=== PATIENT | male | born 1975 | race Caucasian/White ===

== ENCOUNTER → 2023-09-24 | Outpatient (CLI) | payer OTHER, SELFPAY ==
--- NOTE | 2023-09-24 08:32 | RAD_ITS ---
STUDY: X-RAY CHEST REASON FOR EXAM: Male, 48 years old. malaise, high BP, hx chemotherapy TECHNIQUE: PA and lateral views of the chest. COMPARISON: None. FINDINGS: The lungs are clear and expanded. There is no demonstrated pleural abnormality. Normal size heart. Normal mediastinum and sheri. Normal visualized pulmonary arteries. Normal visualized aortic arch and descending thoracic aorta. Normal visualized thoracic spine. Normal visualized ribs, clavicles, and shoulders. There is no demonstrated abnormality of the visualized soft tissue structures of the upper abdomen. RAD/Chest PA and Lateral IMPRESSION: Normal x-ray examination of the chest. Electronically Signed: Nilton Maldonado MD at 21:06 EST ,
[2023-09-24 08:57] LABS: Absolute Lymphocyte Count 1.96 X10^3/uL (0.83-4.51); Absolute Neutrophil Count 3.9 X10^3/uL (2.0-7.7); Basophil# 0.03 X10^3/uL; Basophil% 0.5 % (0-1); Eosinophils% 1.5 % (0-5); Hematocrit 46.1 % (40-54); Hemoglobin 15.2 g/dL (13.0-16.5); Lymphocyte # 1.96 X10^3/ul (0.83-4.51); Lymphocyte % 30.3 % (19-41); Mean Corpuscular Hgb 28.3 pg (27.0-32.0); Mean Corpuscular Volume 85.8 fL (80-94); Monocyte% 7.7 % (0-10); NRBC Flagged by Analyzer 0 % (0-5); Neutrophil # 3.86 X10^3/uL (2.7-7.7); Neutrophil % 59.7 % (47-70); Platelet Count 268 K/mm3 (150-450); RBC Distribution Width CV 11.9 % (11.6-14.6); Red Blood Count 5.37 M/mm3 (4.6-6.2); White Blood Count 6.5 K/mm3 (4.4-11.0)
[2023-09-24 10:04] LABS: ALB/GLOB Ratio 1.1 RATIO (0.9-2.4); AST(SGOT) 18 U/L (15-37); Alanine Aminotransfer ALT/SGPT 30 U/L (16-61); Albumin, Serum 3.7 g/dL (3.2-5.0); Alkaline Phosphatase 75 U/L (45-117); Anion Gap 4 (5-15); BUN 26 mg/dL (7-18); CRP 4.73 mg/L (0.0-3.0); CRP, High Sensitivity Cardiac 4.44 mg/L; Calcium,Total 8.9 mg/dL (8.5-10.1); Chloride 107 mmol/L (98-107); Cholesterol 224 mg/dL (200); Creatinine, Serum 1.24 mg/dL (0.70-1.30); EST Glomerular Filtration Rate 66 mL/min (>60); Est Glom Filt Rate - Afr Amer 80 mL/min (>60); Globulin 3.4 g/dL (2.2-4.2); Glucose 100 mg/dL (74-106); High Density Lipoprotein 33 mg/dL; Magnesium 2.4 mg/dL (1.6-2.6); Potassium 4.1 mmol/L (3.5-5.1); Protein, Total 7.1 g/dL (6.4-8.2); Sodium Level 139 mmol/L (136-145); Thyroid Stim Hormone (TSH) 0.67 uIU/mL (0.358-3.74); Triglycerides 125 mg/dL; Very Low Density Lipoprotein 25 mg/dL (5-40)
[2023-09-24 10:05] LABS: Microalbumin,Random Urine 16.4 mg/L (NO RANGE EST.)
[2023-09-26 12:08] LABS: ANTINUCLEAR ANTIBODIES DIRECT Negative (Negative)
[2023-09-27 00:07] LABS: Lyme IgG P18 Ab Absent (.); Lyme IgG P23 Ab Absent (.); Lyme IgG P28 Ab Absent (.); Lyme IgG P30 Ab Absent (.); Lyme IgG P39 Ab Absent (.); Lyme IgG P41 Ab Absent (.); Lyme IgG P45 Ab Absent (.); Lyme IgG P58 Ab Absent (.); Lyme IgG P66 Ab Absent (.); Lyme IgG P93 Ab Absent (.); Lyme IgG WB Interpretation Negative (.); Lyme IgM P23 Ab Absent (.); Lyme IgM P39 Ab Absent (.); Lyme IgM P41 Ab Absent (.); Lyme IgM WB Interpretation Negative (.); PROEL- A/G Ratio 1.2 (0.7-1.7); PROEL- Albumin 3.6 g/dL (2.9-4.4); PROEL- Alpha-1 Globulin 0.2 g/dL (0.0-0.4); PROEL- Alpha-2 Globulin 0.7 g/dL (0.4-1.0); PROEL- Gamma Globulin 0.8 g/dL (0.4-1.8); PROEL- Globulin, Total 2.9 g/dL (2.2-3.9); PROEL- TOTAL PROTEIN 6.5 g/dL (6.0-8.5); PROEL-M-Spike Not Observed g/dL (Not Observed)
== END | disposition home or self-care (01) ==
PROVIDERS: PCP Family Medicine; Referring Provider Family Medicine; Visit Provider Family Medicine
DX: R00.2 Palpitations (principal); I10 Essential (primary) hypertension; Z85.72 Personal history of non-Hodgkin lymphomas; R53.81 Other malaise
CPT/HCPCS: 36415; 71046; 80053; 80061; 82043; 82570; 83735; 84165; 84443; 85025; 86038; 86140; 86141; 86617; 86665

== ENCOUNTER → 2023-10-26 | Outpatient (CLI) | payer OTHER, SELFPAY ==
--- NOTE | 2023-10-26 12:52 | ECHOD_ITS ---
Reason For Study: HISTORY OF CHEMOTHERAPY Procedure This was a 2D Doppler, Color Flow transthoracic echocardiogram. Myocardial strain analysis was performed in this exam to aid in the assessment of cardiac function. Exam performed in department. Left Ventricle Normal LV size. Left ventricular systolic function is normal. The estimated ejection fraction is 60 %. No regional wall motion abnormalities noted. Right Ventricle Normal RV size. Normal systolic function. Atria Normal left atrium. Normal right atrium. Mitral Valve Normal mitral valve. Tricuspid Valve Normal tricuspid valve. Mild tricuspid valve insufficiency. Aortic Valve Normal aortic valve. Pulmonic Valve Normal pulmonic valve. Great Vessels Normal aortic root. The pulmonary artery is normal size. Normal inferior vena cava. Pericardium/Pleural No pericardial effusion. MMode/2D Measurements & Calculations LVIDd: 4.2 cm IVSd: 1.1 cm LVOT diam: 2.2 cm LVIDs: 2.6 cm LVPWd: 1.1 cm LVOT area: 3.9 cm2 RVDd: 4.2 cm FS: 37.2 % Ao root diam: 4.0 cm LAV(MOD-bp): 51.6 ml LVAd ap4: 36.7 cm2 LAV(MOD-bp) Indexed: 22.6 ml/m2 LVLd ap4: 8.2 cm LAV(MOD-sp2): 62.9 ml EDV(MOD-sp4): 132.0 ml LAV(MOD-sp4): 43.3 ml EDV(sp4-el): 139.2 ml LVAs ap4: 20.3 cm2 LVLs ap4: 7.1 cm ESV(MOD-sp4): 50.0 ml ESV(sp4-el): 49.5 ml EF(MOD-sp4): 62.1 % EF(sp4-el): 64.4 % LVAd ap2: 37.8 cm2 SV(MOD-sp4): 82.0 ml SV(MOD-sp2): 79.6 ml LVLd ap2: 8.9 cm EDV(MOD-sp2): 131.9 ml EDV(sp2-el): 135.7 ml LVAs ap2: 21.2 cm2 LVLs ap2: 7.1 cm ESV(MOD-sp2): 52.3 ml ESV(sp2-el): 53.8 ml EF(MOD-sp2): 60.4 % SV(sp4-el): 89.7 ml LA dimension(2D): 4.2 cm LA A4 area: 16.4 cm2 RA A4 area: 17.2 cm2 TAPSE: 2.1 cm Time Measurements MV dec time: 0.15 sec Doppler Measurements & Calculations MV E max kevin: 72.3 cm/sec Lat Peak E' Kevin: 15.0 cm/sec Med Peak E' Kevin: 11.4 cm/sec MV A max kevin: 61.9 cm/sec E/E' lat: 4.8 E/E' med: 6.3 MV E/A: 1.2 Ao V2 max: 154.1 cm/sec LV V1 max: 121.9 cm/sec MV dec slope: 482.4 cm/sec2 Ao max P.5 mmHg LV V1 max P.9 mmHg Ao V2 mean: 101.6 cm/sec LV V1 mean P.6 mmHg Ao mean P.9 mmHg LV V1 mean: 90.9 cm/sec Ao V2 VTI: 32.2 cm LV V1 VTI: 25.9 cm AV (velocity ratio): 0.81 JUAN(I,D): 3.1 cm2 JUAN(V,D): 3.1 cm2 SV(LVOT): 100.9 ml PA V2 max: 103.0 cm/sec TR max kevin: 186.2 cm/sec PA max PG (full): 0.82 mmHg TR max P.9 mmHg ECHO/Echo Complete Interpretation Summary Normal LV size. Left ventricular systolic function is normal. The estimated ejection fraction is 60 %. The global longitudinal strain is normal. The global longitudinal strain = -17. 8 % (normal). Ordering Physician: Dean Peterson Referring Physician: Dean Peterson Performed By: Alba Bello RDCS
== END | disposition home or self-care (01) ==
LOC: CVS 12:52
PROVIDERS: PCP Family Medicine; Referring Provider Family Medicine; Visit Provider Family Medicine
DX: Z92.21 Personal history of antineoplastic chemotherapy (principal)
CPT/HCPCS: 93306

== ENCOUNTER 2024-08-15 07:30 | Outpatient (RCR) | payer OTHER, SELFPAY ==
--- NOTE | 2024-11-23 12:19 | HP.PT.NRP ---
Patient Information Patient Information: LORA BAILEY was seen in my office for initial evaluation on 07/20/24. The following Plan of Care was established for this patient: POC Established Initial Frequency: 2x /Week Initial Duration: 4 Weeks Anticipated Interventions Patient/Client Instruction: Educate patient on: Plan of Care Therapeutic Exercise to Include: Strength training, Body mechanics, Postural training, Dynamic Lumbar Stabilization and Scapular Strength/Stabilization For the Purpose of:: To decrease pain, To increase ROM, To improve muscle performance and motor function, To improve ability to perform ADL's and To improve ability of physical actions for home/community/work/leisure Last Seen Last Seen: This patient was last seen in our office . Pertinent comments regarding their Physical therapy will appear below: Pt has not returned through todays date for 30 days and is discontinued at this time. At this point I will be discontinuing this patient from physical therapy. I would be happy to see this patient again in the future if found appropriate by the physician. Thank you! Luis Enrique Clarke, PT, ATC Balance/Gait/Functional tests Balance/Special Test Scores Quick DASH Score: [phone]
== END 2024-08-15 19:00 | disposition home or self-care (01) ==
LOC: PT 07:30
PROVIDERS: PCP Family Medicine; Referring Provider Family Medicine; Visit Provider Family Medicine
DX: M25.511 Pain in right shoulder (principal); M25.512 Pain in left shoulder
CPT/HCPCS: 97110; 97161; 97530

== ENCOUNTER 2024-09-07 15:53 | Inpatient (IN) | payer OTHER, SELFPAY ==
[2024-09-07 15:55] VITALS: BP 149/112; PULSE 75; RESP 18; TEMP 35.9; O2SAT 99; BMI 32.8
--- NOTE | 2024-09-07 16:51 | CT_ITS ---
We are attempting to reach an attending provider to discuss findings. An addendum with communication details will be sent when the communication is complete. STUDY: CT ABDOMEN AND PELVIS WITH CONTRAST REASON FOR EXAM: Male, 49 years old. abd pain, hx of SBO RADIATION DOSAGE (If Supplied By Facility): CTDIvol = ( 16.08 ) mGy, DLP = ( 1324.85 ) mGycm TECHNIQUE: Transaxial images were obtained from the dome of the diaphragm to the symphysis pubis without oral contrast. IV 100mL Isovue-300 was administered. Sagittal and coronal images were reconstructed. Individualized dose optimization techniques were used for this CT. COMPARISON: September 03, 2013 FINDINGS: Mild bibasilar interstitial thickening. The visualized portions of the heart are within normal limits. No coronary artery calcification is observed Normal liver. Normal gallbladder and extrahepatic biliary system. Normal spleen. Normal pancreas. Normal bilateral adrenal glands. Normal right kidney. Small simple cyst in left kidney which will not require additional imaging Normal visualized stomach. There are postsurgical changes status post small bowel resection in left upper to mid abdomen. At the surgical site, there are mildly distended thick walled loops of bowel one of which appears to be adherent to the anterior abdominal wall with subtle stranding in the fat and decompressed loops distally suggesting partial small bowel obstruction likely due to adhesions.. Mild diverticular changes of the distal descending and sigmoid colon without evidence for acute diverticulitis. No evidence for acute appendicitis. Normal abdominal aorta. Normal inferior vena cava. Normal retroperitoneum. Normal urinary bladder. Trace of fluid in the pouch of Regis Small bilateral fat-containing inguinal hernias. Lumbar spine demonstrates mild spondylosis. CT/Abdomen/Pelvis W IV Cont ONLY IMPRESSION: Findings suspicious for small bowel obstruction at surgical site likely due to adhesions. Possibility of evolving changes of ischemic bowel not entirely excluded. Clinical correlation recommended Electronically Signed: Clyde Rowley MD at 17:52 EST ,
[2024-09-07 17:02] LABS: Absolute Lymphocyte Count 2.26 X10^3/uL (0.83-4.51); Absolute Neutrophil Count 6.5 X10^3/uL (2.0-7.7); Basophil# 0.04 X10^3/uL; Basophil% 0.4 % (0-1); Eosinophil# 0.09 X10^3/uL; Eosinophils% 0.9 % (0-5); Hematocrit 47.1 % (40-54); Hemoglobin 15.9 g/dL (13.0-16.5); Lymphocyte # 2.26 X10^3/ul (0.83-4.51); Lymphocyte % 22.9 % (19-41); Mean Corp Hgb Conc 33.8 g/dL (32-36); Mean Corpuscular Hgb 29.1 pg (27.0-32.0); Mean Corpuscular Volume 86.1 fL (80-94); Mean Platelet Vol. 10.7 fl (6.2-12.0); Monocyte# 0.97 X10^3/uL; Monocyte% 9.8 % (0-10); NRBC Flagged by Analyzer 0 % (0-5); Neutrophil % 65.8 % (47-70); Platelet Count 258 K/mm3 (150-450); RBC Distribution Width SD 37.8 fl (35.1-43.9); Red Blood Count 5.47 M/mm3 (4.6-6.2); White Blood Count 9.9 K/mm3 (4.4-11.0)
[2024-09-07 17:22] LABS: ALB/GLOB Ratio 1.3 RATIO (0.9-2.4); AST(SGOT) 14 U/L (15-37); Alanine Aminotransfer ALT/SGPT 29 U/L (16-61); Alkaline Phosphatase 70 U/L (45-117); Anion Gap 4 (5-15); BUN 27 mg/dL (7-18); BUN/Creat Ratio 21.6 RATIO (10-20); Calcium,Total 9.2 mg/dL (8.5-10.1); Chloride 108 mmol/L (98-107); Creatinine, Serum 1.25 mg/dL (0.70-1.30); EST Glomerular Filtration Rate 66 mL/min (>60); Est Glom Filt Rate - Afr Amer 79 mL/min (>60); Estimated Creatinine Clearance 95.22 ml/min; Globulin 3.1 g/dL (2.2-4.2); Glucose 103 mg/dL (74-106); Lipase 41 U/L (13-75); Protein, Total 7.1 g/dL (6.4-8.2); Sodium Level 139 mmol/L (136-145)
--- NOTE | 2024-09-07 17:28 | EDS_ITS ---
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 Patient states he started feeling uncomfortable yesterday. States it comes in waves. Is associate nausea. Pain seems to be centered in his left mid abdomen. Today the pain has been more intense and he states he is having higher peaks of the pain. He tried to eat lunch today of salad and rice and after that the pain became significantly worse. He notes that has been burping a lot does not been passing gas today. He did have a underwhelming bowel movement this morning that was much less than he normally would have. He states his initial bowel resection was in 1992. He did have an episode of a small bowel obstruction that was treated conservatively by Dr. English in 2012. He notes that has been urinating less but thinks he is dehydrated since he is not really been drinking or eating today. Denies any fever. No other complaints or concerns at this time [facility] Medical History Cancer of abdomen Bowel obstruction Home Medications ?Medication ?Instructions ?Recorded ?Last Taken ?Type esomeprazole magnesium 20 mg 20 mg PO DAILY GERD 09/07/24 Unknown History capsule,delayed release (Nexium) metoprolol succinate 25 mg 25 mg PO DAILY 09/07/24 Unknown History tablet,extended release 24 hr telmisartan 40 mg tablet 40 mg PO DAILY 09/07/24 Unknown History Allergy/AdvReac Type Severity Reaction Status Date / Time No Known Allergies Allergy Verified 09/07/24 15:55 Surgical History Hx of resection of small bowel Social History Smoking Status: Never smoker ROS ROS ED Constitutional Constitutional ED: Denies chills or fever(s) Gastrointestinal Gastrointestinal: Reports abdominal pain and nausea Musculoskeletal Musculoskeletal: Denies arthralgias or myalgias Integumentary Denies rash Neurologic Neurologic: Denies weakness Hematologic/Lymphatic Hematologic/Lymphatic: Denies easy bleeding or easy bruising EXAM Physical Exam Const Vital Signs: 09/07/24 15:55 09/07/24 17:54 09/07/24 19:00 Temperature 96.7 F L Temperature Source Temporal Pulse Rate 75 95 67 Respiratory Rate 18 16 15 Blood Pressure 149/112 H 132/75 H 157/94 H Blood Pressure Mean 124 94 115 Pulse Ox 99 96 95 Oxygen Delivery Method Room Air Room Air Room Air Positive well nourished and well developed General Appearance ED: well developed and NAD HEENT Reports moist mucous membranes normocephalic and atraumatic Neck supple Resp clear to auscultation bilaterally Cardio regular rate and regular rhythm GI non-distended Auscultation: hyperactive bowel sounds Palpation: soft, tender other (Left mid abdomen) and rebound tenderness present; Negative for guarding or rigid Back/Spine no CVA tenderness Extremity full ROM General Extremety ED: Negative for edema General Extremity: Negative for edema Neuro Sensorium / Orientation: alert, oriented to person, oriented to place and oriented to time Motor Exam: Negative for general weakness Psych mental status grossly normal and thought process normal Skin no wounds MDM MDM MDM Narrative Medical decision making narrative: Patient's evaluated for abdominal pain for 2 days associated nausea. Does have a history of small bowel obstruction that was treated nonoperatively and prior small bowel resection from Burkitt's lymphoma. Differential includes gastroenteritis, pancreatitis, small bowel obstruction, ileus and SHANNON Patient initially is given IV morphine, fluids and Zofran for symptoms in the emergency room. CBC, CMP, and lipase are all normal. CT of the abdomen and pelvis is suspicious for small bowel obstruction at surgical site likely due to adhesions and there is also possibility of evolving changes of ischemic bowel not entirely excluded. Lactate is added on because of this finding. Surgical consult obtained and I spoke with Dr. Arroyo. He evaluated the patient. NG tube will be placed. He admit the patient to his service. Given the lactate is normal as well as his white blood cell count and vital signs lower suspicion for acute ischemia at this time. Lab Data Attestation: I reviewed the patient's lab results. Labs: Laboratory Results - last 24 hr 09/07/24 09/07/24 16:37 18:02 WBC 9.9 RBC 5.47 Hgb 15.9 Hct 47.1 MCV 86.1 MCH 29.1 MCHC 33.8 RDW Std Deviation 37.8 RDW Coeff of [place]ana 12.0 Plt Count 258 MPV 10.7 Immature Gran % (Auto) 0.200 Neut % (Auto) 65.8 Lymph % (Auto) 22.9 [place] % (Auto) 9.8 Eos % (Auto) 0.9 Baso % (Auto) 0.4 Absolute Neuts (auto) 6.5 Absolute Lymphs (auto) 2.26 Nucleated RBC % 0 Sodium 139 Potassium 4.0 Chloride 108 H Carbon Dioxide 27.0 Anion Gap 4 L BUN 27 H Creatinine 1.25 Estim Creat Clear Calc 95.22 Est GFR (MDRD) Af Amer 79 Est GFR (MDRD) Non-Af 66 BUN/Creatinine Ratio 21.6 H Glucose 103 Lactic Acid 0.6 Calcium 9.2 Total Bilirubin 0.90 AST 14 L ALT 29 Alkaline Phosphatase 70 Total Protein 7.1 Albumin 4.0 Globulin 3.1 Albumin/Globulin Ratio 1.3 Lipase 41 Radiography Diagnostic Testing: Clinical Impression(s) from Imaging Studies Abdomen/Pelvis CT 09/07/24 16:51 IMPRESSION: Findings suspicious for small bowel obstruction at surgical site likely due to adhesions. Possibility of evolving changes of ischemic bowel not entirely excluded. Clinical correlation recommended Electronically Signed: Clyde Rowley MD at 17:52 EST , ADDENDUM: 09/07/24 1808 IMPRESSION: Findings suspicious for small bowel obstruction at surgical site likely due to adhesions. Possibility of evolving changes of ischemic bowel not entirely excluded. Clinical correlation recommended N.B. : The above Results were Read Back by Clyde Rowley MD to Joy Marie DO, and understanding confirmed on 09/07/2024 18:01:08 (ET). Electronically Signed: Clyde Rowley MD at 17:52 EST , Discharge Plan Dx/Rx/DC Orders Clinical Impression: Partial small bowel obstruction Disposition Disposition: Acute Care Hospital [facility] Discharge Date/Time: 09/07/24 20:24
[2024-09-07] MEDS: 0.9% Normal Saline (1000mL) 1,000 ML 1000 ML IV (17:34)
[2024-09-07] MEDS: Ondansetron 4 MG/2 ML Vial IV ×2 (17:35→19:54)
[2024-09-07] MEDS: morphine 8 MG/ML Syringe IV (17:36)
[2024-09-07 17:54] VITALS: BP 132/75; PULSE 95; RESP 16; O2SAT 96
[2024-09-07 18:47] LABS: Lactic Acid 0.6 mmol/L (0.4-1.9)
[2024-09-07 19:00] VITALS: BP 157/94; PULSE 67; RESP 15; O2SAT 95
--- NOTE | 2024-09-07 19:37 | RAD_ITS ---
STUDY: X-RAY - ABDOMEN/PELVIS REASON FOR EXAM: Male, 49 years old. NG Insertion TECHNIQUE: KUB COMPARISON: None. FINDINGS: Normal visualized lung bases. There is an unremarkable bowel gas pattern. There is no demonstrated free abdominal air. The visualized liver, spleen and kidneys are grossly normal in size and morphology. NG tube has been placed with tip in the mid to distal gastric fundus Normal soft tissue structures. Normal visualized osseous structures. RAD/Abdomen Single View (Portable) IMPRESSION: NG tube placement with tip in mid to distal gastric fundus. Electronically Signed: Clyde Rowley MD at 20:03 EST ,
--- NOTE | 2024-09-07 19:43 | PCM.HP.STD ---
[facility] - General General Date of Admission: 09/07/24 Chief Complaint: Acute onset abdominal pain associated with intractable nausea HPI Narrative LORA COSTA, is a 49 M who presents yesterday to [facility] with complaints of acute onset abdominal pain that began and has been progressive in its intensity he notes that the pain is focused over a small area in the left side of his abdomen and feels hot. He goes on to mention that he developed significant nausea and burping throughout today which is highly uncharacteristic for him. He does share that he had a bowel movement this morning but comments that this was not his regular and goes on to describe that it was both unformed and smaller volume than he normally experiences. Since that time he mentions that he has not had any passage of gas. Patient's ER workup is notable for normal laboratories, including a lactic acid, but CT imaging of the abdomen pelvis showed possible partial small bowel obstruction with other findings suggestive to radiology for possible ischemia and possible involvement by adhesions. Patient has a history of non-Hodgkin's B-cell lymphoma at the age of 17 which required first a surgical biopsy followed by exploratory laparotomy with small bowel resection in 1992. Patient states that his operation was undertaken at [facility]. He states that from -2012 he really had no significant GI difficulties but then in 2012 developed severe abdominal pain and presented to [facility] where he was managed with conservative bowel rest by Dr. English for a period of a few days. Now for the last 11 years Mr. Costa states he has been overall well but questions whether or not some recent travel may be part of the onset of his presentation today as his episode in 2012 was preceded by some recent travel to [place] at that time. He also notes that he recently completed a colonoscopy with Dr. Mcdowell of gastroenterology on 08/16/2024. His adds that he required a second bowel prep as Sutab's did not have their desired effect and he ultimately required magnesium citrate for the cleanout. He confirms that the findings of this endoscopy were entirely negative. [facility] Medical History Cancer of abdomen Bowel obstruction Home Medications ?Medication ?Instructions ?Recorded ?Last Taken ?Type metoprolol succinate 25 mg 25 mg PO DAILY 09/07/24 Unknown History tablet,extended release 24 hr telmisartan 40 mg tablet 40 mg PO DAILY 09/07/24 Unknown History Allergy/AdvReac Type Severity Reaction Status Date / Time No Known Allergies Allergy Verified 09/07/24 15:55 Surgical History Hx of resection of small bowel Social History Smoking Status: Never smoker Vital Signs Vital Signs Vital Signs: 09/07/24 15:55 09/07/24 17:54 09/07/24 19:00 Temperature 96.7 F L Temperature Source Temporal Pulse Rate 75 95 67 Respiratory Rate 18 16 15 Blood Pressure 149/112 H 132/75 H 157/94 H Blood Pressure Mean 124 94 115 Pulse Ox 99 96 95 Oxygen Delivery Method Room Air Room Air Room Air Weight Weight: 249 lb 3.2 oz Body Mass Index (BMI) 32.8 Physical Exam Const alert Constitutional Narrative: Mild distress from abdominal discomfort General Appearance: cooperative and well developed Resp normal respiratory effort GI GI Narrative: Evidence of prior exploratory laparotomy with well-healed incision. No evidence of herniation. Mildly distended, soft, focally tender to palpation in the left midabdomen and palpation of the right mid abdomen generates mild tenderness on the left. Results Lab / Micro Data 09/07/24 16:37 09/07/24 16:37 Labs: Laboratory Results - last 24 hr 09/07/24 16:37: WBC 9.9, RBC 5.47, Hgb 15.9, Hct 47.1, MCV 86.1, MCH 29.1, MCHC 33.8, RDW Std Deviation 37.8, RDW Coeff of Rossana 12.0, Plt Count 258, MPV 10.7, Immature Gran % (Auto) 0.200, Neut % (Auto) 65.8, Lymph % (Auto) 22.9, [place] % (Auto) 9.8, Eos % (Auto) 0.9, Baso % (Auto) 0.4, Absolute Neuts (auto) 6.5, Absolute Lymphs (auto) 2.26, Nucleated RBC % 0, Sodium 139, Potassium 4.0, Chloride 108 H, Carbon Dioxide 27.0, Anion Gap 4 L, BUN 27 H, Creatinine 1.25, Estim Creat Clear Calc 95.22, Est GFR (MDRD) Af Amer 79, Est GFR (MDRD) Non-Af 66, BUN/Creatinine Ratio 21.6 H, Glucose 103, Calcium 9.2, Total Bilirubin 0.90, AST 14 L, ALT 29, Alkaline Phosphatase 70, Total Protein 7.1, Albumin 4.0, Globulin 3.1, Albumin/Globulin Ratio 1.3, Lipase 41 09/07/24 18:02: Lactic Acid 0.6 Imaging Radiology Impression Abdomen/Pelvis CT 09/07/24 16:51 IMPRESSION: Findings suspicious for small bowel obstruction at surgical site likely due to adhesions. Possibility of evolving changes of ischemic bowel not entirely excluded. Clinical correlation recommended Electronically Signed: Clyde Rowley MD at 17:52 EST , ADDENDUM: 09/07/24 1808 IMPRESSION: Findings suspicious for small bowel obstruction at surgical site likely due to adhesions. Possibility of evolving changes of ischemic bowel not entirely excluded. Clinical correlation recommended N.B. : The above Results were Read Back by Clyde Rowley MD to Joy Marie DO, and understanding confirmed on 09/07/2024 18:01:08 (ET). Electronically Signed: Clyde Rowley MD at 17:52 EST , Assessment & Plan Assessment/Plan (1) Partial small bowel obstruction: PLAN: Patient is a 49-year-old male with history of small bowel resection for non-Hodgkin's B-cell lymphoma in 1992 as well as a history of 1 prior partial small bowel obstruction in 2013 who presents today with approximately 24-hour history of acute onset abdominal pain with progressive intensity and associated nausea/obstructive GI symptoms. Laboratories and vital signs are largely unremarkable but CT imaging does show evidence of segmental thickening and stranding/dilation of the jejunum apparently proximal to patient's prior enteroenterostomy in the left mid abdomen. Radiology impression is concerning for possible developing partial small bowel obstruction with involvement by adhesions and ischemia cannot be excluded. Additionally, I informed both emergency medicine and patient that this could represent segmental enteritis, but for its proximity to patient's anastomosis I do believe the radiology impression is more likely. I held a lengthy conversation with the patient and his spouse regarding conservative management of small bowel obstructions and included in this discussion and review of his imaging. Notably, patient's imaging from this presentation appears markedly better than his presentation in 2013 and so I am hopeful that he will respond similarly now 11 years later. For the initiation of conservative bowel rest I have asked for emergency department to place a nasogastric tube and confirm placement with a KUB. Thereafter patient is to be admitted to the [facility] floor with aspiration precautions and IV fluid resuscitation. Will plan to reevaluate in the a.m. but tentatively plan for Gastrografin small bowel follow-through. Patient and his had all their questions answered to their satisfaction and expressed appreciation for the time of discussion. Louie Arroyo MD General Surgery Endocrine Surgery Pager: [facility] [address] [place] [address], [facility], [address] [place] [address] Office: [phone] Charges/Coding Visit Charges Inpatient E&M: 42430 Init Hosp L2
[2024-09-07] MEDS: 0.9% Normal Saline (1000mL) 1,000 ML 999 ML IV (19:54)
[2024-09-07 20:02] VITALS: BP 114/79; PULSE 63; RESP 16; TEMP 36.9; O2SAT 96
[2024-09-07 20:22] LABS: Bedside Glucose 124 mg/dL (74-106)
[2024-09-07] MEDS: Lactated Ringers 1,000 ML 125 ML IV (20:59)
[2024-09-07 21:00] VITALS: O2SAT 90; BMI 34.0
[2024-09-07 21:09] VITALS: BP 136/92; PULSE 64; RESP 16; TEMP 36.6; O2SAT 98
[2024-09-07] MEDS: HYDROmorphone 0.5 MG/0.5 ML SYRINGE IV (21:28)
[2024-09-07] MEDS: Phenol/Sodium Phenolate 180ML 3 SPRAY MUCOUS MEM (21:28)
[2024-09-08] MEDS: Phenol/Sodium Phenolate 180ML 3 SPRAY MUCOUS MEM ×3 (02:52→21:10)
[2024-09-08] MEDS: Ondansetron 4 MG/2 ML Vial IV ×2 (03:02→10:20)
[2024-09-08 03:07] VITALS: BP 147/92; PULSE 69; RESP 16; TEMP 36.5; O2SAT 93
[2024-09-08] MEDS: Lactated Ringers 1,000 ML 125 ML IV ×2 (05:09→14:52)
[2024-09-08] MEDS: HYDROmorphone 0.5 MG/0.5 ML SYRINGE IV (05:18)
[2024-09-08 05:51] LABS: Absolute Lymphocyte Count 1.09 X10^3/uL (0.83-4.51); Absolute Neutrophil Count 6.4 X10^3/uL (2.0-7.7); Basophil# 0.02 X10^3/uL; Basophil% 0.2 % (0-1); Hematocrit 41.8 % (40-54); Lymphocyte # 1.09 X10^3/ul (0.83-4.51); Lymphocyte % 13.1 % (19-41); Mean Corp Hgb Conc 33.5 g/dL (32-36); Mean Corpuscular Hgb 29.3 pg (27.0-32.0); Mean Corpuscular Volume 87.4 fL (80-94); Mean Platelet Vol. 10.8 fl (6.2-12.0); Monocyte# 0.79 X10^3/uL; Monocyte% 9.5 % (0-10); NRBC Flagged by Analyzer 0 % (0-5); Neutrophil # 6.42 X10^3/uL (2.7-7.7); Neutrophil % 76.8 % (47-70); Platelet Count 217 K/mm3 (150-450); RBC Distribution Width SD 38.9 fl (35.1-43.9); Red Blood Count 4.78 M/mm3 (4.6-6.2); White Blood Count 8.4 K/mm3 (4.4-11.0)
[2024-09-08 06:13] LABS: Anion Gap 5 (5-15); BUN 26 mg/dL (7-18); BUN/Creat Ratio 22.6 RATIO (10-20); Calcium,Total 8.8 mg/dL (8.5-10.1); Chloride 109 mmol/L (98-107); Creatinine, Serum 1.15 mg/dL (0.70-1.30); EST Glomerular Filtration Rate 72 mL/min (>60); Est Glom Filt Rate - Afr Amer 87 mL/min (>60); Estimated Creatinine Clearance 102.33 ml/min; Glucose 138 mg/dL (74-106); Phosphorus 3.8 mg/dL (2.5-4.9); Potassium 4.3 mmol/L (3.5-5.1); Sodium Level 138 mmol/L (136-145)
--- NOTE | 2024-09-08 07:00 | RAD_ITS ---
STUDY: X-RAY - ABDOMEN/PELVIS REASON FOR EXAM: Male, 49 years old. f/u SBO TECHNIQUE: Two AP supine views of the abdomen and pelvis. COMPARISON: Abdominal x-ray dated September 07, 2022 FINDINGS: The feeding tube is stable in the proximal body of the stomach. Normal visualized lung bases. Mild gaseous distention is seen in the transverse colon and in jejunal bowel loops in the left upper quadrant. The pattern suggests enteritis or focal ileus. The visualized liver, spleen and kidneys are grossly normal in size and morphology. Normal soft tissue structures. Normal visualized osseous structures. RAD/Abdomen Single View (Portable) IMPRESSION: 1. Mild gaseous distention is seen in the transverse colon and in jejunal bowel loops in the left upper quadrant. The pattern suggests enteritis or focal ileus. Electronically Signed: Kt Parekh MD at 8:49 EST ,
[2024-09-08 08:08] VITALS: BP 146/95; PULSE 72; RESP 16; TEMP 36.6; O2SAT 94
--- NOTE | 2024-09-08 08:21 | PN.SURG_ITS ---
Subjective Subjective Patient seen and examined during AM rounds. He is found sitting upright in bed. He shares that he is feeling better today with less intense abdominal pain and that is also less diffuse. He denies any nausea. Unfortunately also denies any flatus or signs of bowel movements. Objective Data Objective Data Vital Signs: Vital Signs Temp Pulse Resp BP Pulse Ox O2 Del Method O2 Flow Rate 97.9 F 72 16 146/95 H 94 Room Air 2 09/08/24 08:08 09/08/24 08:08 09/08/24 08:08 09/08/24 08:08 09/08/24 08:08 09/08/24 08:09 09/07/24 21:09 Oxygen Flow Rate (L/min) 2 Oxygen Delivery Method Room Air Weight: 251 lb Body Mass Index (BMI) 34.0 Intake & Output: Intake and Output for Last 24 Hours 09/06/24 09/07/24 09/08/24 23:59 23:59 23:59 Intake Total 2019 1040 / 1040 Output Total 40 / 40 Balance 2019 1000 / 1000 Lab / Micro Data 09/08/24 05:26 09/08/24 05:26 Labs: Laboratory Results - last 24 hr 09/07/24 16:37: WBC 9.9, RBC 5.47, Hgb 15.9, Hct 47.1, MCV 86.1, MCH 29.1, MCHC 33.8, RDW Std Deviation 37.8, RDW Coeff of [place] 12.0, Plt Count 258, MPV 10.7, Immature Gran % (Auto) 0.200, Neut % (Auto) 65.8, Lymph % (Auto) 22.9, [place] % (Auto) 9.8, Eos % (Auto) 0.9, Baso % (Auto) 0.4, Absolute Neuts (auto) 6.5, Absolute Lymphs (auto) 2.26, Nucleated RBC % 0, Sodium 139, Potassium 4.0, C hloride 108 H, Carbon Dioxide 27.0, Anion Gap 4 L, BUN 27 H, Creatinine 1.25, Estim Creat Clear Calc 95.22, Est GFR (MDRD) Af Amer 79, Est GFR (MDRD) Non-Af 66, BUN/Creatinine Ratio 21.6 H, Glucose 103, Calcium 9.2, Total Bilirubin 0.90, AST 14 L, ALT 29, Alkaline Phosphatase 70, Total Protein 7.1, Albumin 4.0, Globulin 3.1, Albumin/Globulin Ratio 1.3, Lipase 41 09/07/24 18:02: Lactic Acid 0.6 09/07/24 19:52: POC Glucose 124 H 09/08/24 05:26: WBC 8.4, RBC 4.78, Hgb 14.0, Hct 41.8, MCV 87.4, MCH 29.3, MCHC 33.5, RDW Std Deviation 38.9, RDW Coeff of [place] 12.0, Plt Count 217, MPV 10.8, Immature Gran % (Auto) 0.400, Neut % (Auto) 76.8 H, Lymph % (Auto) 13.1 L, [place] % (Auto) 9.5, Eos % (Auto) 0.0, Baso % (Auto) 0.2, Absolute Neuts (auto) 6.4, Absolute Lymphs (auto) 1.09, Nucleated RBC % 0, Sodium 138, Potassium 4.3, C hloride 109 H, Carbon Dioxide 24.0, Anion Gap 5, BUN 26 H, Creatinine 1.15, Estim Creat Clear Calc 102.33, Est GFR (MDRD) Af Amer 87, Est GFR (MDRD) Non-Af 72, BUN/Creatinine Ratio 22.6 H, Glucose 138 H, Calcium 8.8, Phosphorus 3.8, Magnesium 2.0 Radiography Diagnostic Testing: Radiology Impression Abdomen/Pelvis CT 09/07/24 16:51 IMPRESSION: Findings suspicious for small bowel obstruction at surgical site likely due to adhesions. Possibility of evolving changes of ischemic bowel not entirely excluded. Clinical correlation recommended Electronically Signed: Clyde Rowley MD at 17:52 EST Reading Location ID and State: [address] [place] [address] Tel , Service support , ADDENDUM: 09/07/24 4832 IMPRESSION: Findings suspicious for small bowel obstruction at surgical site likely due to adhesions. Possibility of evolving changes of ischemic bowel not entirely excluded. Clinical correlation recommended N.B. : The above Results were Read Back by Clyde Rowley MD to Joy Marie DO, and understanding confirmed on 09/07/2024 18:01:08 (ET). Electronically Signed: Clyde Rowley MD at 17:52 EST , KUB X-Ray 09/07/24 19:37 IMPRESSION: NG tube placement with tip in mid to distal gastric fundus. Electronically Signed: Clyde Rowley MD at 20:03 EST , Physical Exam Const oriented x3 and no apparent distress Resp normal respiratory effort GI GI Narrative: Nasogastric tube in place with scant watery output. Abdomen is nondistended, soft, and mildly tender to palpation of the left mid abdomen. Assessment & Plan Assessment/Plan (1) Partial small bowel obstruction: PLAN: Patient is a 49-year-old male with history of small bowel resection for non-Hodgkin's B-cell lymphoma in 1992 as well as a history of 1 prior partial small bowel obstruction in 2012 who presents today with approximately 24-hour history of acute onset abdominal pain with progressive intensity and associated nausea/obstructive GI symptoms. Patient is hospital day 2 for admission for partial small bowel obstruction with evidence of possible associated bowel ischemia. Patient underwent placement of nasogastric tube yesterday but has had minimal output. This is not entirely surprising given that the contents of the stomach showing on CT imaging appeared to be more solid in consistency. Still, patient is reporting an improvement of his abdominal discomfort and his exam is also improved. KUB obtained this morning shows relatively nonobstructive bowel gas pattern and there is diffuse gas throughout the colon. I do, however, see mildly dilated loop of small bowel that appears to correlate with the loops seen on CT imaging yesterday. As stated though, patient is reporting less abdominal pain on exam. With this result I would like to press forward with our plans to complete a Gastrografin small bowel follow-through. Order has been placed instructions given to radiology. Patient is advised during this time to remain in an upright position to minimize his risk for aspiration. Will follow closely for results of this study. Continue n.p.o. Louie Arroyo MD General Surgery Endocrine Surgery Pager: [facility] [address] [place] [address], [address] [place] [address] Office: [phone] Charges/Coding Visit Charges Inpatient E&M: 88525 Subs Hosp L2
[2024-09-08] MEDS: Pantoprazole Sodium 40 MG in 0.9% Normal Saline (100mL MB+) 100 ML 330 MG IV (09:38)
[2024-09-08] MEDS: 0.9% Saline Lock 10 ML Syringe IV (10:20)
--- NOTE | 2024-09-08 12:50 | CASEMGMT ---
LUPIS CONCEPCION Assessment: Face to Face with pt for initial transition planning/care coordination assessment. LUPIS CONCEPCION introduced self and role at [facility], pt voices understanding and consents to assessment. Pt is A&O x4 and answers all questions appropriately at this time. Pt lying in bed with NG in in no distress. Care providers, pharmacy, and demographics verified/updated. Admitting Dx: partial small bowel obstruction PCP:Nicholas Specialists:ANABELA Mcdowell Pharmacy: [facility] Insurance: MMO Prescription Benefit: yes LNOK: Martha Costa, Living Arrangements: Pt lives with in a single story home with 2 steps to enter. Pt reports he is I in ADLs and denies concerns at home. Transportation: Pt drives self and denies concerns with transportation. DME:denies HHC/SNF: denies hx of Pt states no concerns with going home at time of dc. Pt states no further concerns/needs. CM to follow. Advised pt to ask CM if any further question/concerns/needs arise, voices understanding. Pt Goal: Home Plan: Home Altaf BAUGH CM
[2024-09-08 14:13] VITALS: BP 137/82; PULSE 85; RESP 18; TEMP 36.9; O2SAT 94
--- NOTE | 2024-09-08 15:50 | RAD_ITS ---
EXAM: FL SMALL BOWEL FOLLOW THROUGH CLINICAL INDICATION: f/u SBO -- Films: Immediately post GG, 3h, 6 h, 12 h, and 24h TECHNIQUE: Fluoroscopy of the small bowel including multiple serial delayed images following oral contrast administration. Fluoroscopic guidance was provided by a physician. COMPARISON: No relevant prior studies available. FINDINGS: SMALL BOWEL: Mild nonspecific small bowel distention. There is no small bowel obstruction. Small bowel transit time is within normal limits. The mucosal pattern is unremarkable. The terminal ileum is unremarkable. Appendix is visualized. RAD/Small Bowel Series Only IMPRESSION: No evidence of small bowel obstruction. Small bowel transit time is within normal limits. Electronically Signed: Josep Smith MD at 9:09 EST ,
[2024-09-08 21:26] VITALS: BP 141/93; PULSE 74; RESP 16; TEMP 37.3; O2SAT 98
[2024-09-08] MEDS: Ketorolac 30 MG/ML Syringe IV (22:49)
[2024-09-09 04:28] VITALS: BP 138/75; PULSE 72; RESP 16; TEMP 36.8; O2SAT 97
[2024-09-09 06:11] LABS: Absolute Lymphocyte Count 1.84 X10^3/uL (0.83-4.51); Absolute Neutrophil Count 4.8 X10^3/uL (2.0-7.7); Basophil# 0.02 X10^3/uL; Basophil% 0.3 % (0-1); Eosinophil# 0.09 X10^3/uL; Eosinophils% 1.2 % (0-5); Hematocrit 39.5 % (40-54); Hemoglobin 13.1 g/dL (13.0-16.5); Lymphocyte # 1.84 X10^3/ul (0.83-4.51); Lymphocyte % 24.2 % (19-41); Mean Corp Hgb Conc 33.2 g/dL (32-36); Mean Corpuscular Hgb 28.7 pg (27.0-32.0); Mean Corpuscular Volume 86.4 fL (80-94); Mean Platelet Vol. 10.7 fl (6.2-12.0); Monocyte# 0.86 X10^3/uL; Monocyte% 11.3 % (0-10); NRBC Flagged by Analyzer 0 % (0-5); Neutrophil # 4.77 X10^3/uL (2.7-7.7); Neutrophil % 62.6 % (47-70); Platelet Count 167 K/mm3 (150-450); RBC Distribution Width CV 11.7 % (11.6-14.6); Red Blood Count 4.57 M/mm3 (4.6-6.2); White Blood Count 7.6 K/mm3 (4.4-11.0)
--- NOTE | 2024-09-09 07:00 | RAD_ITS ---
EXAM: XR ABDOMEN, 1 VIEW CLINICAL INDICATION: f/u sbft TECHNIQUE: Frontal supine view of the abdomen/pelvis. COMPARISON: 09/08/2024 FINDINGS: GASTROINTESTINAL TRACT: Contrast is identified within the colon and in the rectum. Nonobstructive bowel gas pattern. Postoperative changes of the bowel within the left lower quadrant. ORGANS: Normal as visualized. No organomegaly. No abnormal calcifications. BONES/JOINTS: No acute pathology. SOFT TISSUES: No acute pathology. TUBES, LINES AND DEVICES: Enteric tube present with tip and side-port below the GE junction. RAD/Abdomen Single View (Portable) IMPRESSION: Contrast is identified within the colon and in the rectum. Nonobstructive bowel gas pattern. Postoperative changes of the bowel within the left lower quadrant. Electronically Signed: Ray Collier DO at 11:09 EST ,
[2024-09-09 07:06] LABS: Anion Gap 7 (5-15); BUN 19 mg/dL (7-18); Calcium,Total 8.5 mg/dL (8.5-10.1); Chloride 109 mmol/L (98-107); Creatinine, Serum 1.19 mg/dL (0.70-1.30); EST Glomerular Filtration Rate 69 mL/min (>60); Est Glom Filt Rate - Afr Amer 84 mL/min (>60); Estimated Creatinine Clearance 98.89 ml/min; Glucose 95 mg/dL (74-106); Phosphorus 2.3 mg/dL (2.5-4.9); Potassium 3.7 mmol/L (3.5-5.1); Sodium Level 139 mmol/L (136-145)
[2024-09-09 08:18] VITALS: BP 138/72; PULSE 76; RESP 16; TEMP 37; O2SAT 96
[2024-09-09] MEDS: Pantoprazole Sodium 40 MG in 0.9% Normal Saline (100mL MB+) 100 ML 330 MG IV (09:46)
[2024-09-09] MEDS: 0.9% Saline Lock 10 ML Syringe IV (09:47)
--- NOTE | 2024-09-09 10:23 | PN.SURG_ITS ---
Subjective Subjective Patient seen and examined during AM rounds. He is found resting in bed he reports that he had to loose bowel movements late last evening into this morning that were green in character. He confirms that he is feeling better today. He denies any abdominal pain at rest. He denies any nausea. He suggests a slight appetite but shares that the persistently indwelling nasogastric tube probably blunts some of his desire. Objective Data Objective Data Vital Signs: Vital Signs Temp Pulse Resp BP Pulse Ox O2 Del Method O2 Flow Rate 98.6 F 76 16 138/72 H 96 Room Air 2 09/09/24 08:18 09/09/24 08:18 09/09/24 08:18 09/09/24 08:18 09/09/24 08:18 09/09/24 08:22 09/07/24 21:09 Oxygen Flow Rate (L/min) 2 Oxygen Delivery Method Room Air Weight: 251 lb Body Mass Index (BMI) 34.0 Intake & Output: Intake and Output for Last 24 Hours 09/07/24 09/08/24 09/09/24 23:59 23:59 23:59 Intake Total 2019 3150.00 / 3150.00 Output Total 40 / 40 Balance 2019 3110.00 / 3110.00 Lab / Micro Data 09/09/24 05:39 09/09/24 05:39 Labs: Laboratory Results - last 24 hr 09/09/24 05:39: WBC 7.6, RBC 4.57 L, Hgb 13.1, Hct 39.5 L, MCV 86.4, MCH 28.7, MCHC 33.2, RDW Std Deviation 37.0, RDW Coeff of [place] 11.7, Plt Count 167, MPV 10.7, Immature Gran % (Auto) 0.400, Neut % (Auto) 62.6, Lymph % (Auto) 24.2, [place] % (Auto) 11.3 H, Eos % (Auto) 1.2, Baso % (Auto) 0.3, Absolute Neuts (auto) 4.8, Absolute Lymphs (auto) 1.84, Nucleated RBC % 0, Sodium 139, Potassium 3.7, Chloride 109 H, Carbon Dioxide 23.0, Anion Gap 7, BUN 19 H, Creatinine 1.19, Estim Creat Clear Calc 98.89, Est GFR (MDRD) Af Amer 84, Est GFR (MDRD) Non-Af 69, BUN/Creatinine Ratio 16.0, Glucose 95, Calcium 8.5, Phosphorus 2.3 L, Magnesium 2.0 Radiography Diagnostic Testing: Radiology Impression Small Bowel X-Ray 09/08/24 15:50 IMPRESSION: No evidence of small bowel obstruction. Small bowel transit time is within normal limits. Electronically Signed: Josep Smith MD at 9:09 EST , Physical Exam Const oriented x3 and no apparent distress Resp normal respiratory effort GI GI Narrative: Nondistended, soft, very slight tenderness to palpation of the left mid abdomen Assessment & Plan Assessment/Plan (1) Partial small bowel obstruction: PLAN: Patient is a 49-year-old male with history of small bowel resection for non-Hodgkin's B-cell lymphoma in 1992 as well as a history of 1 prior partial small bowel obstruction in 2012 who presents today with approximately 24-hour history of acute onset abdominal pain with progressive intensity and associated nausea/obstructive GI symptoms. Patient is hospital day 3 for admission for partial small bowel obstruction with evidence of possible associated bowel ischemia. Yesterday patient successfully completed a Gastrografin challenge with small bowel follow-through and there is no evidence of obstruction. This, in turn, resulted in return of bowel function. Patient reports that he is feeling better today. I do, however, see mildly dilated loop of small bowel that appears to correlate with the loops seen on CT imaging on his KUB today. He has some very mild persistent abdominal tenderness on exam. I shared with him that this may represent a chronic finding with his KUB and just some residual tenderness from his partial obstruction or there may be persistent underlying ischemia. With his clinical progress I advocate for advancing his diet and monitoring for tolerance. If the diet causes more discomfort then I would revert back to an n.p.o. status and advocate for diagnostic laparoscopy. I did share with . Mrs. Loaiza that in the event of surgery he would have to be consented for possible laparotomy and possible bowel resection. With this discussion they state that they are in agreement and we will plan to slowly advance diet. Nasogastric tube was discontinued at bedside. Additionally working towards some electrolyte replacement this morning. Patient is advised to continue frequent mobilization. Will follow for tolerance of diet. Louie Arroyo MD General Surgery Endocrine Surgery Pager: [facility] [address] [place] [address], [address] [place] [address] Office: [phone] Charges/Coding Visit Charges Inpatient E&M: 55535 Subs Hosp L2
[2024-09-09] MEDS: Potassium Phosphate 15 MM in 0.9% Normal Saline (250mL Bag) 250 ML 125 MM IV (10:41)
[2024-09-09 11:48] VITALS: PULSE 72
[2024-09-09] MEDS: Metoprolol(XL)Succ 25 MG Tablet PO (11:48)
[2024-09-09 14:39] VITALS: BP 144/91; PULSE 62; RESP 18; TEMP 37.2; O2SAT 96
[2024-09-09 20:49] VITALS: BP 136/94; PULSE 66; RESP 16; TEMP 36.9; O2SAT 95
[2024-09-10 06:09] VITALS: BP 140/92; PULSE 63; RESP 16; TEMP 36.8; O2SAT 98
[2024-09-10 07:12] LABS: Absolute Lymphocyte Count 1.63 X10^3/uL (0.83-4.51); Absolute Neutrophil Count 3.9 X10^3/uL (2.0-7.7); Basophil# 0.03 X10^3/uL; Basophil% 0.5 % (0-1); Eosinophil# 0.15 X10^3/uL; Eosinophils% 2.3 % (0-5); Hematocrit 40.6 % (40-54); Hemoglobin 13.4 g/dL (13.0-16.5); Lymphocyte # 1.63 X10^3/ul (0.83-4.51); Lymphocyte % 25.4 % (19-41); Mean Corpuscular Hgb 28.2 pg (27.0-32.0); Mean Corpuscular Volume 85.5 fL (80-94); Mean Platelet Vol. 10.5 fl (6.2-12.0); Monocyte# 0.73 X10^3/uL; Monocyte% 11.4 % (0-10); NRBC Flagged by Analyzer 0 % (0-5); Neutrophil # 3.86 X10^3/uL (2.7-7.7); Neutrophil % 60.2 % (47-70); Platelet Count 187 K/mm3 (150-450); RBC Distribution Width CV 11.6 % (11.6-14.6); Red Blood Count 4.75 M/mm3 (4.6-6.2); White Blood Count 6.4 K/mm3 (4.4-11.0)
[2024-09-10 07:46] LABS: Anion Gap 6 (5-15); BUN 15 mg/dL (7-18); BUN/Creat Ratio 13.2 RATIO (10-20); Calcium,Total 8.8 mg/dL (8.5-10.1); Chloride 110 mmol/L (98-107); Creatinine, Serum 1.14 mg/dL (0.70-1.30); EST Glomerular Filtration Rate 73 mL/min (>60); Est Glom Filt Rate - Afr Amer 88 mL/min (>60); Estimated Creatinine Clearance 103.23 ml/min; Glucose 96 mg/dL (74-106); Potassium 3.9 mmol/L (3.5-5.1); Sodium Level 140 mmol/L (136-145)
--- NOTE | 2024-09-10 09:04 | DCINST_ITS ---
Discharge Instructions Diet Discharge Diet: Soft diet (low fiber) DC O2, CPAP, BIPAP needs Additional Home O2 Discharge instructions: No Dressing / Incision Discharge Activity: May Drive and May Shower Dressing / Incision Call your doctor if you observe: Inability to have a bowel movement and Uncontrolled pain Follow Up Care Test Results: Test results from this visit will be discussed in further detail at your follow- up appointment, if applicable. Discharge Plan Admission Admit Date/Time: 09/07/24 19:17 Primary Reason for Your Visit: partial small bowel obstruction Attending Provider: Louie Arroyo Primary Care Provider: Dean Peterson Discharge Orders/Prescriptions Prescriptions: Continued telmisartan 40 mg tablet 40 mg PO DAILY metoprolol succinate 25 mg tablet extended release 24 hr 25 mg PO DAILY esomeprazole magnesium [Nexium] 20 mg capsule,delayed release(DR/EC) 20 mg PO DAILY Referrals / Follow Up: Dean Peterson MD [Primary Care Provider] - Disposition Disposition (needs filled in before D/C Order can be placed): Home, Self Care
--- NOTE | 2024-09-10 09:06 | PCM.DC.SUM ---
Providers Date of Admission: 09/07/24 Primary Care Physician: Dr. Dean Peterson MD Reason For Visit: PARTIAL SMALL BOWEL OBSTRUCTION Diagnosis Discharge Diagnosis (1) Partial small bowel obstruction: Status: Acute Code(s): K56.600 - Partial intestinal obstruction, unspecified as to cause Plan: Patient is a 49-year-old male with history of small bowel resection for non-Hodgkin's B-cell lymphoma in 1992 as well as a history of 1 prior partial small bowel obstruction in 2012 who presents today with approximately 24-hour history of acute onset abdominal pain with progressive intensity and associated nausea/obstructive GI symptoms. Patient is hospital day 3 for admission for partial small bowel obstruction with evidence of possible associated bowel ischemia. Yesterday patient successfully completed a Gastrografin challenge with small bowel follow-through and there is no evidence of obstruction. This, in turn, resulted in return of bowel function. Patient reports that he is feeling better today. I do, however, see mildly dilated loop of small bowel that appears to correlate with the loops seen on CT imaging on his KUB today. He has some very mild persistent abdominal tenderness on exam. I shared with him that this may represent a chronic finding with his KUB and just some residual tenderness from his partial obstruction or there may be persistent underlying ischemia. With his clinical progress I advocate for advancing his diet and monitoring for tolerance. If the diet causes more discomfort then I would revert back to an n.p.o. status and advocate for diagnostic laparoscopy. I did share with . Mrs. Loaiza that in the event of surgery he would have to be consented for possible laparotomy and possible bowel resection. With this discussion they state that they are in agreement and we will plan to slowly advance diet. Nasogastric tube was discontinued at bedside. Additionally working towards some electrolyte replacement this morning. Patient is advised to continue frequent mobilization. Will follow for tolerance of diet. Louie Arroyo MD General Surgery Endocrine Surgery Pager: [facility] [address] [place] [address], [facility], [address] [place] [id number] Office: [phone] Medications at Discharge Home Medications esomeprazole magnesium 20 mg capsule,delayed release (Nexium) 20 mg PO DAILY GERD 09/07/24 metoprolol succinate 25 mg tablet,extended release 24 hr 25 mg PO DAILY 09/07/24 telmisartan 40 mg tablet 40 mg PO DAILY 09/07/24 Hospital Course Operations None Procedures - (Small bowel follow-through) Summary of Care Provided Hospital Course: Patient is a 49-year-old male who was admitted on 09/07/2024 via the emergency department after presentation for acute onset and progressive abdominal pain associated with nausea and anorexia. Patient's presentation was most consistent for diagnosis of partial small bowel obstruction with possible associated ischemic small bowel (given findings of some thickening of the small bowel in an isolated fashion on CT imaging). Thus patient underwent placement of nasogastric tube in the emergency department and was admitted for conservative bowel management with intravenous fluid resuscitation. He had minimal output from his nasogastric tube and a small bowel follow-through with Gastrografin contrast was ordered the following day. Patient remained free of suction during this trial and describes some initial nausea but overall tolerated the exam and experienced transit of the contrast to the colon and the expected timeframe. His nasogastric tube was maintained throughout the day into the next morning until he was able to confirm that he had bowel movements morning of hospital day 3. At that point the tube was removed and he was initiated on a liquid diet. This diet was gradually advanced as Mr. Costa showed tolerance of each new level. He also, simultaneously, reported incremental improvements of his abdominal discomfort but remained mildly and focally tender to palpation of the left mid abdomen. I discussion was held on several occasions regarding possible diagnostic laparoscopy but I shared this could lead to unnecessary surgery as he may require repeat laparotomy with bowel resection in the event that the area could not be adequately laparoscopically evaluated. With this caution a joint decision was made to persist with conservative measures and after Mr. Costa proved tolerance we discussed discharge to home. This was ultimately granted hospital day 4 after Mr. Costa had tolerated a transitional diet and demonstrated normal laboratories. It was noted on his CBC that he had a mild elevation of his monocytes and the significance of this was frankly unknown. I suggested potential for outpatient recheck of this lab in Mr. Castellanos reached out to his PCP. I offered outpatient follow-up with me in the general surgery clinic but it was Mr. Wright's preference to reach out with a telephone call if he encountered any difficulty. He and his spouse expressed gratitude for the care received. Physical Exam Const alert, oriented x3 and no apparent distress Resp normal respiratory effort GI GI Narrative: Nondistended, soft, mildly tender (patient rates this at a 1-2 out of 10) with palpation on the left mid abdomen but otherwise completely benign Weight / BMI Weight Weight: 251 lb Body Mass Index (BMI) 34.0 ABG / Lab / Microbiology Data 09/10/24 06:46 09/10/24 06:46 Laboratory: Laboratory Results - last 24 hr 09/10/24 06:46: WBC 6.4, RBC 4.75, Hgb 13.4, Hct 40.6, MCV 85.5, MCH 28.2, MCHC 33.0, RDW Std Deviation 36.0, RDW Coeff of [place] 11.6, Plt Count 187, MPV 10.5, Immature Gran % (Auto) 0.200, Neut % (Auto) 60.2, Lymph % (Auto) 25.4, [place] % (Auto) 11.4 H, Eos % (Auto) 2.3, Baso % (Auto) 0.5, Absolute Neuts (auto) 3.9, Absolute Lymphs (auto) 1.63, Nucleated RBC % 0, Sodium 140, Potassium 3.9, Chloride 110 H, Carbon Dioxide 24.0, Anion Gap 6, BUN 15, Creatinine 1.14, Estim Creat Clear Calc 103.23, Est GFR (MDRD) Af Amer 88, Est GFR (MDRD) Non-Af 73, BUN/Creatinine Ratio 13.2, Glucose 96, Calcium 8.8 Radiography Diagnostic Testing: Radiology Impression Small Bowel X-Ray 09/08/24 15:50 IMPRESSION: No evidence of small bowel obstruction. Small bowel transit time is within normal limits. Electronically Signed: Josep Smith MD at 9:09 EST , KUB X-Ray 09/09/24 07:00 IMPRESSION: Contrast is identified within the colon and in the rectum. Nonobstructive bowel gas pattern. Postoperative changes of the bowel within the left lower quadrant. Electronically Signed: Ray Collier DO at 11:09 EST , D/C Instructions Discharge Diet: Soft diet (low fiber) Call your doctor if you observe: Inability to have a bowel movement and Uncontrolled pain DC O2, CPAP, BIPAP Needs Additional Home O2 Discharge instructions: No DC home with Oxygen: No Meaningful Use Info Meaningful Use Meaningful Use Diagnoses (Choose all that apply): None applicable Ischemic Stroke Statin Dosing Therapy Reference: STATIN DOSE THERAPY REFERENCE: * Patients > 75 years receive moderate or high dose statin therapy. * Patients 75 years or YOUNGER should receive HIGH intensity statin dose unless contraindicated. You will be required to document reason for non-treatment if statin daily dose does not meet guidelines. HIGH DOSE STATIN THERAPY DAILY Atorvastatin > than or = to 40 mg Rosuvastatin > than or = to 20 mg Amlodipine + Atorvastatin > than or = to 2.5/40 mg Ezetimibe + Simvastatin 10/80 mg Simvastatin 80mg Discharge Plan Admission Admit Date/Time: 09/07/24 19:17 Primary Reason for Your Visit: partial small bowel obstruction Attending Provider: Louie Arroyo Primary Care Provider: Dean Peterson Discharge Orders/Prescriptions Prescriptions: Continued telmisartan 40 mg tablet 40 mg PO DAILY metoprolol succinate 25 mg tablet extended release 24 hr 25 mg PO DAILY esomeprazole magnesium [Nexium] 20 mg capsule,delayed release(DR/EC) 20 mg PO DAILY Referrals / Follow Up: Dean Peterson MD [Primary Care Provider] - Disposition Disposition (needs filled in before D/C Order can be placed): Home, Self Care Charges/Coding Visit Charges Inpatient E&M: 52839 Disch Hosp
[2024-09-10 10:52] VITALS: BP 158/99; PULSE 69; RESP 16; TEMP 37; O2SAT 96
[2024-09-10 10:54] VITALS: BP 158/99; PULSE 69
[2024-09-10] MEDS: Metoprolol(XL)Succ 25 MG Tablet PO (10:54)
[2024-09-10] MEDS: Pantoprazole Sodium 20 MG Tablet PO (10:54)
[2024-09-10] MEDS: Losartan Potassium 50 MG Tablet PO (11:19)
[2024-09-10 13:08] VITALS: BP 142/99; PULSE 64; RESP 16; TEMP 36.8; O2SAT 98
== END 2024-09-10 13:16 | disposition home or self-care (01) | DRG 395 ==
LOC: ED 17:15 → MS3 19:54
PROVIDERS: Admitting Provider Surgery; Emergency Provider Emergency Medicine; PCP Family Medicine; Referring Provider Emergency Medicine; Visit Provider Surgery
DX: K55.019 Acute (reversible) ischemia of small intestine, extent unspecified (principal); Z85.72 Personal history of non-Hodgkin lymphomas
CPT/HCPCS: 36415; 74018; 74177; 74250; 80048; 80053; 82962; 83605; 83690; 83735; 84100; 85025; 99285; J7030; J7050; J7120; Q9967; A4216; J2405

== ENCOUNTER → 2024-09-14 | Outpatient (CLI) | payer OTHER, SELFPAY ==
[2024-09-14 10:16] LABS: Absolute Lymphocyte Count 1.76 X10^3/uL (0.83-4.51); Absolute Neutrophil Count 3.4 X10^3/uL (2.0-7.7); Basophil# 0.02 X10^3/uL; Basophil% 0.3 % (0-1); Eosinophil# 0.14 X10^3/uL; Eosinophils% 2.3 % (0-5); Hematocrit 44.1 % (40-54); Hemoglobin 14.8 g/dL (13.0-16.5); Lymphocyte # 1.76 X10^3/ul (0.83-4.51); Lymphocyte % 29.5 % (19-41); Mean Corp Hgb Conc 33.6 g/dL (32-36); Mean Corpuscular Volume 86.5 fL (80-94); Mean Platelet Vol. 10.8 fl (6.2-12.0); Monocyte# 0.61 X10^3/uL; Monocyte% 10.2 % (0-10); NRBC Flagged by Analyzer 0 % (0-5); Neutrophil # 3.42 X10^3/uL (2.7-7.7); Neutrophil % 57.5 % (47-70); Platelet Count 235 K/mm3 (150-450); RBC Distribution Width CV 11.9 % (11.6-14.6); RBC Distribution Width SD 37.6 fl (35.1-43.9)
[2024-09-14 10:44] LABS: ALB/GLOB Ratio 1.1 RATIO (0.9-2.4); AST(SGOT) 18 U/L (15-37); Alanine Aminotransfer ALT/SGPT 27 U/L (16-61); Albumin, Serum 3.6 g/dL (3.2-5.0); Alkaline Phosphatase 72 U/L (45-117); Anion Gap 4 (5-15); BUN 19 mg/dL (7-18); BUN/Creat Ratio 14.3 RATIO (10-20); CRP 9.53 mg/L (0.0-3.0); Chloride 110 mmol/L (98-107); Creatinine, Serum 1.33 mg/dL (0.70-1.30); EST Glomerular Filtration Rate 61 mL/min (>60); Est Glom Filt Rate - Afr Amer 74 mL/min (>60); Globulin 3.2 g/dL (2.2-4.2); Glucose 102 mg/dL (74-106); Potassium 4.1 mmol/L (3.5-5.1); Protein, Total 6.8 g/dL (6.4-8.2); Sodium Level 141 mmol/L (136-145)
== END | disposition home or self-care (01) ==
LOC: MTLAB 08:03
PROVIDERS: PCP Family Medicine; Referring Provider Family Medicine; Visit Provider Family Medicine
DX: I10 Essential (primary) hypertension (principal)
CPT/HCPCS: 36415; 80053; 85025; 86140

== ENCOUNTER → 2024-10-29 | Outpatient (CLI) | payer OTHER, SELFPAY ==
--- NOTE | 2024-10-29 08:53 | RAD_ITS ---
STUDY: X-RAY - RIGHT SHOULDER REASON FOR EXAM: Male, 49 years old. Pain. TECHNIQUE: 4 views of the right shoulder. COMPARISON: None. FINDINGS: Normal glenohumeral articulation. Normal acromioclavicular joint. Normal acromion. Normal humeral head and visualized proximal humerus. The soft tissue structures are unremarkable. There is no demonstrated fracture. Normal visualized pulmonary apex. RAD/Shoulder min 2 Views IMPRESSION: Normal x-ray examination of the right shoulder. Electronically Signed: Avelino Taylor MD at 11:45 EST ,
--- NOTE | 2024-10-29 09:00 | RAD_ITS ---
STUDY: X-RAY - LEFT SHOULDER REASON FOR EXAM: Male, 49 years old. Pain. TECHNIQUE: 4 views of the left shoulder. COMPARISON: None. FINDINGS: Normal glenohumeral articulation. Normal acromioclavicular joint. Normal acromion. Normal humeral head and visualized proximal humerus. The soft tissue structures are unremarkable. There is no demonstrated fracture. Normal visualized pulmonary apex. RAD/Shoulder min 2 Views IMPRESSION: Normal x-ray examination of the left shoulder. Electronically Signed: Avelino Taylor MD at 11:44 EST ,
== END | disposition home or self-care (01) ==
PROVIDERS: PCP Family Medicine; Referring Provider Family Medicine; Visit Provider Family Medicine
DX: M25.519 Pain in unspecified shoulder (principal)

== ENCOUNTER → 2025-01-31 | Outpatient (CLI) | payer OTHER, SELFPAY ==
--- NOTE | 2025-01-31 13:40 | RAD_ITS ---
PROCEDURE: CHEST PA AND LATERAL 01/31/2025 REASON FOR EXAM: CRP ELEVATED 2 day history of fever. TECHNIQUE: Frontal and lateral views of the chest. COMPARISON: None FINDINGS: Hardware: None Heart: The heart size is normal. Mediastinum: The mediastinal contour is unremarkable. Lungs: There are granulomatous calcifications. The lungs are otherwise clear. Bones: The bones are unremarkable. RAD/Chest PA and Lateral IMPRESSION: Calcified granulomas disease. No focal abnormality is seen. Reading Location: [place] [id number]
== END | disposition home or self-care (01) ==
LOC: RAD 13:38
PROVIDERS: PCP Family Medicine; Referring Provider Family Medicine; Visit Provider Family Medicine
DX: R79.82 Elevated C-reactive protein (CRP) (principal)
CPT/HCPCS: 71046

== ENCOUNTER → 2025-01-31 | Outpatient (CLI) | payer OTHER, SELFPAY ==
[2025-01-31 08:47] LABS: Bacteria 0 SEEN /hpf (None Seen)
[2025-01-31 10:26] LABS: Absolute Lymphocyte Count 0.68 X10^3/uL (0.83-4.51); Absolute Neutrophil Count 5.4 X10^3/uL (2.0-7.7); Basophil# 0.01 X10^3/uL; Basophil% 0.1 % (0-1); Eosinophil# 0.01 X10^3/uL; Eosinophils% 0.1 % (0-5); Hematocrit 44.6 % (40-54); Hemoglobin 15.1 g/dL (13.0-16.5); Lymphocyte # 0.68 X10^3/ul (0.83-4.51); Lymphocyte % 10.1 % (19-41); Mean Corp Hgb Conc 33.9 g/dL (32-36); Mean Corpuscular Hgb 29.5 pg (27.0-32.0); Mean Corpuscular Volume 87.3 fL (80-94); Mean Platelet Vol. 10.9 fl (6.2-12.0); Monocyte# 0.61 X10^3/uL; Monocyte% 9.1 % (0-10); NRBC Flagged by Analyzer 0 % (0-5); Neutrophil # 5.36 X10^3/uL (2.7-7.7); Neutrophil % 80.2 % (47-70); Platelet Count 196 K/mm3 (150-450); RBC Distribution Width CV 11.9 % (11.6-14.6); RBC Distribution Width SD 38.5 fl (35.1-43.9); Red Blood Count 5.11 M/mm3 (4.6-6.2); White Blood Count 6.7 K/mm3 (4.4-11.0)
[2025-01-31 10:32] LABS: Erythrocyte Sedimentation Rate 1 mm/hr (0-20)
[2025-01-31 10:33] LABS: ALB/GLOB Ratio 1.6 RATIO (0.9-2.4); AST(SGOT) 48 U/L (<=37); Alanine Aminotransfer ALT/SGPT 47 U/L (<=46); Alkaline Phosphatase 74 U/L (40-129); Anion Gap 9 (5-15); BUN 22 mg/dL (4-19); BUN/Creat Ratio 14.4 RATIO (10-20); Carbon Dioxide 25.5 mmol/L (21.0-32.0); Chloride 103 mmol/L (98-108); Creatinine, Serum 1.54 mg/dL (0.70-1.20); EST Glomerular Filtration Rate 55 (>60); Globulin 2.5 g/dL (2.2-4.2); Glucose 107 mg/dL (70-99); Lipase 29 U/L (13-75); Potassium 4.7 mmol/L (3.3-5.1); Protein, Total 6.6 g/dL (5.9-8.4); Sodium Level 137 mmol/L (133-145); Total Bilirubin 0.88 mg/dL (0.00-1.30)
[2025-01-31 11:59] LABS: Color, Urine Yellow (Yellow); Glucose, Dipstick Normal (Normal); Ketone-Dipstick Negative (Negative); Leukocyte Esterase-Dipstick 25 /ul (Negative); Nitrite-Dipstick Negative (Negative); Occult Blood-Urine Negative /ul (Negative); Urine Clarity Clear (Clear); Urine Urobilinogen 1 mg/dl (Normal)
[2025-01-31 12:06] LABS: Urine Bilirubin Dipstick 1 mg/dL (Negative)
[2025-01-31 12:09] LABS: Protein, Urine (Random) 47.6 mg/dL (0.0-12.0)
[2025-01-31 12:12] LABS: Red Blood Cells-Urine 0-5 SEEN /hpf (0-5); Squamous Epithelial Cells - UA 0-5 SEEN /hpf (0-5); White Blood Cells 0-5 SEEN /hpf (0-5)
[2025-01-31 12:13] LABS: Mucous, Urine 1+ /hpf (<or=2+)
== END | disposition home or self-care (01) ==
LOC: MFPLAB 08:45
PROVIDERS: PCP Family Medicine; Referring Provider Family Medicine; Visit Provider Family Medicine
DX: R50.9 Fever, unspecified (principal)
CPT/HCPCS: 36415; 80053; 81001; 83690; 84156; 85025; 85652; 86140; 87086

== ENCOUNTER → 2025-02-22 | Outpatient (CLI) | payer OTHER, SELFPAY ==
[2025-02-22 12:11] LABS: Absolute Lymphocyte Count 1.56 X10^3/uL (0.83-4.51); Absolute Neutrophil Count 3.5 X10^3/uL (2.0-7.7); Basophil# 0.02 X10^3/uL; Basophil% 0.4 % (0-1); Eosinophil# 0.03 X10^3/uL; Eosinophils% 0.5 % (0-5); Hematocrit 42.9 % (40-54); Hemoglobin 14.9 g/dL (13.0-16.5); Lymphocyte # 1.56 X10^3/ul (0.83-4.51); Lymphocyte % 27.9 % (19-41); Mean Corp Hgb Conc 34.7 g/dL (32-36); Mean Corpuscular Volume 86.5 fL (80-94); Mean Platelet Vol. 10.5 fl (6.2-12.0); Monocyte% 8.9 % (0-10); NRBC Flagged by Analyzer 0 % (0-5); Neutrophil # 3.48 X10^3/uL (2.7-7.7); Neutrophil % 62.1 % (47-70); Platelet Count 226 K/mm3 (150-450); RBC Distribution Width CV 11.8 % (11.6-14.6); RBC Distribution Width SD 37.2 fl (35.1-43.9); Red Blood Count 4.96 M/mm3 (4.6-6.2); White Blood Count 5.6 K/mm3 (4.4-11.0)
[2025-02-22 12:48] LABS: Lactic Acid < 1.0 mmol/L (0.0-2.0)
[2025-02-22 13:01] LABS: Cholesterol 230 mg/dL (<=200); High Density Lipoprotein 29 mg/dL; Low Density Lipoprotein Calc. 181 mg/dL; Triglycerides 99 mg/dL; Very Low Density Lipoprotein 20 mg/dL (5-40); cholesterol:hdl ratio screen 7.85
[2025-02-22 13:06] LABS: ALB/GLOB Ratio 1.7 RATIO (0.9-2.4); AST(SGOT) 37 U/L (<=37); Alanine Aminotransfer ALT/SGPT 31 U/L (<=46); Albumin, Serum 4.3 g/dL (3.5-5.0); Alkaline Phosphatase 74 U/L (40-129); Anion Gap 13 (5-15); BUN 18 mg/dL (4-19); BUN/Creat Ratio 12.7 RATIO (10-20); CRP < 3.00 mg/L (0.0-3.0); Calcium,Total 9.4 mg/dL (7.6-11.0); Chloride 104 mmol/L (98-108); Creatinine, Serum 1.38 mg/dL (0.70-1.20); EST Glomerular Filtration Rate 63 (>60); Globulin 2.5 g/dL (2.2-4.2); Glucose 86 mg/dL (70-99); Potassium 4.5 mmol/L (3.3-5.1); Protein, Total 6.8 g/dL (5.9-8.4); Sodium Level 138 mmol/L (133-145); Total Bilirubin 0.84 mg/dL (0.00-1.30)
== END | disposition home or self-care (01) ==
LOC: LAB 11:29
PROVIDERS: PCP Family Medicine; Referring Provider Family Medicine; Visit Provider Family Medicine
DX: K56.609 Unspecified intestinal obstruction, unspecified as to partial versus complete obstruction (principal); E78.00 Pure hypercholesterolemia, unspecified; Z85.72 Personal history of non-Hodgkin lymphomas
CPT/HCPCS: 36415; 80053; 80061; 83605; 85025; 86140

== ENCOUNTER → 2025-05-22 | Outpatient (CLI) | payer OTHER, SELFPAY ==
--- NOTE | 2025-05-22 14:39 | NEURO_ITS ---
NCS and/or EMG Patient Report Ordering Doctor: Vitaly Crockett DATE OF SERVICE: 05/22/25 Remigio presents for electrodiagnostic testing of the upper limbs. He reports numbness and tingling in both hands. Electrodiagnostic findings: Right median motor nerve demonstrates normal distal latency and amplitude with reduced conduction velocity. Left median motor response is within normal limits. Ulnar motor response is within normal limits bilaterally. Normal median and ulnar F?waves. Prolonged median sensory latency at the right wrist. Normal ulnar and radial sensory responses. Normal left median sensory latency at the wrist. Needle EMG testing was performed upper limbs. All muscles tested showed no evidence of denervation normal motor unit action potentials. Electrodiagnostic impression: This is an abnormal study. 1. Electrodiagnostic findings suggestive of right-sided median mononeuropathy. This consistent with a mild right carpal tunnel syndrome. There is no electrodiagnostic evidence for a left carpal tunnel syndrome. 2. No electrodiagnostic evidence is noted for cervical radiculopathy. Multi Select Codes Neurology Neurology Interp Codes: 40802-86 Musc test done w/n test comp (interp) (2) and 56341-72 [facility] cndj test 13/> studies (interp)
[2025-05-22 15:54] LABS: FOLATES,SERUM (FOLIC ACID) 8.30 ng/mL (4.60-34.80)
[2025-05-22 15:55] LABS: Anion Gap 11 (5-15); BUN 30 mg/dL (4-19); BUN/Creat Ratio 25.2 RATIO (10-20); Calcium,Total 9.7 mg/dL (7.6-11.0); Carbon Dioxide 25.9 mmol/L (21.0-32.0); Chloride 107 mmol/L (98-108); Glucose 100 mg/dL (70-99); Potassium 4.8 mmol/L (3.3-5.1); Vitamin B12 358 pg/mL (180-914)
--- OUTSIDE RECORDS SUMMARY | 2025-05-22 18:11 | XMS RPT_ITS | CCD ---
Author Organization [facility]ini[facility] Care Team Providers Care Baggage Agent Name Role Phone Crispin Parker Unavailable Unavailable Crispin Parker Unavailable Unavailable Denice Bauer Unavailable Unavailab le BORT, HEIDI L Unavailable Unavailable *SELF, REFERRED Unavailable Unavailable Lizette, Denice Serrano Unavailable Unavailab le ASH, EYAD Unavailable Unavailable DENICE BAUER Unavailable Unavailable Denice Bauer Primary Care Provider [phone] Denice Bauer MD Primary Care Provider Dr. Dean Peterson Primary Care Provider [phone] Dr. Fran Adhikari Attending Provider Lizette CURTIS, Denice Serrano Primary Care Provider Denice Bauer Primary Care Provider [phone] DENICE BAUER Primary Care Unavailab LESLY De Dios Referring Unavailable DENICE BAUER Primary Care Unavailab DENICE Aguila Primary Care UnavailDr. Dean Alvarez MD Primary Care Provider Dr. Dean Peterson MD Attending Provider [phone] Dr. Dean Peterson MD Referring Provider OLGA GARCIA Attending Cailinva DENICE Burnham Primary Care Unavailab OLGA Thrasher Attending Cailinva DENICE Burnham Primary Care UnavailDr. Dean Alvarez MD Primary Care Provider Dr. Dean Peterson MD Attending Provider Dr. Dean Peterson MD Referring Provider [phone] Peterson, Dean Primary Care Unavailable Peterson, Dean Referring Unavailable Peterson, Dean Attending Unavailable Peterson, Dean Primary Care Unavailable Peterson, Dean Referring Unavailable Peterson, Dean Attending Unavailable Peterson, Dean Primary Care Unavailable Peterson, Dean Attending Unavailable Peterson, Dean Referring Unavailable Peterson, Dean Primary Care Unavailable Peterson, Dean Referring Unavailable Peterson, Dean Attending Unavailable Louie Arroyo Admitting Unavailable Louie Arroyo Attending Unavailable Peterson, Dean Primary Care Unavailable Joy Marie Referring Unavailable Peterson, Dean Referring Unavailable Peterson, Dean Primary Care Unavailable Peterson, Dean Attending Unavailable Peterson, Dean Primary Care Unavailable Peterson, Dean Referring Unavailable Peterson, Dean Attending Unavailable Joy Marie Referring Unavailable Louie Arroyo Admitting Unavailable Louie Arroyo Attending Unavailable Louie Arroyo Consulting Unavailable Peterson, Dean Primary Care Unavailable Medications Current Medications Medication Drug Class(es) Dates Sig (Normalized) Sig (Original) [id number] 200 actuat albuterol 0.09 mg/actuat metered dose inhaler (4 sources) beta2-Adrenergic Agonist Start: 11-28-2024 take 2 puff(s) by inhalation every four hours as needed for wheezing albuterol HFA (PROVENTIL HFA, VENTOLIN HFA) 90 mcg/actuation inhaler Inhale 2 Puffs as instructed every 4 hours as needed for wheezing/shortnes s of breath. 6.7 g 11/28/2024 Active Start: 11-11-2019 End: 01-23-2021 take 2 puff(s) by inhalation every four hours as needed for wheezing albuterol HFA (PROAIR HFA) 90 mcg/actuation inhaler Indications: LRTI (lower respiratory tract infection) Inhale 2 Puffs as instructed every 4 hours as needed for Wheezing/Shortness of Breath. 1 Inhaler 11/11/2019 01/23/2021 Discontinued (Course of therapy completed) benzonatate 100 mg oral capsule (3 sources) Non-narcotic Antitussive Start: 11-28-2024 take 1 capsule by mouth every eight hours as needed benzonatate (TESSALON PERLE) 100 mg capsule Take 1 capsule by mouth three times a day as needed. 21 capsule 11/28/2024 Active cholecalciferol, vitamin D3, (VITAMIN D3 ORAL) (3 sources) cholecalciferol, vitamin D3, (VITAMIN D3 ORAL) Take by mouth. Active doxycycline hyclate 100 mg oral tablet (1 source) Tetracycline-class Drug Start: 12-02-2024 End: 12-09-2024 take 1 tablet by mouth twice daily doxycycline (VIBRA-TABS) 100 mg tablet Take 1 tablet by mouth two times a day for 7 days. 14 tablet 12/02/2024 12/09/2024 Active esomeprazole 20 mg delayed release oral capsule (3 sources) Proton Pump Inhibitor Start: 09-07-2024 take 1 capsule by mouth once daily Esomeprazole Magnesium (Nexium) 20 mg capsule,delayed release(DR/EC) Active 20 mg PO DAILY September 07, 2024 1:00am L-LYSINE ORAL (3 sources) L-LYSINE ORAL Ta ke by mouth. Active magnesium citrate (3 sources) MAGNESIUM CITRAT E ORAL Take by mouth. Active 24 hr metoprolol succinate 25 mg extended release oral tablet (10 sources) beta-Adrenergic Balaji Start: 09-07-2024 take 1 tablet by mouth once daily Metoprolol Succinate 25 mg tablet extended release 24 hr Active 25 mg PO DAILY September 07, 2024 1:00am Start: 01-16-2024 metoprolol suc cinate XL (Toprol-XL) 25 mg 24 hr tablet 01/16/2024 Active naproxen 500 mg oral tablet (5 sources) Nonsteroidal Anti-inflammatory Drug Start: 01-16-2021 take 1 tablet by mouth every twelve hours as needed naproxen (NAPROSYN) 500 mg tablet Take 1 tablet by mouth twice daily as needed (pain/inflammation, take with food.). 20 tablet 01/16/2021 Active Comment on above: Take 1 tablet by mouth twice daily as ne eded (pain/inflammation, take with food.). predniSONE 10 mg oral tablet (3 sources) Start: 12-02-2024 predniSONE (DELTASONE) 10 mg tablet Take 4 tabs daily for 3 days, then 2 tabs daily for 3 days, then 1 tab daily for 3 days with food. 21 tablet 12/02/2024 Active Start: 11-28-2024 End: 12-02-2024 take 1 tablet by mouth once daily at mealtime predniSONE (DELTASONE) 20 mg tablet Take 1 tablet by mouth once daily for 4 days. Take daily with food. 4 tablet 11/28/2024 12/02/2024 Active sour smith allergenic extract (3 sources) Non-Standardized Food Allergenic Extract, Non-Standardized Plant Allergenic Extract sour smith extract (TART SMITH EXTRACT ORAL) Take by mouth. Active telmisartan 40 mg oral tablet (10 sources) Angiotensin 2 Receptor Balaji Start: 09-07-20 take 1 tablet by mouth once daily Telmisartan 40 mg tablet Active 40 mg PO DAILY September 07, 2024 1:00am Start: 01-18-2024 take 1 tablet by marianela th once daily telmisartan (MIcarDIS) 20 mg tablet Take 1 tablet (20 mg) by mouth once daily. 01/18/2024 Active Completed/Discontinued Medications Medication Drug Class(es) Dates Sig (Normalized) Sig (Original) acetaminophen 300 mg / HYDROcodone bitartrate 5 mg oral tablet (5 sources) Opioid Agonist Start: 09-05-2013 End: 09-07-2024 Hydrocodone-Acetami nophen (Vicodin 5-300 Mg Tablet) 1 EACH tablet Discontinued 1 - 2 {tbl} PO EVERY 4 HOURS NEEDED as needed for Pain September 05, 2013 1:00am September 07, 2024 5:41pm codeine phosphate 2 mg/ml / guaiFENesin 20 mg/ml oral solution (1 source) Opioid Agonist Start: 07-12-2016 End: 01-23-2021 take 5-10 mL by mouth four times daily as needed for cough codeine-guaiFENesin (ROBITUSSIN AC) 10-100 mg/5 mL syrup Indications: Acute upper respiratory infection Take 5-10 mL by mouth four times daily as needed for Cough. May cause drowsiness. 120 mL 0 07/12/2016 01/23/2021 Discontinued (Course of therapy completed) fluticasone propionate 0.05 mg/actuat metered dose nasal spray (1 source) Corticosteroid Start: 07-12-2016 End: 01-23-2021 take 2 spray(s) by mouth once daily fluticasone (FLONASE) 50 mcg/actuation nasal spray Indications: Acute upper respiratory infection Use 2 Sprays in each nostril once daily. Rinse mouth after use. 1 Bottle 1 07/12/2016 01/23/2021 Discontinued (Course of therapy completed) Problems Active Problems Problem Classification Problem Date Documented Da te Episodic/Chronic Essential hypertension (1 source) Essential (primary) hypertension; Translations: [Essential (primary) hypertension] Onset: 10-15-2024 Chronic Fever of unknown origin (1 source) Fever, unspecified; Translations: [Fever, unspecified] Onset: 02-05-2025 Episodic Intestinal obstruction without hernia (6 sources) Partial obstruction of small bowel; Translations: [Partial intestinal obstruction, unspecified as to cause] Onset: 09-17-2024 09-18-2024 Episodic Neoplasms of unspecified nature or uncertain behavior (1 source) Neoplasm of uncertain behavior of skin; Translations: [Neoplasm of uncertain behavior of skin] 08-15-2023 Episodic Other and unspecified benign neoplasm (4 sources) Multiple benign melanocytic nevi ; Translations: [Melanocytic nevi, unspecified] 08-15-2023 Episodic Other and unspecified benign neoplasm (4 sources) Hemangioma of skin; Translations: [Hemangioma of skin and subcutaneous tissue] 08-15-2023 Episodic Other connective tissue disease (1 source) Pain in left foot; Translations: [Pain in left foot] 01-16-2021 Episodic Other lower respiratory disease (3 sources) Cough; Translations: [Acute cough] 11-28-2024 Episodic Other screening for suspected conditions (not mental disorders or infectious disease) (5 sources) Patient encounter status; Translations: [Encounter for screening for malignant neoplasm of skin] Onset: 08-14-2024 08-14-2024 Episodic Other skin disorders (4 sources) Lentiginosis; Translations: [Other melanin hyperpigmentation] 08-15-2023 Episodic Other skin disorders (8 sources) Seborrheic keratosis; Translations: [Other seborrheic keratosis] Onset: 03-15-2018 08-15-2023 Episodic Other skin disorders (1 source) Skin tag; Translations: [Other hypertrophic disorders of the skin] 08-14-2024 Episodic Other upper respiratory infections (5 sources) Sore throat symptom; Translations: [Acute pharyngitis, unspecified] Episodic Unclassified (1 source) Acute cough; Translations: [Acute cough] Onset: 11-28-2024 Past or Other Problems Problem Classification Problem Date Documented Da te Episodic/Chronic Other and unspecified benign neoplasm (5 sources) Hemangioma of skin and subcutaneous tissue; Translations: [Hemangioma of skin and subcutaneous tissue] Onset: 03-15-2018 08-11-2023 Episodic Other and unspecified benign neoplasm (4 sources) Benign neoplasm of skin; Translations: [Other benign neoplasm of skin, unspecified] Onset: 03-15-2018 08-11-2023 Episodic Other and unspecified benign neoplasm (4 sources) Melanocytic nevus of trunk; Translations: [Melanocytic nevi of trunk] Onset: 03-15-2018 08-11-2023 Episodic Other and unspecified benign neoplasm (1 source) Melanocytic nevus of face; Translations: [Melanocytic nevi of other parts of face] Onset: 03-15-2018 08-11-2023 Episodic Other and unspecified benign neoplasm (4 sources) Melanocytic nevus of right upper limb; Translations: [Melanocytic nevi of right upper limb, including shoulder] Onset: 03-15-2018 08-11-2023 Episodic Other and unspecified benign neoplasm (4 sources) Melanocytic nevus of left upper limb; Translations: [Melanocytic nevi of left upper limb, including shoulder] Onset: 03-15-2018 08-11-2023 Episodic Other and unspecified benign neoplasm (3 sources) Melanocytic nevi of other parts of face; Translations: [Benign neoplasm of skin of other and unspecified parts of face] Onset: 03-15-2018 08-11-2023 Episodic Other and unspecified benign neoplasm (2 sources) Melanocytic nevi, unspecified; Translations: [Melanocytic nevi, unspecified] Onset: 02-14-2024 Episodic Other and unspecified benign neoplasm (1 source) Hemangioma of skin and subcutaneous tissue; Translations: [Hemangioma of skin and subcutaneous tissue] Onset: 02-14-2024 Episodic Other non-epithelial cancer of skin (6 sources) History of malignant neoplasm of skin; Translations: [Personal history of other malignant neoplasm of skin] Onset: 02-14-2024 08-15-2023 Episodic Other non-traumatic joint disorders (1 source) Pain in unspecified shoulder; Translations: [Pain in unspecified shoulder] Onset: 11-21-2024 Episodic Other skin disorders (5 sources) Hypertrophic condition of skin; Translations: [Other hypertrophic disorders of the skin] Onset: 03-15-2018 08-11-2023 Episodic Other skin disorders (5 sources) Disorder of pigmentation; Translations: [Other melanin hyperpigmentation] Onset: 03-15-2018 08-11-2023 Episodic Other skin disorders (6 sources) Actinic keratosis; Translations: [Actinic keratosis] Onset: 03-15-2018 08-11-2023 Episodic Other skin disorders (1 source) Actinic keratosis; Translations: [Actinic keratosis] Onset: 08-11-2023 Episodic Other skin disorders (1 source) Other hypertrophic disorders of the skin; Translations: [Other hypertrophic disorders of the skin] Onset: 08-14-2024 Episodic Other skin disorders (1 source) Other melanin hyperpigmentation; Translations: [Other melanin hyperpigmentation] Onset: 02-14-2024 Episodic Other skin disorders (2 sources) Other seborrheic keratosis; Translations: [Other seborrheic keratosis] Onset: 02-14-2024 Episodic Unclassified (1 source) Patient encounter status 02-05-2025 Results Test Name Value Interpretation Reference Range Facility Absolute lymphocyte countOrd ered By: Dean Peterson on 02-22-2025 Lymphocytes Auto (Unsp spec) [#/Vol] 1.56 10*3/uL 0.83-4.51 [facility] Absolute neutrophil countOrd ered By: Dean Peterson on 02-22-2025 Neutrophils (Bld) [#/Vol] 3.5 10*3/uL 2.0-7.7 [facility] Anion gap in Serum or Plasma Ordered By: Dean Peterson on 02-22-2025 Anion gap [Moles/Vol] 13 mmol/L 5-15 [facility] Automated lymphocyte count a s percentage of total leukocytesOrdered By: Dean Peterson on 02-22-2025 Lymphocytes/100 WBC Auto (Unsp spec) 27.9 % 19-41 [facility] BUN/creatinine ratioOrdered By: Dean Peterson on 02-22-2025 Urea nitrogen/Creatinine [Mass ratio] 12.7 mg/mg 10-20 [facility] Basophil percentageOrdered B y: Dean Peterson on 02-22-2025 Basophils/100 WBC (Bld) 0.4 % 0-1 [facility] Bilirubin, totalOrdered By: Dean Peterson on 02-22-2025 Bilirubin [Mass/Vol] 0.84 mg/dL 0.00-1.30 [facility] CBC W/Diff, Automatedon Absolute Lymph 1.56 X10 3/uL Normal 0.83-4.51 [facility] Comment on above: Order Comment: Order Date: 09/14/24Order Info: 183- - CBCD Performed By: #### L 100.0100 #### [facility] [address] [place], [address] Absolute Neut 3.5 X10 3/uL Normal 2.0-7.7 [facility] Comment on above: Order Comment: Order Date: 09/14/24Order Info: 183- - CBCD Performed By: #### L 100.0100 #### [facility] [address] [place], [address] Basophils/100 WBC (Bld) 0.4 % Normal 0-1 [facility] Comment on above: Order Comment: Order Date: 09/14/24Order Info: 183- - CBCD Performed By: #### L 100.0100 #### [facility] [address] [place], [address] Eosinophils/100 WBC (Bld) 0.5 % Normal 0-5 [facility] Comment on above: Order Comment: Order Date: 09/14/24Order Info: 183- - CBCD Performed By: #### L 100.0100 #### [facility] [address] [place], [address] Erythrocyte distribution width (RBC) [Ratio] 11.8 % Normal 11.6-14.6 [facility] Comment on above: Order Comment: Order Date: 09/14/24Order Info: 183- - CBCD Performed By: #### L 100.0100 #### [facility] [address] [place], [address] Hematocrit (Bld) [Volume fraction] 42.9 % Normal 40-54 [facility] Comment on above: Order Comment: Order Date: 09/14/24Order Info: 183-10 - CBCD Performed By: #### L 100.0100 #### [facility] [address] [place], [address] Hemoglobin (Bld) [Mass/Vol] 14.9 g/dL Normal 13.0-16.5 [facility] Comment on above: Order Comment: Order Date: 09/14/24Order Info: 183-10 - CBCD Performed By: #### L 100.0100 #### [facility] [address] [place], [address] IG% 0.200 Normal 0.0-0.9 [facility] Comment on above: Order Comment: Order Date: 09/14/24Order Info: 183-10 - CBCD Result Comment: IG% - Immature Granulocytes (promyelocytes, myelocytes and metamyelocytes) > 1% indicates that a LEFT SHIFT is Present. Performed By: #### L 100.0100 #### [facility] [address] [place], [address] Lymphocytes/100 WBC (Bld) 27.9 % Normal 19-41 [facility] Comment on above: Order Comment: Order Date: 09/14/24Order Info: 183- - CBCD Performed By: #### L 100.0100 #### [facility] [address] [place], [address] MCH (RBC) [Entitic mass] 30.0 pg Normal 27.0-32.0 [facility] Comment on above: Order Comment: Order Date: 09/14/24Order Info: 183- - CBCD Performed By: #### L 100.0100 #### [facility] [address] [place], [address] MCHC (RBC) [Mass/Vol] 34.7 g/dL Normal 32-36 [facility] Comment on above: Order Comment: Order Date: 09/14/24Order Info: [id number] - CBCD Performed By: #### L 100.0100 #### [facility] [address] [place], [address] MCV (RBC) [Entitic vol] 86.5 fL Normal 80-94 [facility] Comment on above: Order Comment: Order Date: 09/14/24Order Info: [id number] - CBCD Performed By: #### L 100.0100 #### [facility] [address] [place], [address] Monocytes/100 WBC (Bld) 8.9 % Normal 0-10 [facility] Comment on above: Order Comment: Order Date: 09/14/24Order Info: [id number] - CBCD Performed By: #### L 100.0100 #### [facility] [address] [place], [address] Neutrophils/100 WBC (Bld) 62.1 % Normal 47-70 [facility] Comment on above: Order Comment: Order Date: 09/14/24Order Info: [id number] - CBCD Performed By: #### L 100.0100 #### [facility] [address] [place], [address] Nucleated RBC (Bld) [#/Vol] 0 10*3/uL Normal 0-5 [facility] Comment on above: Order Comment: Order Date: 09/14/24Order Info: [id number] - CBCD Performed By: #### L 100.0100 #### [facility] [address] [place], [address] Platelet mean volume (Bld) [Entitic vol] 10.5 fL Normal 6.2-12.0 [facility] Comment on above: Order Comment: Order Date: 09/14/24Order Info: [id number] - CBCD Performed By: #### L 100.0100 #### [facility] [address] [place], [address] Platelets (Bld) [#/Vol] 226 10*3/uL Normal 150-450 [facility] Comment on above: Order Comment: Order Date: 09/14/24Order Info: 183- - CBCD Performed By: #### L 100.0100 #### [facility] [address] [place], [address] RBC (Bld) [#/Vol] 4.96 10*6/uL Normal 4.6-6.2 [facility] Comment on above: Order Comment: Order Date: 09/14/24Order Info: 183- - CBCD Performed By: #### L 100.0100 #### [facility] [address] [place], [address] RDW SD 37.2 fl Normal 35.1-43.9 [facility] Comment on above: Order Comment: Order Date: 09/14/24Order Info: 183- - CBCD Performed By: #### L 100.0100 #### [facility] [address] [place], [address] WBC (Bld) [#/Vol] 5.6 10*3/uL Normal 4.4-11.0 [facility] Comment on above: Order Comment: Order Date: 09/14/24Order Info: 018- - CBCD Performed By: #### L 100.0100 #### [facility] [address] [place], [address] CRPon 02-22-2025 C-REACTIVE PROT < 3.00 Normal 0.0-3.0 [facility] Comment on above: Order Comment: Order Date: 09/14/24Order Info: [id number] - CMPOrder Date: 02/21/25Order Info: [id number] - LIPIDOrder Info: [id number] - CRP Performed By: #### L 500.2500, L100.0100 #### [facility] [address] [place], [place], [address] Calculated very low density lipoprotein (VLDL) cholesterol measurementOrdered By: Dean Peterson on 02-22-2025 Calculated very low density lipoprotein (VLDL) cholesterol measurement 20 mg/dL 5-40 [facility] Carbon dioxide, total [Moles /volume] in Central venous bloodOrdered By: Dean Peterson on 02-22-2025 CO2 [Moles/Vol] 21.0 mmol/L 21.0-32.0 [facility] Chloride assayOrdered By: Kameron Peterson on 02-22-2025 Chloride [Moles/Vol] 104 mmol/L 98-108 [facility] Comprehensive Metabolic Prof ilon 02-22-2025 Albumin [Mass/Vol] 4.3 g/dL Normal 3.5-5.0 [facility] Comment on above: Order Comment: Order Date: 09/14/24 Order Info: [id number] - CMP Order Date: 02/21/25 Order Info: [id number] - LIPID Order Info: [id number] - CRP Performed By: #### L 500.4100, L500.4050 #### [facility] [address] [place], [place], [address] Albumin/Globulin [Mass ratio] 1.7 {ratio} Normal 0.9-2.4 [facility] Comment on above: Order Comment: Order Date: 09/14/24 Order Info: [id number] - CMP Order Date: 02/21/25 Order Info: [id number] - LIPID Order Info: [id number] - CRP Performed By: #### L 500.4100, L500.4050 #### [facility] [address] [place], [place], [address] ALK PHOS 74 U/L Normal 40-129 [facility] Comment on above: Order Comment: Order Date: 09/14/24 Order Info: [id number] - CMP Order Date: 02/21/25 Order Info: [id number] - LIPID Order Info: [id number] - CRP Performed By: #### L 500.4100, L500.4050 #### [facility] [address] [place], [address] ALT [Catalytic activity/Vol] 31 U/L Normal <=46 [facility] Comment on above: Order Comment: Order Date: 09/14/24 Order Info: [id number] - CMP Order Date: 02/21/25 Order Info: [id number] - LIPID Order Info: [id number] - CRP Performed By: #### L 500.4100, L500.4050 #### [facility] [address] [place], [address] AST [Catalytic activity/Vol] 37 U/L Normal <=37 [facility] Comment on above: Order Comment: Order Date: 09/14/24 Order Info: [id number]- - CMP Order Date: 02/21/25 Order Info: [id number] - LIPID Order Info: [id number] - CRP Performed By: #### L 500.4100, L500.4050 #### [facility] [address] [place], [address] Bilirubin [Mass/Vol] 0.84 mg/dL Normal 0.00-1.30 [facility] Comment on above: Order Comment: Order Date: 09/14/24 Order Info: [id number] - CMP Order Date: 02/21/25 Order Info: [id number] - LIPID Order Info: [id number] - CRP Performed By: #### L 500.4100, L500.4050 #### [facility] [address] [place], [address] BUN/CRE 12.7 RATIO Normal 10-20 [facility] Comment on above: Order Comment: Order Date: 09/14/24 Order Info: 07-1 - CMP Order Date: 02/21/25 Order Info: [id number] - LIPID Order Info: [id number] - CRP Performed By: #### L 500.4100, L500.4050 #### [facility] [address] [place], [address] Calcium [Mass/Vol] 9.4 mg/dL Normal 7.6-11.0 [facility] Comment on above: Order Comment: Order Date: 09/14/24 Order Info: [id number] - CMP Order Date: 02/21/25 Order Info: [id number] - LIPID Order Info: [id number] - CRP Performed By: #### L 500.4100, L500.4050 #### [facility] [address] [place], [address] Chloride [Moles/Vol] 104 mmol/L Normal 98-108 [facility] Comment on above: Order Comment: Order Date: 09/14/24 Order Info: [id number] - CMP Order Date: 02/21/25 Order Info: [id number] - LIPID Order Info: [id number] - CRP Performed By: #### L 500.4100, L500.4050 #### [facility] [address] [place], [address] CO2 [Moles/Vol] 21.0 mmol/L Normal 21.0-32.0 [facility] Comment on above: Order Comment: Order Date: 09/14/24 Order Info: [id number]- - CMP Order Date: 02/21/25 Order Info: [id number] - LIPID Order Info: [id number] - CRP Performed By: #### L 500.4100, L500.4050 #### [facility] [address] [place], [address] Creatinine [Mass/Vol] 1.38 mg/dL High 0.70-1.20 [facility] Comment on above: Order Comment: Order Date: 09/14/24 Order Info: [id number] - CMP Order Date: 02/21/25 Order Info: [id number] - LIPID Order Info: [id number] - CRP Performed By: #### L 500.4100, L500.4050 #### [facility] [address] [place], [address] GAP 13 Normal 5-15 [facility] Comment on above: Order Comment: Order Date: 09/14/24 Order Info: [id number] - CMP Order Date: 02/21/25 Order Info: [id number] - LIPID Order Info: [id number] - CRP Performed By: #### L 500.4100, L500.4050 #### [facility] [address] [place], [address] GFR/1.73 sq M.predicted among non-blacks MDRD (S/P/Bld) [Vol rate/Area] 63 mL/min/{1.73_m2} Normal >60 [facility] Comment on above: Order Comment: Order Date: 09/14/24 Order Info: [id number]- - CMP Order Date: 02/21/25 Order Info: [id number] - LIPID Order Info: [id number] - CRP Result Comment: mL/m in/1.73m2 CKD-EPI Creatinine Equation (2020) Performed By: #### L 500.4100, L500.4050 #### [facility] [address] [place], [place], [address] Globulin (S) [Mass/Vol] 2.5 g/dL Normal 2.2-4.2 [facility] Comment on above: Order Comment: Order Date: 09/14/24 Order Info: [id number]- - CMP Order Date: 02/21/25 Order Info: [id number] - LIPID Order Info: [id number] - CRP Performed By: #### L 500.4100, L500.4050 #### [facility] [address] [place], [address] Glucose [Mass/Vol] 86 mg/dL Normal 70-99 [facility] Comment on above: Order Comment: Order Date: 09/14/24 Order Info: [id number] - CMP Order Date: 02/21/25 Order Info: [id number] - LIPID Order Info: [id number] - CRP Performed By: #### L 500.4100, L500.4050 #### [facility] [address] [place], [place], [address] Potassium [Moles/Vol] 4.5 mmol/L Normal 3.3-5.1 [facility] Comment on above: Order Comment: Order Date: 09/14/24 Order Info: 86-1 - CMP Order Date: 02/21/25 Order Info: [id number] - LIPID Order Info: [id number] - CRP Result Comment: Hemo lysis present, Results??could be affected. ?? Performed By: #### L 500.4100, L500.4050 #### [facility] [address] [place], [place], [address] Sodium [Moles/Vol] 138 mmol/L Normal 133-145 [facility] Comment on above: Order Comment: Order Date: 09/14/24 Order Info: 785- - CMP Order Date: 02/21/25 Order Info: [id number] - LIPID Order Info: [id number] - CRP Performed By: #### L 500.4100, L500.4050 #### [facility] [address] [place], [place], [address] T PROT 6.8 g/dL Normal 5.9-8.4 [facility] Comment on above: Order Comment: Order Date: 09/14/24 Order Info: [id number]- - CMP Order Date: 02/21/25 Order Info: [id number] - LIPID Order Info: [id number] - CRP Performed By: #### L 500.4100, L500.4050 #### [facility] [address] [place], [address] Urea nitrogen [Mass/Vol] 18 mg/dL Normal 4-19 [facility] Comment on above: Order Comment: Order Date: 09/14/24 Order Info: [id number] - CMP Order Date: 02/21/25 Order Info: [id number] - LIPID Order Info: [id number] - CRP Performed By: #### L 500.4100, L500.4050 #### [facility] [address] [place], [address] Eosinophil percentageOrdered By: Dean Peterson on 02-22-2025 Eosinophils/100 WBC (Bld) 0.5 % 0-5 [facility] Erythrocyte distribution wid th ratioOrdered By: Dean Peterson on 02-22-2025 Erythrocyte distribution width (RBC) [Ratio] 11.8 % 11.6-14.6 [facility] Erythrocyte distribution wid th standard deviationOrdered By: Dean Peterson on 02-22-2025 Erythrocyte distribution width (RBC) [Ratio] 37.2 fl 35.1-43.9 [facility] Glomerular filtration rate ( GFR) estimation/1.73 sq m using serum, plasma, or whole bOrdered By: Dean Peterson on 02-22-2025 GFR/1.73 sq M.predicted among non-blacks MDRD (S/P/Bld) [Vol rate/Area] 63 mL/min/{1.73_m2} >60 [facility] Comment on above: mL/min/1.73m2 CKD-EP I Creatinine Equation (2020) Hematocrit Auto (Bld) [Volum e fraction]Ordered By: Dean Peterson on 02-22-2025 Hematocrit (Bld) [Volume fraction] 42.9 % 40-54 [facility] Hemoglobin measurementOrdere d By: Dean Peterson on 02-22-2025 Hemoglobin (Bld) [Mass/Vol] 14.9 g/dL 13.0-16.5 [facility] Immature granulocytes/100 WB C Auto (Bld)Ordered By: Dean Peterson on 02-22-2025 Immature granulocytes/100 WBC (Bld) 0.200 % 0.0-0.9 [facility] Comment on above: IG% - Immature Granu locytes (promyelocytes, myelocytes and metamyelocytes) > 1% indicates that a LEFT SHIFT is Present. LDL calc ser/plasOrdered By: Dean Peterson on 02-22-2025 Cholesterol in LDL [Mass/Vol] 181 mg/dL [facility] Comment on above: Dtkzfneptu=410-866 m g/dL & Higher Luyo=200 mg/dL or greater Laboratory - Chemistry and C hemistry - challengeOrdered By: Dean Peterson on 02-22-2025 AST [Catalytic activity/Vol] 37 U/L <38 [facility] Lactic Acidon 02-22-2025 Lactate [Moles/Vol] mmol/L Normal 0.0-2.0 [facility] Comment on above: Order Comment: Order Date: 09/14/24Order Info: [id number] - LAY Performed By: #### L 100.0100 #### [facility] [address] [place], [address] Lactic acid measurementOrder ed By: Dean Peterson on 02-22-2025 Lactate [Moles/Vol] mmol/L 0.0-2.0 [facility] Lipid Profileon 02-22-2025 CHOL:HDL 7.85 Normal [facility] Comment on above: Order Comment: Order Date: 09/14/24 Order Info: [id number] - CMP Order Date: 02/21/25 Order Info: [id number] - LIPID Order Info: [id number] - CRP Performed By: #### L 500.4100, L500.4050 #### [facility] [address] [place], [address] Cholesterol [Mass/Vol] 230 mg/dL High <=200 [facility] Comment on above: Order Comment: Order Date: 09/14/24 Order Info: [id number] - CMP Order Date: 02/21/25 Order Info: [id number] - LIPID Order Info: [id number] - CRP Result Comment: Chol esterol level, Desirable <200 mg/dL Borderline high cholesterol 200-239 mg/dL High cholesterol >=240 mg/dL Recommendations of the NCEP Adult Treatment Panel for the following risk-cutoff thresholds for the [place] population. Performed By: #### L 500.4100, L500.4050 #### [facility] [address] [place], [address] Cholesterol in HDL [Mass/Vol] 29 mg/dL Low [facility] Comment on above: Order Comment: Order Date: 09/14/24 Order Info: [id number] - CMP Order Date: 02/21/25 Order Info: [id number] - LIPID Order Info: [id number] - CRP Result Comment: Kellen onal Cholesterol Education Program (NCEP) guidelines: <40 mg/dL: Low HDL-cholesterol (major risk factor for CHD) >= 60 mg/dL: High HDL-cholesterol (negative risk factor for CHD) HDL-cholesterol is affected by a number of factors, e.g. smoking, exercise, hormones, sex and age. Performed By: #### L 500.4100, L500.4050 #### [facility] [address] [place], [address] Cholesterol in LDL [Mass/Vol] 181 mg/dL Normal [facility] Comment on above: Order Comment: Order Date: 09/14/24 Order Info: [id number] - CMP Order Date: 02/21/25 Order Info: [id number] - LIPID Order Info: [id number] - CRP Result Comment: Bord vsjkww=166-793 mg/dL Higher Ozio=586 mg/dL or greater Performed By: #### L 500.4100, L500.4050 #### [facility] [address] [place], [address] Cholesterol in VLDL [Mass/Vol] 20 mg/dL Normal 5-40 [facility] Comment on above: Order Comment: Order Date: 09/14/24 Order Info: [id number] - CMP Order Date: 02/21/25 Order Info: [id number] - LIPID Order Info: [id number] - CRP Performed By: #### L 500.4100, L500.4050 #### [facility] [address] [place], [address] Triglyceride [Mass/Vol] 99 mg/dL Normal [facility] Comment on above: Order Comment: Order Date: 09/14/24 Order Info: [id number] - CMP Order Date: 02/21/25 Order Info: [id number] - LIPID Order Info: [id number] - CRP Result Comment: The drugs N-Acetylcysteine and Metamizole may falsely depress this assay. Normal range: <150 mg/dL Borderline High: 150-199 mg/dL High: 200-499 mg/dL Very High: >500 mg/dL Performed By: #### L 500.4100, L500.4050 #### [facility] [address] [place], [address] MCV (mean corpuscular volume ) determinationOrdered By: Dean Peterson on 02-22-2025 MCV (RBC) [Entitic vol] 86.5 fL 80-94 [facility] Mean corpuscular hemoglobin (MCH) determinationOrdered By: Dean Peterson on 02-22-2025 MCH (RBC) [Entitic mass] 30.0 pg 27.0-32.0 [facility] Mean corpuscular hemoglobin concentration (MCHC) determinationOrdered By: Dean Peterson on 02-22-2025 MCHC (RBC) [Mass/Vol] 34.7 g/dL 32-36 [facility] Mean platelet volume determi nationOrdered By: Dean Peterson on 02-22-2025 Platelet mean volume (Bld) [Entitic vol] 10.5 fL 6.2-12.0 [facility] Monocyte percentageOrdered B y: Dean Peterson on 02-22-2025 Monocytes/100 WBC (Bld) 8.9 % 0-10 [facility] Neutrophil percentageOrdered By: Dean Peterson on 02-22-2025 Neutrophils/100 WBC (Bld) 62.1 % 47-70 [facility] Nucleated red blood cell per centageOrdered By: Dean Peterson on 02-22-2025 Nucleated RBC/100 WBC (Bld) [Ratio] 0 % 0-5 [facility] Platelet countOrdered By: Kameron Peterson on 02-22-2025 Platelets (Bld) [#/Vol] 226 10*3/uL 150-450 [facility] Potassium measurement (mass/ volume)Ordered By: Dean Peterson on 02-22-2025 Potassium (Unsp spec) [Mass/Vol] 4.5 mmol/L 3.3-5.1 [facility] Comment on above: Hemolysis present, R esults could be affected. RBC Auto (Bld) [#/Vol]Ordere d By: Dean Peterson on 02-22-2025 RBC (Bld) [#/Vol] 4.96 10*6/uL 4.6-6.2 [facility] Screening total cholesterol/ high density lipoprotein (HDL) cholesterol ratioOrdered By: Dean Peterson on 02-22-2025 Cholesterol.total/Cholest debra in HDL [Mass ratio] 7.85 {ratio} [facility] Serum creatinine measurement (mass/volume)Ordered By: Dean Peterson on 02-22-2025 Creatinine [Mass/Vol] 1.38 mg/dL High 0.70-1.20 [facility] Serum globulin measurementOr dered By: Dean Peterson on 02-22-2025 Globulin (S) [Mass/Vol] 2.5 g/dL 2.2-4.2 [facility] Serum glucose measurement (m ass/volume)Ordered By: Dean Peterson on 02-22-2025 Glucose [Mass/Vol] 86 mg/dL 70-99 [facility] Serum or plasma C reactive p rotein measurement (mass/volume)Ordered By: Dean Peterson on 02-22-2025 CRP [Mass/Vol] mg/L 0.0-3.0 [facility] Serum or plasma alanine graves otransferase (ALT) measurementOrdered By: Dean Peterson on 02-22-2025 ALT [Catalytic activity/Vol] 31 U/L <47 [facility] Serum or plasma albumin charan urement (mass/volume)Ordered By: Dean Peterson on 02-22-2025 Albumin [Mass/Vol] 4.3 g/dL 3.5-5.0 [facility] Serum or plasma albumin/glob ulin mass ratioOrdered By: Dean Peterson on 02-22-2025 Albumin/Globulin [Mass ratio] 1.7 {ratio} 0.9-2.4 [facility] Serum or plasma alkaline lauren sphatase measurementOrdered By: Dean Peterson on 02-22-2025 ALP [Catalytic activity/Vol] 74 U/L 40-129 [facility] Serum or plasma calcium charan urement (mass/volume)Ordered By: Dean Peterson on 02-22-2025 Calcium [Mass/Vol] 9.4 mg/dL 7.6-11.0 [facility] Serum or plasma cholesterol in HDL measurement (mass/volume)Ordered By: Dean Peterson on 02-22-2025 Cholesterol in HDL [Mass/Vol] 29 mg/dL Low >40 [facility] Comment on above: National Cholesterol Education Program (NCEP) guidelines:<40 mg/dL: Low HDL-cholesterol (major risk factor for CHD)>= 60 mg/dL: High HDL-cholesterol (negative risk factor for CHD)HDL-cholesterol is affected by a number of factors, e.g. smoking, exercise, hormones, sex and age. Serum or plasma cholesterol measurement (mass/volume)Ordered By: Dean Peterson on 02-22-2025 Cholesterol [Mass/Vol] 230 mg/dL High <201 [facility] Comment on above: Cholesterol level, D esirable <200 mg/dLBorderline high cholesterol 200-239 mg/dLHigh cholesterol >=240 mg/dLRecommendations of the NCEP Adult Treatment Panel for the following risk-cutoff thresholds for the [place] population. Serum or plasma urea nitroge n measurement (mass/volume)Ordered By: Dean Peterson on 02-22-2025 Urea nitrogen [Mass/Vol] 18 mg/dL 4-19 [facility] Sodium levelOrdered By: Dean Peterson on 02-22-2025 Sodium [Moles/Vol] 138 mmol/L 133-145 [facility] Total proteinOrdered By: Keena Peterson on 02-22-2025 Protein [Mass/Vol] 6.8 g/dL 5.9-8.4 [facility] Triglycerides measurementOrd ered By: Dean Peterson on 02-22-2025 Triglyceride [Mass/Vol] 99 mg/dL <199 [facility] Comment on above: The drugs N-Acetylcy steine and Metamizole may falsely depress this assay. Normal range: <150 mg/dLBorderline High: 150-199 mg/dLHigh: 200-499 mg/dLVery High: >500 mg/dL White blood cell (WBC) count Ordered By: Dean Peterson on 02-22-2025 WBC (Bld) [#/Vol] 5.6 10*3/uL 4.4-11.0 [facility] Urine Cultureon 02-01-2025 [facility] Order Date: 01/31/25 Order Info: 630-4 - CUUR Culture exhibits no growth. Normal [facility] Comment on above: Performed By: #### L 500.2500, L100.0100 #### [facility] [address] [place], [address] Absolute lymphocyte countOrd ered By: Dean Peterson on 01-31-2025 Lymphocytes Auto (Unsp spec) [#/Vol] 0.68 10*3/uL Low 0.83-4.51 [facility] Absolute neutrophil countOrd ered By: Dean Peterson on 01-31-2025 Neutrophils (Bld) [#/Vol] 5.4 10*3/uL 2.0-7.7 [facility] Anion gap in Serum or Plasma Ordered By: Dean Peterson on 01-31-2025 Anion gap [Moles/Vol] 9 mmol/L 5-15 [facility] Automated lymphocyte count a s percentage of total leukocytesOrdered By: Dean Peterson on 01-31-2025 Lymphocytes/100 WBC Auto (Unsp spec) 10.1 % Low 19-41 [facility] BUN/creatinine ratioOrdered By: Dean Peterson on 01-31-2025 Urea nitrogen/Creatinine [Mass ratio] 14.4 mg/mg 10-20 [facility] Basophil percentageOrdered B y: Dean Peterson on 01-31-2025 Basophils/100 WBC (Bld) 0.1 % 0-1 [facility] Bilirubin Test strip Ql (U)O rdered By: Dean Peterson on 01-31-2025 Bilirubin Ql (U) 1 mg/dL High Negative [facility] Comment on above: COLOR OF URINE MAY A FFECT DIPSTICK RESULTS. Bilirubin, totalOrdered By: Dean Peterson on 01-31-2025 Bilirubin [Mass/Vol] 0.88 mg/dL 0.00-1.30 [facility] CBC W/Diff, Automatedon 01-15 Absolute Lymph 0.68 X10 3/uL Low 0.83-4.51 [facility] Comment on above: Order Comment: Order Date: 01/31/25Order Info: [id number] - CBCDOrder Info: [id number] - SED Performed By: #### L 500.2500, L100.0100 #### [facility] [address] [place], [address] Absolute Neut 5.4 X10 3/uL Normal 2.0-7.7 [facility] Comment on above: Order Comment: Order Date: 01/31/25Order Info: 018-1 - CBCDOrder Info: [id number] - SED Performed By: #### L 500.2500, L100.0100 #### [facility] [address] [place], [address] Basophils/100 WBC (Bld) 0.1 % Normal 0-1 [facility] Comment on above: Order Comment: Order Date: 01/31/25Order Info: 183- - CBCDOrder Info: [id number] - SED Performed By: #### L 500.2500, L100.0100 #### [facility] [address] [place], [address] Eosinophils/100 WBC (Bld) 0.1 % Normal 0-5 [facility] Comment on above: Order Comment: Order Date: 01/31/25Order Info: 183- - CBCDOrder Info: [id number] - SED Performed By: #### L 500.2500, L100.0100 #### [facility] [address] [place], [address] Erythrocyte distribution width (RBC) [Ratio] 11.9 % Normal 11.6-14.6 [facility] Comment on above: Order Comment: Order Date: 01/31/25Order Info: 018- - CBCDOrder Info: [id number] - SED Performed By: #### L 500.2500, L100.0100 #### [facility] [address] [place], [address] Hematocrit (Bld) [Volume fraction] 44.6 % Normal 40-54 [facility] Comment on above: Order Comment: Order Date: 01/31/25Order Info: 4-1 - CBCDOrder Info: [id number] - SED Performed By: #### L 500.2500, L100.0100 #### [facility] [address] [place], [address] Hemoglobin (Bld) [Mass/Vol] 15.1 g/dL Normal 13.0-16.5 [facility] Comment on above: Order Comment: Order Date: 01/31/25Order Info: 183- - CBCDOrder Info: [id number] - SED Performed By: #### L 500.2500, L100.0100 #### [facility] [address] [place], [address] IG% 0.400 Normal 0.0-0.9 [facility] Comment on above: Order Comment: Order Date: 01/31/25Order Info: 183- - CBCDOrder Info: [id number] - SED Result Comment: IG% - Immature Granulocytes (promyelocytes, myelocytes and metamyelocytes) > 1% indicates that a LEFT SHIFT is Present. Performed By: #### L 500.2500, L100.0100 #### [facility] [address] [place], [address] Lymphocytes/100 WBC (Bld) 10.1 % Low 19-41 [facility] Comment on above: Order Comment: Order Date: 01/31/25Order Info: 183-10 - CBCDOrder Info: [id number] - SED Performed By: #### L 500.2500, L100.0100 #### [facility] [address] [place], [address] MCH (RBC) [Entitic mass] 29.5 pg Normal 27.0-32.0 [facility] Comment on above: Order Comment: Order Date: 01/31/25Order Info: 183- - CBCDOrder Info: [id number] - SED Performed By: #### L 500.2500, L100.0100 #### [facility] [address] [place], [address] MCHC (RBC) [Mass/Vol] 33.9 g/dL Normal 32-36 [facility] Comment on above: Order Comment: Order Date: 01/31/25Order Info: 183-1 - CBCDOrder Info: [id number] - SED Performed By: #### L 500.2500, L100.0100 #### [facility] [address] [place], [address] MCV (RBC) [Entitic vol] 87.3 fL Normal 80-94 [facility] Comment on above: Order Comment: Order Date: 01/31/25Order Info: 183- - CBCDOrder Info: [id number] - SED Performed By: #### L 500.2500, L100.0100 #### [facility] [address] [place], [address] Monocytes/100 WBC (Bld) 9.1 % Normal 0-10 [facility] Comment on above: Order Comment: Order Date: 01/31/25Order Info: 183- - CBCDOrder Info: [id number] - SED Performed By: #### L 500.2500, L100.0100 #### [facility] [address] [place], [address] Neutrophils/100 WBC (Bld) 80.2 % High 47-70 [facility] Comment on above: Order Comment: Order Date: 01/31/25Order Info: 183- - CBCDOrder Info: [id number] - SED Performed By: #### L 500.2500, L100.0100 #### [facility] [address] [place], [address] Nucleated RBC (Bld) [#/Vol] 0 10*3/uL Normal 0-5 [facility] Comment on above: Order Comment: Order Date: 01/31/25Order Info: 4-1 - CBCDOrder Info: [id number] - SED Performed By: #### L 500.2500, L100.0100 #### [facility] [address] [place], [address] Platelet mean volume (Bld) [Entitic vol] 10.9 fL Normal 6.2-12.0 [facility] Comment on above: Order Comment: Order Date: 01/31/25Order Info: 0184- - CBCDOrder Info: [id number] - SED Performed By: #### L 500.2500, L100.0100 #### [facility] [address] [place], [address] Platelets (Bld) [#/Vol] 196 10*3/uL Normal 150-450 [facility] Comment on above: Order Comment: Order Date: 01/31/25Order Info: 183- - CBCDOrder Info: [id number] - SED Performed By: #### L 500.2500, L100.0100 #### [facility] [address] [place], [address] RBC (Bld) [#/Vol] 5.11 10*6/uL Normal 4.6-6.2 [facility] Comment on above: Order Comment: Order Date: 01/31/25Order Info: 018- - CBCDOrder Info: [id number] - SED Performed By: #### L 500.2500, L100.0100 #### [facility] [address] [place], [address] RDW SD 38.5 fl Normal 35.1-43.9 [facility] Comment on above: Order Comment: Order Date: 01/31/25Order Info: 018- - CBCDOrder Info: [id number] - SED Performed By: #### L 500.2500, L100.0100 #### [facility] [address] [place], [address] WBC (Bld) [#/Vol] 6.7 10*3/uL Normal 4.4-11.0 [facility] Comment on above: Order Comment: Order Date: 01/31/25Order Info: 0184-1 - CBCDOrder Info: [id number] - SED Performed By: #### L 500.2500, L100.0100 #### [facility] [address] [place], [address] CRPon 01-31-2025 C-REACTIVE PROT 60.90 mg/L High 0.0-3.0 [facility] Comment on above: Order Comment: Order Date: 01/31/25Order Info: 0786-1 - CMPOrder Info: 3040-3 - LIPASEOrder Info: [id number] - CRP Performed By: #### L 500.2500, L100.0100 #### [facility] [address] [place], [address] CRP [Mass/Vol]Ordered By: Kameron Peterson on 01-31-2025 C-Reactive Protein Extended Range 60.90 mg/L High 0.0-3.0 [facility] Carbon dioxide, total [Moles /volume] in Central venous bloodOrdered By: Dean Peterson on 01-31-2025 CO2 [Moles/Vol] 25.5 mmol/L 21.0-32.0 [facility] Chest PA and Lateralon 01-31 Chest PA and Lateral [facility] [address] [place], [place] [address] Chest PA and Lateral MR#: [id number] Acct: [id number] Name: LORA BAILEY Rep #: [id number] : 1975 M 49 From: Leonel styles MD PCP: Dr. Dean Peterson MD Status: REG CLI Study: Chest PA and Lateral Date of Exam: 01/31/25 Exam# [id number] Ordering Dr: Dean Peterson MD PROCEDURE: CHEST PA AND LATERAL 01/31/2025 REASON FOR EXAM: CRP ELEVATED 2 day history of fever. TECHNIQUE: Frontal and lateral views of the chest. COMPARISON: None FINDINGS: Hardware: None Heart: The heart size is normal. Mediastinum: The mediastinal contour is unremarkable. Lungs: There are granulomatous calcifications. The lungs are otherwise clear. Bones: The bones are unremarkable. RAD/Chest PA and Lateral IMPRESSION: Calcified granulomas disease. No focal abnormality is seen. Reading Location: [place] [address] CC: Dr. eDan Peterson MD Patient Ombudsperson: Signed Normal [facility] Chloride assayOrdered By: Kameron Peterson on 01-31-2025 Chloride [Moles/Vol] 103 mmol/L 98-108 [facility] Comprehensive Metabolic Prof ilon 01-31-2025 Albumin [Mass/Vol] 4.0 g/dL Normal 3.5-5.0 [facility] Comment on above: Order Comment: Order Date: 01/31/25Order Info: 0786-1 - CMPOrder Info: 3040-3 - LIPASEOrder Info: [id number] - CRP Performed By: #### L 500.2500, L100.0100 #### [facility] [address] [place], [address] Albumin/Globulin [Mass ratio] 1.6 {ratio} Normal 0.9-2.4 [facility] Comment on above: Order Comment: Order Date: 01/31/25Order Info: 0786-1 - CMPOrder Info: 3040-3 - LIPASEOrder Info: [id number] - CRP Performed By: #### L 500.2500, L100.0100 #### [facility] [address] [place], [address] ALK PHOS 74 U/L Normal 40-129 [facility] Comment on above: Order Comment: Order Date: 01/31/25Order Info: 0786-1 - CMPOrder Info: 3040-3 - LIPASEOrder Info: [id number] - CRP Performed By: #### L 500.2500, L100.0100 #### [facility] [address] [place], [address] ALT [Catalytic activity/Vol] 47 U/L Normal <=46 [facility] Comment on above: Order Comment: Order Date: 01/31/25Order Info: 0786-1 - CMPOrder Info: 3040-3 - LIPASEOrder Info: [id number] - CRP Performed By: #### L 500.2500, L100.0100 #### [facility] [address] [place], [address] AST [Catalytic activity/Vol] 48 U/L High <=37 [facility] Comment on above: Order Comment: Order Date: 01/31/25Order Info: 0786-1 - CMPOrder Info: 3040-3 - LIPASEOrder Info: [id number] - CRP Performed By: #### L 500.2500, L100.0100 #### [facility] [address] [place], [address] Bilirubin [Mass/Vol] 0.88 mg/dL Normal 0.00-1.30 [facility] Comment on above: Order Comment: Order Date: 01/31/25Order Info: 0786-1 - CMPOrder Info: 3040-3 - LIPASEOrder Info: [id number] - CRP Performed By: #### L 500.2500, L100.0100 #### [facility] [address] [place], [address] BUN/CRE 14.4 RATIO Normal 10-20 [facility] Comment on above: Order Comment: Order Date: 01/31/25Order Info: 0786-1 - CMPOrder Info: 3040-3 - LIPASEOrder Info: [id number] - CRP Performed By: #### L 500.2500, L100.0100 #### [facility] [address] [place], [address] Calcium [Mass/Vol] 9.0 mg/dL Normal 7.6-11.0 [facility] Comment on above: Order Comment: Order Date: 01/31/25Order Info: 0786-1 - CMPOrder Info: 3040-3 - LIPASEOrder Info: [id number] - CRP Performed By: #### L 500.2500, L100.0100 #### [facility] [address] [place], [address] Chloride [Moles/Vol] 103 mmol/L Normal 98-108 [facility] Comment on above: Order Comment: Order Date: 01/31/25Order Info: 0786-1 - CMPOrder Info: 3040-3 - LIPASEOrder Info: [id number] - CRP Performed By: #### L 500.2500, L100.0100 #### [facility] [address] [place], [address] CO2 [Moles/Vol] 25.5 mmol/L Normal 21.0-32.0 [facility] Comment on above: Order Comment: Order Date: 01/31/25Order Info: 0786-1 - CMPOrder Info: 3040-3 - LIPASEOrder Info: [id number] - CRP Performed By: #### L 500.2500, L100.0100 #### [facility] [address] [place], [address] Creatinine [Mass/Vol] 1.54 mg/dL High 0.70-1.20 [facility] Comment on above: Order Comment: Order Date: 01/31/25Order Info: 0786-1 - CMPOrder Info: 3040-3 - LIPASEOrder Info: [id number] - CRP Performed By: #### L 500.2500, L100.0100 #### [facility] [address] [place], [address] GAP 9 Normal 5-15 [facility] Comment on above: Order Comment: Order Date: 01/31/25Order Info: 0786-1 - CMPOrder Info: 3040-3 - LIPASEOrder Info: [id number] - CRP Performed By: #### L 500.2500, L100.0100 #### [facility] [address] [place], [address] GFR/1.73 sq M.predicted among non-blacks MDRD (S/P/Bld) [Vol rate/Area] 55 mL/min/{1.73_m2} Low >60 [facility] Comment on above: Order Comment: Order Date: 01/31/25Order Info: 0786-1 - CMPOrder Info: 3040-3 - LIPASEOrder Info: [id number] - CRP Result Comment: mL/m in/1.73m2 CKD-EPI Creatinine Equation (2020) Performed By: #### L 500.2500, L100.0100 #### [facility] [address] [place], [address] Globulin (S) [Mass/Vol] 2.5 g/dL Normal 2.2-4.2 [facility] Comment on above: Order Comment: Order Date: 01/31/25Order Info: 0786-1 - CMPOrder Info: 3040-3 - LIPASEOrder Info: [id number] - CRP Performed By: #### L 500.2500, L100.0100 #### [facility] [address] [place], [address] Glucose [Mass/Vol] 107 mg/dL High 70-99 [facility] Comment on above: Order Comment: Order Date: 01/31/25Order Info: 0786-1 - CMPOrder Info: 3040-3 - LIPASEOrder Info: [id number] - CRP Performed By: #### L 500.2500, L100.0100 #### [facility] [address] [place], [address] Potassium [Moles/Vol] 4.7 mmol/L Normal 3.3-5.1 [facility] Comment on above: Order Comment: Order Date: 01/31/25Order Info: [id number] - CMPOrder Info: [id number] - LIPASEOrder Info: [id number] - CRP Performed By: #### L 500.2500, L100.0100 #### [facility] [address] [place], [address] Sodium [Moles/Vol] 137 mmol/L Normal 133-145 [facility] Comment on above: Order Comment: Order Date: 01/31/25Order Info: [id number] - CMPOrder Info: [id number] - LIPASEOrder Info: [id number] - CRP Performed By: #### L 500.2500, L100.0100 #### [facility] [address] [place], [address] T PROT 6.6 g/dL Normal 5.9-8.4 [facility] Comment on above: Order Comment: Order Date: 01/31/25Order Info: [id number] - CMPOrder Info: [id number] - LIPASEOrder Info: [id number] - CRP Performed By: #### L 500.2500, L100.0100 #### [facility] [address] [place], [address] Urea nitrogen [Mass/Vol] 22 mg/dL High 4-19 [facility] Comment on above: Order Comment: Order Date: 01/31/25Order Info: [id number] - CMPOrder Info: [id number] - LIPASEOrder Info: [id number] - CRP Performed By: #### L 500.2500, L100.0100 #### [facility] [address] [place], [address] Eosinophil percentageOrdered By: Dean Peterson on 01-31-2025 Eosinophils/100 WBC (Bld) 0.1 % 0-5 [facility] Epithelial cells.squamous LM Ql (Urine sed)Ordered By: Dean Peterson on 01-31-2025 Epithelial cells.squamous LM.HPF (Urine sed) [#/Area] 0 /[HPF] 0-5 [facility] Erythrocyte Sed Rateon 01-31 SED RATE 1 mm/hr Normal 0-20 [facility] Comment on above: Order Comment: Order Date: 01/31/25Order Info: [id number] - CBCDOrder Info: [id number] - SED Performed By: #### L 500.2500, L100.0100 #### [facility] [address] [place], [address] Erythrocyte distribution wid th (RBC) [Ratio]Ordered By: Dean Peterson on 01-31-2025 Erythrocyte distribution width (RBC) [Entitic vol] 38.5 fL 35.1-43.9 [facility] Erythrocyte distribution wid th ratioOrdered By: Dean Peterson on 01-31-2025 Erythrocyte distribution width (RBC) [Ratio] 11.9 % 11.6-14.6 [facility] Erythrocyte distribution wid th standard deviationOrdered By: Dean Peterson on 01-31-2025 Erythrocyte distribution width (RBC) [Ratio] 38.5 fl 35.1-43.9 [facility] Erythrocyte sedimentation ra teOrdered By: Dean Peterson on 01-31-2025 ESR (Bld) [Velocity] 1 mm/h 0-20 [facility] GFR/1.73 sq M.predicted aurelia g non-blacks MDRD (S/P/Bld) [Vol rate/Area]Ordered By: Dean Peterson on 01-31-2025 Estimated GFR (MDRD) Non-Af Amer 55 Low >60 [facility] Comment on above: mL/min/1.73m2 CKD-EP I Creatinine Equation (2020) Glomerular filtration rate ( GFR) estimation/1.73 sq m using serum, plasma, or whole bOrdered By: Dean Peterson on 01-31-2025 GFR/1.73 sq M.predicted among non-blacks MDRD (S/P/Bld) [Vol rate/Area] 55 mL/min/{1.73_m2} Low >60 [facility] Comment on above: mL/min/1.73m2 CKD-EP I Creatinine Equation (2020) Glucose Ql (U)Ordered By: Kameron Peterson on 01-31-2025 Urine Glucose (UA) Normal mg/dl Normal [facility] Hematocrit Auto (Bld) [Volum e fraction]Ordered By: Dean Peterson on 01-31-2025 Hematocrit (Bld) [Volume fraction] 44.6 % 40-54 [facility] Hemoglobin measurementOrdere d By: Dean Peterson on 01-31-2025 Hemoglobin (Bld) [Mass/Vol] 15.1 g/dL 13.0-16.5 [facility] Immature granulocytes/100 WB C Auto (Bld)Ordered By: Dean Peterson on 01-31-2025 Immature granulocytes/100 WBC (Bld) 0.400 % 0.0-0.9 [facility] Comment on above: IG% - Immature Granu locytes (promyelocytes, myelocytes and metamyelocytes) > 1% indicates that a LEFT SHIFT is Present. Ketones Test strip Ql (U)Ord ered By: Dean Peterson on 01-31-2025 Ketones Ql (U) Negative Negative [facility] - Chemistry and C hemistry - challengeOrdered By: Dean Peterson on 01-31-2025 AST [Catalytic activity/Vol] 48 U/L High <38 [facility] Lipaseon 01-31-2025 Lipase [Catalytic activity/Vol] 29 U/L Normal 13-75 [facility] Comment on above: Order Comment: Order Date: 01/31/25Order Info: [id number] - CMPOrder Info: [id number] - LIPASEOrder Info: [id number] - CRP Result Comment: Plea se note: LIPASE revised reference range effective 23. New Lipase methodology. Expected to produce lower values than the previous assay method. NEW Reference Range: 13 - 75 U/L Performed By: #### L 500.2500, L100.0100 #### [facility] [address] [place] [address], [id number] Lipase measurementOrdered By : Dean Peterson on 01-31-2025 Lipase [Catalytic activity/Vol] 29 U/L 13-75 [facility] Comment on above: Please note:LIPASE r evised reference range effective 23. New Lipase methodology. Expected to produce lower values than the previous assay method. NEW Reference Range: 13 - 75 U/L Lymphocytes Auto (Unsp spec) [#/Vol]Ordered By: Dean Peterson on 01-31-2025 Lymphocytes (Bld) [#/Vol] 0.68 10*3/uL Low 0.83-4.5 1 [facility] Lymphocytes/100 WBC Auto (Un sp spec)Ordered By: Dean Peterson on 01-31-2025 Lymphocytes/100 WBC (Bld) 10.1 % Low 19-41 [facility] MCV (mean corpuscular volume ) determinationOrdered By: Dean Peterson on 01-31-2025 MCV (RBC) [Entitic vol] 87.3 fL 80-94 [facility] Mean corpuscular hemoglobin (MCH) determinationOrdered By: Dean Peterson on 01-31-2025 MCH (RBC) [Entitic mass] 29.5 pg 27.0-32.0 [facility] Mean corpuscular hemoglobin concentration (MCHC) determinationOrdered By: Dean Peterson on 01-31-2025 MCHC (RBC) [Mass/Vol] 33.9 g/dL 32-36 [facility] Mean platelet volume determi nationOrdered By: Dean Peterson on 01-31-2025 Platelet mean volume (Bld) [Entitic vol] 10.9 fL 6.2-12.0 [facility] Microscopic analysis of urin e for red blood cells (RBC)Ordered By: Dean Peterson on 01-31-2025 Microscopic analysis of urine for red blood cells (RBC) 0-5 SEEN /hpf 0-5 [facility] Urine RBC 0-5 SEEN /hpf 0-5 [facility] Monocyte percentageOrdered B y: Dean Peterson on 01-31-2025 Monocytes/100 WBC (Bld) 9.1 % 0-10 [facility] Mucus LM Ql (Urine sed)Order ed By: Dean Peterson on 01-31-2025 Mucus Ql (Urine sed) 1+ /hpf [facility] Neutrophil percentageOrdered By: Dean Peterson on 01-31-2025 Neutrophils/100 WBC (Bld) 80.2 % High 47-70 [facility] Nitrite Test strip Ql (U)Ord ered By: Dean Peterson on 01-31-2025 Nitrite Ql (U) Negative Negative [facility] Nucleated red blood cell per centageOrdered By: Dean Petesron on 01-31-2025 Nucleated RBC/100 WBC (Bld) [Ratio] 0 % 0-5 [facility] Platelet countOrdered By: Kameron Peterson on 01-31-2025 Platelets (Bld) [#/Vol] 196 10*3/uL 150-450 [facility] Potassium (Unsp spec) [Mass/ Vol]Ordered By: Dean Peterson on 01-31-2025 Potassium [Moles/Vol] 4.7 mmol/L 3.3-5.1 [facility] Potassium measurement (mass/ volume)Ordered By: Dean Peterson on 01-31-2025 Potassium (Unsp spec) [Mass/Vol] 4.7 mmol/L 3.3-5.1 [facility] Protein Test strip Ql (U)Ord ered By: Dean Peterson on 01-31-2025 Protein Ql (U) TNP [facility] Comment on above: Test not performedSE E URINE CHEMISTRY PROTIEN ORDER FOR THIS RESULT. Protein, Urine (Random)on Protein (U) [Mass/Vol] 47.6 mg/dL High 0.0-12.0 [facility] Comment on above: Performed By: #### L 501.1930 #### [facility] [address] [place], [address] RBC Auto (Bld) [#/Vol]Ordere d By: Dean Peterson on 01-31-2025 RBC (Bld) [#/Vol] 5.11 10*6/uL 4.6-6.2 [facility] Serum creatinine measurement (mass/volume)Ordered By: Dean Peterson on 01-31-2025 Creatinine [Mass/Vol] 1.54 mg/dL High 0.70-1.20 [facility] Serum globulin measurementOr dered By: Dean Peterson on 01-31-2025 Globulin (S) [Mass/Vol] 2.5 g/dL 2.2-4.2 [facility] Serum glucose measurement (m ass/volume)Ordered By: Dean Peterson on 01-31-2025 Glucose [Mass/Vol] 107 mg/dL High 70-99 [facility] Serum or plasma C reactive p rotein measurement (mass/volume)Ordered By: Dean Peterson on 01-31-2025 CRP [Mass/Vol] 60.90 mg/L High 0.0-3.0 [facility] Serum or plasma alanine graves otransferase (ALT) measurementOrdered By: Dean Peterson on 01-31-2025 ALT [Catalytic activity/Vol] 47 U/L <47 [facility] Serum or plasma albumin charan urement (mass/volume)Ordered By: Dean Peterson on 01-31-2025 Albumin [Mass/Vol] 4.0 g/dL 3.5-5.0 [facility] Serum or plasma albumin/glob ulin mass ratioOrdered By: Dean Peterson on 01-31-2025 Albumin/Globulin [Mass ratio] 1.6 {ratio} 0.9-2.4 [facility] Serum or plasma alkaline lauren sphatase measurementOrdered By: Dean Peterson on 01-31-2025 ALP [Catalytic activity/Vol] 74 U/L 40-129 [facility] Serum or plasma calcium charan urement (mass/volume)Ordered By: Dean Peterson on 01-31-2025 Calcium [Mass/Vol] 9.0 mg/dL 7.6-11.0 [facility] Serum or plasma urea nitroge n measurement (mass/volume)Ordered By: Dean Peterson on 01-31-2025 Urea nitrogen [Mass/Vol] 22 mg/dL High 4-19 [facility] Sodium levelOrdered By: Dean Peterson on 01-31-2025 Sodium [Moles/Vol] 137 mmol/L 133-145 [facility] Squamous epithelial cells de tection in urine sediment by light microscopyOrdered By: Dean Peterson on 01-31-2025 Epithelial cells.squamous LM Ql (Urine sed) 0-5 SEEN /hpf 0-5 [facility] Total proteinOrdered By: Keena Peterson on 01-31-2025 Protein [Mass/Vol] 6.6 g/dL 5.9-8.4 [facility] Urinalysis, Completeon 01-31 Mucus Ql (Urine sed) 1+ /hpf Normal [facility] Comment on above: Order Comment: Order Date: 01/31/25Order Info: [id number] - UACCOLLECTOR TO SPECIFY Performed By: #### L 500.2500, L100.0100 #### [facility] [address] [place], [address] EPI,SQUAMOUS 0-5 SEEN Normal 0-5 [facility] Comment on above: Order Comment: Order Date: 01/31/25Order Info: [id number] - UACCOLLECTOR TO SPECIFY Performed By: #### L 500.2500, L100.0100 #### [facility] [address] [place], [address] RBC 0-5 SEEN Normal 0-5 [facility] Comment on above: Order Comment: Order Date: 01/31/25Order Info: [id number] - UACCOLLECTOR TO SPECIFY Performed By: #### L 500.2500, L100.0100 #### [facility] [address] [place], [address] WBC 0-5 SEEN Normal 0-5 [facility] Comment on above: Order Comment: Order Date: 01/31/25Order Info: [id number] - UACCOLLECTOR TO SPECIFY Performed By: #### L 500.2500, L100.0100 #### [facility] [address] [place], [address] BACTERIA 0 SEEN Normal None Seen [facility] Comment on above: Order Comment: Order Date: 01/31/25Order Info: [id number] - UACCOLLECTOR TO SPECIFY Performed By: #### L 500.2500, L100.0100 #### [facility] [address] [place], [address] Urine blood detectionOrdered By: Dean Peterson on 01-31-2025 Urine Occult Blood Negative Negative [facility] Urine clarityOrdered By: Keena Peterson on 01-31-2025 Clarity (U) Clear Clear [facility] Urine color determinationOrd ered By: Dean Peterson on 01-31-2025 Color (U) Yellow Yellow [facility] Urine cultureOrdered By: Keena Peterosn on 01-31-2025 Bacteria identified Cx Nom (U) Culture exhibits no growth. [facility] Urine glucose detectionOrder ed By: Dean Peterson on 01-31-2025 Glucose Ql (U) Normal mg/dl Normal [facility] Urine leukocyte esterase det ection by dipstickOrdered By: Dean Peterson on 01-31-2025 Leukocyte esterase Test strip Ql (U) 25 /ul High Negative [facility] Urine pHOrdered By: Dean bhagat on 01-31-2025 pH (U) 6.0 [pH] 5.0 - 8.0 [facility] Urine protein measurement (m ass/volume)Ordered By: Dean Peterson on 01-31-2025 Protein (U) [Mass/Vol] 47.6 mg/dL High 0.0-12.0 [facility] Urine sediment bacteria coun t by microscopy (number/high power field)Ordered By: Dean Peterson on 01-31-2025 Bacteria LM.HPF (Urine sed) [#/Area] 0 /[HPF] None Seen [facility] Urine specific gravity measu rementOrdered By: Dean Peterson on 01-31-2025 Specific gravity (U) [Rel density] 1.020 1.002-1.030 [facility] Urine urobilinogen measureme ntOrdered By: Dean Peterson on 01-31-2025 Urobilinogen Ql (U) 1 mg/dl High Normal [facility] Urobilinogen Ql (U)Ordered B y: Dean Peterson on 01-31-2025 Urobilinogen (U) [Mass/Vol] 1 mg/dL High Normal [facility] White blood cell (WBC) count Ordered By: Dean Peterson on 01-31-2025 WBC (Bld) [#/Vol] 6.7 10*3/uL 4.4-11.0 [facility] White blood cell countOrdere d By: Dean Peterson on 01-31-2025 Urine WBC 0-5 SEEN /hpf 0-5 [facility] White blood cell count 0-5 SEEN /hpf 0-5 [facility] CNOVon 12-02-2024 CNOV Office Visit ([facility]) LORA BAILEY ([id number]) 1975 M Date Time Provider Department 12/02/24 10:45 AM [facility] During your visit today, we recorded the following information about you: Temperature Pulse Respiration Blood pressure 98.3 degrees 71/minute 16/minute 128/82 Weight 115 kg Liza Estrada, [employer].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 Subjective Lora Bailey is a 49 year old male. 49 year old male with no PMH presents for illness Acute onset 11/25/24 + cough +chest congestion +sinus pressure +nasal congestion +sore throat Denies CP Denies SOB Denies fever or chills He was seen here on 11/28/24 At that time negative, CXR, negative strep, negative flu Provided albuterol and Tessalon and Prednisone I am getting worse it seems The history is provided by the patient. No race steward was used. Cough This is a new problem. The current episode started more than 1 week ago. The problem occurs constantly. The problem has been gradually worsening. The cough is Non-productive. There has been no fever. Associated symptoms include ear congestion, headaches, rhinorrhea and sore throat. Pertinent negatives include no chest pain, no chills, no sweats, no weight loss, no ear pain, no myalgias, no shortness of breath, no wheezing and no eye redness. Treatments tried: see HPI. The treatment provided no relief. He is not a smoker. His past medical history does not include bronchitis, pneumonia, bronchiectasis, COPD, emphysema or asthma. History reviewed. No pertinent past medical history. No past surgical history on file. ALLERGIES Patient has no known allergies. MEDICATIONS Telmisartan 20 mg tablet Take 20 mg by mouth. metoprolol succinate ER (TOPROL XL) 25 mg 24 hr tablet TAKE 1 TABLET NIGHTLY albuterol HFA (PROVENTIL HFA, VENTOLIN HFA) 90 mcg/actuation inhaler Inhale 2 Puffs as instructed every 4 hours as needed for wheezing/shortness of breath. benzonatate (TESSALON PERLE) 100 mg capsule Take 1 capsule by mouth three times a day as needed. predniSONE (DELTASONE) 20 mg tablet Take 1 tablet by mouth once daily for 4 days. Take daily with food. doxycycline (VIBRA-TABS) 100 mg tablet Take 1 tablet by mouth two times a day for 7 days. predniSONE (DELTASONE) 10 mg tablet Take 4 tabs daily for 3 days, then 2 tabs daily for 3 days, then 1 tab daily for 3 days with food. naproxen (NAPROSYN) 500 mg tablet Take 1 tablet by mouth twice daily as needed (pain/inflammation, take with food.). (Patient not taking: Reported on 11/18/2022) No family history on file. Social History Tobacco Use Smoking status: Never Smokeless tobacco: Never Vaping Use Vaping status: Never Used Substance Use Topics Alcohol use: Never Drug use: Never Review of Systems Constitutional: Positive for fatigue and fever. Negative for chills and weight loss. HENT: Positive for congestion, rhinorrhea and sore throat. Negative for ear pain. Eyes: Negative for pain, discharge, redness and itching. Respiratory: Positive for cough. Negative for apnea, choking, chest tightness, shortness of breath and wheezing. Cardiovascular: Negative for chest pain. Gastrointestinal: Negative for abdominal pain, diarrhea, nausea and vomiting. Musculoskeletal: Negative for myalgias. Skin: Negative for color change, pallor, rash and wound. Allergic/Immunologic : Negative for environmental allergies, food allergies and immunocompromised state. Neurological: Positive for headaches. Negative for dizziness and facial asymmetry. Hematological: Positive for adenopathy. Psychiatric/Behavior al: Negative for agitation and behavioral problems. Objective BP 128/82 Pulse 71 Temp 36.8 ?C (98.3 ?F) (Tympanic) Resp 16 Wt 115 kg (253 lb 8.5 oz) SpO2 99% Physical Exam Vitals and nursing note reviewed. Constitutional: General: He is not in acute distress. Appearance: Normal appearance. He is not ill-appearing, toxic-appearing or diaphoretic. HENT: Head: Normocephalic and atraumatic. Right Ear: External ear normal. Left Ear: External ear normal. Nose: Congestion present. No rhinorrhea. Mouth/Throat: Mouth: Mucous membranes are moist. Pharynx: Oropharynx is clear. Posterior oropharyngeal erythema present. No oropharyngeal exudate. Eyes: General: Right eye: No discharge. Left eye: No discharge. Extraocular Movements: Extraocular movements intact. Conjunctiva/sclera: Conjunctivae normal. Pupils: Pupils are equal, round, and reactive to light. Cardiovascular: Rate and Rhythm: Normal rate and regular rhythm. Pulses: Normal pulses. Heart sounds: Normal heart sounds. No murmur heard. No friction rub. No gallop. Pulmonary: Effort: Pulmonary effort is normal. No respiratory distress. Breath sounds: Normal breath sounds. No stridor. (more content not included)... Normal [facility] CNOVon 11-28-2024 CN[facility] LORA BAILEY ([id number]) 1975 M Date Time Provider Department 11/28/24 9:45 AM LESLY SPARROW [facility] During your visit today, we recorded the following information about you: Temperature Pulse Respiration Blood pressure 97.9 degrees 75/minute 20/minute 110/90 Weight 114.9 kg Lesly Sparrow PA 11/28/2024 10:01 AM Signed This note was created using Jugo. Subjective Lora Bailey is a 49 year old male. HPI 49-year-old male presents for cough, chest congestion, sinus pressure, nasal congestion, sore throat x 3 days. Patient states he started getting sinus pressure about 3 days ago. He states over the past 2 days, he feels like it is going into his chest. He has chest congestion, but only has a dry cough. Feels like he is wheezing at times. He denies any chest pain or shortness of breath. No history of COPD or asthma. Not on any inhalers. He has had pneumonia in the past. Patient has not had any fevers, but has had some chills at night. He reports sore throat. No sick contacts he is aware of. Has been taking DayQuil and Mucinex. No other complaint. No past medical history on file. No past surgical history on file. ALLERGIES Patient has no known allergies. MEDICATIONS Telmisartan 20 mg tablet Take 20 mg by mouth. metoprolol succinate ER (TOPROL XL) 25 mg 24 hr tablet TAKE 1 TABLET NIGHTLY naproxen (NAPROSYN) 500 mg tablet Take 1 tablet by mouth twice daily as needed (pain/inflammation, take with food.). (Patient not taking: Reported on 11/18/2022) No family history on file. Social History Tobacco Use Smoking status: Never Smokeless tobacco: Never Vaping Use Vaping status: Never Used Substance Use Topics Alcohol use: Never Drug use: Never Review of Systems Constitutional: Negative for chills and fever. HENT: Positive for congestion and sore throat. Respiratory: Positive for cough and wheezing. Negative for shortness of breath. Gastrointestinal: Negative for diarrhea and vomiting. Objective BP 110/90 Pulse 75 Temp 36.6 ?C (97.9 ?F) Resp 20 Wt 114.9 kg (253 lb 4.9 oz) SpO2 98% Physical Exam Vitals and nursing note reviewed. Constitutional: General: He is not in acute distress. Appearance: Normal appearance. He is not toxic-appearing. HENT: Right Ear: Tympanic membrane and ear canal normal. Left Ear: Tympanic membrane and ear canal normal. Nose: Nose normal. Mouth/Throat: Mouth: Mucous membranes are moist. Pharynx: Uvula midline. Posterior oropharyngeal erythema present. Tonsils: Tonsillar exudate present. 2+ on the right. 2+ on the left. Eyes: Conjunctiva/sclera: Conjunctivae normal. Cardiovascular: Rate and Rhythm: Normal rate and regular rhythm. Pulmonary: Effort: Pulmonary effort is normal. Breath sounds: Wheezing and rhonchi present. No rales. Skin: General: Skin is warm and dry. Neurological: Mental Status: He is alert. Assessment and Plan ASSESSMENT/PLAN: 1. URI, acute - ICD9: 465.9, ICD10: J06.9 (primary diagnosis) - Discussed viral etiology and rationale for treatment. - Symptomatic treatment with prn analgesia - Supportive care with fluids and rest - COVID AND INFLUENZA A/B AND RSV PCR, ROUTINE -out of window for Tamiflu 2. Acute cough - ICD9: 786.2, ICD10: R05.1 - XR CHEST 2V FRONTAL/LAT no acute radiographic abnormality -Rx prednisone, Rx Tessalon Perles, Rx albuterol inhaler to help with wheezing. Suspect bronchitis. - COVID AND INFLUENZA A/B AND RSV PCR, ROUTINE 3. Sore throat - ICD9: 462, ICD10: J02.9 - suspect viral - Group A strep molecular testing negative - Discussed supportive care treatment with fluids, rest and analgesia. - The patient may also use warm salt water gargles, throat lozenges and/or OTC throat spray as needed. - STREP A MOLECULAR (POC) - COVID AND INFLUENZA A/B AND RSV PCR, ROUTINE Diagnosis and treatment plan were discussed and questions were answered to the patient's satisfaction. Pt acknowledged understanding of concepts and follow up plan. Specific signs and symptoms that would indicate the need for higher level of care were discussed in detail warranting prompt ER evaluation. TRI Tao Krislyn P, PA 11/28/2024 9:57 AM Signed Use inhaler as needed for wheezing, shortness of breath or coughing fits. 2 puffs every 4 hours as needed. Tessalon Perles 3 times daily as needed for cough. Take prednisone 2 tabs once daily x 4 days as prescribed. This will help with cough. Your COVID/flu/RSV swab is pending. We will contact you with the results of this tomorrow. Allergies As of Date: 11/28/2024 (No Known Allergies) Date Reviewed: 11/28/2024 Reviewed by: Aylin Brewer MA - Fully Assessed Reason for Visit: Cough [28] Cmt: Chest congestion, wheezing sore throat x 3 days Primary Visit Diagnosis:URI, acute [J06 (more content not included)... Normal [facility] STREP A MOLECULAR (POC)on Procedural Control Valid [facility] Strep A (POCT) Negative Negative [facility] XR CHEST 2V FRONTAL/LATon XR CHEST 2V FRONTAL/LAT * * *Final Repor t* * * DATE OF EXAM: Nov 28 2024 9:51AM WOX 5291 - XR CHEST 2V FRONTAL/LAT / PROCEDURE REASON: Acute cough * * * * Physician Interpretation * * * * EXAMINATION: CHEST RADIOGRAPH (2 VIEW FRONTAL and LATERAL) PATIENT/TECHNOLOGIST PROVIDED HISTORY: cough, congestion and wheeze for 3 days CLINICAL HISTORY: 49 years old Male with Acute cough MQ: [id number] EXAM DATE/TIME: 11/28/2024 9:51 AM COMPARISON: Chest radiograph(s) dated 11/11/2019 RESULT: Lines, tubes, and devices: None. Lungs and pleura: No consolidation. No pleural effusion. No pneumothorax. Cardiomediastinal silhouette: Normal cardiomediastinal silhouette. Bones and soft tissues: Unremarkable. IMPRESSION: No acute radiographic abnormality. Patient Ombudsperson: JULIANNA Transcribe Date/Time: Nov 28 2024 9:52A Dictated by : CYNDEE VIDES DO This examination was interpreted and the report reviewed and electronically signed by: CYNDEE VIDES DO on Nov 28 2024 9:53AM EST [id number] CN Normal [facility] XR Chest PA and Lateralon Radiology Study observation (narrative) [facility] IMPRESSION: No acute radiographic abnormality. Patient Ombudsperson: JULIANNA Transcribe Date/Time: Nov 28 2024 9:52A Dictated by : CYNDEE VIDES DO This examination was interpreted and the report reviewed and electronically signed by: CYNDEE VIDES DO on Nov 28 2024 9:53AM EST DIVISION OF RADIOLOGY * * *Final Report* * * DATE OF EXAM: Nov 28 2024 9:51AM WOX 5291 - XR CHEST 2V FRONTAL/LAT / PROCEDURE REASON: Acute cough * * * * Physician Interpretation * * * * EXAMINATION: CHEST RADIOGRAPH (2 VIEW FRONTAL & LATERAL) PATIENT/TECHNOLOGIST PROVIDED HISTORY: cough, congestion and wheeze for 3 days CLINICAL HISTORY: 49 years old Male with Acute cough MQ: XC2_6 EXAM DATE/TIME: 11/28/2024 9:51 AM COMPARISON: Chest radiograph(s) dated 11/11/2019 RESULT: Lines, tubes, and devices: None. Lungs and pleura: No consolidation. No pleural effusion. No pneumothorax. Cardiomediastinal silhouette: Normal cardiomediastinal silhouette. Bones and soft tissues: Unremarkable. DIVISION OF RADIOLOGY Provider, [facility] [place] - 11/28/2024 * * *Final Report* * * DATE OF EXAM: Nov 28 2024 9:51AM WOX 5291 - XR CHEST 2V FRONTAL/LAT / PROCEDURE REASON: Acute cough * * * * Physician Interpretation * * * * EXAMINATION: CHEST RADIOGRAPH (2 VIEW FRONTAL & LATERAL) PATIENT/TECHNOLOGIST PROVIDED HISTORY: cough, congestion and wheeze for 3 days CLINICAL HISTORY: 49 years old Male with Acute cough MQ: [id number] EXAM DATE/TIME: 11/28/2024 9:51 AM COMPARISON: Chest radiograph(s) dated 11/11/2019 RESULT: Lines, tubes, and devices: None. Lungs and pleura: No consolidation. No pleural effusion. No pneumothorax. Cardiomediastinal silhouette: Normal cardiomediastinal silhouette. Bones and soft tissues: Unremarkable. IMPRESSION IMPRESSION: No acute radiographic abnormality. Patient Ombudsperson: PSCB Transcribe Date/Time: Nov 28 2024 9:52A Dictated by : CYNDEE VIDES DO This examination was interpreted and the report reviewed and electronically signed by: CYNDEE VIDES DO on Nov 28 2024 9:53AM EST [facility] XR Chest PA and LateralOrder ed By: [facility] Provider on 11-28-2024 [facility] Shoulder min 2 Viewson 10-29 Shoulder min 2 Views [facility] Imaging Services [address] [place] [id number] Shoulder min 2 Views MR#: [id number] Acct: [id number] Name: LORA BAILEY Rep #: [id number] : 1975 M 49 From: Avelino Taylor MD PCP: Dr. Dean Peterson MD Status: REG CL Study: Shoulder min 2 Views Date of Exam: 10/29/24 Exam# [id number] Ordering Dr: Dean Peterson MD [id number] STUDY: X-RAY - LEFT SHOULDER REASON FOR EXAM: Male, 49 years old. Pain. TECHNIQUE: 4 views of the left shoulder. COMPARISON: None. FINDINGS: Normal glenohumeral articulation. Normal acromioclavicular joint. Normal acromion. Normal humeral head and visualized proximal humerus. The soft tissue structures are unremarkable. There is no demonstrated fracture. Normal visualized pulmonary apex. RAD/Shoulder min 2 Views IMPRESSION: Normal x-ray examination of the left shoulder. Electronically Signed: Avelino Taylor MD at 11:44 EST , CC: Dr. Dean Peterson MD Patient Ombudsperson: Signed Normal [facility] Shoulder min 2 Views [facility] Imaging Services [address] [place], [place] [address] Shoulder min 2 Views MR#: [id number] Acct: [id number] Name: LORA BAILEY Rep #: [id number] : 1975 M 49 From: Avelino Taylor MD PCP: Dr. Dean Peterson MD Status: [facility] CL Study: Shoulder min 2 Views Date of Exam: 10/29/24 Exam# [id number] Ordering Dr: Dean Peterson MD [id number] STUDY: X-RAY - RIGHT SHOULDER REASON FOR EXAM: Male, 49 years old. Pain. TECHNIQUE: 4 views of the right shoulder. COMPARISON: None. FINDINGS: Normal glenohumeral articulation. Normal acromioclavicular joint. Normal acromion. Normal humeral head and visualized proximal humerus. The soft tissue structures are unremarkable. There is no demonstrated fracture. Normal visualized pulmonary apex. RAD/Shoulder min 2 Views IMPRESSION: Normal x-ray examination of the right shoulder. Electronically Signed: Avelino Taylor MD at 11:45 EST , CC: Dr. Dean Peterson MD Patient Ombudsperson: Signed Normal [facility] CBC W/Diff, Automatedon 11-2 Absolute Lymph 1.76 X10 3/uL Normal 0.83-4.51 [facility] Comment on above: Performed By: #### L 500.2500, L100.0100 #### [facility] [address] [place], [address] Absolute Neut 3.4 X10 3/uL Normal 2.0-7.7 [facility] Comment on above: Performed By: #### L 500.2500, L100.0100 #### [facility] [address] [place], [address] Basophils/100 WBC (Bld) 0.3 % Normal 0-1 [facility] Comment on above: Performed By: #### L 500.2500, L100.0100 #### [facility] [address] [place], [address] Eosinophils/100 WBC (Bld) 2.3 % Normal 0-5 [facility] Comment on above: Performed By: #### L 500.2500, L100.0100 #### [facility] [address] [place], [address] Erythrocyte distribution width (RBC) [Ratio] 11.9 % Normal 11.6-14.6 [facility] Comment on above: Performed By: #### L 500.2500, L100.0100 #### [facility] [address] [place], [address] Hematocrit (Bld) [Volume fraction] 44.1 % Normal 40-54 [facility] Comment on above: Performed By: #### L 500.2500, L100.0100 #### [facility] [address] [place], [address] Hemoglobin (Bld) [Mass/Vol] 14.8 g/dL Normal 13.0-16.5 [facility] Comment on above: Performed By: #### L 500.2500, L100.0100 #### [facility] [address], [address] IG% 0.200 Normal 0.0-0.9 [facility] Comment on above: Result Comment: IG% - Immature Granulocytes (promyelocytes, myelocytes and metamyelocytes) > 1% indicates that a LEFT SHIFT is Present. Performed By: #### L 500.2500, L100.0100 #### [facility] [address] [place], [address] Lymphocytes/100 WBC (Bld) 29.5 % Normal 19-41 [facility] Comment on above: Performed By: #### L 500.2500, L100.0100 #### [facility] [address] [place], [address] MCH (RBC) [Entitic mass] 29.0 pg Normal 27.0-32.0 [facility] Comment on above: Performed By: #### L 500.2500, L100.0100 #### [facility] [address], [address] MCHC (RBC) [Mass/Vol] 33.6 g/dL Normal 32-36 [facility] Comment on above: Performed By: #### L 500.2500, L100.0100 #### [facility] [address] [place], [address] MCV (RBC) [Entitic vol] 86.5 fL Normal 80-94 [facility] Comment on above: Performed By: #### L 500.2500, L100.0100 #### [facility] [address] [place], [address] Monocytes/100 WBC (Bld) 10.2 % High 0-10 [facility] Comment on above: Performed By: #### L 500.2500, L100.0100 #### [facility] [address] [place], [address] Neutrophils/100 WBC (Bld) 57.5 % Normal 47-70 [facility] Comment on above: Performed By: #### L 500.2500, L100.0100 #### [facility] [address] [place], [address] Nucleated RBC (Bld) [#/Vol] 0 10*3/uL Normal 0-5 [facility] Comment on above: Performed By: #### L 500.2500, L100.0100 #### [facility] [address] [place], [address] Platelet mean volume (Bld) [Entitic vol] 10.8 fL Normal 6.2-12.0 [facility] Comment on above: Performed By: #### L 500.2500, L100.0100 #### [facility] [address] [place], [address] Platelets (Bld) [#/Vol] 235 10*3/uL Normal 150-450 [facility] Comment on above: Performed By: #### L 500.2500, L100.0100 #### [facility] [address] [place], [address] RBC (Bld) [#/Vol] 5.10 10*6/uL Normal 4.6-6.2 [facility] Comment on above: Performed By: #### L 500.2500, L100.0100 #### [facility] [address] [place], [address] RDW SD 37.6 fl Normal 35.1-43.9 [facility] Comment on above: Performed By: #### L 500.2500, L100.0100 #### [facility] [address] [place], [address] WBC (Bld) [#/Vol] 6.0 10*3/uL Normal 4.4-11.0 [facility] Comment on above: Performed By: #### L 500.2500, L100.0100 #### [facility] [address] [place], [address] CRPon 09-14-2024 C-REACTIVE PROT 9.53 mg/L High 0.0-3.0 [facility] Comment on above: Result Comment: C-Re active Protein (CRP) provides useful information for the diagnosis, therapy and monitoring of inflammatory processes and associated diseases. For the evaluation of Relative Risk for Cardiovascular Disease, a High Sensitivity CRP (HSCRP) should be ordered. Performed By: #### L 500.2500, L100.0100 #### [facility] [address] [place], [address] Comprehensive Metabolic Prof ilon 09-14-2024 Albumin [Mass/Vol] 3.6 g/dL Normal 3.2-5.0 [facility] Comment on above: Performed By: #### L 500.2500, L100.0100 #### [facility] [address] [place], [address] Albumin/Globulin [Mass ratio] 1.1 {ratio} Normal 0.9-2.4 [facility] Comment on above: Performed By: #### L 500.2500, L100.0100 #### [facility] [address] [place], [address] ALK P 72 U/L Normal 45-117 [facility] Comment on above: Performed By: #### L 500.2500, L100.0100 #### [facility] [address] [place], [address] ALT [Catalytic activity/Vol] 27 U/L Normal 16-61 [facility] Comment on above: Performed By: #### L 500.2500, L100.0100 #### [facility] [address] [place], [address] AST [Catalytic activity/Vol] 18 U/L Normal 15-37 [facility] Comment on above: Performed By: #### L 500.2500, L100.0100 #### [facility] [address] [place], [address] Bilirubin [Mass/Vol] 0.50 mg/dL Normal 0.20-1.00 [facility] Comment on above: Result Comment: For patients on eltrombopag therapy, use of Dimension [place] TBIL is not recommended. Performed By: #### L 500.2500, L100.0100 #### [facility] [address] [place], [address] BUN/CRE 14.3 RATIO Normal 10-20 [facility] Comment on above: Performed By: #### L 500.2500, L100.0100 #### [facility] [address] [place], [address] CA,Total 9.0 mg/dL Normal 8.5-10.1 [facility] Comment on above: Performed By: #### L 500.2500, L100.0100 #### [facility] [address] [place], [address] Chloride [Moles/Vol] 110 mmol/L High 98-107 [facility] Comment on above: Performed By: #### L 500.2500, L100.0100 #### [facility] [address] [place], [address] CO2 [Moles/Vol] 27.0 mmol/L Normal 21.0-32.0 [facility] Comment on above: Performed By: #### L 500.2500, L100.0100 #### [facility] [address] [place], [address] Creatinine [Mass/Vol] 1.33 mg/dL High 0.70-1.30 [facility] Comment on above: Result Comment: The validity of the calculated GFR GFRAA in patients over 70 years has not been determined. Clinical correlation is essential. Performed By: #### L 500.2500, L100.0100 #### [facility] [address] [place], [address] EST GFR - AA 74 mL/min Normal >60 [facility] Comment on above: Result Comment: Afri can [place] GFR Calc Performed By: #### L 500.2500, L100.0100 #### [facility] [address] [place], [address] GAP 4 Low 5-15 [facility] Comment on above: Performed By: #### L 500.2500, L100.0100 #### [facility] [address] [place], [address] GFR/1.73 sq M.predicted among non-blacks MDRD (S/P/Bld) [Vol rate/Area] 61 mL/min/{1.73_m2} Normal >60 [facility] Comment on above: Result Comment: Non- GFR Calc Performed By: #### L 500.2500, L100.0100 #### [facility] [address] [place], [address] Globulin (S) [Mass/Vol] 3.2 g/dL Normal 2.2-4.2 [facility] Comment on above: Performed By: #### L 500.2500, L100.0100 #### [facility] [address] [place], [address] Glucose [Mass/Vol] 102 mg/dL Normal 74-106 [facility] Comment on above: Result Comment: Fast ing Glucose result from 100 to 125 mg/dL suggests IMPAIRED HOMEOSTASIS per A.D.A. criteria. Performed By: #### L 500.2500, L100.0100 #### [facility] [address] [place], [address] Potassium [Moles/Vol] 4.1 mmol/L Normal 3.5-5.1 [facility] Comment on above: Performed By: #### L 500.2500, L100.0100 #### [facility] [address] [place], [address] Sodium [Moles/Vol] 141 mmol/L Normal 136-145 [facility] Comment on above: Performed By: #### L 500.2500, L100.0100 #### [facility] [address] [place], [address] T PROT 6.8 g/dL Normal 6.4-8.2 [facility] Comment on above: Performed By: #### L 500.2500, L100.0100 #### [facility] [address] [place], [address] Urea nitrogen [Mass/Vol] 19 mg/dL High 7-18 [facility] Comment on above: Performed By: #### L 500.2500, L100.0100 #### [facility] [address] [place], [address] Basic Metabolic Profile (BMP )on 09-10-2024 BUN/CRE 13.2 RATIO Normal 10-20 [facility] Comment on above: Performed By: #### L 500.2500, L100.0100 #### [facility] [address] [place], [address] CA,Total 8.8 mg/dL Normal 8.5-10.1 [facility] Comment on above: Performed By: #### L 500.2500, L100.0100 #### [facility] [address] [place], [address] Chloride [Moles/Vol] 110 mmol/L High 98-107 [facility] Comment on above: Performed By: #### L 500.2500, L100.0100 #### [facility] [address] [place], [address] CO2 [Moles/Vol] 24.0 mmol/L Normal 21.0-32.0 [facility] Comment on above: Performed By: #### L 500.2500, L100.0100 #### [facility] [address] [place], [address] Creatinine [Mass/Vol] 1.14 mg/dL Normal 0.70-1.30 [facility] Comment on above: Result Comment: The validity of the calculated GFR GFRAA in patients over 70 years has not been determined. Clinical correlation is essential. Performed By: #### L 500.2500, L100.0100 #### [facility] [address] [place], [address] ECRCL 103.23 ml/min Normal [facility] Comment on above: Performed By: #### L 500.2500, L100.0100 #### [facility] [address] [place], [address] EST GFR - AA 88 mL/min Normal >60 [facility] Comment on above: Result Comment: Afri can [place] GFR Calc Performed By: #### L 500.2500, L100.0100 #### [facility] [address] [place], [address] GAP 6 Normal 5-15 [facility] Comment on above: Performed By: #### L 500.2500, L100.0100 #### [facility] [address] [place], [address] GFR/1.73 sq M.predicted among non-blacks MDRD (S/P/Bld) [Vol rate/Area] 73 mL/min/{1.73_m2} Normal >60 [facility] Comment on above: Result Comment: Non- GFR Calc Performed By: #### L 500.2500, L100.0100 #### [facility] [address] [place], [address] Glucose [Mass/Vol] 96 mg/dL Normal 74-106 [facility] Comment on above: Performed By: #### L 500.2500, L100.0100 #### [facility] [address] [place], [address] Potassium [Moles/Vol] 3.9 mmol/L Normal 3.5-5.1 [facility] Comment on above: Performed By: #### L 500.2500, L100.0100 #### [facility] [address] [place], [address] Sodium [Moles/Vol] 140 mmol/L Normal 136-145 [facility] Comment on above: Performed By: #### L 500.2500, L100.0100 #### [facility] [address] [place], [address] Urea nitrogen [Mass/Vol] 15 mg/dL Normal 7-18 [facility] Comment on above: Performed By: #### L 500.2500, L100.0100 #### [facility] [address] [place], [address] CBC W/Diff, Automatedon 11-2 -2023 Absolute Lymph 1.63 X10 3/uL Normal 0.83-4.51 [facility] Comment on above: Performed By: #### L 500.2500, L100.0100 #### [facility] [address] [place], [address] Absolute Neut 3.9 X10 3/uL Normal 2.0-7.7 [facility] Comment on above: Performed By: #### L 500.2500, L100.0100 #### [facility] [address] [place], [address] Basophils/100 WBC (Bld) 0.5 % Normal 0-1 [facility] Comment on above: Performed By: #### L 500.2500, L100.0100 #### [facility] [address] [place], [address] Eosinophils/100 WBC (Bld) 2.3 % Normal 0-5 [facility] Comment on above: Performed By: #### L 500.2500, L100.0100 #### [facility] [address] [place], [address] Erythrocyte distribution width (RBC) [Ratio] 11.6 % Normal 11.6-14.6 [facility] Comment on above: Performed By: #### L 500.2500, L100.0100 #### [facility] [address] [place], [address] Hematocrit (Bld) [Volume fraction] 40.6 % Normal 40-54 [facility] Comment on above: Performed By: #### L 500.2500, L100.0100 #### [facility] [address] [place], [address] Hemoglobin (Bld) [Mass/Vol] 13.4 g/dL Normal 13.0-16.5 [facility] Comment on above: Performed By: #### L 500.2500, L100.0100 #### [facility] [address] [place], [address] IG% 0.200 Normal 0.0-0.9 [facility] Comment on above: Result Comment: IG% - Immature Granulocytes (promyelocytes, myelocytes and metamyelocytes) > 1% indicates that a LEFT SHIFT is Present. Performed By: #### L 500.2500, L100.0100 #### [facility] [address] [place], [address] Lymphocytes/100 WBC (Bld) 25.4 % Normal 19-41 [facility] Comment on above: Performed By: #### L 500.2500, L100.0100 #### [facility] [address], [address] MCH (RBC) [Entitic mass] 28.2 pg Normal 27.0-32.0 [facility] Comment on above: Performed By: #### L 500.2500, L100.0100 #### [facility] [address] [place], [address] MCHC (RBC) [Mass/Vol] 33.0 g/dL Normal 32-36 [facility] Comment on above: Performed By: #### L 500.2500, L100.0100 #### [facility] [address] [place], [address] MCV (RBC) [Entitic vol] 85.5 fL Normal 80-94 [facility] Comment on above: Performed By: #### L 500.2500, L100.0100 #### [facility] [address] [place], [address] Monocytes/100 WBC (Bld) 11.4 % High 0-10 [facility] Comment on above: Performed By: #### L 500.2500, L100.0100 #### [facility] [address] [place], [address] Neutrophils/100 WBC (Bld) 60.2 % Normal 47-70 [facility] Comment on above: Performed By: #### L 500.2500, L100.0100 #### [facility] [address] [place], [address] Nucleated RBC (Bld) [#/Vol] 0 10*3/uL Normal 0-5 [facility] Comment on above: Performed By: #### L 500.2500, L100.0100 #### [facility] [address] [place], [address] Platelet mean volume (Bld) [Entitic vol] 10.5 fL Normal 6.2-12.0 [facility] Comment on above: Performed By: #### L 500.2500, L100.0100 #### [facility] [address] [place], [address] Platelets (Bld) [#/Vol] 187 10*3/uL Normal 150-450 [facility] Comment on above: Performed By: #### L 500.2500, L100.0100 #### [facility] [address] [place], [address] RBC (Bld) [#/Vol] 4.75 10*6/uL Normal 4.6-6.2 [facility] Comment on above: Performed By: #### L 500.2500, L100.0100 #### [facility] [address] [place], [address] RDW SD 36.0 fl Normal 35.1-43.9 [facility] Comment on above: Performed By: #### L 500.2500, L100.0100 #### [facility] [address] [place], [address] WBC (Bld) [#/Vol] 6.4 10*3/uL Normal 4.4-11.0 [facility] Comment on above: Performed By: #### L 500.2500, L100.0100 #### [facility] [address] [place], [address] Discharge Instructionon - Discharge Instruction [facility] Medical Records Department [address] [place] [address] Instructions for Home/Discharge Instructions 09/10/24 0904 MR#: [id number] Acct: [id number] Name: LORA BAILEY Rep #: [id number] : 1975 49 From: Louie Arroyo MD PCP: Dr. Dean Peterson MD Status:ADM IN Discharge Instructions Diet Discharge Diet: Soft diet (low fiber) DC O2, CPAP, BIPAP needs Additional Home O2 Discharge instructions: No Dressing / Incision Discharge Activity: May Drive and May Shower Dressing / Incision Call your doctor if you observe: Inability to have a bowel movement and Uncontrolled pain Follow Up Care Test Results: Test results from this visit will be discussed in further detail at your follow-up appointment, if applicable. Discharge Plan Admission Admit Date/Time: 09/07/24 19:17 Primary Reason for Your Visit: partial small bowel obstruction Attending Provider: Louie Arroyo Primary Care Provider: Dean Peterson Discharge Orders/Prescriptions Prescriptions: Continued telmisartan 40 mg tablet 40 mg PO DAILY metoprolol succinate 25 mg tablet extended release 24 hr 25 mg PO DAILY esomeprazole magnesium [Nexium] 20 mg capsule,delayed release(DR/EC) 20 mg PO DAILY Referrals / Follow Up: Dean Peterson MD [Primary Care Provider] - Disposition Disposition (needs filled in before D/C Order can be placed): Home, Self Care 09/10/24 1233 Louie Arroyo MD CC: Dr. Dean Peterson MD Signed Normal [facility] Abdomen Single View (Portabl e)on 09-09-2024 Abdomen Single View (Portable) [facility] Imaging Services [address] [place] [address] Abdomen Single View (Portable) MR#: [id number] Acct: [id number] Name: LORA BAILEY Rep #: [id number] : 1975 49 From: Ray betts DO PCP: Dr. Dean Peterson MD Status: ADM IN Study: Abdomen Single View (Portable) Date of Exam: 11/09/23 Exam# [id number] Ordering Dr: Louie Arroyo MD [id number] EXAM: XR ABDOMEN, 1 VIEW CLINICAL INDICATION: f/u sbft TECHNIQUE: Frontal supine view of the abdomen/pelvis. COMPARISON: 09/08/2024 FINDINGS: GASTROINTESTINAL TRACT: Contrast is identified within the colon and in the rectum. Nonobstructive bowel gas pattern. Postoperative changes of the bowel within the left lower quadrant. ORGANS: Normal as visualized. No organomegaly. No abnormal calcifications. BONES/JOINTS: No acute pathology. SOFT TISSUES: No acute pathology. TUBES, LINES AND DEVICES: Enteric tube present with tip and side-port below the GE junction. RAD/Abdomen Single View (Portable) IMPRESSION: Contrast is identified within the colon and in the rectum. Nonobstructive bowel gas pattern. Postoperative changes of the bowel within the left lower quadrant. Electronically Signed: Ray Collier, at 11:09 EST , CC: Dr. Dean Peterson MD; Dr. Louie Arroyo MD Patient Ombudsperson: Signed Normal [facility] Basic Metabolic Profile (BMP )on 09-09-2024 BUN/CRE 16.0 RATIO Normal - [facility] Comment on above: Performed By: #### L 500.2500, L100.0100, L501.5200, L501.2300 #### [facility] [address] [place], [address] CA,Total 8.5 mg/dL Normal 8.5-10.1 [facility] Comment on above: Performed By: #### L 500.2500, L100.0100, L501.5200, L501.2300 #### [facility] [address] [place], [address] Chloride [Moles/Vol] 109 mmol/L High 98-107 [facility] Comment on above: Performed By: #### L 500.2500, L100.0100, L501.5200, L501.2300 #### [facility] [address] [place], [address] CO2 [Moles/Vol] 23.0 mmol/L Normal 21.0-32.0 [facility] Comment on above: Performed By: #### L 500.2500, L100.0100, L501.5200, L501.2300 #### [facility] [address] [place], [address] Creatinine [Mass/Vol] 1.19 mg/dL Normal 0.70-1.30 [facility] Comment on above: Result Comment: The validity of the calculated GFR GFRAA in patients over 70 years has not been determined. Clinical correlation is essential. Performed By: #### L 500.2500, L100.0100, L501.5200, L501.2300 #### [facility] [address] [place], [address] ECRCL 98.89 ml/min Normal [facility] Comment on above: Performed By: #### L 500.2500, L100.0100, L501.5200, L501.2300 #### [facility] [address] [place], [address] EST GFR - AA 84 mL/min Normal >60 [facility] Comment on above: Result Comment: Afri can [place] GFR Calc Performed By: #### L 500.2500, L100.0100, L501.5200, L501.2300 #### [facility] [address] [place], [address] GAP 7 Normal 5-15 [facility] Comment on above: Performed By: #### L 500.2500, L100.0100, L501.5200, L501.2300 #### [facility] [address] [place], [address] GFR/1.73 sq M.predicted among non-blacks MDRD (S/P/Bld) [Vol rate/Area] 69 mL/min/{1.73_m2} Normal >60 [facility] Comment on above: Result Comment: Non- GFR Calc Performed By: #### L 500.2500, L100.0100, L501.5200, L501.2300 #### [facility] [address] [place], [address] Glucose [Mass/Vol] 95 mg/dL Normal 74-106 [facility] Comment on above: Performed By: #### L 500.2500, L100.0100, L501.5200, L501.2300 #### [facility] [address] [place], [address] Potassium [Moles/Vol] 3.7 mmol/L Normal 3.5-5.1 [facility] Comment on above: Performed By: #### L 500.2500, L100.0100, L501.5200, L501.2300 #### [facility] [address] [place], [address] Sodium [Moles/Vol] 139 mmol/L Normal 136-145 [facility] Comment on above: Performed By: #### L 500.2500, L100.0100, L501.5200, L501.2300 #### [facility] [address] [place], [address] Urea nitrogen [Mass/Vol] 19 mg/dL High 7-18 [facility] Comment on above: Performed By: #### L 500.2500, L100.0100, L501.5200, L501.2300 #### [facility] [address] [place], [address] CBC W/Diff, Automatedon 11-2 Absolute Lymph 1.84 X10 3/uL Normal 0.83-4.51 [facility] Comment on above: Performed By: #### L 500.2500, L100.0100, L501.5200, L501.2300 #### [facility] [address] [place], [address] Absolute Neut 4.8 X10 3/uL Normal 2.0-7.7 [facility] Comment on above: Performed By: #### L 500.2500, L100.0100, L501.5200, L501.2300 #### [facility] [address] [place], [address] Basophils/100 WBC (Bld) 0.3 % Normal 0-1 [facility] Comment on above: Performed By: #### L 500.2500, L100.0100, L501.5200, L501.2300 #### [facility] [address] [place], [address] Eosinophils/100 WBC (Bld) 1.2 % Normal 0-5 [facility] Comment on above: Performed By: #### L 500.2500, L100.0100, L501.5200, L501.2300 #### [facility] [address] [place], [address] Erythrocyte distribution width (RBC) [Ratio] 11.7 % Normal 11.6-14.6 [facility] Comment on above: Performed By: #### L 500.2500, L100.0100, L501.5200, L501.2300 #### [facility] [address] [place], [address] Hematocrit (Bld) [Volume fraction] 39.5 % Low 40-54 [facility] Comment on above: Performed By: #### L 500.2500, L100.0100, L501.5200, L501.2300 #### [facility] [address] [place], [address] Hemoglobin (Bld) [Mass/Vol] 13.1 g/dL Normal 13.0-16.5 [facility] Comment on above: Performed By: #### L 500.2500, L100.0100, L501.5200, L501.2300 #### [facility] [address] [place], [address] IG% 0.400 Normal 0.0-0.9 [facility] Comment on above: Result Comment: IG% - Immature Granulocytes (promyelocytes, myelocytes and metamyelocytes) > 1% indicates that a LEFT SHIFT is Present. Performed By: #### L 500.2500, L100.0100, L501.5200, L501.2300 #### [facility] [address] [place], [address] Lymphocytes/100 WBC (Bld) 24.2 % Normal 19-41 [facility] Comment on above: Performed By: #### L 500.2500, L100.0100, L501.5200, L501.2300 #### [facility] [address] [place], [address] MCH (RBC) [Entitic mass] 28.7 pg Normal 27.0-32.0 [facility] Comment on above: Performed By: #### L 500.2500, L100.0100, L501.5200, L501.2300 #### [facility] [address] [place], [address] MCHC (RBC) [Mass/Vol] 33.2 g/dL Normal 32-36 [facility] Comment on above: Performed By: #### L 500.2500, L100.0100, L501.5200, L501.2300 #### [facility] [address] [place], [address] MCV (RBC) [Entitic vol] 86.4 fL Normal 80-94 [facility] Comment on above: Performed By: #### L 500.2500, L100.0100, L501.5200, L501.2300 #### [facility] [address] [place], [address] Monocytes/100 WBC (Bld) 11.3 % High 0-10 [facility] Comment on above: Performed By: #### L 500.2500, L100.0100, L501.5200, L501.2300 #### [facility] [address] [place], [address] Neutrophils/100 WBC (Bld) 62.6 % Normal 47-70 [facility] Comment on above: Performed By: #### L 500.2500, L100.0100, L501.5200, L501.2300 #### [facility] [address] [place], [address] Nucleated RBC (Bld) [#/Vol] 0 10*3/uL Normal 0-5 [facility] Comment on above: Performed By: #### L 500.2500, L100.0100, L501.5200, L501.2300 #### [facility] [address] [place], [address] Platelet mean volume (Bld) [Entitic vol] 10.7 fL Normal 6.2-12.0 [facility] Comment on above: Performed By: #### L 500.2500, L100.0100, L501.5200, L501.2300 #### [facility] [address] [place], [address] Platelets (Bld) [#/Vol] 167 10*3/uL Normal 150-450 [facility] Comment on above: Performed By: #### L 500.2500, L100.0100, L501.5200, L501.2300 #### [facility] [address] [place], [address] RBC (Bld) [#/Vol] 4.57 10*6/uL Low 4.6-6.2 [facility] Comment on above: Performed By: #### L 500.2500, L100.0100, L501.5200, L501.2300 #### [facility] [address] [place], [address] RDW SD 37.0 fl Normal 35.1-43.9 [facility] Comment on above: Performed By: #### L 500.2500, L100.0100, L501.5200, L501.2300 #### [facility] [address] [place], [address] WBC (Bld) [#/Vol] 7.6 10*3/uL Normal 4.4-11.0 [facility] Comment on above: Performed By: #### L 500.2500, L100.0100, L501.5200, L501.2300 #### [facility] [address] [place], [address] Magnesiumon 09-09-2024 Magnesium [Mass/Vol] 2.0 mg/dL Normal 1.6-2.6 [facility] Comment on above: Performed By: #### L 100.0100 #### [facility] [address] [place], [address] Phosphoruson 09-09-2024 Phosphate [Mass/Vol] 2.3 mg/dL Low 2.5-4.9 [facility] Comment on above: Performed By: #### L 500.2500, L100.0100, L501.5200, L501.2300 #### [facility] [address] [place], [address] Abdomen Single View (Portabl e)on 09-08-2024 Abdomen Single View (Portable) [facility] [address] [place] [address] Abdomen Single View (Portable) MR#: [id number] Acct: [id number] Name: LORA BAILEY Rep #: [id number] : 1975 M 49 From: Kt sands MD PCP: Dr. Dean Peterson MD Status: ADM IN Study: Abdomen Single View (Portable) Date of Exam: 11/08/23 Exam# [id number] Ordering Dr: Louie Arroyo MD [id number] STUDY: X-RAY - ABDOMEN/PELVIS REASON FOR EXAM: Male, 49 years old. f/u SBO TECHNIQUE: Two AP supine views of the abdomen and pelvis. COMPARISON: Abdominal x-ray dated September 07, 2022 FINDINGS: The feeding tube is stable in the proximal body of the stomach. Normal visualized lung bases. Mild gaseous distention is seen in the transverse colon and in jejunal bowel loops in the left upper quadrant. The pattern suggests enteritis or focal ileus. The visualized liver, spleen and kidneys are grossly normal in size and morphology. Normal soft tissue structures. Normal visualized osseous structures. RAD/Abdomen Single View (Portable) IMPRESSION: 1. Mild gaseous distention is seen in the transverse colon and in jejunal bowel loops in the left upper quadrant. The pattern suggests enteritis or focal ileus. Electronically Signed: Kt Parekh MD at 8:49 EST Reading Location ID and State: [facility] / [place] , Service support , CC: Dr. Dean Peterson MD; Dr. Louie Arroyo MD Patient Ombudsperson: Signed Normal [facility] Basic Metabolic Profile (BMP )on 09-08-2024 BUN/CRE 22.6 RATIO High 10-20 [facility] Comment on above: Performed By: #### L 100.0100 #### [facility] [address] [place], [address] CA,Total 8.8 mg/dL Normal 8.5-10.1 [facility] Comment on above: Performed By: #### L 100.0100 #### [facility] [address] [place], [address] Chloride [Moles/Vol] 109 mmol/L High 98-107 [facility] Comment on above: Performed By: #### L 100.0100 #### [facility] [address] [place], [address] CO2 [Moles/Vol] 24.0 mmol/L Normal 21.0-32.0 [facility] Comment on above: Performed By: #### L 100.0100 #### [facility] [address] [place], [address] Creatinine [Mass/Vol] 1.15 mg/dL Normal 0.70-1.30 [facility] Comment on above: Result Comment: The validity of the calculated GFR GFRAA in patients over 70 years has not been determined. Clinical correlation is essential. Performed By: #### L 100.0100 #### [facility] [address] [place], [address] ECRCL 102.33 ml/min Normal [facility] Comment on above: Performed By: #### L 100.0100 #### [facility] [address] [place], [address] EST GFR - AA 87 mL/min Normal >60 [facility] Comment on above: Result Comment: Afri can [place] GFR Calc Performed By: #### L 100.0100 #### [facility] [address] [place], [address] GAP 5 Normal 5-15 [facility] Comment on above: Performed By: #### L 100.0100 #### [facility] [address] [place], [address] GFR/1.73 sq M.predicted among non-blacks MDRD (S/P/Bld) [Vol rate/Area] 72 mL/min/{1.73_m2} Normal >60 [facility] Comment on above: Result Comment: Non- GFR Calc Performed By: #### L 100.0100 #### [facility] [address] [place], [address] Glucose [Mass/Vol] 138 mg/dL High 74-106 [facility] Comment on above: Result Comment: Fast ing Glucose result greater than or equal to 126 mg/dL suggests DIABETES MELLITUS per A.D.A. criteria. Performed By: #### L 100.0100 #### [facility] [address] [place], [address] Potassium [Moles/Vol] 4.3 mmol/L Normal 3.5-5.1 [facility] Comment on above: Performed By: #### L 100.0100 #### [facility] [address] [place], [address] Sodium [Moles/Vol] 138 mmol/L Normal 136-145 [facility] Comment on above: Performed By: #### L 100.0100 #### [facility] [address] [place], [address] Urea nitrogen [Mass/Vol] 26 mg/dL High 7-18 [facility] Comment on above: Performed By: #### L 100.0100 #### [facility] [address] [place], [address] CBC W/Diff, Automatedon 11-2 3-2023 Absolute Lymph 1.09 X10 3/uL Normal 0.83-4.51 [facility] Comment on above: Performed By: #### L 100.0100 #### [facility] [address] [place], [address] Absolute Neut 6.4 X10 3/uL Normal 2.0-7.7 [facility] Comment on above: Performed By: #### L 100.0100 #### [facility] [address] [place], [address] Basophils/100 WBC (Bld) 0.2 % Normal 0-1 [facility] Comment on above: Performed By: #### L 100.0100 #### [facility] [address] [place], [address] Eosinophils/100 WBC (Bld) 0.0 % Normal 0-5 [facility] Comment on above: Performed By: #### L 100.0100 #### [facility] [address] [place], [address] Erythrocyte distribution width (RBC) [Ratio] 12.0 % Normal 11.6-14.6 [facility] Comment on above: Performed By: #### L 100.0100 #### [facility] [address] [place], [address] Hematocrit (Bld) [Volume fraction] 41.8 % Normal 40-54 [facility] Comment on above: Performed By: #### L 100.0100 #### [facility] [address] [place], [address] Hemoglobin (Bld) [Mass/Vol] 14.0 g/dL Normal 13.0-16.5 [facility] Comment on above: Performed By: #### L 100.0100 #### [facility] [address] [place], [address] IG% 0.400 Normal 0.0-0.9 [facility] Comment on above: Result Comment: IG% - Immature Granulocytes (promyelocytes, myelocytes and metamyelocytes) > 1% indicates that a LEFT SHIFT is Present. Performed By: #### L 100.0100 #### [facility] [address] [place], [address] Lymphocytes/100 WBC (Bld) 13.1 % Low 19-41 [facility] Comment on above: Performed By: #### L 100.0100 #### [facility] [address] [place], [address] MCH (RBC) [Entitic mass] 29.3 pg Normal 27.0-32.0 [facility] Comment on above: Performed By: #### L 100.0100 #### [facility] [address] [place], [address] MCHC (RBC) [Mass/Vol] 33.5 g/dL Normal 32-36 [facility] Comment on above: Performed By: #### L 100.0100 #### [facility] [address] [place], [address] MCV (RBC) [Entitic vol] 87.4 fL Normal 80-94 [facility] Comment on above: Performed By: #### L 100.0100 #### [facility] [address] [place], [address] Monocytes/100 WBC (Bld) 9.5 % Normal 0-10 [facility] Comment on above: Performed By: #### L 100.0100 #### [facility] [address] [place], [address] Neutrophils/100 WBC (Bld) 76.8 % High 47-70 [facility] Comment on above: Performed By: #### L 100.0100 #### [facility] [address] [place], [address] Nucleated RBC (Bld) [#/Vol] 0 10*3/uL Normal 0-5 [facility] Comment on above: Performed By: #### L 100.0100 #### [facility] [address] [place], [address] Platelet mean volume (Bld) [Entitic vol] 10.8 fL Normal 6.2-12.0 [facility] Comment on above: Performed By: #### L 100.0100 #### [facility] [address] [place], [address] Platelets (Bld) [#/Vol] 217 10*3/uL Normal 150-450 [facility] Comment on above: Performed By: #### L 100.0100 #### [facility] [address] [place], [address] RBC (Bld) [#/Vol] 4.78 10*6/uL Normal 4.6-6.2 [facility] Comment on above: Performed By: #### L 100.0100 #### [facility] [address] [place], [address] RDW SD 38.9 fl Normal 35.1-43.9 [facility] Comment on above: Performed By: #### L 100.0100 #### [facility] [address] [place], [address] WBC (Bld) [#/Vol] 8.4 10*3/uL Normal 4.4-11.0 [facility] Comment on above: Performed By: #### L 100.0100 #### [facility] [address] [place], [address] Magnesiumon 09-08-2024 Magnesium [Mass/Vol] 2.0 mg/dL Normal 1.6-2.6 [facility] Comment on above: Performed By: #### L 100.0100 #### [facility] [address] [place], [address] Phosphoruson 09-08-2024 Phosphate [Mass/Vol] 3.8 mg/dL Normal 2.5-4.9 [facility] Comment on above: Performed By: #### L 100.0100 #### [facility] [address] [place], [address] Small Bowel Series Onlyon Small Bowel Series Only [facility] [address] [place] [address] Small Bowel Series Only MR#: [id number] Acct: [id number] Name: LORA BAILEY Rep #: [id number] : 1975 M 49 From: Josep Smith MD PCP: Dr. Dean Peterson MD Status: ADM IN Study: Small Bowel Series Only Date of Exam: 09/08/24 Exam# [id number] Ordering Dr: Louie Arroyo MD [id number] EXAM: FL SMALL BOWEL FOLLOW THROUGH CLINICAL INDICATION: f/u SBO -- Films: Immediately post GG, 3h, 6 h, 12 h, and 24h TECHNIQUE: Fluoroscopy of the small bowel including multiple serial delayed images following oral contrast administration. Fluoroscopic guidance was provided by a physician. COMPARISON: No relevant prior studies available. FINDINGS: SMALL BOWEL: Mild nonspecific small bowel distention. There is no small bowel obstruction. Small bowel transit time is within normal limits. The mucosal pattern is unremarkable. The terminal ileum is unremarkable. Appendix is visualized. RAD/Small Bowel Series Only IMPRESSION: No evidence of small bowel obstruction. Small bowel transit time is within normal limits. Electronically Signed: Josep Smith MD at 9:09 EST Reading Location ID and State: [address] [place] [address] Tel , Service support , CC: Dr. Dean Peterson MD; Dr. Louie Arroyo MD Patient Ombudsperson: Signed Normal [facility] Abdomen Single View (Portabl e)on 09-07-2024 Abdomen Single View (Portable) [facility] Services [address] [place] [address] [id number] Abdomen Single View (Portable) MR#: [id number] Acct: [id number] Name: LORA BAILEY Rep #: [id number] : 1975 49 From: Clyde Rowley MD PCP: Dr. Dean Peterson MD Status: ADM IN Study: Abdomen Single View (Portable) Date of Exam: 11/07/23 Exam# [id number] Ordering Dr: Joy Marie DO [id number] STUDY: X-RAY - ABDOMEN/PELVIS REASON FOR EXAM: Male, 49 years old. NG Insertion TECHNIQUE: KUB COMPARISON: None. FINDINGS: Normal visualized lung bases. There is an unremarkable bowel gas pattern. There is no demonstrated free abdominal air. The visualized liver, spleen and kidneys are grossly normal in size and morphology. NG tube has been placed with tip in the mid to distal gastric fundus Normal soft tissue structures. Normal visualized osseous structures. RAD/Abdomen Single View (Portable) IMPRESSION: NG tube placement with tip in mid to distal gastric fundus. Electronically Signed: Clyde Rowley MD at 20:03 EST , CC: Dr. Joy Marie DO; Dr. Dean Peterson MD Patient Ombudsperson: Signed Normal [facility] Abdomen/Pelvis W IV Cont ONL Yon 09-07-2024 Abdomen/Pelvis W IV Cont ONLY [facility] Services [address] [place], [place] [id number] Abdomen/Pelvis W IV Cont ONLY MR#: [id number] Acct: [id number] Name: LORA BAILEY Rep #: [id number] : 1975 M 49 From: Clyde Rowley MD PCP: Dr. Dean Peterson MD Status: [facility] ER Study: Abdomen/Pelvis W IV Cont ONLY Date of Exam: Exam# [id number] Ordering Dr: Joy Marie DO ADDENDUM by Dr. Clyde Rowley MD on 09/07/24 at 1751 [id number] STUDY: CT ABDOMEN AND PELVIS WITH CONTRAST REASON FOR EXAM: Male, 49 years old. abd pain, hx of SBO RADIATION DOSAGE (If Supplied By Facility): CTDIvol = ( 16.08 ) mGy, DLP = ( 1324.85 ) mGycm TECHNIQUE: Transaxial images were obtained from the dome of the diaphragm to the symphysis pubis without oral contrast. IV 100mL Isovue-300 was administered. Sagittal and coronal images were reconstructed. Individualized dose optimization techniques were used for this CT. COMPARISON: September 03, 2013 FINDINGS: Mild bibasilar interstitial thickening. The visualized portions of the heart are within normal limits. No coronary artery calcification is observed Normal liver. Normal gallbladder and extrahepatic biliary system. Normal spleen. Normal pancreas. Normal bilateral adrenal glands. Normal right kidney. Small simple cyst in left kidney which will not require additional imaging Normal visualized stomach. There are postsurgical changes status post small bowel resection in left upper to mid abdomen. At the surgical site, there are mildly distended thick walled loops of bowel one of which appears to be adherent to the anterior abdominal wall with subtle stranding in the fat and decompressed loops distally suggesting partial small bowel obstruction likely due to adhesions.. Mild diverticular changes of the distal descending and sigmoid colon without evidence for acute diverticulitis. No evidence for acute appendicitis. Normal abdominal aorta. Normal inferior vena cava. Normal retroperitoneum. Normal urinary bladder. Trace of fluid in the pouch of Regis Small bilateral fat-containing inguinal hernias. Lumbar spine demonstrates mild spondylosis. 09/07/24 1752 Date cc: Dr. Joy Marie DO; Dr. Dean Peterson MD * Signed ADDENDUM by Dr. Clyde Rowley MD on 09/07/[address]/Abdomen/Pelvis W IV Cont ONLY IMPRESSION: Findings suspicious for small bowel obstruction at surgical site likely due to adhesions. Possibility of evolving changes of ischemic bowel not entirely excluded. Clinical correlation recommended N.B. : The above Results were Read Back by Clyde Rowley MD to Joy Marie DO, and understanding confirmed on 09/07/2024 18:01:08 (ET). Electronically Signed: Clyde Rowley MD at 17:52 EST Reading Location ID and State: [facility] / [place] Tel , Service support , 09/07/241807 Date cc: Dr. Joy Marie DO; Dr. Dean Peterson MD * Signed We are attempting to reach an attending provider to discuss findings. An addendum with communication details will be sent when the communication is complete. [id number] STUDY: CT ABDOMEN AND PELVIS WITH CONTRAST REASON FOR EXAM: Male, 49 years old. abd pain, hx of SBO RADIATION DOSAGE (If Supplied By Facility): CTDIvol = ( 16.08 ) mGy, DLP = ( 1324.85 ) mGycm TECHNIQUE: Transaxial images were obtained from the dome of the diaphragm to the symphysis pubis without oral contrast. IV 100mL Isovue-300 was administered. Sagittal and coronal images were reconstructed. Individualized dose optimization techniques were used for this CT. COMPARISON: September 03, 2013 FINDINGS: Mild bibasilar interstitial thickening. The visualized portions of the heart are within normal limits. No coronary artery calcification is observed Normal liver. Normal gallbladder and extrahepatic biliary system. Normal spleen. Normal pancreas. Normal bilateral adrenal glands. Normal right kidney. Small simple cyst in left kidney which will not require additional imaging Normal visualized stomach. There are postsurgical changes status post small bowel resection in left upper to mid abdomen. At the surgical site, there are mildly distended thick walled loops of bowel one of which appears to be adherent to the anterior abdominal wall with subtle stranding in the fat and decompressed loops distally suggesting partial small bowel obstruction likely due to adhesions.. Mild diverticular changes of the distal descending and sigmoid colon without evidence for acute diverticulitis. No evidence for acute appendicitis. Normal a (more content not included)... Normal [facility] Bedside Glucoseon 09-07-2024 FINGERSTICK GLU 124 mg/dL High 74-106 [facility] Comment on above: Result Comment: LITO JAMES OF PATIENT CARE PER NURSING PROTOCOL Performed By: #### L 501.080 #### [facility] [address] [place], [address] CBC W/Diff, Automatedon 11-2 -2023 Absolute Lymph 2.26 X10 3/uL Normal 0.83-4.51 [facility] Comment on above: Performed By: #### L 100.0100 #### [facility] [address] [place], [address] Absolute Neut 6.5 X10 3/uL Normal 2.0-7.7 [facility] Comment on above: Performed By: #### L 100.0100 #### [facility] [address] [place], [address] Basophils/100 WBC (Bld) 0.4 % Normal 0-1 [facility] Comment on above: Performed By: #### L 100.0100 #### [facility] [address] [place], [address] Eosinophils/100 WBC (Bld) 0.9 % Normal 0-5 [facility] Comment on above: Performed By: #### L 100.0100 #### [facility] [address] [place], [address] Erythrocyte distribution width (RBC) [Ratio] 12.0 % Normal 11.6-14.6 [facility] Comment on above: Performed By: #### L 100.0100 #### [facility] [address] [place], [address] Hematocrit (Bld) [Volume fraction] 47.1 % Normal 40-54 [facility] Comment on above: Performed By: #### L 100.0100 #### [facility] [address] [place], [address] Hemoglobin (Bld) [Mass/Vol] 15.9 g/dL Normal 13.0-16.5 [facility] Comment on above: Performed By: #### L 100.0100 #### [facility] [address] [place], [address] IG% 0.200 Normal 0.0-0.9 [facility] Comment on above: Result Comment: IG% - Immature Granulocytes (promyelocytes, myelocytes and metamyelocytes) > 1% indicates that a LEFT SHIFT is Present. Performed By: #### L 100.0100 #### [facility] [address] [place], [address] Lymphocytes/100 WBC (Bld) 22.9 % Normal 19-41 [facility] Comment on above: Performed By: #### L 100.0100 #### [facility] [address] [place], [address] MCH (RBC) [Entitic mass] 29.1 pg Normal 27.0-32.0 [facility] Comment on above: Performed By: #### L 100.0100 #### [facility] [address] [place], [address] MCHC (RBC) [Mass/Vol] 33.8 g/dL Normal 32-36 [facility] Comment on above: Performed By: #### L 100.0100 #### [facility] [address] [place], [address] MCV (RBC) [Entitic vol] 86.1 fL Normal 80-94 [facility] Comment on above: Performed By: #### L 100.0100 #### [facility] [address] [place], [address] Monocytes/100 WBC (Bld) 9.8 % Normal 0-10 [facility] Comment on above: Performed By: #### L 100.0100 #### [facility] [address] [place], [address] Neutrophils/100 WBC (Bld) 65.8 % Normal 47-70 [facility] Comment on above: Performed By: #### L 100.0100 #### [facility] [address] [place], [address] Nucleated RBC (Bld) [#/Vol] 0 10*3/uL Normal 0-5 [facility] Comment on above: Performed By: #### L 100.0100 #### [facility] [address] [place], [address] Platelet mean volume (Bld) [Entitic vol] 10.7 fL Normal 6.2-12.0 [facility] Comment on above: Performed By: #### L 100.0100 #### [facility] [address] [place], [address] Platelets (Bld) [#/Vol] 258 10*3/uL Normal 150-450 [facility] Comment on above: Performed By: #### L 100.0100 #### [facility] [address] [place], [address] RBC (Bld) [#/Vol] 5.47 10*6/uL Normal 4.6-6.2 [facility] Comment on above: Performed By: #### L 100.0100 #### [facility] [address] [place], [address] RDW SD 37.8 fl Normal 35.1-43.9 [facility] Comment on above: Performed By: #### L 100.0100 #### [facility] [address] [place], [address] WBC (Bld) [#/Vol] 9.9 10*3/uL Normal 4.4-11.0 [facility] Comment on above: Performed By: #### L 100.0100 #### [facility] [address] [place], [address] Comprehensive Metabolic Prof ilon 09-07-2024 Albumin [Mass/Vol] 4.0 g/dL Normal 3.2-5.0 [facility] Comment on above: Performed By: #### L 100.0100 #### [facility] [address] [place], [address] Albumin/Globulin [Mass ratio] 1.3 {ratio} Normal 0.9-2.4 [facility] Comment on above: Performed By: #### L 100.0100 #### [facility] [address] [place], [address] ALK P 70 U/L Normal 45-117 [facility] Comment on above: Performed By: #### L 100.0100 #### [facility] [address] [place], [address] ALT [Catalytic activity/Vol] 29 U/L Normal 16-61 [facility] Comment on above: Performed By: #### L 100.0100 #### [facility] [address] [place], [address] AST [Catalytic activity/Vol] 14 U/L Low 15-37 [facility] Comment on above: Performed By: #### L 100.0100 #### [facility] [address] [place], [address] Bilirubin [Mass/Vol] 0.90 mg/dL Normal 0.20-1.00 [facility] Comment on above: Result Comment: For patients on eltrombopag therapy, use of Dimension [place] TBIL is not recommended. Performed By: #### L 100.0100 #### [facility] [address] [place], [address] BUN/CRE 21.6 RATIO High 10-20 [facility] Comment on above: Performed By: #### L 100.0100 #### [facility] [address] [place], [address] CA,Total 9.2 mg/dL Normal 8.5-10.1 [facility] Comment on above: Performed By: #### L 100.0100 #### [facility] [address] [place], [address] Chloride [Moles/Vol] 108 mmol/L High 98-107 [facility] Comment on above: Performed By: #### L 100.0100 #### [facility] [address] [place], [address] CO2 [Moles/Vol] 27.0 mmol/L Normal 21.0-32.0 [facility] Comment on above: Performed By: #### L 100.0100 #### [facility] [address] [place], [address] Creatinine [Mass/Vol] 1.25 mg/dL Normal 0.70-1.30 [facility] Comment on above: Result Comment: The validity of the calculated GFR GFRAA in patients over 70 years has not been determined. Clinical correlation is essential. Performed By: #### L 100.0100 #### [facility] [address] [place], [address] ECRCL 95.22 ml/min Normal [facility] Comment on above: Performed By: #### L 100.0100 #### [facility] [address] [place], [address] EST GFR - AA 79 mL/min Normal >60 [facility] Comment on above: Result Comment: Afri can [place] GFR Calc Performed By: #### L 100.0100 #### [facility] [address] [place], [address] GAP 4 Low 5-15 [facility] Comment on above: Performed By: #### L 100.0100 #### [facility] [address] [place], [address] GFR/1.73 sq M.predicted among non-blacks MDRD (S/P/Bld) [Vol rate/Area] 66 mL/min/{1.73_m2} Normal >60 [facility] Comment on above: Result Comment: Non- GFR Calc Performed By: #### L 100.0100 #### [facility] [address] [place], [address] Globulin (S) [Mass/Vol] 3.1 g/dL Normal 2.2-4.2 [facility] Comment on above: Performed By: #### L 100.0100 #### [facility] [address] [place], [address] Glucose [Mass/Vol] 103 mg/dL Normal 74-106 [facility] Comment on above: Result Comment: Fast ing Glucose result from 100 to 125 mg/dL suggests IMPAIRED HOMEOSTASIS per A.D.A. criteria. Performed By: #### L 100.0100 #### [facility] [address] [place], [address] Potassium [Moles/Vol] 4.0 mmol/L Normal 3.5-5.1 [facility] Comment on above: Performed By: #### L 100.0100 #### [facility] [address] [place], [address] Sodium [Moles/Vol] 139 mmol/L Normal 136-145 [facility] Comment on above: Performed By: #### L 100.0100 #### [facility] [address] [place], [address] T PROT 7.1 g/dL Normal 6.4-8.2 [facility] Comment on above: Performed By: #### L 100.0100 #### [facility] [address] [place], [address] Urea nitrogen [Mass/Vol] 27 mg/dL High 7-18 [facility] Comment on above: Performed By: #### L 100.0100 #### [facility] [address] [place], [address] Emergency Department Summary on 09-07-2024 Emergency Department Summary [facility] Medical Records Department [address] [place] [address] Emergency Department Summary 09/07/24 MR#: [id number] Acct: [id number] Name: LORA BAILEY Rep #: [id number] : 1975 49 From: Joy Marie DO PCP: Dr. 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 Patient states he started feeling uncomfortable yesterday. States it comes in waves. Is associate nausea. Pain seems to be centered in his left mid abdomen. Today the pain has been more intense and he states he is having higher peaks of the pain. He tried to eat lunch today of salad and rice and after that the pain became significantly worse. He notes that has been burping a lot does not been passing gas today. He did have a underwhelming bowel movement this morning that was much less than he normally would have. He states his initial bowel resection was in 1992. He did have an episode of a small bowel obstruction that was treated conservatively by Dr. English in 2012. He notes that has been urinating less but thinks he is dehydrated since he is not really been drinking or eating today. Denies any fever. No other complaints or concerns at this time [facility] Medical History Cancer of abdomen Bowel obstruction Home Medications ???Medication ???Instructions ???Recorded ???Last Taken ???Type esomeprazole magnesium 20 mg 20 mg PO DAILY GERD 09/07/24 Unknown History capsule,delayed release (Nexium) metoprolol succinate 25 mg 25 mg PO DAILY 09/07/24 Unknown History tablet,extended release 24 hr telmisartan 40 mg tablet 40 mg PO DAILY 09/07/24 Unknown History Allergy/AdvReac Type Severity Reaction Status Date / Time No Known Allergies Allergy Verified 09/07/24 15:55 Surgical History Hx of resection of small bowel Social History Smoking Status: Never smoker ROS ROS ED Constitutional Constitutional ED: Denies chills or fever(s) Gastrointestinal Gastrointestinal: Reports abdominal pain and nausea Musculoskeletal Musculoskeletal: Denies arthralgias or myalgias Integumentary Denies rash Neurologic Neurologic: Denies weakness Hematologic/Lymphati c Hematologic/Lymphati c: Denies easy bleeding or easy bruising EXAM Physical Exam Const Vital Signs: 09/07/24 15:55 09/07/24 17:54 09/07/24 19:00 Temperature 96.7 F L Temperature Source Temporal Pulse Rate 75 95 67 Respiratory Rate 18 16 15 Blood Pressure 149/112 H 132/75 H 157/94 H Blood Pressure Mean 124 94 115 Pulse Ox 99 96 95 Oxygen Delivery Method Room Air Room Air Room Air Positive well nourished and well developed General Appearance ED: well developed and NAD HEENT Reports moist mucous membranes normocephalic and atraumatic Neck supple Resp clear to auscultation bilaterally Cardio regular rate and regular rhythm GI non-distended Auscultation: hyperactive bowel sounds Palpation: soft, tender other (Left mid abdomen) and rebound tenderness present; Negative for guarding or rigid Back/Spine no CVA tenderness Extremity full ROM General Extremety ED: Negative for edema General Extremity: Negative for edema Neuro Sensorium / Orientation: alert, oriented to person, oriented to place and oriented to time Motor Exam: Negative for general weakness Psych mental status grossly normal and thought process normal Skin no wounds MDM MDM MDM Narrative Medical decision making narrative: Patient's evaluated for abdominal pain for 2 days associated nausea. Does have a history of small bowel obstruction that was treated nonoperatively and prior small bowel resection from Burkitt's lymphoma. Differential includes gastroenteritis, pancreatitis, small bowel obstruction, ileus and SHANNON Patient initially is given IV morphine, fluids and Zofran for symptoms in the emergency room. CBC, CMP, and lipase are all normal. CT of the abdomen and pelvis is suspicious for small bowel obstruction at surgical site likely due to adhesions and there is also possibility of evolving changes of ischemic bowel not entirely excluded. Lactate is added on because of this finding. Surgical consult obtained and I spoke with Dr. Arroyo. He evaluated the patient. NG tube will be placed. He admit the patient to his service. Given the lactate is normal as well as his white blood cell count and vital signs lower suspicion for acute ischemia at t (more content not included)... Normal [facility] Lactic Acidon 09-07-2024 Lactate [Moles/Vol] 0.6 mmol/L Normal 0.4-1.9 [facility] Comment on above: Order Comment: Y Performed By: #### L 100.0100 #### [facility] [address] [place], [place], [address] Lipaseon 09-07-2024 Lipase [Catalytic activity/Vol] 41 U/L Normal 13-75 [facility] Comment on above: Result Comment: Say rose note: LIPASE revised reference range effective 23. New Lipase methodology. Expected to produce lower values than the previous assay method. NEW Reference Range: 13 - 75 U/L Performed By: #### L 100.0100 #### [facility] [address] [place], [address] Destr of lesionon 08-14-2024 Complexity: simple Destruction method: cryotherapy Informed consent: discussed and consent obtained Lesion destroyed using liquid nitrogen: Yes Outcome: patient tolerated procedure well with no complications Post-procedure details: wound care instructions given [facility] Work Phone: [facility] Work Phone: Absolute lymphocyte countOrd ered By: Deanharis Peterson on 09-24-2023 Lymphocytes Auto (Unsp spec) [#/Vol] 1.96 10*3/uL 0.83-4.51 [facility] Basophil percentageOrdered B y: Dean Peterson on 09-24-2023 Basophils/100 WBC (Bld) 0.5 % 0-1 [facility] Bilirubin [Mass/Vol] 0.70 mg/dL 0.20-1.00 [facility] Comment on above: For patients on eltr ombopag therapy, use of Dimension [place] TBIL is not recommended. Chloride [Moles/Vol] 107 mmol/L 98-107 [facility] Cholesterol [Mass/Vol] 224 mg/dL <200 [facility] Comment on above: <200 mg/dL Desirable 200-240 mg/dL Borderline >240 mg/dL High Risk Eosinophils/100 WBC (Bld) 1.5 % 0-5 [facility] Glucose [Mass/Vol] 100 mg/dL 74-106 [facility] Comment on above: Fasting Glucose resu lt from 100 to 125 mg/dL suggests IMPAIRED HOMEOSTASIS per A.D.A. criteria. Neutrophils (Bld) [#/Vol] 3.9 10*3/uL 2.0-7.7 [facility] Neutrophils/100 WBC (Bld) 59.7 % 47-70 [facility] Potassium [Moles/Vol] 4.1 mmol/L 3.5-5.1 [facility] Protein [Mass/Vol] 7.1 g/dL 6.4-8.2 [facility] Sodium [Moles/Vol] 139 mmol/L 136-145 [facility] Triglyceride [Mass/Vol] 125 mg/dL <199 [facility] Comment on above: The drugs N-Acetylcy steine and Metamizole may falsely depress this assay.Serum Triglycerides Reference Interval Normal <150 mg/dL Borderline high 150 - 199 mg/dL High 200 - 499 mg/dL Very High > or = 500 mg/dL WBC (Bld) [#/Vol] 6.5 10*3/uL 4.4-11.0 [facility] Blood erythrocytes count (nu mber/volume)Ordered By: Dean Peterson on 09-24-2023 RBC (Bld) [#/Vol] 5.37 10*6/uL 4.6-6.2 [facility] Blood hemoglobin measurement (mass/volume)Ordered By: Dean Peterson on 09-24-2023 Hemoglobin (Bld) [Mass/Vol] 15.2 g/dL 13.0-16.5 [facility] Blood lymphocytes/100 leukoc ytesOrdered By: Dean Peterson on 09-24-2023 Lymphocytes/100 WBC (Bld) 30.3 % 19-41 [facility] Blood monocytes/100 leukocyt esOrdered By: Dean Peterson on 09-24-2023 Monocytes/100 WBC (Bld) 7.7 % 0-10 [facility] Blood platelet mean volumeOr dered By: Dean Peterson on 09-24-2023 Platelet mean volume (Bld) [Entitic vol] 10.0 fL 6.2-12.0 [facility] Cerebrospinal fluid Borrelia burgdorferi 18kd IgG antibody detection by immunoblotOrdered By: Dean Peterson on 09-24-2023 B. burgdorferi 18kD IgG IB Ql (CSF) Absent . [facility] Cerebrospinal fluid Borrelia burgdorferi 23kD IgG antibody detection by immunoblotOrdered By: Dean Peterson on 09-24-2023 B. burgdorferi 23kD IgG IB Ql (CSF) Absent . [facility] Cerebrospinal fluid Borrelia burgdorferi 23kD IgM antibody detection by immunoblotOrdered By: Dean Peterson on 09-24-2023 B. burgdorferi 23kD IgM IB Ql (CSF) Absent . [facility] Cerebrospinal fluid Borrelia burgdorferi 28kD IgG antibody detection by immunoblotOrdered By: Dean Peterson on 09-24-2023 B. burgdorferi 28kD IgG IB Ql (CSF) Absent . [facility] Cerebrospinal fluid Borrelia burgdorferi 39kD IgG antibody detection by immunoblotOrdered By: Dean Peterson on 09-24-2023 B. burgdorferi 39kD IgG IB Ql (CSF) Absent . [facility] Cerebrospinal fluid Borrelia burgdorferi 39kD IgM antibody detection by immunoblotOrdered By: Dean Peterson on 09-24-2023 B. burgdorferi 39kD IgM IB Ql (CSF) Absent . [facility] Cerebrospinal fluid Borrelia burgdorferi 41kD IgM antibody detection by immunoblotOrdered By: Dean Peterson on 09-24-2023 B. burgdorferi 41kD IgM IB Ql (CSF) Absent . [facility] Determination of erythrocyte mean corpuscular volume (MCV)Ordered By: Dean Peterson on 09-24-2023 MCV (RBC) [Entitic vol] 85.8 fL 80-94 [facility] Hematocrit Auto (Bld) [Volum e fraction]Ordered By: Dean Peterson on 09-24-2023 Hematocrit (Bld) [Volume fraction] 46.1 % 40-54 [facility] - Chemistry and C hemistry - challengeOrdered By: Dean Peterson on 09-24-2023 Albumin [Mass/Vol] 3.6 g/dL 2.9-4.4 [facility] ALP [Catalytic activity/Vol] 75 U/L 45-117 [facility] ALT [Catalytic activity/Vol] 30 U/L 16-61 [facility] CO2 [Moles/Vol] 28.0 mmol/L 21.0-32.0 [facility] Globulin (S) [Mass/Vol] 3.4 g/dL 2.2-4.2 [facility] Magnesium [Mass/Vol] 2.4 mg/dL 1.6-2.6 [facility] Urea nitrogen/Creatinine [Mass ratio] 21.0 mg/mg 10-20 [facility] - Hematology and Cell countsOrdered By: Dean Peterson on 09-24-2023 Erythrocyte distribution width (RBC) [Entitic vol] 37.0 fL 35.1-43.9 [facility] Erythrocyte distribution width (RBC) [Ratio] 11.9 % 11.6-14.6 [facility] Immature granulocytes/100 WBC (Bld) 0.300 % 0.0-0.9 [facility] Comment on above: IG% - Immature Granu locytes (promyelocytes, myelocytes and metamyelocytes) > 1% indicates that a LEFT SHIFT is Present. MCH (RBC) [Entitic mass] 28.3 pg 27.0-32.0 [facility] Nucleated RBC/100 WBC (Bld) [Ratio] 0 % 0-5 [facility] MCHC Auto (RBC) [Mass/Vol]Or dered By: Dean Peterson on 09-24-2023 MCHC (RBC) [Mass/Vol] 33.0 g/dL 32-36 [facility] No Panel InformationOrdered By: Dean Peterson on 09-24-2023 Addendum Document Comment . [facility] Comment on above: The SPE pattern appe ars unremarkable. Evidence ofmonoclonal protein is not apparent. Ubqrn-9-Cffggoyjc 0.2 g/dL 0.0-0.4 [facility] Ofmnt-7-Alfoxqyyp 0.7 g/dL 0.4-1.0 [facility] Anti-Nuclear Antibody Screen Negative Negative [facility] Comment on above: Performed at: [address] [id number] Director: Ethan Hannon PhD, Phone: [phone] C-Reactive Protein High Sensitivity 4.44 mg/L <3.00 [facility] Comment on above: Low Relative Risk of CVD <1.0 mg/L Average Relative Risk of CVD 1.0 - 3.0 mg/L High Relative Risk of CVD >3.0 mg/L Estimated GFR (MDRD) Amer 80 mL/min >60 [facility] Comment on above: GFR Calc Estimated GFR (MDRD) Non-Af Amer 66 mL/min >60 [facility] Comment on above: Non- GFR Calc Gamma Globulins 0.8 g/dL 0.4-1.8 [facility] Lyme Disease IgG Ab 30 kDa Band Absent . [facility] Lyme Disease IgG Ab 93 kDa Band Absent . [facility] Lyme Disease IgG West Blot Interp Negative . [facility] Comment on above: Positive: 5 of the f ollowing Borrelia-specific bands: 18,23,28,30,39,41,45,58, 66, and 93. Negative: No bands or banding patterns which do not meet positive criteria. Lyme Disease IgM Ab (Western Blot) Negative . [facility] Comment on above: Note: An equivocal o r positive EIA result followed by anegative Line Blot result is considered NEGATIVE. Anequivocal or positive EIA result followed by a positiveLine Blot is considered POSITIVE by the CDC.Positive: 2 of the following bands: 23,39 or 41Negative: No bands or banding patterns which do not meetpositive criteria.Criteria for positivity are those recommended byCDC/ASTPHLD. p23=Osp C, b89=zqbjyrxdbRdkg:Sera from individuals with the following may cross reactin the Lyme Line Blot assays: other spirochetal diseases(periodontal disease, leptospirosis, relapsing fever, yaws,and pinta); connective autoimmune (Rheumatoid Arthritis andSystemic Lupus Erythematosus and also individuals withAntinuclear Antibody); other infections (Lam MountainSpotted Fever; Yudith-Pérez Virus, and Cytomegalovirus).Please Note: Lyme immunoblot alone is not recommended forthe diagnosis of Lyme disease. Current guidelines recommendthe use of a two-tiered approach to Lyme serology testingto improve the sensitivity and specificity of testing.[facility] offers test code 199107 Lyme Disease Serology withReflex to aid in the diagnosis of Lyme Disease. Miscellaneous Test See comment [facility] Comment on above: TEST RESULTS LIMITSE BV Ab VCA, IgGEBV Ab VCA, IgG >600.0 High U/mL 0.0-17.9 Negative <18.0 Equivocal 18.0 - 21.9 Positive >21.9EBV Ab VCA, IgMEBV Ab VCA, IgM <36.0 U/mL 0.0-35.9 Negative <36.0 Equivocal 36.0 - 43.9 Positive >43.9 TESTING PERFORMED AT [facility]. ORIGINAL REPORT ON FILE IN LAB CONTAINS ADDITIONAL TEST SITE INFORMATION. Thyroid Stimulating Hormone (TSH) 0.67 uIU/mL 0.358-3.74 [facility] Urine Microalbumin/Creatinine Ratio 6.0 mg/g CRE <30 [facility] Platelets bldOrdered By: Keena Peterson on 09-24-2023 Platelets (Bld) [#/Vol] 268 10*3/uL 150-450 [facility] Protein Fractions Elph [Inte rp]Ordered By: Dean Peterson on 09-24-2023 Protein Fractions [Interp] Comment . [facility] Comment on above: Protein electrophore sis scan will follow via computer,mail, or bead flipper delivery. Serum Borrelia burgdorferi 4 1kD IgG antibody detection by immunoblotOrdered By: Dean Peterson on 09-24-2023 B. burgdorferi 41kD IgG IB Ql (S) Absent . [facility] Serum Borrelia burgdorferi 6 6kD IgG antibody detection by immunoblotOrdered By: Dean Peterson on 09-24-2023 B. burgdorferi 66kD IgG IB Ql (S) Absent . [facility] Serum albumin to globulin ra perla by protein electrophoresisOrdered By: Dean Peterson on 09-24-2023 Albumin/Globulin Elph [Mass ratio] 1.2 0.7-1.7 [facility] Serum globulin measurement ( mass/volume)Ordered By: Dean Peterson on 09-24-2023 Globulin (S) [Mass/Vol] 2.9 g/dL 2.2-3.9 [facility] Serum or plasma C reactive p rotein measurement (mass/volume)Ordered By: Dean Peterson on 09-24-2023 CRP [Mass/Vol] 4.73 mg/L 0.0-3.0 [facility] Comment on above: C-Reactive Protein ( CRP) provides useful information for thediagnosis, therapy and monitoring of inflammatory processesand associated diseases. For the evaluation of Relative Riskfor Cardiovascular Disease, a High Sensitivity CRP (HSCRP)should be ordered. Serum or plasma albumin charan urement (mass/volume)Ordered By: Dean Peterson on 09-24-2023 Albumin [Mass/Vol] 3.7 g/dL 3.2-5.0 [facility] Serum or plasma albumin/glob ulin mass ratioOrdered By: Dean Peterson on 09-24-2023 Albumin/Globulin [Mass ratio] 1.1 {ratio} 0.9-2.4 [facility] Serum or plasma beta globuli n measurement by electrophoresis (mass/volume)Ordered By: Dean Peterson 09-24-2023 Beta globulin Elph [Mass/Vol] 1.0 g/dL 0.7-1.3 [facility] Serum or plasma calcium charan urement (mass/volume)Ordered By: Dean Peterson on 09-24-2023 Calcium [Mass/Vol] 8.9 mg/dL 8.5-10.1 [facility] Serum or plasma cholesterol in HDL measurement (mass/volume)Ordered By: Dean Peterson on 09-24-2023 Cholesterol in HDL [Mass/Vol] 33 mg/dL >40 [facility] Comment on above: The drugs N-Acetylcy steine and Metamizole may falsely depress this assay. Reference Range HDL <40 mg/dL Low HDL Cholesterol HDL >or= 60 mg/dL High HDL Cholesterol Serum or plasma cholesterol in VLDL measurement (mass/volume)Ordered By: Dean Peterson on 09-24-2023 Cholesterol in VLDL [Mass/Vol] 25 mg/dL 5-40 [facility] Serum or plasma creatinine m easurement (mass/volume)Ordered By: Dean Peterson on 09-24-2023 Creatinine [Mass/Vol] 1.24 mg/dL 0.70-1.30 [facility] Comment on above: The validity of the calculated GFR & GFRAA in patients over 70 years has not been determined. Clinical correlation is essential. Serum or plasma low density lipoprotein (LDL) cholesterol measurement (mass/volume)Ordered By: Dean Peterson on 09-24-2023 Cholesterol in LDL [Mass/Vol] 166 mg/dL 0-130 [facility] Serum or plasma protein mono clonal measurement by electrophoresis (mass/volume)Ordered By: Dean Peterson on 09-24-2023 Protein.monoclonal Elph [Mass/Vol] Not Observed g/dL Not Observed [facility] Serum or plasma urea nitroge n measurement (mass/volume)Ordered By: Dean Peterson on 09-24-2023 Urea nitrogen [Mass/Vol] 26 mg/dL 7-18 [facility] Synovial fluid Borrelia ursula dorferi 45kD IgG antibody detection by immunoblotOrdered By: Dean Peterson on 09-24-2023 B. burgdorferi 45kD IgG IB Ql (Syn fld) Absent . [facility] Synovial fluid Borrelia ursula dorferi 58kD IgG antibody detection by immunoblotOrdered By: Dean Peetrson on 09-24-2023 B. burgdorferi 58kD IgG IB Ql (Syn fld) Absent . [facility] Thin prep Papanicolaou smear with manual screeningOrdered By: Dean Peterson on 09-24-2023 Thin prep Papanicolaou smear with manual screening 18 U/L 15-37 [facility] Thin prep Papanicolaou smear with manual screening 4 5-15 [facility] Thin prep Papanicolaou smear with manual screening 16.4 mg/L NO RANGE EST. [facility] Total protein bloodOrdered B y: Dean Peterson on 09-24-2023 Protein [Mass/Vol] 6.5 g/dL 6.0-8.5 [facility] Urine creatinine measurement (mass/volume)Ordered By: Dean Peterson on 09-24-2023 Creatinine (U) [Mass/Vol] 275.00 mg/dL NO RANGE EST. [facility] Shave removalon 08-15-2023 Lesion diameter (cm): 0.7 Informed consent: discussed and consent obtained Timeout: patient name, date of , surgical site, and procedure verified Procedure prep: Patient was prepped and draped Anesthesia: the lesion was anesthetized in a standard fashion Anesthetic: 1% lidocaine w/ epinephrine 1-100,000 local infiltration Instrument used: DermaBlade Hemostasis achieved with: aluminum chloride Outcome: patient tolerated procedure well Post-procedure details: sterile dressing applied and wound care instructions given Dressing type: bandage and petrolatum [facility] Work Phone: [facility] Work Phone: STREP A MOLECULAR (POC)on Procedural Control Valid [facility] Strep A (POCT) Negative Negative [facility] XR Foot - left AP and Latera l and obliqueon 01-16-2021 IMPRESSION: Erosions involving the medial first metatarsal head likely related to gout. Patient Ombudsperson: JULIANNA Transcribe Date/Time: Jan 16 2021 4:06P Dictated by : ANDRY MENDEZ MD This examination was interpreted and the report reviewed and electronically signed by: ANDRY MENDEZ MD on Jan 16 2021 4:07PM [facility] * * *Final Report* * * DATE OF EXAM: Jan 16 2021 3:56PM WOX [id number] - XR FOOT 3V AP/LAT/OBL LT / PROCEDURE REASON: Foot pain, left * * * * Physician Interpretation * * * * Left foot radiographs HISTORY: 45 years old Clinical information: Foot pain, left Dorsal left midfoot pain x 1 month after running TECHNIQUE: Images: XR FOOT 3V AP/LAT/OBL LT Comparison: None. RESULT: Findings: Erosions involving the medial first metatarsal head. No fracture or dislocation. Enthesophyte at the Achilles insertion site on the calcaneus. No soft tissue abnormality identified. DIVISION OF RADIOLOGY Provider, [facility] [place] - 01/16/2021 * * *Final Report* * * DATE OF EXAM: Jan 16 2021 3:56PM WOX [id number] - XR FOOT 3V AP/LAT/OBL LT / PROCEDURE REASON: Foot pain, left * * * * Physician Interpretation * * * * Left foot radiographs HISTORY: 45 years old Clinical information: Foot pain, left Dorsal left midfoot pain x 1 month after running TECHNIQUE: Images: XR FOOT 3V AP/LAT/OBL LT Comparison: None. RESULT: Findings: Erosions involving the medial first metatarsal head. No fracture or dislocation. Enthesophyte at the Achilles insertion site on the calcaneus. No soft tissue abnormality identified. IMPRESSION IMPRESSION: Erosions involving the medial first metatarsal head likely related to gout. Patient Ombudsperson: PSCB Transcribe Date/Time: Jan 16 2021 4:06P Dictated by : ANDRY MENDEZ MD This examination was interpreted and the report reviewed and electronically signed by: ANDRY MENDEZ MD on Jan 16 2021 4:07PM EST [facility] Radiology Study observation (narrative) [facility] XR Foot - left AP and Latera l and obliqueOrdered By: [facility] Provider on 01-16-2021 [facility] XR CHEST 2 VIEWSon 8 XR CHEST 2 VIEWS ORIGINALXR CHEST 2 VIEWS CLINICAL STATEMENT: COUGH COMPARISON: None FINDINGS: The cardiomediastinal contours are normal. There is no consolidation, vascular congestion, pleural effusion, or pneumothorax. No displaced fractures are identified. IMPRESSION: No acute radiographic findings. Interpreted By: Genesis Vazquezreliminary Report By: Genesis Vazquez MDElectronically Signed By: Genesis Vazquez MD Dictated Date: 11/28/2017 4:17:55 PM Prelim Date: 11/28/2017 4:17:55 PM Sign Date: 11/28/2017 4:18:09 PM Normal [facility] ([place]) Vital Signs Date Time Vital Sign Value Performing Clinician Daroni marcial 12-02-2024 10:38-0500 Body temperature 98.29 [degF] Liza Estrada APRN.SPEECH AND HEARING DIRECTOR Work Phone: [facility] 12-02-2024 10:38-0500 Body weight 115 kg Liza Estrada APRN.CNP Work Phone: [facility] 12-02-2024 10:38-0500 Diastolic blood pressure 82 mm[Hg] Liza Estrada APRN.CNP Work Phone: [facility] 12-02-2024 10:38-0500 Heart rate 71 /min Liza Estrada BOAT HAND.SPEECH AND HEARING DIRECTOR Work Phone: [facility] 12-02-2024 10:38-0500 Respiratory rate 16 /min Liza Estrada BOAT HAND.SPEECH AND HEARING DIRECTOR Work Phone: [facility] 12-02-2024 10:38-0500 SaO2% (BldA) [Mass fraction] 99 % Liza Estrada BOAT HAND.SPEECH AND HEARING DIRECTOR Work Phone: [facility] 12-02-2024 10:38-0500 Systolic blood pressure 128 mm[Hg] Liza Estrada BOAT HAND.SPEECH AND HEARING DIRECTOR Work Phone: [facility] 11-28-2024 09:34-0500 Body temperature 97.9 [degF] Krislyn Aberegg PA Work Phone: [facility] 11-28-2024 09:34-0500 Body weight 114.9 kg Krislyn Aberegg PA Work Phone: [facility] 11-28-2024 09:34-0500 Diastolic blood pressure 90 mm[Hg] Krislyn Aberegg PA Work Phone: [facility] 11-28-2024 09:34-0500 Heart rate 75 /min Krislyn Aberegg PA Work Phone: [facility] 11-28-2024 09:34-0500 Respiratory rate 20 /min Krislyn Aberegg PA Work Phone: [facility] 11-28-2024 09:34-0500 SaO2% (BldA) [Mass fraction] 98 % Krislyn Aberegg PA Work Phone: [facility] 11-28-2024 09:34-0500 Systolic blood pressure 110 mm[Hg] Krislyn Aberegg PA Work Phone: [facility] 11-18-2022 10:47-0500 Body temperature 97.5 [degF] Eliud Varela BOAT HAND.SPEECH AND HEARING DIRECTOR Work Phone: [facility] 11-18-2022 10:47-0500 Body weight 115.94 kg Eliud Varela BOAT HAND.SPEECH AND HEARING DIRECTOR Work Phone: [facility] 11-18-2022 10:47-0500 Diastolic blood pressure 102 mm[Hg] Eliud Varela BOAT HAND.SPEECH AND HEARING DIRECTOR Work Phone: [facility] 11-18-2022 10:47-0500 Heart rate 80 /min Eliud Varela BOAT HAND.SPEECH AND HEARING DIRECTOR Work Phone: [facility] 11-18-2022 10:47-0500 Respiratory rate 21 /min Eliud Varela BOAT HAND.SPEECH AND HEARING DIRECTOR Work Phone: [facility] 11-18-2022 10:47-0500 SaO2% (BldA) [Mass fraction] 98 % Eliud Varela BOAT HAND.SPEECH AND HEARING DIRECTOR Work Phone: [facility] 11-18-2022 10:47-0500 Systolic blood pressure 140 mm[Hg] Eliud Varela BOAT HAND.SPEECH AND HEARING DIRECTOR Work Phone: [facility] Encounters Encounter Date Encounter Type Care Provider Facility Start: 02-22-2025 End: 02-22-[address] Dean Peterson MD Work Phone: [facility] Work Phone: Start: 02-22-2025 End: 02-22-[address] Dean Peterson MD -Laboratory Work Phone: Start: 02-22-2025 End: 02-22-2025 ambulatory Dean Peterson Facility:[facility] Start: 02-05-2025 End: 02-05-2025 Office outpatient visit 15 minutes Olga Santiago MD Work Phone: [facility] Comment on above: Multiple benign nevi (Primary Dx); Lentigo; Seborrheic keratosis; Hemangioma of skin; Personal history of skin cancer; Screening exam for skin cancer Start: 01-31-2025 End: 01-31-[address] Dean Peterson MD Work Phone: [facility] Work Phone: Start: 01-31-2025 End: 01-31-[address] Dean Peterson MD -Radiology, [facility] Work Phone: Start: 01-31-2025 End: 01-31-[address] Dean Peterson MD Work Phone: [facility] Work Phone: Start: 01-31-2025 End: 01-31-[address] [facility] Start: 01-31-2025 End: 01-31-2025 ambulatory Dean Peterson Facility:[facility] Start: 12-02-2024 End: 12-02-2024 ambulatory DENICE RUIZTRAV Facility:[facility] Start: 12-02-2024 End: 12-02-2024 Patient encounter procedure Liza Estrada APRN.SPEECH AND HEARING DIRECTOR Work Phone: [facility] Comment on above: URI, acute (Primary Dx); Acute cough Start: 11-29-2024 End: 01-29-2025 Follow-up encounter Clyde Wray APRN.SPEECH AND HEARING DIRECTOR Work Phone: [facility] Start: 11-28-2024 End: 11-28-2024 Subsequent hospital visit by physician [facility] Work Phone: Radiology Comment on above: Acute cough [R05.1] Start: 11-28-2024 End: 11-28-2024 ambulatory DENICE BAUER Facility:[facility] Start: 11-28-2024 End: 11-28-2024 Patient encounter procedure Lesly BARTLETT Work Phone: [facility] Comment on above: URI, acute (Primary Dx); Acute cough; Sore throat Start: 10-29-2024 End: 10-29-[address] Dean Peterson MD -Radiology, [place] Work Phone: Start: 10-29-2024 End: 10-29-2024 ambulatory Dean Peterson Facility:[facility] Start: 09-14-2024 End: 09-14-2024 ambulatory Dean Peterson Facility:[facility] Start: 09-07-2024 ambulatory Joy Marie Facility: [facility] Start: 09-07-2024 End: 09-10-2024 Evaluation and management of inpatient Louie Arroyo Facility:[facility] Start: 08-15-2024 End: 08-15-2024 ambulatory Dean Peterson Facility:[facility] Start: 08-14-2024 End: 08-14-2024 Office outpatient visit 15 minutes Olga Santiago MD Work Phone: [facility] Comment on above: Actinic keratosis (P rimary Dx); Seborrheic keratosis; Inflamed skin tag; Multiple benign nevi; Lentigo; Hemangioma of skin; Personal history of skin cancer; Screening exam for skin cancer Start: 08-14-2024 End: 08-14-2024 ambulatory OLGA Farhat [facility] Ambulatory Start: 02-14-2024 End: 02-14-2024 Office outpatient visit 15 minutes Olga Santiago MD Work Phone: [facility] Comment on above: Multiple benign nevi (Primary Dx); Lentigo; Seborrheic keratosis; Hemangioma of skin; Personal history of skin cancer Start: 02-14-2024 End: 02-14-2024 ambulatory [facility] Ambulatory Start: 10-26-2023 Non-patient / Non-visit Dr. Dean Peterson Work Phone: [facility] Start: 10-26-2023 End: 10-26-[address] Dean Peterson Work Phone: [facility] Work Phone: Start: 10-26-2023 End: 10-26-[address] Dean Petersno Work Phone: [facility] Work Phone: Start: 09-24-2023 End: 09-24-2023 ambulatory [facility] Work Phone: Start: 09-24-2023 End: 09-24-2023 Patient encounter procedure [facility]-Laboratory Work Phone: Start: 08-15-2023 End: 08-15-2023 Office outpatient new 30 minutes Olga Santiago MD Work Phone: [facility] Comment on above: Neoplasm of uncertai n behavior of skin (Primary Dx); Multiple benign nevi; Lentigo; Seborrheic keratosis; Hemangioma of skin; Personal history of skin cancer Start: 11-18-2022 End: 11-18-2022 Patient encounter procedure Eliud Varela SPEECH AND HEARING DIRECTOR Work Phone: [facility] Comment on above: URI, acute (Primary Dx); Sore throat Start: 01-16-2021 End: 01-16-2021 Subsequent hospital visit by physician Xr [facility] Work Phone: Radiology Comment on above: Foot pain, left [M79 .672] Start: 03-15-2018 Ambulatory HEIDI LEYT Facility: [id number] Start: 11-28-2017 End: 11-29-2017 Ambulatory EYAD ASH Facility:[facility] Start: 08-03-2017 Ambulatory Crispin Parker [facility] [id number] Procedures Date Procedure Procedure Detail Performing Clinician Start: 01-31-[address] Dean Peterson MD Work Phone: Start: 01-31-2025 X-ray of chest, PA a nd lateral views Dr. Dean Peterson MD Work Phone: Start: 01-31-2025 Urnls dip stick/tabl et reagent auto microscopy Dr. Dean Peterson MD Work Phone: Start: 11-28-2024 STREP A MOLECULAR (POC) Lesly BARTLETT Work Phone: Start: 11-28-2024 Radiologic exam ches t 2 views Lesly BARTLETT Work Phone: Start: 10-29-2024 End: 10-29-2024 Plain X-ray of shoulder Dr. Dean Paulino Work Phone: Start: 08-14-2024 DESTRUCTION OF LESION E kandace Santiago MD Work Phone: Start: 09-24-2023 Plain chest X-ray Start: 08-15-2023 EPIDERMAL / DERMAL SHAVING Olga Santiago MD Work Phone: Start: 11-18-2022 STREP A MOLECULAR (POC) Nga Davis PA-C Work Phone: Start: 01-16-2021 Radex foot complete minimum 3 views Dean Henrymiguel BOAT HAND.SPEECH AND HEARING DIRECTOR Work Phone: Plan of Treatment Date Care Activity Detail Author Start: 07-19-2034 DTaP/Tdap/Td Vaccine s (3 - Td or Tdap) DTaP/Tdap/Td Vaccines (3 - Td or Tdap) [facility] Start: 07-19-2034 Urine microalbumin profile DTaP,Tdap,Td Vaccine (3 - Td or Tdap) [facility] Start: 08-07-2025 Examination of skin Derm Melan felicia Skin Check [facility] Start: 08-06-2025 End: 08-06-2025 Patient encounter procedure 08/06/2025 8:30 AM EDT Office Visit [address] [phone] Olga Garcia MD [address] [place] [id number] [facility] Start: 02-12-2025 Examination of skin Derm Melan felicia Skin Check [facility] Start: 08-17-2024 COVID-19 Vaccine (3 - Mixed Product risk series) COVID-19 Vaccine (3 - Mixed Product risk series) [facility] Start: 08-14-2024 End: 08-14-2024 Patient encounter procedure 08/14/2024 10:30 AM EDT Office Visit [address] [phone] Olga Garcia MD [address] [address] [facility] Start: 06-17-2024 Covid-19 Vaccine ( season) Covid-19 Vaccine () [facility] Start: 06-17-2024 Influenza vaccination [facility] Start: 02-14-2024 End: 02-14-2024 Patient encounter procedure 02/14/2024 2:15 PM EDT Office Visit [address] [phone] Olga Garcia MD [address] [address] [facility] Start: 06-17-2023 COVID-19 Vaccine () COVID-19 Vaccine () [facility] Start: 06-17-2023 Influenza vaccination Influenza Vacc ine (#1) [facility] Start: 10-17-2022 DEPRESSION ASSESSMENT DEPRESSION ASS ESSMENT [facility] Start: 09-16-2022 COVID-19 Vaccine (4 - Pfizer risk series) COVID-19 Vaccine (4 - Pfizer risk series) [facility] Start: 2021 COLOGUARD (FIT-DNA) COLOGUARD (FIT-D NA) [facility] Start: 2021 Colonoscopy COLONOSCOPY [facility] Start: 2021 COLORECTAL CANCER SCREENING COLORECTAL CANCER SCREENING [facility] Start: [address] COLONOGRAPHY [facility] Start: 2021 DIABETES SCREEN DIABETES SCREEN [facility] Start: 2021 Diabetes Screening Diabetes Screenin g [facility] Start: 2021 FECAL OCCULT BLOOD FECAL OCCULT BLOO D [facility] Start: 2021 Screening for malign ant neoplasm of colon [facility] Start: 2021 SIGMOIDOSCOPY SIG[address]IDOSCOPY Koffi paulino [facility] Start: 02-05-2019 DTaP/Tdap/Td Vaccine s (2 - Td or Tdap) DTaP/Tdap/Td Vaccines (2 - Td or Tdap) [facility] Start: 02-05-2019 Urine microalbumin profile DTaP,Tdap,Td Vaccine (2 - Td or Tdap) [facility] Start: 2011 Lipid panel Lipid Screening [facility] Start: 2011 LIPID SCREEN LIPID SCREEN [facility] Start: 1995 Hepatitis B Vaccine (1 of 3 - 19+ 3-dose series) Hepatitis B Vaccine (1 of 3 - 19+ 3-dose series) [facility] Start: 1995 Hepatitis B Vaccines (1 of 3 - 19+ 3-dose series) Hepatitis B Vaccines (1 of 3 - 19+ 3-dose series) [facility] Start: 1995 Pneumococcal Vaccine : Pediatrics and At-Risk Adult Patients (1 of 2 - PCV) Pneumococcal Vaccine: Pediatrics and At-Risk Adult Patients (1 of 2 - PCV) [facility] Start: 1995 Urine microalbumin profile DTAP,TDAP,TD (1 - Tdap) [facility] Start: 1995 Zoster Vaccines (1 of 2) Zoste r Vaccines (1 of 2) [facility] Start: 1994 Anxiety Screening Anxiety Screening [facility] Start: 1994 Depression Screening Depression Scre [facility] Start: 1994 HEPATITIS C SCREENING HEPATITIS C [facility] Start: 1994 Hepatitis C screening Hepatitis C [facility] Start: 1994 HIV SCREENING HIV SCREENING [facility] Start: 1994 HIV screening HIV Screening [facility] Start: 1982 Pneumococcal Vaccine : Pediatrics (0 to 5 Years) and At-Risk Patients (6 to 64 Years) (1 - PCV) Pneumococcal Vaccine: Pediatrics (0 to 5 Years) and At-Risk Patients (6 to 64 Years) (1 - PCV) [facility] Start: 1982 Pneumococcal Vaccine : Pediatrics (0 to 5 Years) and At-Risk Patients (6 to 64 Years) (1 of 2 - PCV) Pneumococcal Vaccine: Pediatrics (0 to 5 Years) and At-Risk Patients (6 to 64 Years) (1 of 2 - PCV) [facility] Start: 1977 MMR Vaccines (1 of 1 - Standard series) MMR Vaccines (1 of 1 - Standard series) [facility] Start: 1976 Examination of skin Derm Melan felicia Skin Check [facility] Start: 1976 HEPATITIS B (1 of 3 - 3-dose series) HEPATITIS B (1 of 3 - 3-dose series) [facility] Start: 1976 Hepatitis B Vaccines (1 of 3 - 3-dose series) Hepatitis B Vaccines (1 of 3 - 3-dose series) [facility] Start: 1976 HIV screening HIV Screening [facility] Start: 1976 Lipid panel Lipid Panel [facility] Start: 1976 Screening for malign ant neoplasm of colon [facility] Start: 1976 Yearly Adult Physical Yearly Adult P hysical [facility] COVID & INFLUENZA A/ B & RSV PCR, ROUTINE COVID & INFLUENZA A/B & RSV PCR, ROUTINE Microbiology Routine URI, acute Acute cough Sore throat Ordered: 11/28/2024 [facility] Work Phone: Comment on above: Ordered: 11/28/2024 Dermatopathology- [place] [facility] Service Area Work Phone: Comment on above: Release Upon Orderin g for 1 Occurrences starting 08/15/2023 Influenza virus A an d B RNA and SARS-CoV-2 (COVID-19) N gene panel - Respiratory specimen by KIM with probe detection COVID WITH FLUA+B, ROUTINE Microbiology Routine URI, acute Ordered: 11/18/2022 [facility] Work Phone: Comment on above: Ordered: 11/18/2022 Immunizations Immunization Date Immunization Notes Care Provider Fa cili 07-20-2024 Covid (Spikevax) Dr. Dean palmer MD Work Phone: [facility] 07-19-2024 influenza, seasonal, injectable, preservative free Dr. Dean Peterson MD Work Phone: [facility] 07-19-2024 tetanus toxoid, redu cat diphtheria toxoid, and acellular pertussis vaccine, adsorbed Dr. Dean Peterson MD Work Phone: [facility] 07-22-2022 influenza, injectabl e, quadrivalent, preservative free Olga Santiago MD Work Phone: [facility] Work Phone: 07-22-2022 Pfizer COVID-19 vacc ine, bivalent, age 12 years and older (30 mcg/0.3 mL) Olga Santiago MD Work Phone: [facility] Work Phone: 07-22-2022 influenza virus vacc ine, unspecified formulation Olga Santiago MD Work Phone: [facility] Work Phone: 08-12-2021 Covid (Pfizer) Dr. Dean levy MD Work Phone: [facility] 08-12-2021 influenza, injectabl e, quadrivalent, preservative free Olga Santiago MD Work Phone: [facility] Work Phone: 01-16-2021 COVID-19 original vaccine, age 12+ yr, monovalent (PFIZER-BIONTECH - PURPLE TOP) Eliud Varela APRN.SPEECH AND HEARING DIRECTOR Work Phone: [facility] Work Phone: 12-18-2020 COVID-19 original vaccine, age 12+ yr, monovalent (PFIZER-BIONTECH - PURPLE TOP) Eliud Varela APRN.SPEECH AND HEARING DIRECTOR Work Phone: [facility] Work Phone: 07-31-2018 influenza, injectabl e, quadrivalent, preservative free Olga Santiago MD Work Phone: [facility] Work Phone: 11-09-2017 hepatitis A vaccine, adult dosage Olga Santiago MD Work Phone: [facility] Work Phone: 11-09-2017 typhoid capsular polysaccharide vaccine Olga Santiago MD Work Phone: [facility] Work Phone: 11-09-2017 yellow fever vaccine Allen Santiago MD Work Phone: [facility] Work Phone: 02-05-2009 hepatitis A vaccine, pediatric/adolescent dosage, 2 dose schedule Olga Santiago MD Work Phone: [facility] Work Phone: 02-05-2009 tetanus toxoid, redu cat diphtheria toxoid, and acellular pertussis vaccine, adsorbed Olga Santiago MD Work Phone: [facility] Work Phone: Payers Date Payer Category Payer Self-pay 2021 Managed Care (Private) [id number] 2019 Private Health Insurance MMO SU[employer] PPO [id number] 2019 Unknown [id number] 2017 Unknown [id number] 1976 Unknown [id number] 1976 Unknown [id number] Unknown MED [facility] [id number] Unknown [id number] 462 Unknown [id number] 462 Unknown [id number] 462 Unknown [id number] 462 Unknown [id number] 462 Unknown [id number] 462 Unknown [id number] 462 Unknown [id number] 462 Unknown [id number] 462 Unknown [id number] 462 Unknown [id number] 462 Social History Date Type Detail Facility Start: 11-18-2022 End: 09-07-2024 Tobacco smoking status NHIS Never smoked tobacco [facility] Start: 11-11-2019 End: 11-18-2022 Tobacco use and exposure Smokeless tobacco non-user [facility] Start: 11-18-2022 End: 12-02-2024 Alcohol intake Lifetime non-drinker (finding) [facility] Start: 01-23-2021 History SDOH Alcohol Frequency 1 [facility] Start: 1975 Sex Assigned At Male [facility] Start: 09-04-2013 End: 08-11-2023 Tobacco smoking status NHIS Tobacco smoking consumption unknown [facility] Work Phone: Start: 1975 Sex Assigned At Not on file [facility] Work Phone: Start: 09-24-2020 End: 01-16-2021 Gender identity Not on file [facility] Work Phone: Start: 12-17-2020 End: 08-14-2024 Exposure to SARS-CoV-2 (event) Not sure [facility] Start: 01-16-2021 Alcoholic beverage intake Not Asked [facility] Start: 09-24-2020 End: 01-16-2021 History of Social function [facility] National Score (1-10 0), lower number is lower risk Not on file [facility] Start: 01-21-2021 Gender identity Identifies as male gender (finding) [facility] Start: 01-21-2021 Sexual orientation Heterosexual (finding) [facility] Start: 02-05-2025 End: 02-05-2025 Sex Male (finding) [facility] Functional Status Date Assessment Result Facility 08-12-2014 Are you deaf, or do you have serious difficulty hearing No 08/12/2014 8:57 AM Rebecca Friend RN No [facility] 08-12-2014 Are you blind, or do you have serious difficulty seeing, even when wearing glasses No 08/12/2014 8:57 AM Rebecca Friend RN No [facility] 08-12-2014 Do you have serious difficulty walking or climbing stairs No 08/12/2014 8:57 AM Rebecca Friend RN No [facility] 08-12-2014 Do you have difficul ty dressing or bathing No 08/12/2014 8:57 AM Rebecca Friend RN No [facility] 08-12-2014 Because of a physica l, mental, or emotional condition, do you have difficulty doing errands alone such as visiting a physician's office or shopping No 08/12/2014 8:57 AM Rebecca Friend, LUPIS No [facility] Mental Status Date Assessment Result Facility 08-12-2014 Because of a physica l, mental, or emotional condition, do you have serious difficulty concentrating, remembering, or making decisions No 08/12/2014 8:57 AM Rebecca Friend, LUPIS No [facility] Clinical Notes 01-16-2021 to 02-05-2025 Olga Santiago MD - 02/05/2025 8:30 AM Liza Gottlieb APRN.SPEECH AND HEARING DIRECTOR - 12/02/2024 10:43 AM Linus Suazo RT(R) - 11/28/2024 10:00 AM ESTPatient Instructions Note Date & Type Note Facility 02-05-2025 History of Present illness Narrative Subjective Lora Bailey is a 49 y.o. male who presents for the following: Skin Check (Personal history of NMSC- BCC forehead 2010. Patient history of actinic keratosis. History of chemotherapy as a teenager. 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 ). Review of Systems: No other skin or systemic complaints other than what is documented elsewhere in the note. The following portions of the chart were reviewed this encounter and updated as appropriate: Allergies Meds Problems Med Hx Surg Hx Fam Hx Skin Cancer History Biopsy Log Book No skin cancers from Specimen Tracking. Additional History BCC Forehead 2010 Objective Well appearing patient in no apparent distress; mood and affect are within normal limits. A full examination was performed including scalp, face, neck, chest, abdomen, back, bilateral upper extremities, bilateral lower extremities. Patient declines exam underneath the underwear; patient declines exam of the lower abdomen/mons pubis, buttocks, groin, genitalia, perineal and perianal skin and these areas were not examined. All findings within normal limits unless otherwise noted below. Assessment/Plan Skin Exam 1. MULTIPLE BENIGN NEVI Generalized Brown and sanchez macules and papules with reassuring findings on dermoscopy -These lesions have benign, reassuring patterns on dermoscopy -Recommend continued self observation, and to contact the office if any changes in nevi are noticed 2. LENTIGO Generalized Sanchez macules -Benign appearing on exam -Reassurance, recommend observation 3. SEBORRHEIC KERATOSIS Generalized Stuck on, waxy macule(s)/papule(s)/plaque(s) with comedo-like openings and milia like cysts -Discussed the nature of the diagnosis -Reassurance, recommend continued observation 4. HEMANGIOMA OF SKIN Generalized Smith red papules -Discussed the nature of the diagnosis -Reassurance, recommend continued observation 5. PERSONAL HISTORY OF SKIN CANCER Generalized Personal History of Non-Melanoma Skin Cancer, BCC Forehead 2010 -Well healed scar(s) with no evidence of recurrence -Discussed the need for annual or semi-annual skin examinations and to return sooner if any new or changing lesions are noticed. Patient verbalizes understanding 6. SCREENING EXAM FOR SKIN CANCER Generalized Related Procedures Follow Up In Dermatology - Established Patient Discussed/information given on safe sun practices and use of sunscreen, sun protective clothing or sun avoidance. Recommend to use over the counter medication of sunscreen with a SPF 30 or higher on a daily basis prior to sun exposure to reduce the risk of skin cancer. Follow up in 6 months for FSE Discussed if there are any changes or development of concerning symptoms (lesion/skin condition is changing, bleeding, enlarging, or worsening) the patient is to contact my office. The patient verbalizes understanding. Olga Santiago MD 02/05/2025 documented in this encounter [facility] Work Phone: 01-31-2025 Radiology Diagnostic study note [facility] Imaging Services [address] [place], [place] [address] Chest PA and Lateral MR#: [id number] Acct: [id number] Name: LORA BAILEY Rep #: [id number] : 1975 M 49 From: Messi Steinberg MD PCP: Dr. Dean Peterson MD Status: REG CLI Study:Chest PA and Lateral Date of Exam: 01/31/25 Exam# [id number] Ordering Dr: Kameron Peterson MD PROCEDURE: CHEST PA AND LATERAL 01/31/2025 REASON FOR EXAM: CRP ELEVATED 2 day history of fever. TECHNIQUE: Frontal and lateral views of the chest. COMPARISON: None FINDINGS: Hardware: None Heart: The heart size is normal. Mediastinum: The mediastinal contour is unremarkable. Lungs: There are granulomatous calcifications. The lungs are otherwise clear. Bones: The bones are unremarkable. RAD/Chest PA and Lateral IMPRESSION: Calcified granulomas disease. No focal abnormality is seen. Reading Location: [place] [address] CC: Dr. Dean Peterson MD ~ Patient Ombudsperson: Signed [facility] 12-02-2024 Note HNO ID: [id number] Author: LIZA ESTRADA APRN.SPEECH AND HEARING DIRECTOR Service: ? Author Type: Nurse Practitioner Type: Progress Notes Filed: 12/02/2024 12:31 Note Text: This note was created using Rocket Raiseriter. Subjective Lora Bailey is a 49 year old male. 49 year old male with no PMH presents for illness Acute onset 11/25/24 + cough +chest congestion +sinus pressure +nasal congestion +sore throat Denies CP Denies SOB Denies fever or chills He was seen here on 11/28/24 At that time negative, CXR, negative strep, negative flu Provided albuterol and Tessalon and Prednisone I am getting worse it seems The history is provided by the patient. No race steward was used. Cough This is a new problem. The current episode started more than 1 week ago. The problem occurs constantly. The problem has been gradually worsening. The cough is Non-productive. There has been no fever. Associated symptoms include ear congestion, headaches, rhinorrhea and sore throat. Pertinent negatives include no chest pain, no chills, no sweats, no weight loss, no ear pain, no myalgias, no shortness of breath, no wheezing and no eye redness. Treatments tried: see HPI. The treatment provided no relief. He is not a smoker. His past medical history does not include bronchitis, pneumonia, bronchiectasis, COPD, emphysema or asthma. History reviewed. No pertinent past medical history. No past surgical history on file. ALLERGIES Patient has no known allergies. MEDICATIONS Telmisartan 20 mg tablet Take 20 mg by mouth. metoprolol succinate ER (TOPROL XL) 25 mg 24 hr tablet TAKE 1 TABLET NIGHTLY albuterol HFA (PROVENTIL HFA, VENTOLIN HFA) 90 mcg/actuation inhaler Inhale 2 Puffs as instructed every 4 hours as needed for wheezing/shortness of breath. benzonatate (TESSALON PERLE) 100 mg capsule Take 1 capsule by mouth three times a day as needed. predniSONE (DELTASONE) 20 mg tablet Take 1 tablet by mouth once daily for 4 days. Take daily with food. doxycycline (VIBRA-TABS) 100 mg tablet Take 1 tablet by mouth two times a day for 7 days. predniSONE (DELTASONE) 10 mg tablet Take 4 tabs daily for 3 days, then 2 tabs daily for 3 days, then 1 tab daily for 3 days with food. naproxen (NAPROSYN) 500 mg tablet Take 1 tablet by mouth twice daily as needed (pain/inflammation, take with food.). (Patient not taking: Reported on 11/18/2022) No family history on file. Social History Tobacco Use Smoking status: Never Smokeless tobacco: Never Vaping Use Vaping status: Never Used Substance Use Topics Alcohol use: Never Drug use: Never Review of Systems Constitutional: Positive for fatigue and fever. Negative for chills and weight loss. HENT: Positive for congestion, rhinorrhea and sore throat. Negative for ear pain. Eyes: Negative for pain, discharge, redness and itching. Respiratory: Positive for cough. Negative for apnea, choking, chest tightness, shortness of breath and wheezing. Cardiovascular: Negative for chest pain. Gastrointestinal: Negative for abdominal pain, diarrhea, nausea and vomiting. Musculoskeletal: Negative for myalgias. Skin: Negative for color change, pallor, rash and wound. Allergic/Immunologic: Negative for environmental allergies, food allergies and immunocompromised state. Neurological: Positive for headaches. Negative for dizziness and facial asymmetry. Hematological: Positive for adenopathy. Psychiatric/Behavioral: Negative for agitation and behavioral problems. Objective BP 128/82 Pulse 71 Temp 36.8 ?C (98.3 ?F) (Tympanic) Resp 16 Wt 115 kg (253 lb 8.5 oz) SpO2 99% Physical Exam Vitals and nursing note reviewed. Constitutional: General: He is not in acute distress. Appearance: Normal appearance. He is not ill-appearing, toxic-appearing or diaphoretic. HENT: Head: Normocephalic and atraumatic. Right Ear: External ear normal. Left Ear: External ear normal. Nose: Congestion present. No rhinorrhea. Mouth/Throat: Mouth: Mucous membranes are moist. Pharynx: Oropharynx is clear. Posterior oropharyngeal erythema present. No oropharyngeal exudate. Eyes: General: Right eye: No discharge. Left eye: No discharge. Extraocular Movements: Extraocular movements intact. Conjunctiva/sclera: Conjunctivae normal. Pupils: Pupils are equal, round, and reactive to light. Cardiovascular: Rate and Rhythm: Normal rate and regular rhythm. Pulses: Normal pulses. Heart sounds: Normal heart sounds. No murmur heard. No friction rub. No gallop. Pulmonary: Effort: Pulmonary effort is normal. No respiratory distress. Breath sounds: Normal breath sounds. No stridor. No wheezing, rhonchi or rales. Comments: Harsh cough Chest: Chest wall: No tenderness. Abdominal: General: Abdomen is flat. There is no distension. Palpations: Abdomen is soft. There is no mass. Tenderness: There is no abdominal tenderness. There is no guarding or rebound. (more content not included)... [facility] 12-02-2024 History of Present illness Narrative This note was created using TearScienceter. Subjective Lora Bailey is a 49 year old male. 49 year old male with no PMH presents for illness Acute onset 11/25/24 + cough +chest congestion +sinus pressure +nasal congestion +sore throat Denies CP Denies SOB Denies fever or chills He was seen here on 11/28/24 At that time negative, CXR, negative strep, negative flu Provided albuterol and Tessalon and Prednisone I am getting worse it seems The history is provided by the patient. No race steward was used. Cough This is a new problem. The current episode started more than 1 week ago. The problem occurs constantly. The problem has been gradually worsening. The cough is Non-productive. There has been no fever. Associated symptoms include ear congestion, headaches, rhinorrhea and sore throat. Pertinent negatives include no chest pain, no chills, no sweats, no weight loss, no ear pain, no myalgias, no shortness of breath, no wheezing and no eye redness. Treatments tried: see HPI. The treatment provided no relief. He is not a smoker. His past medical history does not include bronchitis, pneumonia, bronchiectasis, COPD, emphysema or asthma. History reviewed. No pertinent past medical history. No past surgical history on file. ALLERGIES Patient has no known allergies. MEDICATIONS Telmisartan 20 mg tablet Take 20 mg by mouth. metoprolol succinate ER (TOPROL XL) 25 mg 24 hr tablet TAKE 1 TABLET NIGHTLY albuterol HFA (PROVENTIL HFA, VENTOLIN HFA) 90 mcg/actuation inhaler Inhale 2 Puffs as instructed every 4 hours as needed for wheezing/shortness of breath. benzonatate (TESSALON PERLE) 100 mg capsule Take 1 capsule by mouth three times a day as needed. predniSONE (DELTASONE) 20 mg tablet Take 1 tablet by mouth once daily for 4 days. Take daily with food. doxycycline (VIBRA-TABS) 100 mg tablet Take 1 tablet by mouth two times a day for 7 days. predniSONE (DELTASONE) 10 mg tablet Take 4 tabs daily for 3 days, then 2 tabs daily for 3 days, then 1 tab daily for 3 days with food. naproxen (NAPROSYN) 500 mg tablet Take 1 tablet by mouth twice daily as needed (pain/inflammation, take with food.). (Patient not taking: Reported on 11/18/2022) No family history on file. Social History Tobacco Use Smoking status: Never Smokeless tobacco: Never Vaping Use Vaping status: Never Used Substance Use Topics Alcohol use: Never Drug use: Never Review of Systems Constitutional: Positive for fatigue and fever. Negative for chills and weight loss. HENT: Positive for congestion, rhinorrhea and sore throat. Negative for ear pain. Eyes: Negative for pain, discharge, redness and itching. Respiratory: Positive for cough. Negative for apnea, choking, chest tightness, shortness of breath and wheezing. Cardiovascular: Negative for chest pain. Gastrointestinal: Negative for abdominal pain, diarrhea, nausea and vomiting. Musculoskeletal: Negative for myalgias. Skin: Negative for color change, pallor, rash and wound. Allergic/Immunologic: Negative for environmental allergies, food allergies and immunocompromised state. Neurological: Positive for headaches. Negative for dizziness and facial asymmetry. Hematological: Positive for adenopathy. Psychiatric/Behavioral: Negative for agitation and behavioral problems. Objective BP 128/82 Pulse 71 Temp 36.8 C (98.3 F) (Tympanic) Resp 16 Wt 115 kg (253 lb 8.5 oz) SpO2 99% Physical Exam Vitals and nursing note reviewed. Constitutional: General: He is not in acute distress. Appearance: Normal appearance. He is not ill-appearing, toxic-appearing or diaphoretic. HENT: Head: Normocephalic and atraumatic. Right Ear: External ear normal. Left Ear: External ear normal. Nose: Congestion present. No rhinorrhea. Mouth/Throat: Mouth: Mucous membranes are moist. Pharynx: Oropharynx is clear. Posterior oropharyngeal erythema present. No oropharyngeal exudate. Eyes: General: Right eye: No discharge. Left eye: No discharge. Extraocular Movements: Extraocular movements intact. Conjunctiva/sclera: Conjunctivae normal. Pupils: Pupils are equal, round, and reactive to light. Cardiovascular: Rate and Rhythm: Normal rate and regular rhythm. Pulses: Normal pulses. Heart sounds: Normal heart sounds. No murmur heard. No friction rub. No gallop. Pulmonary: Effort: Pulmonary effort is normal. No respiratory distress. Breath sounds: Normal breath sounds. No stridor. No wheezing, rhonchi or rales. Comments: Harsh cough Chest: Chest wall: No tenderness. Abdominal: General: Abdomen is flat. There is no distension. Palpations: Abdomen is soft. There is no mass. Tenderness: There is no abdominal tenderness. There is no guarding or rebound. Hernia: No hernia is present. Musculoskeletal: General: No swelling, tenderness, deformity or signs of injury. Normal range of motion. Cervical back: Normal range of motion and neck supple. No rigidity or tenderness. Right lower leg: No edema. Left lower leg: No edema. Lymphadenopathy: Cervical: Cervical adenopathy present. Skin: General: Skin is warm and dry. Capillary Refill: Capillary refill takes less than 2 seconds. Coloration: Skin is not jaundiced or pale. Findings: No bruising, lesion or rash. Neurological: General: No focal deficit present. Mental Status: He is alert and oriented to person, place, and time. Cranial Nerves: No cranial nerve deficit. Sensory: No sensory deficit. Motor: No weakness. Coordination: Coordination normal. Gait: Gait normal. Deep Tendon Reflexes: Reflexes normal. Psychiatric: Mood and Affect: Mood normal. Behavior: Behavior normal. Thought Content: Thought content normal. Assessment and Plan ASSESSMENT/PLAN: 1. URI, acute - ICD9: 465.9, ICD10: J06.9 (primary diagnosis) - Symptomatic treatment with prn analgesia - Supportive care with fluids and rest - The patient may also use OTC cough and cold meds as needed, warm salt water gargles, throat lozenges and/or OTC throat spray as needed, and nasal saline gtts and suction prn. - Follow up in 3-5 days if symptoms persist or sooner if worsening of symptoms 2. Acute cough - ICD9: 786.2, ICD10: R05.1 He was seen here on 11/28/24 At that time negative, CXR, negative strep, negative flu Provided albuterol and Tessalon and Prednisone I am getting worse it seems RX Doxy RX Prednisone taper F/U with PCP for continued sx Liza Estrada APRN.SPEECH AND HEARING DIRECTOR documented in this encounter [facility] 11-28-2024 Note SARS-COV-2 (AGENT OF COVID-19) RNA: Not detected INFLUENZA A RNA: Not detected INFLUENZA B RNA: Not detected RESPIRATORY SYNCYTIAL VIRUS (RSV) RNA: Not detected [facility] Comment on above: Performed By: #### 9 [id number] #### [facility] CLIA [id number] [address] [place] [address] [place] 11-28-2024 History of Present illness Narrative Radiology Service Progress Note PATIENT NAME: Lora Bailey DATE OF SERVICE: November 28, 2024 TIME: 9:47 AM PATIENT IDENTITY VERIFICATION COMPLETED USING TWO (2) IDENTIFIERS: Name and Date of confirmed by patient verbally. FALL SCREENING: Has the patient had 2 falls in the last year or 1 fall with injury or currently using an Ambulatory Assistive Device (Walker, Cane, Wheelchair, Crutches, etc.)? No PATIENT GENDER DATA: Assigned male at PATIENT RELEVANT IMPLANT DATA REVIEWED: Not Applicable PATIENT PRESENTS WITH AN IMPLANTABLE OR ATTACHED PRODUCE SERVICE TEAM MEMBER: No RADIOLOGY DEPARTMENT: General X-ray: Exam(s) Completed: Chest X-Ray PERIPHERAL IV DATA: Not applicable SIGNED BY: RT Viki(Donna) November 28, 2024 9:47 AM documented in this encounter [facility] 11-28-2024 Note HNO ID: [id number] Author: LINUS CONTRERAS RT(R) Service: Radiology Author Type: Technologist Type: Progress Notes Filed: 11/28/2024 09:51 Note Text: Radiology Service Progress Note PATIENT NAME: Lora Bailey DATE OF SERVICE: November 28, 2024 TIME: 9:47 AM PATIENT IDENTITY VERIFICATION COMPLETED USING TWO (2) IDENTIFIERS: Name and Date of confirmed by patient verbally. FALL SCREENING: Has the patient had 2 falls in the last year or 1 fall with injury or currently using an Ambulatory Assistive Device (Walker, Cane, Wheelchair, Crutches, etc.)? No PATIENT GENDER DATA: Assigned male at PATIENT RELEVANT IMPLANT DATA REVIEWED: Not Applicable PATIENT PRESENTS WITH AN IMPLANTABLE OR ATTACHED PRODUCE SERVICE TEAM MEMBER: No RADIOLOGY DEPARTMENT: General X-ray: Exam(s) Completed: Chest X-Ray PERIPHERAL IV DATA: Not applicable SIGNED BY: RT Viki(Donna) November 28, 2024 9:47 AM [facility] 11-28-2024 Instructions Lesly Sparrow PA - 11/28/2024 9:57 AM EST Use inhaler as needed for wheezing, shortness of breath or coughing fits. 2 puffs every 4 hours as needed. Tessalon Perles 3 times daily as needed for cough. Take prednisone 2 tabs once daily x 4 days as prescribed. This will help with cough. Your COVID/flu/RSV swab is pending. We will contact you with the results of this tomorrow. documented in this encounter [facility] 11-28-2024 Note HNO ID: [id number] Author: LESLY SPARROW PA Service: ? Author Type: Physician Yoghurt Maker Type: Progress Notes Filed: 11/28/2024 10:01 Note Text: This note was created using Rocket Raiseriter. Subjective Lora Bailey is a 49 year old male. HPI 49-year-old male presents for cough, chest congestion, sinus pressure, nasal congestion, sore throat x 3 days. Patient states he started getting sinus pressure about 3 days ago. He states over the past 2 days, he feels like it is going into his chest. He has chest congestion, but only has a dry cough. Feels like he is wheezing at times. He denies any chest pain or shortness of breath. No history of COPD or asthma. Not on any inhalers. He has had pneumonia in the past. Patient has not had any fevers, but has had some chills at night. He reports sore throat. No sick contacts he is aware of. Has been taking DayQuil and Mucinex. No other complaint. No past medical history on file. No past surgical history on file. ALLERGIES Patient has no known allergies. MEDICATIONS Telmisartan 20 mg tablet Take 20 mg by mouth. metoprolol succinate ER (TOPROL XL) 25 mg 24 hr tablet TAKE 1 TABLET NIGHTLY naproxen (NAPROSYN) 500 mg tablet Take 1 tablet by mouth twice daily as needed (pain/inflammation, take with food.). (Patient not taking: Reported on 11/18/2022) No family history on file. Social History Tobacco Use Smoking status: Never Smokeless tobacco: Never Vaping Use Vaping status: Never Used Substance Use Topics Alcohol use: Never Drug use: Never Review of Systems Constitutional: Negative for chills and fever. HENT: Positive for congestion and sore throat. Respiratory: Positive for cough and wheezing. Negative for shortness of breath. Gastrointestinal: Negative for diarrhea and vomiting. Objective BP 110/90 Pulse 75 Temp 36.6 ?C (97.9 ?F) Resp 20 Wt 114.9 kg (253 lb 4.9 oz) SpO2 98% Physical Exam Vitals and nursing note reviewed. Constitutional: General: He is not in acute distress. Appearance: Normal appearance. He is not toxic-appearing. HENT: Right Ear: Tympanic membrane and ear canal normal. Left Ear: Tympanic membrane and ear canal normal. Nose: Nose normal. Mouth/Throat: Mouth: Mucous membranes are moist. Pharynx: Uvula midline. Posterior oropharyngeal erythema present. Tonsils: Tonsillar exudate present. 2+ on the right. 2+ on the left. Eyes: Conjunctiva/sclera: Conjunctivae normal. Cardiovascular: Rate and Rhythm: Normal rate and regular rhythm. Pulmonary: Effort: Pulmonary effort is normal. Breath sounds: Wheezing and rhonchi present. No rales. Skin: General: Skin is warm and dry. Neurological: Mental Status: He is alert. Assessment and Plan ASSESSMENT/PLAN: 1. URI, acute - ICD9: 465.9, ICD10: J06.9 (primary diagnosis) - Discussed viral etiology and rationale for treatment. - Symptomatic treatment with prn analgesia - Supportive care with fluids and rest - COVID AND INFLUENZA A/B AND RSV PCR, ROUTINE -out of window for Tamiflu 2. Acute cough - ICD9: 786.2, ICD10: R05.1 - XR CHEST 2V FRONTAL/LAT no acute radiographic abnormality -Rx prednisone, Rx Tessalon Perles, Rx albuterol inhaler to help with wheezing. Suspect bronchitis. - COVID AND INFLUENZA A/B AND RSV PCR, ROUTINE 3. Sore throat - ICD9: 462, ICD10: J02.9 - suspect viral - Group A strep molecular testing negative - Discussed supportive care treatment with fluids, rest and analgesia. - The patient may also use warm salt water gargles, throat lozenges and/or OTC throat spray as needed. - STREP A MOLECULAR (POC) - COVID AND INFLUENZA A/B AND RSV PCR, ROUTINE Diagnosis and treatment plan were discussed and questions were answered to the patient's satisfaction. Pt acknowledged understanding of concepts and follow up plan. Specific signs and symptoms that would indicate the need for higher level of care were discussed in detail warranting prompt ER evaluation. TRI Tao [facility] 11-28-2024 History of Present illness Narrative This note was created using NoteWriter. Subjective Lora Bailey is a 49 year old male. HPI 49-year-old male presents for cough, chest congestion, sinus pressure, nasal congestion, sore throat x 3 days. Patient states he started getting sinus pressure about 3 days ago. He states over the past 2 days, he feels like it is going into his chest. He has chest congestion, but only has a dry cough. Feels like he is wheezing at times. He denies any chest pain or shortness of breath. No history of COPD or asthma. Not on any inhalers. He has had pneumonia in the past. Patient has not had any fevers, but has had some chills at night. He reports sore throat. No sick contacts he is aware of. Has been taking DayQuil and Mucinex. No other complaint. No past medical history on file. No past surgical history on file. ALLERGIES Patient has no known allergies. MEDICATIONS Telmisartan 20 mg tablet Take 20 mg by mouth. metoprolol succinate ER (TOPROL XL) 25 mg 24 hr tablet TAKE 1 TABLET NIGHTLY naproxen (NAPROSYN) 500 mg tablet Take 1 tablet by mouth twice daily as needed (pain/inflammation, take with food.). (Patient not taking: Reported on 11/18/2022) No family history on file. Social History Tobacco Use Smoking status: Never Smokeless tobacco: Never Vaping Use Vaping status: Never Used Substance Use Topics Alcohol use: Never Drug use: Never Review of Systems Constitutional: Negative for chills and fever. HENT: Positive for congestion and sore throat. Respiratory: Positive for cough and wheezing. Negative for shortness of breath. Gastrointestinal: Negative for diarrhea and vomiting. Objective BP 110/90 Pulse 75 Temp 36.6 C (97.9 F) Resp 20 Wt 114.9 kg (253 lb 4.9 oz) SpO2 98% Physical Exam Vitals and nursing note reviewed. Constitutional: General: He is not in acute distress. Appearance: Normal appearance. He is not toxic-appearing. HENT: Right Ear: Tympanic membrane and ear canal normal. Left Ear: Tympanic membrane and ear canal normal. Nose: Nose normal. Mouth/Throat: Mouth: Mucous membranes are moist. Pharynx: Uvula midline. Posterior oropharyngeal erythema present. Tonsils: Tonsillar exudate present. 2+ on the right. 2+ on the left. Eyes: Conjunctiva/sclera: Conjunctivae normal. Cardiovascular: Rate and Rhythm: Normal rate and regular rhythm. Pulmonary: Effort: Pulmonary effort is normal. Breath sounds: Wheezing and rhonchi present. No rales. Skin: General: Skin is warm and dry. Neurological: Mental Status: He is alert. Assessment and Plan ASSESSMENT/PLAN: 1. URI, acute - ICD9: 465.9, ICD10: J06.9 (primary diagnosis) - Discussed viral etiology and rationale for treatment. - Symptomatic treatment with prn analgesia - Supportive care with fluids and rest - COVID & INFLUENZA A/B & RSV PCR, ROUTINE -out of window for Tamiflu 2. Acute cough - ICD9: 786.2, ICD10: R05.1 - XR CHEST 2V FRONTAL/LAT no acute radiographic abnormality -Rx prednisone, Rx Tessalon Perles, Rx albuterol inhaler to help with wheezing. Suspect bronchitis. - COVID & INFLUENZA A/B & RSV PCR, ROUTINE 3. Sore throat - ICD9: 462, ICD10: J02.9 - suspect viral - Group A strep molecular testing negative - Discussed supportive care treatment with fluids, rest and analgesia. - The patient may also use warm salt water gargles, throat lozenges and/or OTC throat spray as needed. - STREP A MOLECULAR (POC) - COVID & INFLUENZA A/B & RSV PCR, ROUTINE Diagnosis and treatment plan were discussed and questions were answered to the patient's satisfaction. Pt acknowledged understanding of concepts and follow up plan. Specific signs and symptoms that would indicate the need for higher level of care were discussed in detail warranting prompt ER evaluation. TRI Tao documented in this encounter [facility] 09-10-2024 Note [facility] Medical Records Department [address] [place] [address] Discharge Summary 09/10/24 09 MR#: [id number] Acct: [id number] Name: LORA BAILEY Rep #: [id number] : 1975 49 From: Louie Arroyo MD PCP: Dr. Dean Peterson MD Status:DIS IN [place] [facility] [place] [id number] Providers Date of Admission: 09/07/24 Primary Care Physician: Dr. Dean Peterson MD Reason For Visit: PARTIAL SMALL BOWEL OBSTRUCTION Diagnosis Discharge Diagnosis (1) Partial small bowel obstruction: Status: Acute Code(s): K56.600 - Partial intestinal obstruction, unspecified as to cause Plan: Patient is a 49-year-old male with history of small bowel resection for non-Hodgkin's B-cell lymphoma in 1992 as well as a history of 1 prior partial small bowel obstruction in 2012 who presents today with approximately 24-hour history of acute onset abdominal pain with progressive intensity and associated nausea/obstructive GI symptoms. Patient is hospital day 3 for admission for partial small bowel obstruction with evidence of possible associated bowel ischemia. Yesterday patient successfully completed a Gastrografin challenge with small bowel follow-through and there is no evidence of obstruction. This, in turn, resulted in return of bowel function. Patient reports that he is feeling better today. I do, however, see mildly dilated loop of small bowel that appears to correlate with the loops seen on CT imaging on his KUB today. He has some very mild persistent abdominal tenderness on exam. I shared with him that this may represent a chronic finding with his KUB and just some residual tenderness from his partial obstruction or there may be persistent underlying ischemia. With his clinical progress I advocate for advancing his diet and monitoring for tolerance. If the diet causes more discomfort then I would revert back to an n.p.o. status and advocate for diagnostic laparoscopy. I did share with Mr. Mrs. Loaiza that in the event of surgery he would have to be consented for possible laparotomy and possible bowel resection. With this discussion they state that they are in agreement and we will plan to slowly advance diet. Nasogastric tube was discontinued at bedside. Additionally working towards some electrolyte replacement this morning. Patient is advised to continue frequent mobilization. Will follow for tolerance of diet. Louie Arroyo MD General Surgery Endocrine Surgery Pager: [facility] [address] [place] [address], [address] [place] [address] Office: [phone] Medications at Discharge Home Medications esomeprazole magnesium 20 mg capsule,delayed release (Nexium) 20 mg PO DAILY GERD 09/07/24 metoprolol succinate 25 mg tablet,extended release 24 hr 25 mg PO DAILY 09/07/24 telmisartan 40 mg tablet 40 mg PO DAILY 09/07/24 Hospital Course Operations None Procedures - (Small bowel follow-through) Summary of Care Provided Hospital Course: Patient is a 49-year-old male who was admitted on 09/07/2024 via the emergency department after presentation for acute onset and progressive abdominal pain associated with nausea and anorexia. Patient's presentation was most consistent for diagnosis of partial small bowel obstruction with possible associated ischemic small bowel (given findings of some thickening of the small bowel in an isolated fashion on CT imaging). Thus patient underwent placement of nasogastric tube in the emergency department and was admitted for conservative bowel management with intravenous fluid resuscitation. He had minimal output from his nasogastric tube and a small bowel follow-through with Gastrografin contrast was ordered the following day. Patient remained free of suction during this trial and describes some initial nausea but overall tolerated the exam and experienced transit of the contrast to the colon and the expected timeframe. His nasogastric tube was maintained throughout the day into the next morning until he was able to confirm that he had bowel movements morning of hospital day 3. At that point the tube was removed and he was initiated on a liquid diet. This diet was gradually advanced as Mr. Bailey showed tolerance of each new level. He also, simultaneously, reported incremental improvements of his abdominal discomfort but remained mildly and focally tender to palpation of the left mid abdomen. I discussion was held on several occasions regarding possible diagnostic laparoscopy but I shared this could lead to unnecessary surgery as he may require repeat laparotomy with bowel resection in the event that the area could not be adequately laparoscopically evaluated. With this caution a joint decision was made to persist with conservative measures and after Mr. Bailey proved tolerance we discussed discharge to home. This was ultimately (more content not included)... [facility] 09-07-2024 Note [facility] Medical Records Department [address] [place] [address] History Physical Exam 09/07/241942 MR#: [id number] Acct: [id number] Name: LORA BAILEY Rep #: [id number] : 1975 49 From: Louie Arroyo MD PCP: Dr. Dean Peterson MD Status:ADM IN [place] [facility] [id number] HPI - General General Date of Admission: 09/07/24 Chief Complaint: Acute onset abdominal pain associated with intractable nausea HPI Narrative LORA BAILEY, is a 49 M who presents yesterday to [facility] with complaints of acute onset abdominal pain that began and has been progressive in its intensity he notes that the pain is focused over a small area in the left side of his abdomen and feels hot. He goes on to mention that he developed significant nausea and burping throughout today which is highly uncharacteristic for him. He does share that he had a bowel movement this morning but comments that this was not his regular and goes on to describe that it was both unformed and smaller volume than he normally experiences. Since that time he mentions that he has not had any passage of gas. Patient's ER workup is notable for normal laboratories, including a lactic acid, but CT imaging of the abdomen pelvis showed possible partial small bowel obstruction with other findings suggestive to radiology for possible ischemia and possible involvement by adhesions. Patient has a history of non-Hodgkin's B-cell lymphoma at the age of 17 which required first a surgical biopsy followed by exploratory laparotomy with small bowel resection in 1992. Patient states that his operation was undertaken at [facility]. He states that from - 2012 he really had no significant GI difficulties but then in 2012 developed severe abdominal pain and presented to [facility] where he was managed with conservative bowel rest by Dr. English for a period of a few days. Now for the last 11 years Mr. Bailey states he has been overall well but questions whether or not some recent travel may be part of the onset of his presentation today as his episode in 2012 was preceded by some recent travel to [place] at that time. He also notes that he recently completed a colonoscopy with Dr. Mcdowell of gastroenterology on 08/16/2024. His adds that he required a second bowel prep as Sutab's did not have their desired effect and he ultimately required magnesium citrate for the cleanout. He confirms that the findings of this endoscopy were entirely negative. [facility] Medical History Cancer of abdomen Bowel obstruction Home Medications ???Medication ???Instructions ???Recorded ???Last Taken ???Type metoprolol succinate 25 mg 25 mg PO DAILY 09/07/24 Unknown History tablet,extended release 24 hr telmisartan 40 mg tablet 40 mg PO DAILY 09/07/24 Unknown History Allergy/AdvReac Type Severity Reaction Status Date / Time No Known Allergies Allergy Verified 09/07/24 15:55 Surgical History Hx of resection of small bowel Social History Smoking Status: Never smoker Vital Signs Vital Signs Vital Signs: 09/07/24 15:55 09/07/24 17:54 09/07/24 19:00 Temperature 96.7 F L Temperature Source Temporal Pulse Rate 75 95 67 Respiratory Rate 18 16 15 Blood Pressure 149/112 H 132/75 H 157/94 H Blood Pressure Mean 124 94 115 Pulse Ox 99 96 95 Oxygen Delivery Method Room Air Room Air Room Air Weight Weight: 249 lb 3.2 oz Body Mass Index (BMI) 32.8 Physical Exam Const alert Constitutional Narrative: Mild distress from abdominal discomfort General Appearance: cooperative and well developed Resp normal respiratory effort GI GI Narrative: Evidence of prior exploratory laparotomy with well-healed incision. No evidence of herniation. Mildly distended, soft, focally tender to palpation in the left midabdomen and palpation of the right mid abdomen generates mild tenderness on the left. Results Lab / Micro Data 09/07/24 16:37 09/07/24 16:37 Labs: Laboratory Results - last 24 hr 09/07/24 16:37: WBC 9.9, RBC 5.47, Hgb 15.9, Hct 47.1, MCV 86.1, MCH 29.1, MCHC 33.8, RDW Std Deviation 37.8, RDW Coeff of [place] 12.0, Plt Count 258, MPV 10.7, Immature Gran % (Auto) 0.200, Neut % (Auto) 65.8, Lymph % (Auto) 22.9, [place] % (Auto) 9.8, Eos % (Auto) 0.9, Baso % (Auto) 0.4, Absolute Neuts (auto) 6.5, Absolute Lymphs (auto) 2.26, Nucleated RBC % 0, Sodium 139, Potassium 4.0, C hloride 108 H, Carbon Dioxide 27.0, Anion Gap 4 L, BUN 27 H, Creatinine 1.25, Estim Creat Clear Calc 95.22, Est GFR (MDRD) Af Amer 79, Est GFR (MDRD) Non-Af 66, BUN/Creatinine Ratio 21.6 H, Glucose 103, Calc (more content not included)... [facility] 08-14-2024 History of Present illness Narrative Subjective Lora Bailey is a 49 y.o. male who presents for the following: Skin Check (Pt presents to office for full skin exam. Last full skin exam 01/2024. Pt has history of basal cell carcinoma in 2010. Pt has scattered lesions of concern at this time./). Review of Systems: No other skin or systemic complaints other than what is documented elsewhere in the note. The following portions of the chart were reviewed this encounter and updated as appropriate: Allergies Meds Problems Med Hx Surg Hx Fam Hx Objective Well appearing patient in no apparent distress; mood and affect are within normal limits. A full examination was performed including scalp, face, neck, chest, abdomen, back, bilateral upper extremities, bilateral lower extremities. Patient declines exam underneath the underwear; patient declines exam of the lower abdomen/mons pubis, buttocks, groin, genitalia, perineal and perianal skin and these areas were not examined. All findings within normal limits unless otherwise noted below. Assessment/Plan 1. Actinic keratosis Mid Tip of Nose Erythematous scaly macule(s) -Discussed nature of diagnosis and treatment options. -Patient wishes to proceed with Cryotherapy today -Possible side effects of liquid nitrogen treatment reviewed including formation of blisters, crusting, tenderness, scar, and discoloration which may be permanent. -Patient advised to return the office for re-evaluation if the treated lesion(s) do not resolve within 4-6 weeks. Patient verbalizes understanding. Destr of lesion - Mid Tip of Nose Complexity: simple Destruction method: cryotherapy Informed consent: discussed and consent obtained Lesion destroyed using liquid nitrogen: Yes Outcome: patient tolerated procedure well with no complications Post-procedure details: wound care instructions given 2. Seborrheic keratosis (2) Generalized, Mid Root of Nose Stuck on, waxy macule(s)/papule(s)/plaque(s) with comedo-like openings and milia like cysts (lesion of patient's concern) -Discussed the nature of the diagnosis -Reassurance, recommend continued observation 3. Inflamed skin tag Left Medial Thigh Erythematous, inflamed pedunculated papule(s) with clinically evident irritation/inflammation After clinical evaluation including history and examination today, a decision was made to perform a procedure for removal of inflamed skin tag(s). Procedure Note: Skin Tag Removal, CPT 70888 Anesthesia: The site was then anesthetized with 1% Lidocaine with epinephrine 1:100,000. Lesions prepped with alcohol Biopsy: not indicated Cosmetic: no, lesions are clinically irritated/inflamed on physical examination today Time Out Procedural Pause Correct Patient: Yes Correct Procedure: Yes Correct Site: Yes Available Equipment: Yes I authorize that the above is correct. Initials- EAGS Lesion(s) removed using forceps and an iris scissor. Aluminum chloride was applied to stop minimal bleeding. Vaseline was applied to any open wounds. A total of 1 lesion(s) were removed on the following body locations: L thigh Staff Communication: Dermatology Local Anesthesia: 1 % Lidocaine / Epinephrine - Amount: 0.5cc L thigh - Left Medial Thigh 4. Multiple benign nevi Brown and sanchez macules and papules with reassuring findings on dermoscopy -These lesions have benign, reassuring patterns on dermoscopy -Recommend continued self observation, and to contact the office if any changes in nevi are noticed 5. Lentigo Sanchez macules -Benign appearing on exam -Reassurance, recommend observation 6. Hemangioma of skin Smith red papules -Discussed the nature of the diagnosis -Reassurance, recommend continued observation 7. Personal history of skin cancer Personal History of Non-Melanoma Skin Cancer, BCC Forehead 2010 -Well healed scar(s) with no evidence of recurrence -Discussed the need for annual or semi-annual skin examinations and to return sooner if any new or changing lesions are noticed. Patient verbalizes understanding 8. Screening exam for skin cancer Discussed/information given on safe sun practices and use of sunscreen, sun protective clothing or sun avoidance. Recommend to use over the counter medication of sunscreen with a SPF 30 or higher on a daily basis prior to sun exposure to reduce the risk of skin cancer. Follow up in 6 months for FSE (patient requests more frequent exams) Discussed if there are any changes or development of concerning symptoms (lesion/skin condition is changing, bleeding, enlarging, or worsening) the patient is to contact my office. The patient verbalizes understanding. Olga Santiago MD 08/14/2024 documented in this encounter [facility] Work Phone: 02-14-2024 History of Present illness Narrative Subjective Lora Bailey is a 48 y.o. male who presents for the following: Skin Check (Personal history of basal cell carcinoma. Store Assistant offered and declined. ). Review of Systems: No other skin or systemic complaints other than what is documented elsewhere in the note. The following portions of the chart were reviewed this encounter and updated as appropriate: Allergies Meds Problems Med Hx Surg Hx Fam Hx Skin Cancer History BCC Specialty Problems Dermatology Problems Actinic keratosis Hemangioma of skin and subcutaneous tissue Melanocytic nevi of left upper limb, including shoulder Melanocytic nevi of other parts of face Melanocytic nevi of right upper limb, including shoulder Melanocytic nevi of trunk Other benign neoplasm of skin, unspecified Other hypertrophic disorders of the skin Other melanin hyperpigmentation Other seborrheic keratosis Objective Well appearing patient in no apparent distress; mood and affect are within normal limits. A full examination was performed including scalp, face, neck, chest, abdomen, back, bilateral upper extremities, bilateral lower extremities. Patient declines exam of the lower abdomen/mons pubis, groin, genitalia, perineal and perianal skin and these areas were not examined. All findings within normal limits unless otherwise noted below. Assessment/Plan 1. Multiple benign nevi Brown and sanchez macules and papules with reassuring findings on dermoscopy -These lesions have benign, reassuring patterns on dermoscopy -Recommend continued self observation, and to contact the office if any changes in nevi are noticed 2. Lentigo Sanchez macules -Benign appearing on exam -Reassurance, recommend observation 3. Seborrheic keratosis Stuck on, waxy macule(s)/papule(s)/plaque(s) with comedo-like openings and milia like cysts -Discussed the nature of the diagnosis -Reassurance, recommend continued observation 4. Hemangioma of skin Smith red papules -Discussed the nature of the diagnosis -Reassurance, recommend continued observation 5. Personal history of skin cancer Personal History of Non-Melanoma Skin Cancer, BCC Forehead 2010 -Well healed scar(s) with no evidence of recurrence -Discussed the need for annual or semi-annual skin examinations and to return sooner if any new or changing lesions are noticed. Patient verbalizes understanding Discussed/information given on safe sun practices and use of sunscreen, sun protective clothing or sun avoidance. Recommend to use over the counter medication of sunscreen with a SPF 30 or higher on a daily basis prior to sun exposure to reduce the risk of skin cancer. Follow up in 6 months for FSE (patient's preference for q 6 months exam) Discussed if there are any changes or development of concerning symptoms (lesion/skin condition is changing, bleeding, enlarging, or worsening) the patient is to contact my office. The patient verbalizes understanding. Olga Santiago MD 02/14/2024 documented in this encounter [facility] Work Phone: 08-15-2023 History of Present illness Narrative Images from the original note were not included. Subjective Lora Bailey is a 48 y.o. male who presents for the following: Skin Check (Store Assistant offered and declined. Personal history of basal cell carcinoma. Pt reports family history non melanoma skin cancer. ). Review of Systems: No other skin or systemic complaints other than what is documented elsewhere in the note. The following portions of the chart were reviewed this encounter and updated as appropriate: Allergies Meds Problems Med Hx Surg Hx Fam Hx Skin Cancer History BCC Forehead 2011 Specialty Problems Dermatology Problems Actinic keratosis Hemangioma of skin and subcutaneous tissue Melanocytic nevi of left upper limb, including shoulder Melanocytic nevi of other parts of face Melanocytic nevi of right upper limb, including shoulder Melanocytic nevi of trunk Other benign neoplasm of skin, unspecified Other hypertrophic disorders of the skin Other melanin hyperpigmentation Other seborrheic keratosis Objective Well appearing patient in no apparent distress; mood and affect are within normal limits. A full examination was performed including scalp, face, neck, chest, abdomen, back, bilateral upper extremities, bilateral lower extremities. Patient declines exam underneath the underwear; patient declines exam of the lower abdomen/mons pubis, buttocks, groin, genitalia, perineal and perianal skin and these areas were not examined. All findings within normal limits unless otherwise noted below. Assessment/Plan 1. Neoplasm of uncertain behavior of skin Right Breast 7mm irritated pedunculated papule Shave removal Lesion diameter (cm): 0.7 Informed consent: discussed and consent obtained Timeout: patient name, date of , surgical site, and procedure verified Procedure prep: Patient was prepped and draped Anesthesia: the lesion was anesthetized in a standard fashion Anesthetic: 1% lidocaine w/ epinephrine 1-100,000 local infiltration Instrument used: DermaBlade Hemostasis achieved with: aluminum chloride Outcome: patient tolerated procedure well Post-procedure details: sterile dressing applied and wound care instructions given Dressing type: bandage and petrolatum Staff Communication: Dermatology Local Anesthesia: Site Location: R breast 1 % Lidocaine / Epinephrine - Amount: 0.5cc Specimen 1 - Dermatopathology- DERM LAB Differential Diagnosis: r/o PG v irritated angioma Check Margins Yes/No?: Comments: Dermpath Lab: Routine Histopathology (formalin-fixed tissue) 2. Multiple benign nevi Brown and sanchez macules and papules with reassuring findings on dermoscopy -These lesions have benign, reassuring patterns on dermoscopy -Recommend continued self observation, and to contact the office if any changes in nevi are noticed 3. Lentigo Sanchez macules -Benign appearing on exam -Reassurance, recommend observation 4. Seborrheic keratosis Stuck on, waxy macule(s)/papule(s)/plaque(s) with comedo-like openings and milia like cysts -Discussed the nature of the diagnosis -Reassurance, recommend continued observation 5. Hemangioma of skin Smith red papules -Discussed the nature of the diagnosis -Reassurance, recommend continued observation 6. Personal history of skin cancer Personal History of Non-Melanoma Skin Cancer, BCC Forehead 2010 -Well healed scar(s) with no evidence of recurrence -Discussed the need for annual or semi-annual skin examinations and to return sooner if any new or changing lesions are noticed. Patient verbalizes understanding Related Procedures Follow Up In Dermatology - Established Patient Discussed/information given on safe sun practices and use of sunscreen, sun protective clothing or sun avoidance. Recommend to use over the counter medication of sunscreen with a SPF 30 or higher on a daily basis prior to sun exposure to reduce the risk of skin cancer. Follow up in 1 year Discussed if there are any changes or development of concerning symptoms (lesion/skin condition is changing, bleeding, enlarging, or worsening) the patient is to contact my office. The patient verbalizes understanding. Olga Santiago MD 08/15/2023 documented in this encounter [facility] Work Phone: 11-18-2022 History of Present illness Narrative Subjective HPI HPI Lora Bailey is a 47 year old male who presents today for CC of st, congestion, h/a, sinus. This started 1 day ago. Has tried otc medication for relief. Symptoms are worsened by nothing. Risk factors sick exposures at home and school. .Patient presents with: Sore Throat: Congestion, SANCHEZ, sinus x 1 day No past medical history on file. No past surgical history on file. ALLERGIES Patient has no known allergies. MEDICATIONS naproxen (NAPROSYN) 500 mg tablet Take 1 tablet by mouth twice daily as needed (pain/inflammation, take with food.). (Patient not taking: Reported on 11/18/2022) No family history on file. Social History Tobacco Use Smoking status: Never Smokeless tobacco: Never Vaping Use Vaping Use: Never used Substance Use Topics Alcohol use: Never Drug use: Never Review of Systems Constitutional: Negative for fever. HENT: Positive for congestion and sore throat. Negative for ear pain and nosebleeds. Respiratory: Positive for cough. Negative for shortness of breath and wheezing. Cardiovascular: Negative for chest pain. Musculoskeletal: Negative for neck pain. Objective Blood pressure 140/102, pulse 80, temperature 36.4 C (97.5 F), resp. rate 21, weight 115.9 kg (255 lb 9.6 oz), SpO2 98 %. Physical Exam Constitutional: General: He is not in acute distress. Appearance: He is not toxic-appearing or diaphoretic. HENT: Head: Normocephalic and atraumatic. Mouth/Throat: Lips: [place]. Mouth: Mucous membranes are moist. Pharynx: Uvula midline. Posterior oropharyngeal erythema present. No pharyngeal swelling, oropharyngeal exudate or uvula swelling. Cardiovascular: Rate and Rhythm: Normal rate and regular rhythm. Heart sounds: Normal heart sounds, S1 normal and S2 normal. Pulmonary: Effort: Pulmonary effort is normal. Breath sounds: Normal breath sounds. Lymphadenopathy: Cervical: No cervical adenopathy. Right cervical: No superficial cervical adenopathy. Left cervical: No superficial cervical adenopathy. Neurological: Mental Status: He is alert and oriented to person, place, and time. Gait: Gait is intact. ASSESSMENT/PLAN: 1. URI, acute - ICD9: 465.9, ICD10: J06.9 (primary diagnosis) - Discussed viral etiology and rationale for treatment. - Symptomatic treatment with prn analgesia - Supportive care with fluids and rest - Follow up in 3-5 days if symptoms persist or sooner if worsening of symptoms - COVID WITH FLUA+B, ROUTINE 2. Sore throat - ICD9: 462, ICD10: J02.9 Negative/as above. - STREP A MOLECULAR (POC) Eliud Varela APRN.CARLO documented in this encounter [facility] 01-16-2021 History of Present illness Narrative Radiology Service Progress Note PATIENT NAME: Lora Bailey DATE OF SERVICE: January 16, 2021 TIME: 3:45 PM PATIENT IDENTITY VERIFICATION COMPLETED USING TWO (2) IDENTIFIERS: Name and Date of confirmed by patient verbally. FALL SCREENING: Has the patient had 2 falls in the last year or 1 fall with injury or currently using an Ambulatory Assistive Device (Walker, Cane, Wheelchair, Crutches, etc.)? No PATIENT GENDER DATA: Male PATIENT RELEVANT IMPLANT DATA REVIEWED: Yes RADIOLOGY DEPARTMENT: General X-ray: Exam(s) Completed: Lower Extremity X-Ray(s): Foot, Left and Wt. Bearing: PERIPHERAL IV DATA: Not applicable SIGNED BY: RT Bryson January 16, 2021 3:45 PM documented in this encounter [facility] Evaluation note Diagnosis URI, acute- Primary Acute upper respiratory infections of unspecified site Sore throat Acute pharyngitis [facility] Neoplasm of uncertain behavior of skin- Primary Multiple benign nevi Lentigo Other dyschromia Seborrheic keratosis Hemangioma of skin Hemangioma of skin and subcutaneous tissue Personal history of skin cancer Personal history of other malignant neoplasm of skin documented in this encounter [facility] [facility] Work Phone: Evaluation noteNo assessment information available [facility] Work Phone: Evaluation note* Diagnosis Multiple benign nevi- Primary Lentigo Other dyschromia Seborrheic keratosis Hemangioma of skin Hemangioma of skin and subcutaneous tissue Personal history of skin cancer Personal history of other malignant neoplasm of skin documented in this encounter [facility] Work Phone: Evaluation note* Diagnosis Foot pain, left Pain in [facility] Actinic keratosis- Primary Seborrheic keratosis Inflamed skin tag Multiple benign nevi Lentigo Other dyschromia Hemangioma of skin Hemangioma of skin and subcutaneous tissue Personal history of skin cancer Personal history of other malignant neoplasm of skin Screening exam for skin cancer Screening for malignant neoplasm of the skin documented in this encounter [facility] Work Phone: Evaluation note* Diagnosis URI, acute- Primary Acute upper respiratory infections of unspecified site Acute cough Sore throat Acute pharyngitis Acute [facility] Diagnosis URI, acute- Primary Acute upper respiratory infections of unspecified site Acute cough [facility] Diagnosis Multiple benign nevi- Primary Lentigo Other dyschromia Seborrheic keratosis Hemangioma of skin Hemangioma of skin and subcutaneous tissue Personal history of skin cancer Personal history of other malignant neoplasm of skin Screening exam for skin cancer Screening for malignant neoplasm of the skin documented in this encounter [facility] Work Phone: Reason for referral (narrative)* Consultation (Routine) - Authorized Specialty Diagnoses / Procedures Referred By Ankit garcia Referred To Contact Dermatology Diagnoses Personal history of skin cancer Procedures Follow Up In Dermatology - Established Patient Olga Garcia MD [address] [address] Referral ID Status Reason Start Date Expiration Date V isits Requested Visits Authorized [id number] Authorized 08/15/2023 08/14/2024 1 1 [facility] Work Phone: Reason for referral (narrative)No [facility] for [facility]: Summary Purpose Family History No Family History Records FoundNo Family History Records FoundNo Family History Records FoundNo Family History Records FoundNo Family History Records Found Advance Directives No Advanced Directives Records Found Advance Directive Response Recorded Date/ Time Advance Directives No August 12:44am Living Will No September 04 013 12:44am Power of Hand Edger No September 04, 2013 12:44am Advance Directive Response Recorded Date/ Time Advance Directives No August 1:44am Chief Complaint and Reason for Visit Chief Complaint Personal history of antineoplastic chemotherapy Chief Complaint Admit Date pain- BILATERAL SHOULDER PAIN October 292024 8:52am CRP ELEVATED January 31, 2025 1:3 7pm Chief Complaint Admit Date CRP ELEVATED January 31, 2025 1:3 7pm INT LAB ORDERS February 22, 2025 11:29a m Additional Source Comments (unrecognized sect ion and content) No Status Records FoundNo Status Records FoundNo Status Records FoundNo Status Records FoundNo Status Records Found INFORMATION SOURCE (unrecogn ized section and content) DATE CREATED AUTHOR 04/05/2018 [facility] DATE CREATED AUTHOR AUTHOR'S ORGANIZ ATION 04/10/2018 [facility] ([place]) DATE CREATED AUTHOR AUTHOR'S ORGANIZ ATION 12/03/2024 [facility] DATE CREATED AUTHOR AUTHOR'S ORGANIZ ATION 02/07/2025 [facility] DATE CREATED AUTHOR AUTHOR'S ORGANIZ ATION 03/01/2025 [facility] Source Comments (unrecognize d section and content) In the event this informatio n is protected by the Federal Confidentiality of Alcohol and Drug Abuse Patient Records regulations: The Federal rules restrict any use of the information to criminally investigate or prosecute any alcohol or drug abuse patient.[facility] the event this information is protected by the Federal Confidentiality of Alcohol and Drug Abuse Patient Records regulations: The Federal rules restrict any use of the information to criminally investigate or prosecute any alcohol or drug abuse patient.[facility] the event this information is protected by the Federal Confidentiality of Alcohol and Drug Abuse Patient Records regulations: The Federal rules restrict any use of the information to criminally investigate or prosecute any alcohol or drug abuse patient.[facility] the event this information is protected by the Federal Confidentiality of Alcohol and Drug Abuse Patient Records regulations: The Federal rules restrict any use of the information to criminally investigate or prosecute any alcohol or drug abuse patient.[facility] the event this information is protected by the Federal Confidentiality of Alcohol and Drug Abuse Patient Records regulations: The Federal rules restrict any use of the information to criminally investigate or prosecute any alcohol or drug abuse patient.[facility] the event this information is protected by the Federal Confidentiality of Alcohol and Drug Abuse Patient Records regulations: The Federal rules restrict any use of the information to criminally investigate or prosecute any alcohol or drug abuse patient.[facility] Reason for Visit (unrecogniz ed section and content) Reason Comments Sore Throat Congestion, SANCHEZ, sinu s x 1 day Reason Comments Skin Check Store Assistant offered an d declined. Personal history of basal cell carcinoma. Pt reports family history non melanoma skin cancer. Reason Comments Skin Check Personal history of basal cell carcinoma. Store Assistant offered and declined. Reason Comments Skin Check Pt presents to offic e for full skin exam. Last full skin exam 01/2024. Pt has history of basal cell carcinoma in 2010. Pt has scattered lesions of concern at this time. Reason Comments Cough Chest congestion, wh eezing sore throat x 3 days Reason Comments Cough Cough, sinus and henrique st congestion x 1 week Reason Comments Skin Check Personal history of NMSC- BCC forehead 2010. Patient history of actinic keratosis. History of chemotherapy as a teenager. 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 Care Teams (unrecognized sec tion and content) Baggage Agent Relationship Specialty Start Date End Date Denice Bauer [address] [place] [id number] PCP - General 01/13/04 Baggage Agent Relationship Specialty Start Date End Date Denice Bauer MD [address] [place] [address] PCP - General 03/29/11 Team Status: Active Member Role Status Dates Dr. Denice Bauer MD Family Provider Active Dr. Dean Peterson MD Primary Care Provider Active Team Status: Inactive Member Role Status Dates Dr. Dean Peterson MD Primary Care Provide r, Attending Provider, Referring Provider Active Team Status: Active Member Role Status Dates Dr. Dean Peterson MD Primary Care Provider Active Dr. Fran Adhikari MD Attending Provider Active Baggage Agent Relationship Specialty Start Date End Date Denice Bauer MD [address] [place] [address] PCP - General Family Medicine 02/14/24 Baggage Agent Relationship Specialty Start Date End Date Denice Bauer [address] [place] [address] PCP - General 01/13/04 Baggage Agent Relationship Specialty Start Date End Date Denice Bauer MD [address] [place] [address] PCP - General Family Medicine 02/14/24 Baggage Agent Relationship Specialty Start Date End Date Denice Bauer [address] [place] [address] PCP - General 01/13/04 Baggage Agent Relationship Specialty Start Date End Date Denice Bauer [address] [place] [address] PCP - General 01/13/04 Baggage Agent Relationship Specialty Start Date End Date Denice Bauer [address] [place] [address] PCP - General 01/13/04 Baggage Agent Relationship Specialty Start Date End Date Denice Bauer Zach [address] [place] [id number] PCP - General 01/13/04 Baggage Agent Relationship Specialty Start Date End Date Denice Bauer MD [address] [place] [id number] PCP - General Family Medicine 02/14/24 Team Status: Active Member Role Status Dates Dr. Dean Peterson MD Primary Care Provider Active Team Status: Inactive Member Role Status Dates Dr. eDan Peterson MD Primary Care Provider Active Start: October 29, 2024 End: October 29, 2024 Dr. Dean Peterson MD Attending Provider Active St art: October 29, 2024 End: October 29, 2024 Dr. Dean Peterson MD Referring Provider Active St art: October 29, 2024 End: October 29, 2024 Team Status: Inactive Member Role Status Dates Dr. Dean Peterson MD Primary Care Provider Active Start: January 31, 2025 End: January 31, 2025 Dr. Dean Peterson MD Attending Provider Active St art: January 31, 2025 End: January 31, 2025 Dr. Dean Peterson MD Referring Provider Active St art: January 31, 2025 End: January 31, 2025 Team Status: Active Member Role Status Dates Dr. Dean Peterson MD Primary Care Provider Active Start: January 31, 2025 Dr. Dean Peterson MD Attending Provider Active St art: January 31, 2025 Dr. Dean Peterson MD Referring Provider Active St art: January 31, 2025 Team Status: Inactive Member Role Status Dates Dr. Dean Peterson MD Primary Care Provider Active Start: February 22, 2025 End: February 22, 2025 Dr. Dean Peterson MD Attending Provider Active St art: February 22, 2025 End: February 22, 2025 Dr. Dean Peterson MD Referring Provider Active St art: February 22, 2025 End: February 22, 2025 Goals (unrecognized section and content) Goals may be documented in a n alternate sectionGoals may be documented in an alternate sectionGoals may be documented in an alternate sectionGoals may be documented in an alternate sectionGoals may be documented in an alternate section FOR RECORDS PERTAINING TO PATIENTS WHO ARE OR HAVE BEEN ENROLLED IN A CHEMICAL DEPENDENCY/SUBSTANCEABUSE PROGRAM, SOME INFORMATION MAY BE OMITTED. This clinical summary was aggregated from multiple sources. Caution should be exercised in using it in the provision of clinical care. This summary normalizes information from multiple sources, and as a consequence, information in this document may materially change the coding, format and clinical context of patient data. In addition, data may be omitted in some cases. CLINICAL DECISIONS SHOULD BE BASED ON THE PRIMARY CLINICAL RECORDS. [facility] [email or web address] [facility]. provides no warranty or guarantee of the accuracy or completeness of information in this document.
== END | disposition home or self-care (01) ==
LOC: PSN 13:27
PROVIDERS: Ophthalmology; PCP Family Medicine; Referring Provider Student in an Organized Health Care Education/Training Program; Visit Provider Student in an Organized Health Care Education/Training Program
DX: R20.2 Paresthesia of skin (principal); H53.2 Diplopia
CPT/HCPCS: 36415; 80048; 82607; 82746; 84238; 84443; 95886; 95913

== ENCOUNTER → 2025-09-24 | Outpatient (CLI) | payer OTHER, SELFPAY ==
--- OUTSIDE RECORDS SUMMARY | 2025-09-24 06:51 | XMS RPT_ITS | CCD ---
Author Organization [facility] Care Team Providers Care Cooker Syrup Name Role Phone Crispin Parker Unavailable Unavailable Crispin Parker Unavailable Unavailable Denice Valdovinos Unavailable Unavailab HEIDI Urbina Unavailable Unavailable *SELF, REFERRED Unavailable Unavailable Denice Valdovinos Unavailable Unavailab EYAD Mcrae Unavailable Unavailable ARUNA, DENICE Iniguez Unavailable Unavailable Denice Valdovinos Primary Care Provider [phone] Denice Valdovinos MD Primary Care Provider Dr. Jaydon Peterson Primary Care Provider ZeynepDr. Peters Attending Provider Aruna CURTIS, Denice Serrano Primary Care Provider Denice Valdovinos Primary Care Provider [phone] Dr. Jaydon Peterson MD Primary Care Provider Dr. Jaydon Peterson MD Attending Provider [phone] Dr. Jaydon Peterson MD Referring Provider OLGA LEÓN Attending Unava ilDENICE Villalta Primary Care Yukoab OLGA Thrasher Attending Unava ilable DENICE VALDOVINOS Primary Care Unavailab Dr. Jaydon Barboza MD Primary Care Provider Dr. Jaydon Peterson MD Attending Provider Dr. Jaydon Peterson MD Referring Provider Dr. Jaydon Peterson MD Other Provider Dr. Vitaly Crockett DO Attending Provider Dr. Vitaly Crockett DO Referring Provider Fanta CURTIS, Dr. Maier Other Provider [phone] Keira RODNEY, Dr. Haider Other Provider [phone] Aletha CURTIS, Dr. Ho Attending Provider Jaydon Peterson Attending Unavailable Peterson, Jaydon Primary Care Unavailable Peterson, Jaydon Referring Unavailable GodJoy zhao Referring Unavailable Louie Arroyo Admitting Unavailable Borjeovanny, Louie Attending Unavailable Peterson, Jaydon Primary Care Unavailable Peterson, Jaydon Primary Care Unavailable Peterson, Jaydon Attending Unavailable Peterson, Jaydon Referring Unavailable Peterson, Jaydon Referring Unavailable Peterson, Jaydon Primary Care Unavailable Peterson, Jaydon Attending Unavailable Peterson, Jaydon Referring Unavailable Peterson, Jaydon Primary Care Unavailable Nicholas, Jaydon Attending Unavailable Vitaly Crockett Referring Unavailable Vic Pompa Attending Unavailable Peterson, Jaydon Consulting Unavailable Peterson, Jaydon Primary Care Unavailable Darrion Jewell Consulting Unavailable Spittle, Vitaly Consulting Unavailable Godpavel, Joy Referring Unavailable Bortz, Louie Admitting Unavailable Bortz, Louie Attending Unavailable Peterson, Jaydon Primary Care Unavailable Bortz, Louie Consulting Unavailable Peterson, Jaydon Referring Unavailable Peterson, Jaydon Primary Care Unavailable Peterson, Jaydon Attending Unavailable Peterson, Jaydon Referring Unavailable Peterson, Jaydon Primary Care Unavailable Peterson, Jaydon Attending Unavailable Spittle, Vitaly Referring Unavailable Spittle, Vitaly Attending Unavailable Peterson, Jaydon Consulting Unavailable Peterson, Jaydon Primary Care Unavailable Darrion Jewell Consulting Unavailable CECY YATES Attending Unavailable PETERSON, JAYDON A Primary Care Unavailable DENICE VALDOVINOS Primary Care Unavailab LESLY De Dios Referring Unavailable DENICE VALDOVINOS Primary Care Unavailab fei NADENICE TO Primary Care Unavailab le Medications Current Medications Medication Drug Class(es) Dates Sig (Normalized) Sig (Original) [id number] 200 actuat albuterol 0.09 mg/actuat metered dose [...] esomeprazole 20 mg delayed release oral capsule (4 sources) Proton Pump Inhibitor Start: 09-07-2024 take 1 capsule by mouth once daily Esomeprazole Magnesium (Nexium) 20 mg capsule,delayed release(DR/EC) Active 20 mg PO DAILY September 07, 2024 1:00am GERD L-LYSINE ORAL (3 sources) L-LYSINE ORAL Ta ke by mouth. Active magnesium citrate (3 sources) MAGNESIUM CITRAT E ORAL Take by mouth. Active 24 hr metoprolol succinate 25 mg extended release oral tablet (11 sources) beta-Adrenergic Balaji Start: 09-07-2024 take 1 [...] mouth. Active telmisartan 40 mg oral tablet (11 sources) Angiotensin 2 Receptor Balaji Start: 09-07-20 [...] / HYDROcodone bitartrate 5 mg oral tablet (6 sources) Opioid Agonist Start: 09-05-2013 End: 09-07-2024 [...] Classification Problem Date Documented Da te Episodic/Chronic Bacterial infection; unspecified site (1 source) Other specified bacterial agents as the cause of diseases classified elsewhere; Translations: [Bacterial sinusitis] Onset: 08-01-2025 Episodic Blindness and vision defects (1 source) Diplopia; Translations: [Diplopia] Onset: 07-08-2025 Episodic Essential hypertension (1 source) Essential (primary) hypertension; Translations: [Essential (primary) hypertension] Onset: 10-15-2024 Chronic Neoplasms of unspecified nature or uncertain behavior [...] Cough; Translations: [Acute cough] 11-28-2024 Episodic Other nervous system disorders (2 sources) Paresthesia of skin; Translations: [Paresthesia of skin] Onset: 07-08-2025 Episodic Other screening for suspected conditions (not mental disorders or infectious disease) (6 sources) Patient encounter status; Translations: [Encounter for [...] skin] 08-14-2024 Episodic Other upper respiratory infections (1 source) Chronic sinusitis, unspecified; Translations: [Bacterial sinusitis] Onset: 08-01-2025 Chronic Other upper respiratory infections (5 sources) Sore throat symptom; Translations: [Acute pharyngitis, unspecified] Episodic Unclassified (1 source) Acute cough; Translations: [Acute cough] Onset: 11-28-2024 Past or Other Problems Problem Classification Problem Date Documented Da te Episodic/Chronic Fever of unknown origin (1 source) Fever, unspecified; Translations: [Fever, unspecified] Onset: 02-05-2025 Episodic Intestinal obstruction without hernia (7 sources) Partial obstruction of small bowel; Translations: [Partial intestinal obstruction, unspecified as to cause] Onset: 09-17-2024 09-18-2024 Episodic Other and unspecified benign neoplasm (5 sources) [...] Test Name Value Interpretation Reference Range Facility [facility] 08-01-2025 CNOV Office Visit ([facility]) RICKYLORA HARDING ([id number]) 1975 M Date Time Provider Department 08/01/25 8:15 AM CECY YATES During your visit today, we recorded the following information about you: Temperature Pulse Respiration Blood pressure 97 degrees 65/minute 18/minute 112/78 Weight 97.2 kg Cecy Yates APRN.GLOBAL RISK MANAGEMENT DIRECTOR 08/01/2025 8:34 AM Signed [facility] Subjective oLra Costa is a 50 year old male. Patient presents with: Head Congestion: Cough, sinus drainage, ST x10 days HPI The patient is a 50-year-old male presenting with sinus congestion, cough, and sore throat. Sinus Congestion, Cough, and Sore Throat: - Symptoms began approximately 10 days ago. - Intermittent improvement followed by worsening of symptoms. - Using DayQuil and Sudafed with minimal relief. - Denies fever or chills. - Productive cough with phlegm; concerns about eventual progression to chest infection and pneumonia. - Nasal discharge varies from clear to dark yellow. - Frequent throat clearing. - Denies chest pain, dyspnea, back pain, or night sweats. - Denies otalgia or dizziness; reports feeling underwater. - No known medication allergies. Review of Systems Constitutional: (-) fever, (-) chills, (-) night sweats Ears/Nose/Mouth/Thro at: (+) ear fullness, (+) nasal congestion, (+) nasal discharge, (+) sore throat, (+) frequent throat clearing, (-) ear pain, (-) dizziness Cardiovascular: (-) chest pain Respiratory: (+) cough, (+) productive cough, (-) shortness of breath Musculoskeletal: (-) back pain Psychiatric: (+) sleep disturbance Objective BP 112/78 Pulse 65 Temp 36.1 ?C (97 ?F) Resp 18 Wt 97.2 kg (214 lb 4.6 oz) SpO2 99% No past medical history on file. No past surgical history on file. ALLERGIES Patient has no known allergies. MEDICATIONS - Telmisartan 20 mg tablet Take 20 mg by mouth. - metoprolol succinate ER (TOPROL XL) 25 mg 24 hr tablet TAKE 1 TABLET NIGHTLY - telmisartan (MICARDIS) 40 mg tablet Take 40 mg by mouth daily at bedtime. - amoxicillin-clavulan ate potassium (AUGMENTIN) 875-125 mg per tablet Take 1 tablet by mouth two times a day for 7 days. - fluticasone (FLONASE ALLERGY RELIEF) 50 mcg/actuation nasal spray Use 2 sprays in each nostril once daily. - predniSONE (DELTASONE) 10 mg tablet Take 4 tabs daily for 3 days, then 2 tabs daily for 3 days, then 1 tab daily for 3 days with food. (Patient not taking: Reported on 08/01/2025) - albuterol HFA (PROVENTIL HFA, VENTOLIN HFA) 90 mcg/actuation inhaler Inhale 2 Puffs as instructed every 4 hours as needed for wheezing/shortness of breath. (Patient not taking: Reported on 08/01/2025) - benzonatate (TESSALON PERLE) 100 mg capsule Take 1 capsule by mouth three times a day as needed. (Patient not taking: Reported on 08/01/2025) - naproxen (NAPROSYN) 500 mg tablet Take 1 tablet by mouth twice daily as needed (pain/inflammation, take with food.). (Patient not taking: Reported on 11/18/2022) No family history on file. SOCIAL HISTORY[1] Physical Exam Vitals and nursing note reviewed. Constitutional: General: He is not in acute distress. Appearance: Normal appearance. He is not ill-appearing. HENT: Right Ear: Tympanic membrane, ear canal and external ear normal. Left Ear: Tympanic membrane, ear canal and external ear normal. Nose: Mucosal edema and congestion present. Mouth/Throat: Mouth: Mucous membranes are moist. Pharynx: Oropharynx is clear. Uvula midline. Posterior oropharyngeal erythema and postnasal drip present. No pharyngeal swelling, oropharyngeal exudate or uvula swelling. Tonsils: No tonsillar exudate. Cardiovascular: Rate and Rhythm: Normal rate and regular rhythm. Heart sounds: Normal heart sounds. Pulmonary: Effort: Pulmonary effort is normal. No respiratory distress. Breath sounds: Normal breath sounds. No wheezing or rales. Skin: General: Skin is warm and dry. Findings: No erythema or rash. Neurological: Mental Status: He is alert. { 1. Bacterial sinusitis (J32.9) - Persistent symptoms for 10 days with purulent nasal discharge, postnasal drainage, and cough productive of sputum. - Exam notable for erythematous throat with nasal drainage, and nasal inflammation and congestion. - Start Augmentin BID for 7 days. - Start Flonase nasal spray, 2 sprays in each nostril once daily before bed. - Discussed rationale for antibiotics and nasal steroid given duration of symptoms beyond typical viral course. - Follow-up with your PCP in 3-5 days if symptoms have not improved or sooner if symptoms worsen - Discussed red flags and need for immediate medical evaluation if any occur. - Discussed supportive care treatment with fluids, rest and analgesia. - Discussed expected course of illness Cecy Yates APRN.GLOBAL RISK MANAGEMENT DIRECTOR and Recording using ambient AI (more content not included)... Normal [facility] Acetylcholine Receptoron ACHR AB < 0.07 Normal 0.00-0.24 [facility] Comment on above: Order Comment: N Result Comment: Nega tive: 0.00 - 0.24 Borderline: 0.25 - 0.40 Positive: >0.40 Performed at: [facility] [id number] Assembly Inspector: Joana Lin MD, Phone: [phone] Performed By: #### L 3300.0600 #### [facility] [address] [place] [place], [address] Anion gap in Serum or Plasma Ordered By: Jaydon Peterson on 05-22-2025 Anion gap [Moles/Vol] 11 mmol/L 5-[address] [facility] BUN/creatinine ratioOrdered By: Jaydon Peterson on 05-22-2025 Urea nitrogen/Creatinine [Mass ratio] 25.2 mg/mg High 10-20 [facility] Basic Metabolic Profile (BMP )on 05-22-2025 BUN/CRE 25.2 RATIO High 10-20 [facility] Comment on above: Order Comment: Order Date: 05/21/25 Order Info: 666-10 - BMP Order Info: 3 - TSH Performed By: #### L [id number], L500.2500 #### [facility] [address] [place], [address] Calcium [Mass/Vol] 9.7 mg/dL Normal 7.6-11.0 [facility] Comment on above: Order Comment: Order Date: 05/21/25 Order Info: 666-10 - BMP Order Info: 3 - TSH Performed By: #### L [id number], L500.2500 #### [facility] [address] [place], [address] Chloride [Moles/Vol] 107 mmol/L Normal 98-108 [facility] Comment on above: Order Comment: Order Date: 05/21/25 Order Info: 06 - BMP Order Info: 3 - TSH Performed By: #### L [id number], L500.2500 #### [facility] [address] [place], [address] CO2 [Moles/Vol] 25.9 mmol/L Normal 21.0-32.0 [facility] Comment on above: Order Comment: Order Date: 05/21/25 Order Info: 06- - BMP Order Info: 3 - TSH Performed By: #### L [id number], L500.2500 #### [facility] [address] [place], [address] Creatinine [Mass/Vol] 1.20 mg/dL Normal 0.70-1.[address] [facility] Comment on above: Order Comment: Order Date: 05/21/25 Order Info: 0667- - BMP Order Info: 3 - TSH Performed By: #### L [id number], L500.2500 #### [facility] [address] [place], [address] GAP 11 Normal 5-15 [facility] Comment on above: Order Comment: Order Date: 05/21/25 Order Info: 666-10 - BMP Order Info: 3015-12 - TSH Performed By: #### L 501.9520, L500.2500 #### [facility] [address] [place], [address] GFR/1.73 sq M.predicted among non-blacks MDRD (S/P/Bld) [Vol rate/Area] 75 mL/min/{1.73_m2} Normal >60 [facility] Comment on above: Order Comment: Order Date: 05/21/25 Order Info: 666-10 - BMP Order Info: 3 - TSH Result Comment: mL/m in/1.73m2 CKD-EPI Creatinine Equation (2020) Performed By: #### L 501.9520, L500.2500 #### [facility] [address] [place], [address] Glucose [Mass/Vol] 100 mg/dL High 70-99 [facility] Comment on above: Order Comment: Order Date: 05/21/25 Order Info: 06 - BMP Order Info: 3015-12 - TSH Performed By: #### L [id number], L500.2500 #### [facility] [address] [place], [address] Potassium [Moles/Vol] 4.8 mmol/L Normal 3.3-5.[address] [facility] Comment on above: Order Comment: Order Date: 05/21/25 Order Info: 0667-1 - BMP Order Info: 3016-3 - TSH Performed By: #### L [id number], L500.2500 #### [facility] [address] [place], [address] Sodium [Moles/Vol] 143 mmol/L Normal 133-145 [facility] Comment on above: Order Comment: Order Date: 05/21/25 Order Info: 0667-1 - BMP Order Info: 30163 - TSH Performed By: #### L [id number], L500.2500 #### [facility] [address], [address] Urea nitrogen [Mass/Vol] 30 mg/dL High 4-19 [facility] Comment on above: Order Comment: Order Date: 05/21/25 Order Info: 0667-1 - BMP Order Info: 30163 - TSH Performed By: #### L [id number], L500.2500 #### [facility] [address] [place], [address] Carbon dioxide, total [Moles /volume] in Central venous bloodOrdered By: Jaydon Peterson on 05-22-2025 CO2 [Moles/Vol] 25.9 mmol/L 21.0-32.0 [facility] Chloride assayOrdered By: Kameron Peterson on 05-22-2025 Chloride [Moles/Vol] 107 mmol/L 98-108 [facility] Folate [Moles/volume] in Ser um or PlasmaOrdered By: Jaydon Peterson on 05-22-2025 Folate [Moles/Vol] 8.30 ng/mL 4.60-34.80 [facility] Comment on above: Hemolysis, Results w ill be affected, Requires Recollection. Folates,Serum (Folic Acid)on 05-22-2025 FOLATES,SERUM 8.30 ng/mL Normal 4.60-34.80 [facility] Comment on above: Order Comment: N Result Comment: Hemo lysis, Results will be affected, Requires Recollection. Performed By: #### L 503.0106, L506.0200 #### [facility] [address] [place], [address] Glomerular filtration rate ( GFR) estimation/1.73 sq m using serum, plasma, or whole bOrdered By: Jaydon Peterson on 05-22-2025 GFR/1.73 sq M.predicted among non-blacks MDRD (S/P/Bld) [Vol rate/Area] 75 mL/min/{1.73_m2} >60 [facility] Comment on above: mL/min/1.73m2 CKD-EP I Creatinine Equation (2020) NCS and/or EMG Patienton NCS and/or EMG Patient [facility] Pulmonary Services/Neurology [address] [place] [address] MR#: [id number] Acct: [id number] Name: LORA COSTA Rep #: [id number] : 1975 49 From: Vic Pompa MD Referring Dr: Vitaly Crockett DO Status: REG C LI Location: PSN Date: 05/22/25 Sex: M C NCS and/or EMG Patient Report Ordering Doctor: Vitaly Crockett DATE OF SERVICE: 05/22/25 Lora presents for electrodiagnostic testing of the upper limbs. He reports numbness and tingling in both hands. Electrodiagnostic findings: Right median motor nerve demonstrates normal distal latency and amplitude with reduced conduction velocity. Left median motor response is within normal limits. Ulnar motor response is within normal limits bilaterally. Normal median and ulnar F???waves. Prolonged median sensory latency at the right wrist. Normal ulnar and radial sensory responses. Normal left median sensory latency at the wrist. Needle EMG testing was performed upper limbs. All muscles tested showed no evidence of denervation normal motor unit action potentials. Electrodiagnostic impression: This is an abnormal study. 1. Electrodiagnostic findings suggestive of right-sided median mononeuropathy. This consistent with a mild right carpal tunnel syndrome. There is no electrodiagnostic evidence for a left carpal tunnel syndrome. 2. No electrodiagnostic evidence is noted for cervical radiculopathy. Multi Select Codes Neurology Neurology Interp Codes: 81647-66 Musc test done w/n test comp (inter) (2) and 42690-71 Nrv cndj test 13/> studies ([facility]) 05/22/25 1450 Date Vic Pompa MD CC: Dr. Vic Pompa MD; Dr. Jaydon Peterson MD; Dr. Vitaly Crockett DO; Dr. Darrion Jewell MD Date Dictated: 05/22/251438 Date Transcribed: 05/22/251438 Manager Reporting: BINTA Signed Normal [facility] Potassium measurement (mass/ volume)Ordered By: Jaydon Peterson on 05-22-2025 Potassium (Unsp spec) [Mass/Vol] 4.8 mmol/L 3.3-5.1 [facility] Serum creatinine measurement (mass/volume)Ordered By: Jaydon Peterson on 05-22-2025 Creatinine [Mass/Vol] 1.20 mg/dL 0.70-1.[address] [facility] Serum glucose measurement (m ass/volume)Ordered By: Jaydon Peterson on 05-22-2025 Glucose [Mass/Vol] 100 mg/dL High 70-99 [facility] Serum or plasma calcium charan urement (mass/volume)Ordered By: Jaydon Peterson on 05-22-2025 Calcium [Mass/Vol] 9.7 mg/dL 7.6-11.0 [facility] Serum or plasma urea nitroge n measurement (mass/volume)Ordered By: Jaydon Peterson on 05-22-2025 Urea nitrogen [Mass/Vol] 30 mg/dL High 4-19 [facility] Sodium levelOrdered By: Jaydon Peterson on 05-22-2025 Sodium [Moles/Vol] 143 mmol/L 133-145 [facility] TSH DL <= 0.005 mIU/L QnOrde red By: Jaydon Peterson on 05-22-2025 TSH Qn 0.542 uIU/mL 0.300-4.200 [facility] Thyroid Stim Hormone (TSH)on 05-22-2025 TSH 0.542 uIU/mL Normal 0.300-4.200 [facility] Comment on above: Order Comment: Order Date: 05/21/25 Order Info: 0667-1 - BMP Order Info: 3016-3 - TSH Performed By: #### L 501.9520, L500.2500 #### [facility] [address] [facility] [place], [address] Vitamin B12on 05-22-2025 Cobalamin (Vitamin B12) [Mass/Vol] 358 pg/mL Normal 180-914 [facility] Comment on above: Order Comment: Order Date: 05/21/25 Order Info: 0667-1 - BMP Order Info: 3016-3 - TSH Performed By: #### L 503.0106, L506.0200 #### [facility] [address] [place], [place], [address] Vitamin B12 ser/plasOrdered By: Jaydon Peterson on 05-22-2025 Cobalamin (Vitamin B12) [Mass/Vol] 358 pg/mL 180-914 [facility] Absolute lymphocyte countOrd ered By: Jaydon Peterson on 02-22-2025 Lymphocytes Auto (Unsp spec) [#/Vol] 1.56 10*3/uL 0.83-4.51 [facility] Absolute neutrophil countOrd ered By: Jaydon Peterson on 02-22-2025 Neutrophils (Bld) [#/Vol] 3.5 10*3/uL 2.0-7.7 [facility] Anion gap in Serum or Plasma Ordered By: Jaydon Peterson on 02-22-2025 Anion gap [Moles/Vol] 13 mmol/L 5-[address] [facility] Automated lymphocyte count a s percentage of total leukocytesOrdered By: Jaydon Peterson on 02-22-2025 Lymphocytes/100 WBC Auto (Unsp spec) 27.9 % - [facility] BUN/creatinine ratioOrdered By: Jaydon Peterson on 02-22-2025 Urea nitrogen/Creatinine [Mass ratio] 12.7 mg/mg 10-20 [facility] Basophil percentageOrdered B y: Jaydon Peterson on 02-22-2025 Basophils/100 WBC (Bld) 0.4 % 0-1 [facility] Bilirubin, totalOrdered By: Jaydon Peterson on 02-22-2025 Bilirubin [Mass/Vol] 0.84 mg/dL 0.00-1.30 [facility] CBC W/Diff, Automatedon 05 Absolute Lymph 1.56 X10 3/uL Normal 0.83-4.51 [facility] Comment on above: Order Comment: Order Date: 05/21/25 Order Info: 0667-1 - BMP Order Info: 3015-3 - TSH Performed By: #### L 501.9520, L500.2500 #### [facility] [address] [place], [address] Absolute Neut 3.5 X10 3/uL Normal 2.0-7.7 [facility] Comment on above: Order Comment: Order Date: 05/21/25 Order Info: 0667-1 - BMP Order Info: 3015-3 - TSH Performed By: #### L 501.9520, L500.2500 #### [facility] [address] [place], [address] Basophils/100 WBC (Bld) 0.4 % Normal 0-1 [facility] Comment on above: Order Comment: Order Date: 05/21/25 Order Info: 0667-1 - BMP Order Info: 301-3 - TSH Performed By: #### L 501.9520, L500.2500 #### [facility] [address] [place], [address] Eosinophils/100 WBC (Bld) 0.5 % Normal 0-5 [facility] Comment on above: Order Comment: Order Date: 05/21/25 Order Info: 0667-1 - BMP Order Info: 301-3 - TSH Performed By: #### L 501.9520, L500.2500 #### [facility] [address] [place], [address] Erythrocyte distribution width (RBC) [Ratio] 11.8 % Normal 11.6-14.6 [facility] Comment on above: Order Comment: Order Date: 05/21/25 Order Info: 0667-1 - BMP Order Info: 3015-12 - TSH Performed By: #### L 501.9520, L500.2500 #### [facility] [address] [place], [address] Hematocrit (Bld) [Volume fraction] 42.9 % Normal 40-54 [facility] Comment on above: Order Comment: Order Date: 05/21/25 Order Info: 06 - BMP Order Info: 3015-12 - TSH Performed By: #### L 501.9520, L500.2500 #### [facility] [address] [place], [address] Hemoglobin (Bld) [Mass/Vol] 14.9 g/dL Normal 13.0-16.5 [facility] Comment on above: Order Comment: Order Date: 05/21/25 Order Info: 0667- - BMP Order Info: 3015-12 - TSH Performed By: #### L 501.9520, L500.2500 #### [facility] [address] [place], [address] IG% 0.200 Normal 0.0-0.9 [facility] Comment on above: Order Comment: Order Date: 05/21/25 Order Info: 0667-1 - BMP Order Info: 3015-12 - TSH Result Comment: IG% - Immature Granulocytes (promyelocytes, myelocytes and metamyelocytes) > 1% indicates that a LEFT SHIFT is Present. Performed By: #### L 501.9520, L500.2500 #### [facility] [address] [place], [address] Lymphocytes/100 WBC (Bld) 27.9 % Normal 19-41 [facility] Comment on above: Order Comment: Order Date: 05/21/25 Order Info: 0667-1 - BMP Order Info: 3015-12 - TSH Performed By: #### L 501.9520, L500.2500 #### [facility] [address] [place], [address] MCH (RBC) [Entitic mass] 30.0 pg Normal 27.0-32.0 [facility] Comment on above: Order Comment: Order Date: 05/21/25 Order Info: 0667-1 - BMP Order Info: 3016-3 - TSH Performed By: #### L 501.9520, L500.2500 #### [facility] [address] [place], [address] MCHC (RBC) [Mass/Vol] 34.7 g/dL Normal 32-[address] [facility] Comment on above: Order Comment: Order Date: 05/21/25 Order Info: 06 - BMP Order Info: 3015-3 - TSH Performed By: #### L [id number], L500.2500 #### [facility] [address] [place], [address] MCV (RBC) [Entitic vol] 86.5 fL Normal 80-94 [facility] Comment on above: Order Comment: Order Date: 05/21/25 Order Info: 06 - BMP Order Info: 3015-3 - TSH Performed By: #### L 501.9520, L500.2500 #### [facility] [address] [place], [address] Monocytes/100 WBC (Bld) 8.9 % Normal 0-10 [facility] Comment on above: Order Comment: Order Date: 05/21/25 Order Info: 06- - BMP Order Info: 3015-3 - TSH Performed By: #### L [id number], L500.2500 #### [facility] [address] [place], [address] Neutrophils/100 WBC (Bld) 62.1 % Normal 47-70 [facility] Comment on above: Order Comment: Order Date: 05/21/25 Order Info: 0667- - BMP Order Info: 3016-3 - TSH Performed By: #### L [id number], L500.2500 #### [facility] [address] [place] [place], [address] Nucleated RBC (Bld) [#/Vol] 0 10*3/uL Normal 0-5 [facility] Comment on above: Order Comment: Order Date: 05/21/25 Order Info: 06-1 - [facility] Order Info: 3 - TSH Performed By: #### L [id number], L500.2500 #### [facility] [address] [place], [address] Platelet mean volume (Bld) [Entitic vol] 10.5 fL Normal 6.2-12.0 [facility] Comment on above: Order Comment: Order Date: 05/21/25 Order Info: 06 - [facility] Order Info: 3015-12 - TSH Performed By: #### L 501.9520, L500.2500 #### [facility] [address] [place], [address] Platelets (Bld) [#/Vol] 226 10*3/uL Normal 150-450 [facility] Comment on above: Order Comment: Order Date: 05/21/25 Order Info: 06- - BMP Order Info: 3015-12 - TSH Performed By: #### L [id number], L500.2500 #### [facility] [address] [place], [address] RBC (Bld) [#/Vol] 4.96 10*6/uL Normal 4.6-6.2 [facility] Comment on above: Order Comment: Order Date: 05/21/25 Order Info: 0667-1 - BMP Order Info: 3015-12 - TSH Performed By: #### L 501.9520, L500.2500 #### [facility] [address] [place], [address] RDW SD 37.2 fl Normal 35.1-43.9 [facility] Comment on above: Order Comment: Order Date: 05/21/25 Order Info: 0667-1 - BMP Order Info: 3 - TSH Performed By: #### L [id number], L500.2500 #### [facility] [address] [place], [address] WBC (Bld) [#/Vol] 5.6 10*3/uL Normal 4.4-11.0 [facility] Comment on above: Order Comment: Order Date: 05/21/25 Order Info: 0667-1 - BMP Order Info: 3 - TSH Performed By: #### L [id number], L500.2500 #### [facility] [address] [place], [address] CRPon 02-22-2025 C-REACTIVE PROT < 3.00 Normal 0.0-3.0 [facility] Comment on above: Order Comment: Order Date: 05/21/25 Order Info: 0667-1 - BMP Order Info: 3015-12 - TSH Performed By: #### L [id number], L500.2500 #### [facility] [address] [place], [address] Calculated very low density lipoprotein (VLDL) cholesterol measurementOrdered By: Jaydon Peterson on 02-22-2025 Calculated very low density lipoprotein (VLDL) cholesterol measurement 20 mg/dL 5-40 [facility] Carbon dioxide, total [Moles /volume] in Central venous bloodOrdered By: Jaydon Peterson on 02-22-2025 CO2 [Moles/Vol] 21.0 mmol/L 21.0-32.0 [facility] Chloride assayOrdered By: Kameron Peterson on 02-22-2025 Chloride [Moles/Vol] 104 mmol/L 98-108 [facility] Comprehensive Metabolic Prof ilon 02-22-2025 Albumin [Mass/Vol] 4.3 g/dL Normal 3.5-5.0 [facility] Comment on above: Order Comment: Order Date: 05/21/25 Order Info: 0667-1 - BMP Order Info: 30103-19 - TSH Performed By: #### L [id number], L500.2500 #### [facility] [address] [place], [address] Albumin/Globulin [Mass ratio] 1.7 {ratio} Normal 0.9-2.4 [facility] Comment on above: Order Comment: Order Date: 05/21/25 Order Info: 0667-1 - BMP Order Info: 3 - TSH Performed By: #### L [id number], L500.2500 #### [facility] [address] [place], [address] ALK PHOS 74 U/L Normal 40-129 [facility] Comment on above: Order Comment: Order Date: 05/21/25 Order Info: 0667- - BMP Order Info: 3015-3 - TSH Performed By: #### L 501.9520, L500.2500 #### [facility] [address] [place], [address] ALT [Catalytic activity/Vol] 31 U/L Normal <=46 [facility] Comment on above: Order Comment: Order Date: 05/21/25 Order Info: 0667- - BMP Order Info: 3 - TSH Performed By: #### L 501.9520, L500.2500 #### [facility] [address] [place], [address] AST [Catalytic activity/Vol] 37 U/L Normal <=37 [facility] Comment on above: Order Comment: Order Date: 05/21/25 Order Info: 0667-1 - BMP Order Info: 301-3 - TSH Performed By: #### L [id number], L500.2500 #### [facility] [address] [place], [address] Bilirubin [Mass/Vol] 0.84 mg/dL Normal 0.00-1.30 [facility] Comment on above: Order Comment: Order Date: 05/21/25 Order Info: 0667-1 - BMP Order Info: 3015-3 - TSH Performed By: #### L [id number], L500.2500 #### [facility] [address] [place], [address] BUN/CRE 12.7 RATIO Normal 10-20 [facility] Comment on above: Order Comment: Order Date: 05/21/25 Order Info: 0667-1 - BMP Order Info: 3015-3 - TSH Performed By: #### L 501.9520, L500.2500 #### [facility] [address] [place], [address] Calcium [Mass/Vol] 9.4 mg/dL Normal 7.6-11.0 [facility] Comment on above: Order Comment: Order Date: 05/21/25 Order Info: 0667-1 - BMP Order Info: 3015-3 - TSH Performed By: #### L [id number], L500.2500 #### [facility] [address] [place], [address] Chloride [Moles/Vol] 104 mmol/L Normal 98-108 [facility] Comment on above: Order Comment: Order Date: 05/21/25 Order Info: 0667-1 - BMP Order Info: 3015-3 - TSH Performed By: #### L [id number], L500.2500 #### [facility] [address] [place], [address] CO2 [Moles/Vol] 21.0 mmol/L Normal 21.0-32.0 [facility] Comment on above: Order Comment: Order Date: 05/21/25 Order Info: 0667-1 - BMP Order Info: 3015-3 - TSH Performed By: #### L 501.9520, L500.2500 #### [facility] [address] [place], [address] Creatinine [Mass/Vol] 1.38 mg/dL High 0.70-1.[address] [facility] Comment on above: Order Comment: Order Date: 05/21/25 Order Info: 06- - BMP Order Info: 3 - TSH Performed By: #### L [id number], L500.2500 #### [facility] [address] [place], [address] GAP 13 Normal 5-15 [facility] Comment on above: Order Comment: Order Date: 05/21/25 Order Info: 666-10 - BMP Order Info: 3 - TSH Performed By: #### L [id number], L500.2500 #### [facility] [address] [place], [address] GFR/1.73 sq M.predicted among non-blacks MDRD (S/P/Bld) [Vol rate/Area] 63 mL/min/{1.73_m2} Normal >60 [facility] Comment on above: Order Comment: Order Date: 05/21/25 Order Info: 666-10 - [facility] Order Info: 3015-12 - TSH Result Comment: mL/m in/1.73m2 CKD-EPI Creatinine Equation (2020) Performed By: #### L 501.9520, L500.2500 #### [facility] [address] [place], [address] Globulin (S) [Mass/Vol] 2.5 g/dL Normal 2.2-4.2 [facility] Comment on above: Order Comment: Order Date: 05/21/25 Order Info: 06 - BMP Order Info: 3015-12 - TSH Performed By: #### L 501.9520, L500.2500 #### [facility] [address] [place], [address] Glucose [Mass/Vol] 86 mg/dL Normal 70-99 [facility] Comment on above: Order Comment: Order Date: 05/21/25 Order Info: 06 - BMP Order Info: 3 - TSH Performed By: #### L [id number], L500.2500 #### [facility] [address] [place], [address] Potassium [Moles/Vol] 4.5 mmol/L Normal 3.3-5.[address] [facility] Comment on above: Order Comment: Order Date: 05/21/25 Order Info: 0667-1 - BMP Order Info: 3015-3 - TSH Result Comment: Hemo lysis present, Results??could be affected. ?? Performed By: #### L 501.9520, L500.2500 #### [facility] [address] [place], [address] Sodium [Moles/Vol] 138 mmol/L Normal 133-145 [facility] Comment on above: Order Comment: Order Date: 05/21/25 Order Info: 0667-1 - BMP Order Info: 3 - TSH Performed By: #### L 501.9520, L500.2500 #### [facility] [address] [place], [address] T PROT 6.8 g/dL Normal 5.9-8.4 [facility] Comment on above: Order Comment: Order Date: 05/21/25 Order Info: 0667-1 - [facility] Order Info: 3 - TSH Performed By: #### L 501.9520, L500.2500 #### [facility] [address] [place], [address] Urea nitrogen [Mass/Vol] 18 mg/dL Normal 4-19 [facility] Comment on above: Order Comment: Order Date: 05/21/25 Order Info: 0667-1 - BMP Order Info: 3 - TSH Performed By: #### L [id number], L500.2500 #### [facility] [address] [place], [address] Eosinophil percentageOrdered By: Jaydon Peterson on 02-22-2025 Eosinophils/100 WBC (Bld) 0.5 % 0-5 [facility] Erythrocyte distribution wid th ratioOrdered By: Jaydon Peterson on 02-22-2025 Erythrocyte distribution width (RBC) [Ratio] 11.8 % 11.6-14.6 [facility] Erythrocyte distribution wid th standard deviationOrdered By: Jaydon Peterson on 02-22-2025 Erythrocyte distribution width (RBC) [Ratio] 37.2 fl 35.1-43.9 [facility] Glomerular filtration rate ( GFR) estimation/1.73 sq m using serum, plasma, or whole bOrdered By: Jaydon Peterson on 02-22-2025 GFR/1.73 sq M.predicted among non-blacks MDRD (S/P/Bld) [Vol rate/Area] 63 mL/min/{1.73_m2} >60 [facility] Comment on above: mL/min/1.73m2 CKD-EP I Creatinine Equation (2020) Hematocrit Auto (Bld) [Volum e fraction]Ordered By: Jaydon Peterson on 02-22-2025 Hematocrit (Bld) [Volume fraction] 42.9 % 40-54 [facility] Hemoglobin measurementOrdere d By: Jaydon Peterson on 02-22-2025 Hemoglobin (Bld) [Mass/Vol] 14.9 g/dL 13.0-16.5 [facility] Immature granulocytes/100 WB C Auto (Bld)Ordered By: Jaydon Peterson on 02-22-2025 Immature granulocytes/100 WBC (Bld) 0.200 % 0.0-0.9 [facility] Comment on above: IG% - Immature Granu locytes (promyelocytes, myelocytes and metamyelocytes) > 1% indicates that a LEFT SHIFT is Present. LDL calc ser/plasOrdered By: Jaydon Peterson on 02-22-2025 Cholesterol in LDL [Mass/Vol] 181 mg/dL [facility] Comment on above: Huyfdnxsew=796-433 m g/dL & Higher Qonj=794 mg/dL or greater Laboratory - Chemistry and C hemistry - challengeOrdered By: Jaydon Peterson on 02-22-2025 AST [Catalytic activity/Vol] 37 U/L <38 [facility] Lactic Acidon 02-22-2025 Lactate [Moles/Vol] mmol/L Normal 0.0-2.0 [facility] Comment on above: Order Comment: Order Date: 05/21/25 Order Info: 0667-1 - BMP Order Info: 3015-12 - TSH Performed By: #### L 501.9520, L500.2500 #### [facility] [address] [place], [place], [address] Lactic acid measurementOrder ed By: Jaydon Peterson on 02-22-2025 Lactate [Moles/Vol] mmol/L 0.0-2.0 [facility] Lipid Profileon 02-22-2025 CHOL:HDL 7.85 Normal [facility] Comment on above: Order Comment: Order Date: 05/21/25 Order Info: 0667-1 - BMP Order Info: 3015-12 - TSH Performed By: #### L 501.9520, L500.2500 #### [facility] [address] [place], [place], [address] Cholesterol [Mass/Vol] 230 mg/dL High <=200 [facility] Comment on above: Order Comment: Order Date: 05/21/25 Order Info: 0667-1 - BMP Order Info: 3015-12 - TSH Result Comment: Chol esterol level, Desirable <200 mg/dL Borderline high cholesterol 200-239 mg/dL High cholesterol >=240 mg/dL Recommendations of the NCEP Adult Treatment Panel for the following risk-cutoff thresholds for the [place] population. Performed By: #### L 501.9520, L500.2500 #### [facility] [address] [place], [place], [address] Cholesterol in HDL [Mass/Vol] 29 mg/dL Low [facility] Comment on above: Order Comment: Order Date: 05/21/25 Order Info: 0667-1 - BMP Order Info: 3015-12 - TSH Result Comment: Kellen onal Cholesterol Education Program (NCEP) guidelines: <40 mg/dL: Low HDL-cholesterol (major risk factor for CHD) >= 60 mg/dL: High HDL-cholesterol (negative risk factor for CHD) HDL-cholesterol is affected by a number of factors, e.g. smoking, exercise, hormones, sex and age. Performed By: #### L 501.9520, L500.2500 #### [facility] [address] [place], [address] Cholesterol in LDL [Mass/Vol] 181 mg/dL Normal [facility] Comment on above: Order Comment: Order Date: 05/21/25 Order Info: 0667-1 - BMP Order Info: 3016-3 - TSH Result Comment: Bord sfgkja=011-403 mg/dL Higher Qlqk=218 mg/dL or greater Performed By: #### L 501.9520, L500.2500 #### [facility] [address] [place], [address] Cholesterol in VLDL [Mass/Vol] 20 mg/dL Normal 5-40 [facility] Comment on above: Order Comment: Order Date: 05/21/25 Order Info: 0667- - BMP Order Info: 3016-3 - TSH Performed By: #### L 501.9520, L500.2500 #### [facility] [address] [place], [address] Triglyceride [Mass/Vol] 99 mg/dL Normal [facility] Comment on above: Order Comment: Order Date: 05/21/25 Order Info: 0667-1 - BMP Order Info: 3016-3 - TSH Result Comment: The drugs N-Acetylcysteine and Metamizole may falsely depress this assay. Normal range: <150 mg/dL Borderline High: 150-199 mg/dL High: 200-499 mg/dL Very High: >500 mg/dL Performed By: #### L [id number], L500.2500 #### [facility] [address] [place], [address] MCV (mean corpuscular volume ) determinationOrdered By: Jaydon Peterson on 02-22-2025 MCV (RBC) [Entitic vol] 86.5 fL 80-94 [facility] Mean corpuscular hemoglobin (MCH) determinationOrdered By: Jaydon Peterson on 02-22-2025 MCH (RBC) [Entitic mass] 30.0 pg 27.0-32.0 [facility] Mean corpuscular hemoglobin concentration (MCHC) determinationOrdered By: Jaydon Peterson on 02-22-2025 MCHC (RBC) [Mass/Vol] 34.7 g/dL 32-[address] [facility] Mean platelet volume determi nationOrdered By: Jaydon Peterson on 02-22-2025 Platelet mean volume (Bld) [Entitic vol] 10.5 fL 6.2-12.0 [facility] Monocyte percentageOrdered B y: Jaydon Peterson on 02-22-2025 Monocytes/100 WBC (Bld) 8.9 % 0-10 [facility] Neutrophil percentageOrdered By: Jaydon Peterson on 02-22-2025 Neutrophils/100 WBC (Bld) 62.1 % 47-70 [facility] Nucleated red blood cell per centageOrdered By: Jaydon Peterson on 02-22-2025 Nucleated RBC/100 WBC (Bld) [Ratio] 0 % 0-5 [facility] Platelet countOrdered By: Kameron Peterson on 02-22-2025 Platelets (Bld) [#/Vol] 226 10*3/uL 150-450 [facility] Potassium measurement (mass/ volume)Ordered By: Jaydon Peterson on 02-22-2025 Potassium (Unsp spec) [Mass/Vol] 4.5 mmol/L 3.3-5.1 [facility] Comment on above: Hemolysis present, R esults could be affected. RBC Auto (Bld) [#/Vol]Ordere d By: Jaydon Peterson on 02-22-2025 RBC (Bld) [#/Vol] 4.96 10*6/uL 4.6-6.2 [facility] Screening total cholesterol/ high density lipoprotein (HDL) cholesterol ratioOrdered By: Jaydon Peterson on 02-22-2025 Cholesterol.total/Cholest debra in HDL [Mass ratio] 7.85 {ratio} [facility] Serum creatinine measurement (mass/volume)Ordered By: Jaydon Peterson on 02-22-2025 Creatinine [Mass/Vol] 1.38 mg/dL High 0.70-1.[address] [facility] Serum globulin measurementOr dered By: Jaydon Peterson on 02-22-2025 Globulin (S) [Mass/Vol] 2.5 g/dL 2.2-4.2 [facility] Serum glucose measurement (m ass/volume)Ordered By: Jaydon Peterson on 02-22-2025 Glucose [Mass/Vol] 86 mg/dL 70-99 [facility] Serum or plasma C reactive p rotein measurement (mass/volume)Ordered By: Jaydon Peterson on 02-22-2025 CRP [Mass/Vol] mg/L 0.0-3.0 [facility] Serum or plasma alanine graves otransferase (ALT) measurementOrdered By: Jaydon Peterson on 02-22-2025 ALT [Catalytic activity/Vol] 31 U/L <47 [facility] Serum or plasma albumin charan urement (mass/volume)Ordered By: Jaydon Peterson on 02-22-2025 Albumin [Mass/Vol] 4.3 g/dL 3.5-5.0 [facility] Serum or plasma albumin/glob ulin mass ratioOrdered By: Jaydon Peterson on 02-22-2025 Albumin/Globulin [Mass ratio] 1.7 {ratio} 0.9-2.4 [facility] Serum or plasma alkaline lauren sphatase measurementOrdered By: Jaydon Peterson on 02-22-2025 ALP [Catalytic activity/Vol] 74 U/L 40-129 [facility] Serum or plasma calcium charan urement (mass/volume)Ordered By: Jaydon Peterson on 02-22-2025 Calcium [Mass/Vol] 9.4 mg/dL 7.6-11.0 [facility] Serum or plasma cholesterol in HDL measurement (mass/volume)Ordered By: Jaydon Peterson on 02-22-2025 Cholesterol in HDL [Mass/Vol] 29 mg/dL Low >40 [facility] Comment on above: National Cholesterol Education Program (NCEP) guidelines:<40 mg/dL: Low HDL-cholesterol (major risk factor for CHD)>= 60 mg/dL: High HDL-cholesterol (negative risk factor for CHD)HDL-cholesterol is affected by a number of factors, e.g. smoking, exercise, hormones, sex and age. Serum or plasma cholesterol measurement (mass/volume)Ordered By: Jaydon Peterson on 02-22-2025 Cholesterol [Mass/Vol] 230 mg/dL High <201 [facility] Comment on above: Cholesterol level, D esirable <200 mg/dLBorderline high cholesterol 200-239 mg/dLHigh cholesterol >=240 mg/dLRecommendations of the NCEP Adult Treatment Panel for the following risk-cutoff thresholds for the [place] population. Serum or plasma urea nitroge n measurement (mass/volume)Ordered By: Jaydon Peterson on 02-22-2025 Urea nitrogen [Mass/Vol] 18 mg/dL 4-19 [facility] Sodium levelOrdered By: Jaydon Peterson on 02-22-2025 Sodium [Moles/Vol] 138 mmol/L 133-145 [facility] Total proteinOrdered By: Keena Peterson on 02-22-2025 Protein [Mass/Vol] 6.8 g/dL 5.9-8.4 [facility] Triglycerides measurementOrd ered By: Jaydon Peterson on 02-22-2025 Triglyceride [Mass/Vol] 99 mg/dL <199 [facility] Comment on above: The drugs N-Acetylcy steine and Metamizole may falsely depress this assay. Normal range: <150 mg/dLBorderline High: 150-199 mg/dLHigh: 200-499 mg/dLVery High: >500 mg/dL White blood cell (WBC) count Ordered By: Jaydon Peterson on 02-22-2025 WBC (Bld) [#/Vol] 5.6 10*3/uL 4.4-11.0 [facility] Urine Cultureon 02-01-2025 [facility] Order Date: 01/31/25 Order Info: 630-4 - [facility] Culture exhibits no growth. Normal [facility] Comment on above: Performed By: #### L [id number], L500.2500 #### [facility] [place], [address] Absolute lymphocyte countOrd ered By: Jaydon Peterson on 01-31-2025 Lymphocytes Auto (Unsp spec) [#/Vol] 0.68 10*3/uL Low 0.83-4.51 [facility] Absolute neutrophil countOrd ered By: Jaydon Peterson on 01-31-2025 Neutrophils (Bld) [#/Vol] 5.4 10*3/uL 2.0-7.7 [facility] Anion gap in Serum or Plasma Ordered By: Jaydon Peterson on 01-31-2025 Anion gap [Moles/Vol] 9 mmol/L 5-[address] [facility] Automated lymphocyte count a s percentage of total leukocytesOrdered By: Jaydon Peterson on 01-31-2025 Lymphocytes/100 WBC Auto (Unsp spec) 10.1 % Low 19-41 [facility] BUN/creatinine ratioOrdered By: Jaydon Peterson on 01-31-2025 Urea nitrogen/Creatinine [Mass ratio] 14.4 mg/mg 10-20 [facility] Basophil percentageOrdered B y: Jaydon Peterson on 01-31-2025 Basophils/100 WBC (Bld) 0.1 % 0-1 [facility] Bilirubin Test strip Ql (U)O rdered By: Jaydon Peterson on 01-31-2025 Bilirubin Ql (U) 1 mg/dL High Negative [facility] Comment on above: COLOR OF URINE MAY A FFECT DIPSTICK RESULTS. Bilirubin, totalOrdered By: Jaydon Peterson on 01-31-2025 Bilirubin [Mass/Vol] 0.88 mg/dL 0.00-1.30 [facility] CBC W/Diff, Automatedon 01-15 Absolute Lymph 0.68 X10 3/uL Low 0.83-4.51 [facility] Comment on above: Order Comment: Order Date: 05/21/25 Order Info: 0667-1 - BMP Order Info: 3016-3 - TSH Performed By: #### L 501.9520, L500.2500 #### [facility] [address] [place], [address] Absolute Neut 5.4 X10 3/uL Normal 2.0-7.7 [facility] Comment on above: Order Comment: Order Date: 05/21/25 Order Info: 0667-1 - BMP Order Info: 3016-3 - TSH Performed By: #### L 501.9520, L500.2500 #### [facility] [address] [place], [address] Basophils/100 WBC (Bld) 0.1 % Normal 0-1 [facility] Comment on above: Order Comment: Order Date: 05/21/25 Order Info: 0667-1 - BMP Order Info: 3016-3 - TSH Performed By: #### L 501.9520, L500.2500 #### [facility] [address] [place], [address] Eosinophils/100 WBC (Bld) 0.1 % Normal 0-5 [facility] Comment on above: Order Comment: Order Date: 05/21/25 Order Info: 06- - BMP Order Info: 3 - TSH Performed By: #### L 501.9520, L500.2500 #### [facility] [address] [place], [address] Erythrocyte distribution width (RBC) [Ratio] 11.9 % Normal 11.6-14.6 [facility] Comment on above: Order Comment: Order Date: 05/21/25 Order Info: 06- - BMP Order Info: 3 - TSH Performed By: #### L 501.9520, L500.2500 #### [facility] [address] [place], [address] Hematocrit (Bld) [Volume fraction] 44.6 % Normal 40-54 [facility] Comment on above: Order Comment: Order Date: 05/21/25 Order Info: 06- - BMP Order Info: 3 - TSH Performed By: #### L [id number], L500.2500 #### [facility] [address] [place], [address] Hemoglobin (Bld) [Mass/Vol] 15.1 g/dL Normal 13.0-16.5 [facility] Comment on above: Order Comment: Order Date: 05/21/25 Order Info: 0667- - BMP Order Info: 3 - TSH Performed By: #### L [id number], L500.2500 #### [facility] [address] [place], [address] IG% 0.400 Normal 0.0-0.9 [facility] Comment on above: Order Comment: Order Date: 05/21/25 Order Info: 666-10 - BMP Order Info: 3 - TSH Result Comment: IG% - Immature Granulocytes (promyelocytes, myelocytes and metamyelocytes) > 1% indicates that a LEFT SHIFT is Present. Performed By: #### L 501.9520, L500.2500 #### [facility] [address] [place], [address] Lymphocytes/100 WBC (Bld) 10.1 % Low 19-41 [facility] Administration Comment on above: Order Comment: Order Date: 05/21/25 Order Info: 666-10 - [facility] Order Info: 3015-12 - TSH Performed By: #### L 501.9520, L500.2500 #### [facility] [address] [place], [address] MCH (RBC) [Entitic mass] 29.5 pg Normal 27.0-32.0 [facility] Comment on above: Order Comment: Order Date: 05/21/25 Order Info: 666-10 - [facility] Order Info: 3015-12 - TSH Performed By: #### L 501.9520, L500.2500 #### [facility] [address] [place], [address] MCHC (RBC) [Mass/Vol] 33.9 g/dL Normal 32-[address] [facility] Comment on above: Order Comment: Order Date: 05/21/25 Order Info: 666-10 - BMP Order Info: 3015-12 - TSH Performed By: #### L 501.9520, L500.2500 #### [facility] [address] [place], [address] MCV (RBC) [Entitic vol] 87.3 fL Normal 80-94 [facility] Comment on above: Order Comment: Order Date: 05/21/25 Order Info: 06 - BMP Order Info: 3 - TSH Performed By: #### L 501.9520, L500.2500 #### [facility] [address] [place], [address] Monocytes/100 WBC (Bld) 9.1 % Normal 0-10 [facility] Comment on above: Order Comment: Order Date: 05/21/25 Order Info: 666-10 - [facility] Order Info: 3015-3 - TSH Performed By: #### L 501.9520, L500.2500 #### [facility] [address] [place], [address] Neutrophils/100 WBC (Bld) 80.2 % High 47-70 [facility] Comment on above: Order Comment: Order Date: 05/21/25 Order Info: 666-10 - [facility] Order Info: 3 - TSH Performed By: #### L 501.9520, L500.2500 #### [facility] [address] [place], [address] Nucleated RBC (Bld) [#/Vol] 0 10*3/uL Normal 0-5 [facility] Comment on above: Order Comment: Order Date: 05/21/25 Order Info: 666-10 - [facility] Order Info: 3 - TSH Performed By: #### L 501.9520, L500.2500 #### [facility] [address] [place], [address] Platelet mean volume (Bld) [Entitic vol] 10.9 fL Normal 6.2-12.0 [facility] Comment on above: Order Comment: Order Date: 05/21/25 Order Info: 666-10 - [facility] Order Info: 3 - TSH Performed By: #### L 501.9520, L500.2500 #### [facility] [address] [place], [address] Platelets (Bld) [#/Vol] 196 10*3/uL Normal 150-450 [facility] Comment on above: Order Comment: Order Date: 05/21/25 Order Info: 666-10 - [facility] Order Info: 3015-3 - TSH Performed By: #### L 501.9520, L500.2500 #### [facility] [address] [place], [address] RBC (Bld) [#/Vol] 5.11 10*6/uL Normal 4.6-6.2 [facility] Comment on above: Order Comment: Order Date: 05/21/25 Order Info: 0667-1 - BMP Order Info: 3 - TSH Performed By: #### L 501.9520, L500.2500 #### [facility] [address] [place], [address] RDW SD 38.5 fl Normal 35.1-43.9 [facility] Comment on above: Order Comment: Order Date: 05/21/25 Order Info: 06- - BMP Order Info: 3 - TSH Performed By: #### L 501.9520, L500.2500 #### [facility] [address] [place], [address] WBC (Bld) [#/Vol] 6.7 10*3/uL Normal 4.4-11.0 [facility] Comment on above: Order Comment: Order Date: 05/21/25 Order Info: 0667- - BMP Order Info: 3 - TSH Performed By: #### L 501.9520, L500.2500 #### [facility] [address] [place], [address] CRPon 01-31-2025 C-REACTIVE PROT 60.90 mg/L High 0.0-3.0 [facility] Comment on above: Order Comment: Order Date: 05/21/25 Order Info: 0667-1 - BMP Order Info: 3 - TSH Performed By: #### L 501.9520, L500.2500 #### [facility] [address] [place], [address] CRP [Mass/Vol]Ordered By: Kameron Peterson on 01-31-2025 C-Reactive Protein Extended Range 60.90 mg/L High 0.0-3.0 [facility] Carbon dioxide, total [Moles /volume] in Central venous bloodOrdered By: Jaydon Peterson on 01-31-2025 CO2 [Moles/Vol] 25.5 mmol/L 21.0-32.0 [facility] Chest PA and Lateralon 01-31 Chest PA and Lateral [facility] [address] [place] [address] Chest PA and Lateral MR#: [id number] Acct: [id number] Name: LORA COSTA Rep #: [id number] : 1975 M 49 From: Leonel styles MD PCP: Dr. Jaydon Peterson MD Status: REG CLI Study: Chest PA and Lateral Date of Exam: 01/31/25 Exam# [id number] Ordering Dr: Jaydon Peterson MD PROCEDURE: CHEST PA AND LATERAL [...] No focal abnormality is seen. Reading Location: [place] [address] CC: Dr. Jaydon Peterson MD Manager Reporting: Signed Normal [facility] Chloride assayOrdered By: Kameron Peterson on 01-31-2025 Chloride [Moles/Vol] 103 mmol/L 98-108 [facility] Comprehensive Metabolic Prof ilon 01-31-2025 Albumin [Mass/Vol] 4.0 g/dL Normal 3.5-5.0 [facility] Comment on above: Order Comment: Order Date: 05/21/25 Order Info: 0667-1 - BMP Order Info: 3016-3 - TSH Performed By: #### L 501.9520, L500.2500 #### [facility] [address] [place], [address] Albumin/Globulin [Mass ratio] 1.6 {ratio} Normal 0.9-2.4 [facility] Comment on above: Order Comment: Order Date: 05/21/25 Order Info: 0667- - [facility] Order Info: 3015-3 - TSH Performed By: #### L 501.9520, L500.2500 #### [facility] [address] [place], [address] ALK PHOS 74 U/L Normal 40-129 [facility] Comment on above: Order Comment: Order Date: 05/21/25 Order Info: 666-10 - [facility] Order Info: 3 - TSH Performed By: #### L 501.9520, L500.2500 #### [facility] [address] [place], [address] ALT [Catalytic activity/Vol] 47 U/L Normal <=46 [facility] Comment on above: Order Comment: Order Date: 05/21/25 Order Info: 06 - [facility] Order Info: 3 - TSH Performed By: #### L 501.9520, L500.2500 #### [facility] [address] [place], [address] AST [Catalytic activity/Vol] 48 U/L High <=37 [facility] Comment on above: Order Comment: Order Date: 05/21/25 Order Info: 0667- - [facility] Order Info: 3 - TSH Performed By: #### L 501.9520, L500.2500 #### [facility] [address] [place], [address] Bilirubin [Mass/Vol] 0.88 mg/dL Normal 0.00-1.30 [facility] Comment on above: Order Comment: Order Date: 05/21/25 Order Info: 0667-1 - [facility] Order Info: 3015-3 - TSH Performed By: #### L 501.9520, L500.2500 #### [facility] [address] [place], [address] BUN/CRE 14.4 RATIO Normal 10-20 [facility] Comment on above: Order Comment: Order Date: 05/21/25 Order Info: 0667-1 - BMP Order Info: 3 - TSH Performed By: #### L 501.9520, L500.2500 #### [facility] [address] [place], [address] Calcium [Mass/Vol] 9.0 mg/dL Normal 7.6-11.0 [facility] Comment on above: Order Comment: Order Date: 05/21/25 Order Info: 666-10 - BMP Order Info: 3 - TSH Performed By: #### L 501.9520, L500.2500 #### [facility] [address] [place], [address] Chloride [Moles/Vol] 103 mmol/L Normal 98-108 [facility] Comment on above: Order Comment: Order Date: 05/21/25 Order Info: 06- - [facility] Order Info: 3 - TSH Performed By: #### L 501.9520, L500.2500 #### [facility] [address] [place], [address] CO2 [Moles/Vol] 25.5 mmol/L Normal 21.0-32.0 [facility] Comment on above: Order Comment: Order Date: 05/21/25 Order Info: 0667- - BMP Order Info: 3013 - TSH Performed By: #### L 501.9520, L500.2500 #### [facility] [address] [place], [address] Creatinine [Mass/Vol] 1.54 mg/dL High 0.70-1.[address] [facility] Comment on above: Order Comment: Order Date: 05/21/25 Order Info: 0667-1 - BMP Order Info: 301-3 - TSH Performed By: #### L 501.9520, L500.2500 #### [facility] [address] [place], [address] GAP 9 Normal 5-15 [facility] Comment on above: Order Comment: Order Date: 05/21/25 Order Info: 06 - BMP Order Info: 3015-12 - TSH Performed By: #### L 501.9520, L500.2500 #### [facility] [address] [place], [address] GFR/1.73 sq M.predicted among non-blacks MDRD (S/P/Bld) [Vol rate/Area] 55 mL/min/{1.73_m2} Low >60 [facility] Comment on above: Order Comment: Order Date: 05/21/25 Order Info: 666-10 - BMP Order Info: 3015-12 - TSH Result Comment: mL/m in/1.73m2 CKD-EPI Creatinine Equation (2020) Performed By: #### L 501.9520, L500.2500 #### [facility] [address] [place], [address] Globulin (S) [Mass/Vol] 2.5 g/dL Normal 2.2-4.2 [facility] Comment on above: Order Comment: Order Date: 05/21/25 Order Info: 06 - BMP Order Info: 3015-12 - TSH Performed By: #### L 501.9520, L500.2500 #### [facility] [address] [place], [address] Glucose [Mass/Vol] 107 mg/dL High 70-99 [facility] Comment on above: Order Comment: Order Date: 05/21/25 Order Info: 666-10 - BMP Order Info: 3015-12 - TSH Performed By: #### L 501.9520, L500.2500 #### [facility] [address] [place], [address] Potassium [Moles/Vol] 4.7 mmol/L Normal 3.3-5.[address] [facility] Comment on above: Order Comment: Order Date: 05/21/25 Order Info: 0667-1 - BMP Order Info: 3015-12 - TSH Performed By: #### L 501.9520, L500.2500 #### [facility] [address] [place], [address] Sodium [Moles/Vol] 137 mmol/L Normal 133-145 [facility] Comment on above: Order Comment: Order Date: 05/21/25 Order Info: 0667-1 - BMP Order Info: 3015-12 - TSH Performed By: #### L 501.9520, L500.2500 #### [facility] [address] [place], [address] T PROT 6.6 g/dL Normal 5.9-8.4 [facility] Comment on above: Order Comment: Order Date: 05/21/25 Order Info: 0667-1 - BMP Order Info: 3015-12 - TSH Performed By: #### L 501.9520, L500.2500 #### [facility] [address] [place], [address] Urea nitrogen [Mass/Vol] 22 mg/dL High 4-19 [facility] Comment on above: Order Comment: Order Date: 05/21/25 Order Info: 0667-1 - BMP Order Info: 3013 - TSH Performed By: #### L 501.9520, L500.2500 #### [facility] [address] [place], [address] Eosinophil percentageOrdered By: Jaydon Peterson on 01-31-2025 Eosinophils/100 WBC (Bld) 0.1 % 0-5 [facility] Epithelial cells.squamous LM Ql (Urine sed)Ordered By: Jaydon Peterson on 01-31-2025 Epithelial cells.squamous LM.HPF (Urine sed) [#/Area] 0 /[HPF] 0-5 [facility] Erythrocyte Sed Rateon 01-31 SED RATE 1 mm/hr Normal 0-20 [facility] Comment on above: Order Comment: Order Date: 05/21/25 Order Info: 0667-1 - BMP Order Info: 3016-3 - TSH Performed By: #### L 501.9520, L500.2500 #### [facility] [address] [place], [address] Erythrocyte distribution wid th (RBC) [Ratio]Ordered By: Jaydon Peterson on 01-31-2025 Erythrocyte distribution width (RBC) [Entitic vol] 38.5 fL 35.1-43.9 [facility] Erythrocyte distribution wid th ratioOrdered By: Jaydon Peterson on 01-31-2025 Erythrocyte distribution width (RBC) [Ratio] 11.9 % 11.6-14.6 [facility] Erythrocyte distribution wid th standard deviationOrdered By: Jaydon Peterson on 01-31-2025 Erythrocyte distribution width (RBC) [Ratio] 38.5 fl 35.1-43.9 [facility] Erythrocyte sedimentation ra teOrdered By: Jaydon Peterson on 01-31-2025 ESR (Bld) [Velocity] 1 mm/h 0-20 [facility] GFR/1.73 sq M.predicted aurelia g non-blacks MDRD (S/P/Bld) [Vol rate/Area]Ordered By: Jaydon Peterson on 01-31-2025 Estimated GFR (MDRD) Non-Af Amer 55 Low >60 [facility] Comment on above: mL/min/1.73m2 CKD-EP I Creatinine Equation (2020) Glomerular filtration rate ( GFR) estimation/1.73 sq m using serum, plasma, or whole bOrdered By: Jaydon Peterson on 01-31-2025 GFR/1.73 sq M.predicted among non-blacks MDRD (S/P/Bld) [Vol rate/Area] 55 mL/min/{1.73_m2} Low >60 [facility] Comment on above: mL/min/1.73m2 CKD-EP I Creatinine Equation (2020) Glucose Ql (U)Ordered By: Kameron Peterson on 01-31-2025 Urine Glucose (UA) Normal mg/dl Normal [facility] Hematocrit Auto (Bld) [Volum e fraction]Ordered By: Jaydon Peterson on 01-31-2025 Hematocrit (Bld) [Volume fraction] 44.6 % 40-54 [facility] Hemoglobin measurementOrdere d By: Jaydon Peterson on 01-31-2025 Hemoglobin (Bld) [Mass/Vol] 15.1 g/dL 13.0-16.5 [facility] Immature granulocytes/100 WB C Auto (Bld)Ordered By: Jaydon Peterson on 01-31-2025 Immature granulocytes/100 WBC (Bld) 0.400 % 0.0-0.9 [facility] Comment on above: IG% - Immature Granu locytes (promyelocytes, myelocytes and metamyelocytes) > 1% indicates that a LEFT SHIFT is Present. Ketones Test strip Ql (U)Ord ered By: Jaydon Peterson on 01-31-2025 Ketones Ql (U) Negative Negative [facility] - Chemistry and C hemistry - challengeOrdered By: Jaydon Peterson on 01-31-2025 AST [Catalytic activity/Vol] 48 U/L High <38 [facility] Lipaseon 01-31-2025 Lipase [Catalytic activity/Vol] 29 U/L Normal 13-75 [facility] Comment on above: Order Comment: Order Date: 05/21/25 Order Info: 0667-1 - BMP Order Info: 3016-3 - TSH Result Comment: Say rose note: LIPASE revised reference range effective 23. New Lipase methodology. Expected to produce lower values than the previous assay method. NEW Reference Range: 13 - 75 U/L Performed By: #### L 501.9520, L500.2500 #### [facility] [address] [place] [address], [address] Lipase measurementOrdered By : Jaydon Peterson on 01-31-2025 Lipase [Catalytic activity/Vol] 29 U/L 13-75 [facility] Comment on above: Please note:LIPASE r evised reference range effective 23. New Lipase methodology. Expected to produce lower values than the previous assay method. NEW Reference Range: 13 - 75 U/L Lymphocytes Auto (Unsp spec) [#/Vol]Ordered By: Jaydon Peterson on 01-31-2025 Lymphocytes (Bld) [#/Vol] 0.68 10*3/uL Low 0.83-4.5 1 [facility] Lymphocytes/100 WBC Auto (Un sp spec)Ordered By: Jaydon Peterson on 01-31-2025 Lymphocytes/100 WBC (Bld) 10.1 % Low 19-41 [facility] MCV (mean corpuscular volume ) determinationOrdered By: Jaydon Peterson on 01-31-2025 MCV (RBC) [Entitic vol] 87.3 fL 80-94 [facility] Mean corpuscular hemoglobin (MCH) determinationOrdered By: Jaydon Peterson on 01-31-2025 MCH (RBC) [Entitic mass] 29.5 pg 27.0-32.0 [facility] Mean corpuscular hemoglobin concentration (MCHC) determinationOrdered By: Jaydon Peterson on 01-31-2025 MCHC (RBC) [Mass/Vol] 33.9 g/dL 32-[address] [facility] Mean platelet volume determi nationOrdered By: Jaydon Peterson on 01-31-2025 Platelet mean volume (Bld) [Entitic vol] 10.9 fL 6.2-12.0 [facility] Microscopic analysis of urin e for red blood cells (RBC)Ordered By: Jaydon Peterson on 01-31-2025 Microscopic analysis of urine for red blood cells (RBC) 0-5 SEEN /hpf 0-5 [facility] Urine RBC 0-5 SEEN /hpf 0-5 [facility] Monocyte percentageOrdered B y: Jaydon Peterson on 01-31-2025 Monocytes/100 WBC (Bld) 9.1 % 0-10 [facility] Mucus LM Ql (Urine sed)Order ed By: Jaydon Peterson on 01-31-2025 Mucus Ql (Urine sed) 1+ /hpf [facility] Neutrophil percentageOrdered By: Jaydon Peterson on 01-31-2025 Neutrophils/100 WBC (Bld) 80.2 % High 47-70 [facility] Nitrite Test strip Ql (U)Ord ered By: Jaydon Peterson on 01-31-2025 Nitrite Ql (U) Negative Negative [facility] Nucleated red blood cell per centageOrdered By: Jaydon Peterson on 01-31-2025 Nucleated RBC/100 WBC (Bld) [Ratio] 0 % 0-5 [facility] Platelet countOrdered By: Kameron Peterson on 01-31-2025 Platelets (Bld) [#/Vol] 196 10*3/uL 150-450 [facility] Potassium (Unsp spec) [Mass/ Vol]Ordered By: Jaydon Peterson on 01-31-2025 Potassium [Moles/Vol] 4.7 mmol/L 3.3-5.[address] [facility] Potassium measurement (mass/ volume)Ordered By: Jaydon Peterson on 01-31-2025 Potassium (Unsp spec) [Mass/Vol] 4.7 mmol/L 3.3-5.1 [facility] Protein Test strip Ql (U)Ord ered By: Jaydon Peterson on 01-31-2025 Protein Ql (U) TNP [facility] Comment on above: Test not performedSE E URINE CHEMISTRY PROTIEN ORDER FOR THIS RESULT. Protein, Urine (Random)on Protein (U) [Mass/Vol] 47.6 mg/dL High 0.0-12.0 [facility] Comment on above: Performed By: #### L 501.9520, L500.2500 #### [facility] [address] [place], [address] RBC Auto (Bld) [#/Vol]Ordere d By: Jaydon Peterson on 01-31-2025 RBC (Bld) [#/Vol] 5.11 10*6/uL 4.6-6.2 [facility] Serum creatinine measurement (mass/volume)Ordered By: Jaydon Peterson on 01-31-2025 Creatinine [Mass/Vol] 1.54 mg/dL High 0.70-1.[address] [facility] Serum globulin measurementOr dered By: Jaydon Peterson on 01-31-2025 Globulin (S) [Mass/Vol] 2.5 g/dL 2.2-4.2 [facility] Serum glucose measurement (m ass/volume)Ordered By: Jaydon Peterson on 01-31-2025 Glucose [Mass/Vol] 107 mg/dL High 70-99 [facility] Serum or plasma C reactive p rotein measurement (mass/volume)Ordered By: Jaydon Peterson on 01-31-2025 CRP [Mass/Vol] 60.90 mg/L High 0.0-3.0 [facility] Serum or plasma alanine graves otransferase (ALT) measurementOrdered By: Jaydon Peterson on 01-31-2025 ALT [Catalytic activity/Vol] 47 U/L <47 [facility] Serum or plasma albumin charan urement (mass/volume)Ordered By: Jaydon Peterson on 01-31-2025 Albumin [Mass/Vol] 4.0 g/dL 3.5-5.0 [facility] Serum or plasma albumin/glob ulin mass ratioOrdered By: Jaydon Peterson on 01-31-2025 Albumin/Globulin [Mass ratio] 1.6 {ratio} 0.9-2.4 [facility] Serum or plasma alkaline lauren sphatase measurementOrdered By: Jaydon Peterson on 01-31-2025 ALP [Catalytic activity/Vol] 74 U/L 40-129 [facility] Serum or plasma calcium charan urement (mass/volume)Ordered By: Jaydon Peterson on 01-31-2025 Calcium [Mass/Vol] 9.0 mg/dL 7.6-11.0 [facility] Serum or plasma urea nitroge n measurement (mass/volume)Ordered By: Jaydon Peterson on 01-31-2025 Urea nitrogen [Mass/Vol] 22 mg/dL High 4-19 [facility] Sodium levelOrdered By: Jaydon Peterson on 01-31-2025 Sodium [Moles/Vol] 137 mmol/L 133-145 [facility] Squamous epithelial cells de tection in urine sediment by light microscopyOrdered By: Jaydon Peterson on 01-31-2025 Epithelial cells.squamous LM Ql (Urine sed) 0-5 SEEN /hpf 0-5 [facility] Total proteinOrdered By: Keena Peterson on 01-31-2025 Protein [Mass/Vol] 6.6 g/dL 5.9-8.4 [facility] Urinalysis, Completeon 01-31 Mucus Ql (Urine sed) 1+ /hpf Normal [facility] Comment on above: Order Comment: Order Date: 05/21/25 Order Info: 0667-1 - BMP Order Info: 3016-3 - TSH Performed By: #### L 501.9520, L500.2500 #### [facility] [address] [place], [address] EPI,SQUAMOUS 0-5 SEEN Normal 0-5 [facility] Comment on above: Order Comment: Order Date: 05/21/25 Order Info: 0667-1 - BMP Order Info: 301-3 - TSH Performed By: #### L 501.9520, L500.2500 #### [facility] [address] [place], [address] RBC 0-5 SEEN Normal 0-5 [facility] Comment on above: Order Comment: Order Date: 05/21/25 Order Info: 0667- - BMP Order Info: 301-3 - TSH Performed By: #### L 501.9520, L500.2500 #### [facility] [address] [place], [address] WBC 0-5 SEEN Normal 0-5 [facility] Comment on above: Order Comment: Order Date: 05/21/25 Order Info: 0667-1 - BMP Order Info: 301-3 - TSH Performed By: #### L 501.9520, L500.2500 #### [facility] [address] [place] [place], [address] BACTERIA 0 SEEN Normal None Seen [facility] Comment on above: Order Comment: Order Date: 05/21/25 Order Info: 0667-1 - BMP Order Info: 301-3 - TSH Performed By: #### L 501.9520, L500.2500 #### [facility] [address] [place], [address] Urine blood detectionOrdered By: Jaydon Peterson on 01-31-2025 Urine Occult Blood Negative Negative [facility] Urine clarityOrdered By: Keena Peterson on 01-31-2025 Clarity (U) Clear Clear [facility] Urine color determinationOrd ered By: Jaydon Peterson on 01-31-2025 Color (U) Yellow Yellow [facility] Urine cultureOrdered By: Keena Peterson on 01-31-2025 Bacteria identified Cx Nom (U) Culture exhibits no growth. [facility] Urine glucose detectionOrder ed By: Jaydon Peterson on 01-31-2025 Glucose Ql (U) Normal mg/dl Normal [facility] Urine leukocyte esterase det ection by dipstickOrdered By: Jaydon Peterson on 01-31-2025 Leukocyte esterase Test strip Ql (U) 25 /ul High Negative [facility] Urine pHOrdered By: Jaydon bhagat on 01-31-2025 pH (U) 6.0 [pH] 5.0 - 8.0 [facility] Urine protein measurement (m ass/volume)Ordered By: Jaydon Peterson on 01-31-2025 Protein (U) [Mass/Vol] 47.6 mg/dL High 0.0-12.0 [facility] Urine sediment bacteria coun t by microscopy (number/high power field)Ordered By: Jaydon Peterson on 01-31-2025 Bacteria LM.HPF (Urine sed) [#/Area] 0 /[HPF] None Seen [facility] Urine specific gravity measu rementOrdered By: Jaydon Peterson on 01-31-2025 Specific gravity (U) [Rel density] 1.020 1.002-1.030 [facility] Urine urobilinogen measureme ntOrdered By: Jaydon Peterson on 01-31-2025 Urobilinogen Ql (U) 1 mg/dl High Normal [facility] Urobilinogen Ql (U)Ordered B y: Jaydon Peterson on 01-31-2025 Urobilinogen (U) [Mass/Vol] 1 mg/dL High Normal [facility] White blood cell (WBC) count Ordered By: Jaydon Peterson on 01-31-2025 WBC (Bld) [#/Vol] 6.7 10*3/uL 4.4-11.0 [facility] White blood cell countOrdere d By: Jaydon Peterson on 01-31-2025 Urine WBC 0-5 SEEN /hpf 0-5 [facility] White blood cell count 0-5 SEEN /hpf 0-5 [facility] CNOVon 12-02-2024 CNOV Office Visit (UCWSTR) LORA COSTA ([id number]) 1975 M Date Time Provider Department 12/02/24 10:45 AM [facility] During [facility] today, we recorded the following information about you: Temperature Pulse Respiration Blood pressure 98.3 degrees 71/minute 16/minute 128/82 Weight 115 kg Liza Estrada, DULITE MACHINE BLUER.GLOBAL RISK MANAGEMENT DIRECTOR 12/02/2024 12:31 PM Signed This note was created using [employer]. Subjective Lora Costa is a 49 year old male. 49 [...] history is provided by the patient. No solutions market consultant was used. Cough This is a new [...] No stridor. (more content not included)... Normal [facility] [facility]OR[facility] ([id number]) 1975 M Date Time Provider Department 11/28/24 9:45 AM LESLY MARC[facility] During your visit today, we recorded the following information about you: Temperature Pulse Respiration Blood pressure 97.9 degrees 75/minute 20/minute 110/90 Weight 114.9 kg Lesly Marcos PA 11/28/2024 10:01 AM Signed This note was created using [employer]. Subjective Lora Costa is a 49 year old male. HPI [...] acute [J06 (more content not included)... Normal [facility] STREP A MOLECULAR (POC)on Procedural Control Valid [facility] Strep A (POCT) Negative Negative [facility] XR CHEST 2V FRONTAL/LATon XR CHEST [...] tissues: Unremarkable. IMPRESSION: No acute radiographic abnormality. Manager Reporting: JULIANNA Transcribe Date/Time: Nov 28 2024 9:52A Dictated by : CYNDEE VIDES DO This examination was interpreted and the report reviewed and electronically signed by: CYNDEE VIDES DO on Nov 28 2024 9:53AM EST [id number] Normal [facility] XR Chest PA and Lateralon Radiology Study observation (narrative) [facility] IMPRESSION: No acute radiographic abnormality. Manager Reporting: JULIANNA Transcribe Date/Time: Nov 28 2024 9:52A [...] soft tissues: Unremarkable. DIVISION OF RADIOLOGY Provider, [facility] [place] - 11/28/2024 * * *Final Report* * [...] Unremarkable. IMPRESSION IMPRESSION: No acute radiographic abnormality. Manager Reporting: PSCB Transcribe Date/Time: Nov 28 2024 9:52A Dictated by : CYNDEE VIDES DO This examination was interpreted and the report reviewed and electronically signed by: CYNDEE VIDES DO on Nov 28 2024 9:53AM EST [facility] XR Chest PA and LateralOrder ed By: [facility] Provider on 11-28-2024 [facility] Shoulder min 2 Viewson 10-29 Shoulder min 2 Views [facility] [address] [place] [id number] Shoulder min 2 Views MR#: [id number] Acct: [id number] Name: LORA COSTA Rep #: [id number] : 1975 M 49 From: Avelino Taylor MD PCP: Dr. Jaydon Peterson MD Status: REG CLI Study: Shoulder min 2 Views Date of Exam: 10/29/24 Exam# [id number] Ordering Dr: Jaydon Peterson MD [id number] STUDY: X-RAY - LEFT SHOULDER REASON FOR [...] Signed: Avelino Taylor MD at 11:44 EST Reading Location ID and State: [address] [place] [address] , Service support , CC: Dr. Jaydon Peterson MD Manager Reporting: Signed Normal [facility] Shoulder min 2 Views [facility] [address] [place] [address] Shoulder min 2 Views MR#: [id number] Acct: [id number] Name: LORA COSTA Rep #: [id number] : 1975 49 From: Avelino Taylor MD PCP: Dr. Jaydon Peterson MD Status: [facility] Study: Shoulder min 2 Views Date of Exam: 10/29/24 Exam# [id number] Ordering Dr: Jaydon Peterson MD [id number] STUDY: X-RAY - RIGHT SHOULDER REASON FOR [...] MD at 11:45 EST , CC: Dr. Jaydon Peterson MD Manager Reporting: Signed Normal [facility] CBC W/Diff, Automatedon 08-18 Absolute Lymph 1.76 X10 3/uL Normal 0.83-4.51 [facility] Comment on above: Performed By: #### L 503.0106, L506.0200 #### [facility] [address] [place], [address] Absolute Neut 3.4 X10 3/uL Normal 2.0-7.7 [facility] Comment on above: Performed By: #### L 503.0106, L506.0200 #### [facility] [address] [place], [address] Basophils/100 WBC (Bld) 0.3 % Normal 0-1 [facility] Comment on above: Performed By: #### L 503.0106, L506.0200 #### [facility] [address] [place], [address] Eosinophils/100 WBC (Bld) 2.3 % Normal 0-5 [facility] Comment on above: Performed By: #### L 503.0106, L506.0200 #### [facility] [address] [place], [address] Erythrocyte distribution width (RBC) [Ratio] 11.9 % Normal 11.6-14.6 [facility] Comment on above: Performed By: #### L 503.0106, L506.0200 #### [facility] [address] [place], [address] Hematocrit (Bld) [Volume fraction] 44.1 % Normal 40-54 [facility] Comment on above: Performed By: #### L 503.0106, L506.0200 #### [facility] [address] [place], [address] Hemoglobin (Bld) [Mass/Vol] 14.8 g/dL Normal 13.0-16.5 [facility] Comment on above: Performed By: #### L 503.0106, L506.0200 #### [facility] [address] [place], [address] IG% 0.200 Normal 0.0-0.9 [facility] Comment on above: Result Comment: IG% - Immature Granulocytes (promyelocytes, myelocytes and metamyelocytes) > 1% indicates that a LEFT SHIFT is Present. Performed By: #### L 503.0106, L506.0200 #### [facility] [address] [place], [address] Lymphocytes/100 WBC (Bld) 29.5 % Normal 19-41 [facility] Comment on above: Performed By: #### L 503.0106, L506.0200 #### [facility] [address] [place], [address] MCH (RBC) [Entitic mass] 29.0 pg Normal 27.0-32.0 [facility] Comment on above: Performed By: #### L 503.0106, L506.0200 #### [facility] [address] [place], [address] MCHC (RBC) [Mass/Vol] 33.6 g/dL Normal 32-[address] [facility] Comment on above: Performed By: #### L 503.0106, L506.0200 #### [facility] [address] [place], [address] MCV (RBC) [Entitic vol] 86.5 fL Normal 80-94 [facility] Comment on above: Performed By: #### L 503.0106, L506.0200 #### [facility] [address] [place], [address] Monocytes/100 WBC (Bld) 10.2 % High 0-10 [facility] Comment on above: Performed By: #### L 503.0106, L506.0200 #### [facility] [address] [place], [address] Neutrophils/100 WBC (Bld) 57.5 % Normal 47-70 [facility] Comment on above: Performed By: #### L 503.0106, L506.0200 #### [facility] [address] [place], [address] Nucleated RBC (Bld) [#/Vol] 0 10*3/uL Normal 0-5 [facility] Comment on above: Performed By: #### L 503.0106, L506.0200 #### [facility] [address] [place], [address] Platelet mean volume (Bld) [Entitic vol] 10.8 fL Normal 6.2-12.0 [facility] Comment on above: Performed By: #### L 503.0106, L506.0200 #### [facility] [address] [place], [address] Platelets (Bld) [#/Vol] 235 10*3/uL Normal 150-450 [facility] Comment on above: Performed By: #### L 503.0106, L506.0200 #### [facility] [address] [place], [address] RBC (Bld) [#/Vol] 5.10 10*6/uL Normal 4.6-6.2 [facility] Comment on above: Performed By: #### L 503.0106, L506.0200 #### [facility] [address] [place], [address] RDW SD 37.6 fl Normal 35.1-43.9 [facility] Comment on above: Performed By: #### L 503.0106, L506.0200 #### [facility] [address] [place], [address] WBC (Bld) [#/Vol] 6.0 10*3/uL Normal 4.4-11.0 [facility] Comment on above: Performed By: #### L 503.0106, L506.0200 #### [facility] [address] [place], [address] CRPon 09-14-2024 C-REACTIVE PROT 9.53 mg/L High 0.0-3.0 [facility] Comment on above: Result Comment: C-Re active Protein (CRP) provides useful information for the diagnosis, therapy and monitoring of inflammatory processes and associated diseases. For the evaluation of Relative Risk for Cardiovascular Disease, a High Sensitivity CRP (HSCRP) should be ordered. Performed By: #### L 503.0106, L506.0200 #### [facility] [address] [place], [address] Comprehensive Metabolic Prof ilon 09-14-2024 Albumin [Mass/Vol] 3.6 g/dL Normal 3.2-5.0 [facility] Comment on above: Performed By: #### L 503.0106, L506.0200 #### [facility] [address] [place], [address] Albumin/Globulin [Mass ratio] 1.1 {ratio} Normal 0.9-2.4 [facility] Comment on above: Performed By: #### L 503.0106, L506.0200 #### [facility] [address] [place], [address] ALK P 72 U/L Normal 45-117 [facility] Comment on above: Performed By: #### L 503.0106, L506.0200 #### [facility] [address] [place], [address] ALT [Catalytic activity/Vol] 27 U/L Normal 16-61 [facility] Comment on above: Performed By: #### L 503.0106, L506.0200 #### [facility] [address] [place], [address] AST [Catalytic activity/Vol] 18 U/L Normal 15-37 [facility] Comment on above: Performed By: #### L 503.0106, L506.0200 #### [facility] [address] [place], [address] Bilirubin [Mass/Vol] 0.50 mg/dL Normal 0.20-1.00 [facility] Comment on above: Result Comment: For patients on eltrombopag therapy, use of Dimension Roxana TBIL is not recommended. Performed By: #### L 503.0106, L506.0200 #### [facility] [address] [place], [address] BUN/CRE 14.3 RATIO Normal 10-20 [facility] Comment on above: Performed By: #### L 503.0106, L506.0200 #### [facility] [address] [place], [address] CA,Total 9.0 mg/dL Normal 8.5-10.1 [facility] Comment on above: Performed By: #### L 503.0106, L506.0200 #### [facility] [address] [place], [address] Chloride [Moles/Vol] 110 mmol/L High 98-107 [facility] Comment on above: Performed By: #### L 503.0106, L506.0200 #### [facility] [address] [place], [address] CO2 [Moles/Vol] 27.0 mmol/L Normal 21.0-32.0 [facility] Comment on above: Performed By: #### L 503.0106, L506.0200 #### [facility] [address] [place], [address] Creatinine [Mass/Vol] 1.33 mg/dL High 0.70-1.[address] [facility] Comment on above: Result Comment: The validity of the calculated GFR GFRAA in patients over 70 years has not been determined. Clinical correlation is essential. Performed By: #### L 503.0106, L506.0200 #### [facility] [address] [place], [address] EST GFR - AA 74 mL/min Normal >60 [facility] Comment on above: Result Comment: Afri can English GFR Calc Performed By: #### L 503.0106, L506.0200 #### [facility] [address] [place], [address] GAP 4 Low 5-15 [facility] Comment on above: Performed By: #### L 503.0106, L506.0200 #### [facility] [address] [place], [address] GFR/1.73 sq M.predicted among non-blacks MDRD (S/P/Bld) [Vol rate/Area] 61 mL/min/{1.73_m2} Normal >60 [facility] Comment on above: Result Comment: Non- GFR Calc Performed By: #### L 503.0106, L506.0200 #### [facility] [address] [place], [address] Globulin (S) [Mass/Vol] 3.2 g/dL Normal 2.2-4.2 [facility] Comment on above: Performed By: #### L 503.0106, L506.0200 #### [facility] [address] [place], [address] Glucose [Mass/Vol] 102 mg/dL Normal 74-106 [facility] Comment on above: Result Comment: Fast ing Glucose result from 100 to 125 mg/dL suggests IMPAIRED HOMEOSTASIS per A.D.A. criteria. Performed By: #### L 503.0106, L506.0200 #### [facility] [address] [place], [address] Potassium [Moles/Vol] 4.1 mmol/L Normal 3.5-5.[address] [facility] Comment on above: Performed By: #### L 503.0106, L506.0200 #### [facility] [address] [place], [address] Sodium [Moles/Vol] 141 mmol/L Normal 136-145 [facility] Comment on above: Performed By: #### L 503.0106, L506.0200 #### [facility] [address] [place], [address] T PROT 6.8 g/dL Normal 6.4-8.2 [facility] Comment on above: Performed By: #### L 503.0106, L506.0200 #### [facility] [address] [place], [address] Urea nitrogen [Mass/Vol] 19 mg/dL High 7-18 [facility] Comment on above: Performed By: #### L 503.0106, L506.0200 #### [facility] [address] [place], [address] Basic Metabolic Profile (BMP )on 09-10-2024 BUN/CRE 13.2 RATIO Normal 10-20 [facility] Comment on above: Performed By: #### L 503.0106, L506.0200 #### [facility] [address] [place], [address] CA,Total 8.8 mg/dL Normal 8.5-10.1 [facility] Comment on above: Performed By: #### L 503.0106, L506.0200 #### [facility] [address] [place], [address] Chloride [Moles/Vol] 110 mmol/L High 98-107 [facility] Comment on above: Performed By: #### L 503.0106, L506.0200 #### [facility] [address] [place], [address] CO2 [Moles/Vol] 24.0 mmol/L Normal 21.0-32.0 [facility] Comment on above: Performed By: #### L 503.0106, L506.0200 #### [facility] [address] [place], [address] Creatinine [Mass/Vol] 1.14 mg/dL Normal 0.70-1.[address] [facility] Comment on above: Result Comment: The validity of the calculated GFR GFRAA in patients over 70 years has not been determined. Clinical correlation is essential. Performed By: #### L 503.0106, L506.0200 #### [facility] [address] [place], [address] ECRCL 103.23 ml/min Normal [facility] Comment on above: Performed By: #### L 503.0106, L506.0200 #### [facility] [address] [place], [address] EST GFR - AA 88 mL/min Normal >60 [facility] Comment on above: Result Comment: Afri can English GFR Calc Performed By: #### L 503.0106, L506.0200 #### [facility] [address] [place], [address] GAP 6 Normal 5-15 [facility] Comment on above: Performed By: #### L 503.0106, L506.0200 #### [facility] [address] [place], [address] GFR/1.73 sq M.predicted among non-blacks MDRD (S/P/Bld) [Vol rate/Area] 73 mL/min/{1.73_m2} Normal >60 [facility] Comment on above: Result Comment: Non- GFR Calc Performed By: #### L 503.0106, L506.0200 #### [facility] [address] [place] [place], [address] Glucose [Mass/Vol] 96 mg/dL Normal 74-106 [facility] Comment on above: Performed By: #### L 503.0106, L506.0200 #### [facility] [address] [place], [address] Potassium [Moles/Vol] 3.9 mmol/L Normal 3.5-5.[address] [facility] Comment on above: Performed By: #### L 503.0106, L506.0200 #### [facility] [address] [place], [address] Sodium [Moles/Vol] 140 mmol/L Normal 136-145 [facility] Comment on above: Performed By: #### L 503.0106, L506.0200 #### [facility] [address] [place], [address] Urea nitrogen [Mass/Vol] 15 mg/dL Normal 7-18 [facility] Comment on above: Performed By: #### L 503.0106, L506.0200 #### [facility] [address] [place], [address] CBC W/Diff, Automatedon 11-2 Absolute Lymph 1.63 X10 3/uL Normal 0.83-4.51 [facility] Comment on above: Performed By: #### L 503.0106, L506.0200 #### [facility] [address] [place], [address] Absolute Neut 3.9 X10 3/uL Normal 2.0-7.7 [facility] Comment on above: Performed By: #### L 503.0106, L506.0200 #### [facility] [address] [place], [address] Basophils/100 WBC (Bld) 0.5 % Normal 0-1 [facility] Comment on above: Performed By: #### L 503.0106, L506.0200 #### [facility] [address] [place], [address] Eosinophils/100 WBC (Bld) 2.3 % Normal 0-5 [facility] Comment on above: Performed By: #### L 503.0106, L506.0200 #### [facility] [address] [place], [address] Erythrocyte distribution width (RBC) [Ratio] 11.6 % Normal 11.6-14.6 [facility] Comment on above: Performed By: #### L 503.0106, L506.0200 #### [facility] [address] [place], [address] Hematocrit (Bld) [Volume fraction] 40.6 % Normal 40-54 [facility] Comment on above: Performed By: #### L 503.0106, L506.0200 #### [facility] [address] [place], [address] Hemoglobin (Bld) [Mass/Vol] 13.4 g/dL Normal 13.0-16.5 [facility] Comment on above: Performed By: #### L 503.0106, L506.0200 #### [facility] [address] [place] [place], [address] IG% 0.200 Normal 0.0-0.9 [facility] Comment on above: Result Comment: IG% - Immature Granulocytes (promyelocytes, myelocytes and metamyelocytes) > 1% indicates that a LEFT SHIFT is Present. Performed By: #### L 503.0106, L506.0200 #### [facility] [address] [place] [place], [address] Lymphocytes/100 WBC (Bld) 25.4 % Normal 19-41 [facility] Comment on above: Performed By: #### L 503.0106, L506.0200 #### [facility] [address] [place], [address] MCH (RBC) [Entitic mass] 28.2 pg Normal 27.0-32.0 [facility] Comment on above: Performed By: #### L 503.0106, L506.0200 #### [facility] [address] [place], [address] MCHC (RBC) [Mass/Vol] 33.0 g/dL Normal 32-[address] [facility] Comment on above: Performed By: #### L 503.0106, L506.0200 #### [facility] [address] [place], [address] MCV (RBC) [Entitic vol] 85.5 fL Normal 80-94 [facility] Comment on above: Performed By: #### L 503.0106, L506.0200 #### [facility] [address] [place], [address] Monocytes/100 WBC (Bld) 11.4 % High 0-10 [facility] Comment on above: Performed By: #### L 503.0106, L506.0200 #### [facility] [address] [place], [address] Neutrophils/100 WBC (Bld) 60.2 % Normal 47-70 [facility] Comment on above: Performed By: #### L 503.0106, L506.0200 #### [facility] [address] [place], [address] Nucleated RBC (Bld) [#/Vol] 0 10*3/uL Normal 0-5 [facility] Comment on above: Performed By: #### L 503.0106, L506.0200 #### [facility] [address] [place], [address] Platelet mean volume (Bld) [Entitic vol] 10.5 fL Normal 6.2-12.0 [facility] Comment on above: Performed By: #### L 503.0106, L506.0200 #### [facility] [address] [place], [address] Platelets (Bld) [#/Vol] 187 10*3/uL Normal 150-450 [facility] Comment on above: Performed By: #### L 503.0106, L506.0200 #### [facility] [address] [place], [address] RBC (Bld) [#/Vol] 4.75 10*6/uL Normal 4.6-6.2 [facility] Comment on above: Performed By: #### L 503.0106, L506.0200 #### [facility] [address] [place], [address] RDW SD 36.0 fl Normal 35.1-43.9 [facility] Comment on above: Performed By: #### L 503.0106, L506.0200 #### [facility] [address] [place], [address] WBC (Bld) [#/Vol] 6.4 10*3/uL Normal 4.4-11.0 [facility] Comment on above: Performed By: #### L 503.0106, L506.0200 #### [facility] [address] [place], [place], [id number] Discharge Instructionon 08-18 Discharge Instruction [facility] Medical Records Department [address] [place] [address] Instructions for Home/Discharge Instructions 09/10/24 0904 MR#: [id number] Acct: [id number] Name: LORA COSTA Rep #: [id number] : 1975 49 From: Louie Arroyo MD PCP: Dr. Jaydon Peterson MD Status:ADM IN Discharge Instructions Diet [...] Attending Provider: Louie Arroyo Primary Care Provider: Jaydon Peterson Discharge Orders/Prescriptions Prescriptions: Continued telmisartan 40 mg tablet 40 mg PO DAILY metoprolol succinate 25 mg tablet extended release 24 hr 25 mg PO DAILY esomeprazole magnesium [Nexium] 20 mg capsule,delayed release(DR/EC) 20 mg PO DAILY Referrals / Follow Up: Jaydon Peterson MD [Primary Care Provider] - Disposition Disposition (needs filled in before D/C Order can be placed): Home, Self Care 09/10/24 1233 Louie Arroyo MD CC: Dr. Jaydon Peterson MD Signed Normal [facility] Abdomen Single View (Portabl e)on 09-09-2024 Abdomen Single View (Portable) [facility] Services [address] [place], [place] [id number] Abdomen Single View (Portable) MR#: [id number] Acct: [id number] Name: LORA COSTA Rep #: [id number] : 1975 M 49 From: Ray Labru alpesh PCP: Dr. Jaydon Peterson MD Status: ADM IN Study: Abdomen Single View (Portable) Date of Exam: 11/09/23 Exam# [id number] Ordering Dr: Louie Arroyo MD [id number] EXAM: XR ABDOMEN, 1 VIEW CLINICAL INDICATION: [...] the left lower quadrant. Electronically Signed: Ray OvertonCorinna ShayDO jennifer at 11:09 EST , CC: Dr. Jaydon Peterson MD; Dr. Louie Arroyo MD Manager Reporting: Signed Normal [facility] Basic Metabolic Profile (BMP )on 09-09-2024 BUN/CRE 16.0 RATIO Normal 10-20 [facility] Comment on above: Performed By: #### L 501.5200, L500.2500, L100.0100, L501.2300 #### [facility] [address] [place], [place], [address] CA,Total 8.5 mg/dL Normal 8.5-10.1 [facility] Comment on above: Performed By: #### L 501.5200, L500.2500, L100.0100, L501.2300 #### [facility] [address] [place], [address] Chloride [Moles/Vol] 109 mmol/L High 98-107 [facility] Comment on above: Performed By: #### L 501.5200, L500.2500, L100.0100, L501.2300 #### [facility] [address] [place], [address] CO2 [Moles/Vol] 23.0 mmol/L Normal 21.0-32.0 [facility] Comment on above: Performed By: #### L 501.5200, L500.2500, L100.0100, L501.2300 #### [facility] [address] [place], [address] Creatinine [Mass/Vol] 1.19 mg/dL Normal 0.70-1.[address] [facility] Comment on above: Result Comment: The validity of the calculated GFR GFRAA in patients over 70 years has not been determined. Clinical correlation is essential. Performed By: #### L 501.5200, L500.2500, L100.0100, L501.2300 #### [facility] [address] [place], [address] ECRCL 98.89 ml/min Normal [facility] Comment on above: Performed By: #### L 501.5200, L500.2500, L100.0100, L501.2300 #### [facility] Laboratory [address] [place], [address] EST GFR - AA 84 mL/min Normal >60 [facility] Comment on above: Result Comment: Afri can English GFR Calc Performed By: #### L 501.5200, L500.2500, L100.0100, L501.2300 #### [facility] [address] [place], [address] GAP 7 Normal 5-15 [facility] Comment on above: Performed By: #### L 501.5200, L500.2500, L100.0100, L501.2300 #### [facility] [address] [place], [address] GFR/1.73 sq M.predicted among non-blacks MDRD (S/P/Bld) [Vol rate/Area] 69 mL/min/{1.73_m2} Normal >60 [facility] Comment on above: Result Comment: Non- GFR Calc Performed By: #### L 501.5200, L500.2500, L100.0100, L501.2300 #### [facility] [address] [place], [address] Glucose [Mass/Vol] 95 mg/dL Normal 74-106 [facility] Comment on above: Performed By: #### L 501.5200, L500.2500, L100.0100, L501.2300 #### [facility] [address] [place], [address] Potassium [Moles/Vol] 3.7 mmol/L Normal 3.5-5.[address] [facility] Comment on above: Performed By: #### L 501.5200, L500.2500, L100.0100, L501.2300 #### [facility] [address] [place], [address] Sodium [Moles/Vol] 139 mmol/L Normal 136-145 [facility] Comment on above: Performed By: #### L 501.5200, L500.2500, L100.0100, L501.2300 #### [facility] [address] [place], [address] Urea nitrogen [Mass/Vol] 19 mg/dL High 7-18 [facility] Comment on above: Performed By: #### L 501.5200, L500.2500, L100.0100, L501.2300 #### [facility] [address] [place], [address] CBC W/Diff, Automatedon 11-2 -2023 Absolute Lymph 1.84 X10 3/uL Normal 0.83-4.51 [facility] Comment on above: Performed By: #### L 501.5200, L500.2500, L100.0100, L501.2300 #### [facility] [address] [place], [address] Absolute Neut 4.8 X10 3/uL Normal 2.0-7.7 [facility] Comment on above: Performed By: #### L 501.5200, L500.2500, L100.0100, L501.2300 #### [facility] [address] [place], [address] Basophils/100 WBC (Bld) 0.3 % Normal 0-1 [facility] Comment on above: Performed By: #### L 501.5200, L500.2500, L100.0100, L501.2300 #### [facility] [address] [place], [address] Eosinophils/100 WBC (Bld) 1.2 % Normal 0-5 [facility] Comment on above: Performed By: #### L 501.5200, L500.2500, L100.0100, L501.2300 #### [facility] [address] [place], [address] Erythrocyte distribution width (RBC) [Ratio] 11.7 % Normal 11.6-14.6 [facility] Comment on above: Performed By: #### L 501.5200, L500.2500, L100.0100, L501.2300 #### [facility] [address] [place], [address] Hematocrit (Bld) [Volume fraction] 39.5 % Low 40-54 [facility] Comment on above: Performed By: #### L 501.5200, L500.2500, L100.0100, L501.2300 #### [facility] [address] [place], [address] Hemoglobin (Bld) [Mass/Vol] 13.1 g/dL Normal 13.0-16.5 [facility] Comment on above: Performed By: #### L 501.5200, L500.2500, L100.0100, L501.2300 #### [facility] [address] [place], [address] IG% 0.400 Normal 0.0-0.9 [facility] Comment on above: Result Comment: IG% - Immature Granulocytes (promyelocytes, myelocytes and metamyelocytes) > 1% indicates that a LEFT SHIFT is Present. Performed By: #### L 501.5200, L500.2500, L100.0100, L501.2300 #### [facility] [address] [place], [address] Lymphocytes/100 WBC (Bld) 24.2 % Normal 19-41 [facility] Comment on above: Performed By: #### L 501.5200, L500.2500, L100.0100, L501.2300 #### [facility] [address] [place], [address] MCH (RBC) [Entitic mass] 28.7 pg Normal 27.0-32.0 [facility] Comment on above: Performed By: #### L 501.5200, L500.2500, L100.0100, L501.2300 #### [facility] [address] [place], [address] MCHC (RBC) [Mass/Vol] 33.2 g/dL Normal 32-[address] [facility] Comment on above: Performed By: #### L 501.5200, L500.2500, L100.0100, L501.2300 #### [facility] [address] [place], [address] MCV (RBC) [Entitic vol] 86.4 fL Normal 80-94 [facility] Comment on above: Performed By: #### L 501.5200, L500.2500, L100.0100, L501.2300 #### [facility] [address] [place], [address] Monocytes/100 WBC (Bld) 11.3 % High 0-10 [facility] Comment on above: Performed By: #### L 501.5200, L500.2500, L100.0100, L501.2300 #### [facility] [address] [place], [address] Neutrophils/100 WBC (Bld) 62.6 % Normal 47-70 [facility] Comment on above: Performed By: #### L 501.5200, L500.2500, L100.0100, L501.2300 #### [facility] [address] [place], [address] Nucleated RBC (Bld) [#/Vol] 0 10*3/uL Normal 0-5 [facility] Comment on above: Performed By: #### L 501.5200, L500.2500, L100.0100, L501.2300 #### [facility] [address] [place], [address] Platelet mean volume (Bld) [Entitic vol] 10.7 fL Normal 6.2-12.0 [facility] Comment on above: Performed By: #### L 501.5200, L500.2500, L100.0100, L501.2300 #### [facility] [address] [place], [address] Platelets (Bld) [#/Vol] 167 10*3/uL Normal 150-450 [facility] Comment on above: Performed By: #### L 501.5200, L500.2500, L100.0100, L501.2300 #### [facility] [address] [place], [address] RBC (Bld) [#/Vol] 4.57 10*6/uL Low 4.6-6.2 [facility] Comment on above: Performed By: #### L 501.5200, L500.2500, L100.0100, L501.2300 #### [facility] [address] [place], [address] RDW SD 37.0 fl Normal 35.1-43.9 [facility] Comment on above: Performed By: #### L 501.5200, L500.2500, L100.0100, L501.2300 #### [facility] [address] [place], [address] WBC (Bld) [#/Vol] 7.6 10*3/uL Normal 4.4-11.0 [facility] Comment on above: Performed By: #### L 501.5200, L500.2500, L100.0100, L501.2300 #### [facility] [address] [place], [address] Magnesiumon 09-09-2024 Magnesium [Mass/Vol] 2.0 mg/dL Normal 1.6-2.6 [facility] Comment on above: Performed By: #### L 503.0106, L506.0200 #### [facility] [address] [place] [place], [address] Phosphoruson 09-09-2024 Phosphate [Mass/Vol] 2.3 mg/dL Low 2.5-4.9 [facility] Comment on above: Performed By: #### L 503.0106, L506.0200 #### [facility] [address] [place], [address] Abdomen Single View (Portabl e)on 09-08-2024 Abdomen Single View (Portable) [facility] Imaging Services [address] [place] [address] Abdomen Single View (Portable) MR#: [id number] Acct: [id number] Name: LORA COSTA Rep #: [id number] : 1975 M 49 From: Kt sands MD PCP: Dr. Jaydon Peterson MD Status: ADM IN Study: Abdomen Single View (Portable) Date of Exam: 11/08/23 Exam# [id number] Ordering Dr: Louie Arroyo MD [id number] STUDY: X-RAY - ABDOMEN/PELVIS REASON FOR EXAM: [...] Signed: Kt Parekh MD at 8:49 EST , CC: Dr. Jaydon Peterson MD; Dr. Louie Arroyo MD Manager Reporting: Signed Normal [facility] Basic Metabolic Profile (BMP )on 09-08-2024 BUN/CRE 22.6 RATIO High 10-20 [facility] Comment on above: Performed By: #### L 501.9520, L500.2500 #### [facility] [address] [place], [address] CA,Total 8.8 mg/dL Normal 8.5-10.1 [facility] Comment on above: Performed By: #### L 501.9520, L500.2500 #### [facility] [address] [place], [address] Chloride [Moles/Vol] 109 mmol/L High 98-107 [facility] Comment on above: Performed By: #### L 501.9520, L500.2500 #### [facility] [address] [place], [address] CO2 [Moles/Vol] 24.0 mmol/L Normal 21.0-32.0 [facility] Comment on above: Performed By: #### L 501.9520, L500.2500 #### [facility] [address] [place], [address] Creatinine [Mass/Vol] 1.15 mg/dL Normal 0.70-1.[address] [facility] Comment on above: Result Comment: The validity of the calculated GFR GFRAA in patients over 70 years has not been determined. Clinical correlation is essential. Performed By: #### L 501.9520, L500.2500 #### [facility] [address] [place], [address] ECRCL 102.33 ml/min Normal [facility] Comment on above: Performed By: #### L 501.9520, L500.2500 #### [facility] [address] [place], [address] EST GFR - AA 87 mL/min Normal >60 [facility] Comment on above: Result Comment: Afri can English GFR Calc Performed By: #### L 501.9520, L500.2500 #### [facility] [address] [place], [address] GAP 5 Normal 5-15 [facility] Comment on above: Performed By: #### L 501.9520, L500.2500 #### [facility] [address] [place], [address] GFR/1.73 sq M.predicted among non-blacks MDRD (S/P/Bld) [Vol rate/Area] 72 mL/min/{1.73_m2} Normal >60 [facility] Comment on above: Result Comment: Non- GFR Calc Performed By: #### L 501.9520, L500.2500 #### [facility] [address] [place], [address] Glucose [Mass/Vol] 138 mg/dL High 74-106 [facility] Comment on above: Result Comment: Fast ing Glucose result greater than or equal to 126 mg/dL suggests DIABETES MELLITUS per A.D.A. criteria. Performed By: #### L 501.9520, L500.2500 #### [facility] [address] [place], [address] Potassium [Moles/Vol] 4.3 mmol/L Normal 3.5-5.[address] [facility] Comment on above: Performed By: #### L 501.9520, L500.2500 #### [facility] [address] [place], [address] Sodium [Moles/Vol] 138 mmol/L Normal 136-145 [facility] Comment on above: Performed By: #### L 501.9520, L500.2500 #### [facility] [address] [place] [place], [address] Urea nitrogen [Mass/Vol] 26 mg/dL High 7-18 [facility] Comment on above: Performed By: #### L 501.9520, L500.2500 #### [facility] [address] [place], [address] CBC W/Diff, Automatedon 11-2 -2023 Absolute Lymph 1.09 X10 3/uL Normal 0.83-4.51 [facility] Comment on above: Performed By: #### L 501.9520, L500.2500 #### [facility] [address] [place], [address] Absolute Neut 6.4 X10 3/uL Normal 2.0-7.7 [facility] Comment on above: Performed By: #### L 501.9520, L500.2500 #### [facility] [address] [place], [address] Basophils/100 WBC (Bld) 0.2 % Normal 0-1 [facility] Comment on above: Performed By: #### L 501.9520, L500.2500 #### [facility] [address] [place], [address] Eosinophils/100 WBC (Bld) 0.0 % Normal 0-5 [facility] Comment on above: Performed By: #### L 501.9520, L500.2500 #### [facility] [address] [place], [address] Erythrocyte distribution width (RBC) [Ratio] 12.0 % Normal 11.6-14.6 [facility] Comment on above: Performed By: #### L 501.9520, L500.2500 #### [facility] [address] [place], [address] Hematocrit (Bld) [Volume fraction] 41.8 % Normal 40-54 [facility] Comment on above: Performed By: #### L 501.9520, L500.2500 #### [facility] [address] [place], [address] Hemoglobin (Bld) [Mass/Vol] 14.0 g/dL Normal 13.0-16.5 [facility] Comment on above: Performed By: #### L 501.9520, L500.2500 #### [facility] [address] [place], [address] IG% 0.400 Normal 0.0-0.9 [facility] Comment on above: Result Comment: IG% - Immature Granulocytes (promyelocytes, myelocytes and metamyelocytes) > 1% indicates that a LEFT SHIFT is Present. Performed By: #### L 501.9520, L500.2500 #### [facility] [address] [place], [address] Lymphocytes/100 WBC (Bld) 13.1 % Low 19-41 [facility] Comment on above: Performed By: #### L 501.9520, L500.2500 #### [facility] [address] [place], [address] MCH (RBC) [Entitic mass] 29.3 pg Normal 27.0-32.0 [facility] Comment on above: Performed By: #### L 501.9520, L500.2500 #### [facility] [address] [place], [address] MCHC (RBC) [Mass/Vol] 33.5 g/dL Normal 32-[address] [facility] Comment on above: Performed By: #### L 501.9520, L500.2500 #### [facility] [address] [place], [address] MCV (RBC) [Entitic vol] 87.4 fL Normal 80-94 [facility] Comment on above: Performed By: #### L 501.9520, L500.2500 #### [facility] [address] [place], [address] Monocytes/100 WBC (Bld) 9.5 % Normal 0-10 [facility] Comment on above: Performed By: #### L 501.9520, L500.2500 #### [facility] [address] [place], [address] Neutrophils/100 WBC (Bld) 76.8 % High 47-70 [facility] Comment on above: Performed By: #### L 501.9520, L500.2500 #### [facility] [address] [place], [address] Nucleated RBC (Bld) [#/Vol] 0 10*3/uL Normal 0-5 [facility] Comment on above: Performed By: #### L 501.9520, L500.2500 #### [facility] [address] [place], [address] Platelet mean volume (Bld) [Entitic vol] 10.8 fL Normal 6.2-12.0 [facility] Comment on above: Performed By: #### L 501.9520, L500.2500 #### [facility] [address] [place], [address] Platelets (Bld) [#/Vol] 217 10*3/uL Normal 150-450 [facility] Comment on above: Performed By: #### L 501.9520, L500.2500 #### [facility] [address] [place], [address] RBC (Bld) [#/Vol] 4.78 10*6/uL Normal 4.6-6.2 [facility] Comment on above: Performed By: #### L 501.9520, L500.2500 #### [facility] [address] [place], [address] RDW SD 38.9 fl Normal 35.1-43.9 [facility] Comment on above: Performed By: #### L 501.9520, L500.2500 #### [facility] [address] [place], [address] WBC (Bld) [#/Vol] 8.4 10*3/uL Normal 4.4-11.0 [facility] Comment on above: Performed By: #### L 501.9520, L500.2500 #### [facility] [address] [place], [address] Magnesiumon 09-08-2024 Magnesium [Mass/Vol] 2.0 mg/dL Normal 1.6-2.6 [facility] Comment on above: Performed By: #### L 501.9520, L500.2500 #### [facility] [address] [place], [address] Phosphoruson 09-08-2024 Phosphate [Mass/Vol] 3.8 mg/dL Normal 2.5-4.9 [facility] Comment on above: Performed By: #### L 501.9520, L500.2500 #### [facility] [address] [place], [address] Small Bowel Series Onlyon Small Bowel Series Only [facility] Imaging Services [address] [place] [address] Small Bowel Series Only MR#: [id number] Acct: [id number] Name: LORA COSTA Rep #: [id number] : 1975 M 49 From: Josep Smith MD PCP: Dr. Jaydon Peterson MD Status: ADM IN Study: Small Bowel Series Only Date of Exam: 09/08/24 Exam# [id number] Ordering Dr: Louie Arroyo MD [id number] EXAM: [place] SMALL BOWEL FOLLOW THROUGH CLINICAL [...] Signed: Josep Smith MD at 9:09 EST , CC: Dr. Jaydon Peterson MD; Dr. Louie Arroyo MD Manager Reporting: Signed Normal [facility] Abdomen Single View (Portabl e)on 09-07-2024 Abdomen Single View (Portable) [facility] Imaging Services [address] [place] [id number] Abdomen Single View (Portable) MR#: [id number] Acct: [id number] Name: LORA COSTA Rep #: [id number] : 1975 49 From: Clyde Rowley MD PCP: Dr. Jaydon Peterson MD Status: ADM IN Study: Abdomen Single View (Portable) Date of Exam: 11/07/23 Exam# [id number] Ordering Dr: Joy Marie DO [id number] STUDY: X-RAY - ABDOMEN/PELVIS REASON FOR EXAM: [...] Signed: Clyde Rowley MD at 20:03 EST Reading Location ID and State: [facility] / [place] Tel , Service support , CC: Dr. Joy Marie DO; Dr. Jaydon Peterson MD Manager Reporting: Signed Normal [facility] Abdomen/Pelvis W IV Cont ONL Yon 09-07-2024 Abdomen/Pelvis W IV Cont ONLY [facility] Imaging Services [address] [place], [place] [address] Abdomen/Pelvis W IV Cont ONLY MR#: [id number] Acct: [id number] Name: LORA COSTA Rep #: [id number] : 1975 M 49 From: Clyde Rowley MD PCP: Dr. Jaydon Peterson MD Status: REG ER Study: Abdomen/Pelvis W IV Cont ONLY Date of Exam: Exam# [id number] Ordering Dr: Joy Marie DO ADDENDUM by Dr. Clyde Rowley MD on 09/07/24 at 1752 [id number] STUDY: CT ABDOMEN AND PELVIS WITH CONTRAST [...] Date cc: Dr. Joy Marie DO; Dr. Jaydon Peterson MD * Signed ADDENDUM by Dr. [...] 17:52 EST Reading Location ID and State: [address] [place] [address] Tel , Service support , 09/07/24 1808 Date cc: Dr. Joy Marie DO; Dr. Jaydon Peterson MD * Signed We are attempting to reach an attending provider to discuss findings. An addendum with communication details will be sent when the communication is complete. [id number] STUDY: CT ABDOMEN AND PELVIS WITH CONTRAST [...] Normal a (more content not included)... Normal [facility] Bedside Glucoseon 09-07-2024 FINGERSTICK GLU 124 mg/dL High 74-106 [facility] Comment on above: Result Comment: LITO JAMES OF PATIENT CARE PER NURSING PROTOCOL Performed By: #### L 501.080 #### [facility] Laboratory [address] [place], [place], [address] CBC W/Diff, Automatedon 08-18 Absolute Lymph 2.26 X10 3/uL Normal 0.83-4.51 [facility] Comment on above: Performed By: #### L 100.0100 #### [facility] [address] [place], [address] Absolute Neut 6.5 X10 3/uL Normal 2.0-7.7 [facility] Comment on above: Performed By: #### L 100.0100 #### [facility] [address] [place], [address] Basophils/100 WBC (Bld) 0.4 % Normal 0-1 [facility] Comment on above: Performed By: #### L 100.0100 #### [facility] [address] [place], [address] Eosinophils/100 WBC (Bld) 0.9 % Normal 0-5 [facility] Comment on above: Performed By: #### L 100.0100 #### [facility] [address] [place], [address] Erythrocyte distribution width (RBC) [Ratio] 12.0 % Normal 11.6-14.6 [facility] Comment on above: Performed By: #### L 100.0100 #### [facility] [address] [place], [address] Hematocrit (Bld) [Volume fraction] 47.1 % Normal 40-54 [facility] Comment on above: Performed By: #### L 100.0100 #### [facility] [address] [place], [address] Hemoglobin (Bld) [Mass/Vol] 15.9 g/dL Normal 13.0-16.5 [facility] Comment on above: Performed By: #### L 100.0100 #### [facility] [address] [place], [address] IG% 0.200 Normal 0.0-0.9 [facility] Comment on above: Result Comment: IG% - Immature Granulocytes (promyelocytes, myelocytes and metamyelocytes) > 1% indicates that a LEFT SHIFT is Present. Performed By: #### L 100.0100 #### [facility] [address] [place], [address] Lymphocytes/100 WBC (Bld) 22.9 % Normal 19-41 [facility] Comment on above: Performed By: #### L 100.0100 #### [facility] [address] [place], [address] MCH (RBC) [Entitic mass] 29.1 pg Normal 27.0-32.0 [facility] Comment on above: Performed By: #### L 100.0100 #### [facility] [address] [place], [address] MCHC (RBC) [Mass/Vol] 33.8 g/dL Normal 32-[address] [facility] Comment on above: Performed By: #### L 100.0100 #### [facility] [address] [place], [address] MCV (RBC) [Entitic vol] 86.1 fL Normal 80-94 [facility] Comment on above: Performed By: #### L 100.0100 #### [facility] [address] [place], [address] Monocytes/100 WBC (Bld) 9.8 % Normal 0-10 [facility] Comment on above: Performed By: #### L 100.0100 #### [facility] [address] [place], [address] Neutrophils/100 WBC (Bld) 65.8 % Normal 47-70 [facility] Comment on above: Performed By: #### L 100.0100 #### [facility] [address] [place], [address] Nucleated RBC (Bld) [#/Vol] 0 10*3/uL Normal 0-5 [facility] Comment on above: Performed By: #### L 100.0100 #### [facility] [address] [place], [address] Platelet mean volume (Bld) [Entitic vol] 10.7 fL Normal 6.2-12.0 [facility] Comment on above: Performed By: #### L 100.0100 #### [facility] [address] [place], [address] Platelets (Bld) [#/Vol] 258 10*3/uL Normal 150-450 [facility] Comment on above: Performed By: #### L 100.0100 #### [facility] [address] [place], [address] RBC (Bld) [#/Vol] 5.47 10*6/uL Normal 4.6-6.2 [facility] Comment on above: Performed By: #### L 100.0100 #### [facility] [address] [place], [address] RDW SD 37.8 fl Normal 35.1-43.9 [facility] Comment on above: Performed By: #### L 100.0100 #### [facility] [address] [place], [address] WBC (Bld) [#/Vol] 9.9 10*3/uL Normal 4.4-11.0 [facility] Comment on above: Performed By: #### L 100.0100 #### [facility] [address] [place], [address] Comprehensive Metabolic Prof [facility] 09-07-2024 Albumin [Mass/Vol] 4.0 g/dL Normal 3.2-5.0 [facility] Comment on above: Performed By: #### L 501.9520, L500.2500 #### [facility] [address] [place], [address] Albumin/Globulin [Mass ratio] 1.3 {ratio} Normal 0.9-2.4 [facility] Comment on above: Performed By: #### L 501.9520, L500.2500 #### [facility] [address] [place], [address] ALK P 70 U/L Normal 45-117 [facility] Comment on above: Performed By: #### L 501.9520, L500.2500 #### [facility] [address] [place], [address] ALT [Catalytic activity/Vol] 29 U/L Normal 16-61 [facility] Comment on above: Performed By: #### L 501.9520, L500.2500 #### [facility] [address] [place], [address] AST [Catalytic activity/Vol] 14 U/L Low 15-37 [facility] Comment on above: Performed By: #### L 501.9520, L500.2500 #### [facility] [address] [place], [address] Bilirubin [Mass/Vol] 0.90 mg/dL Normal 0.20-1.00 [facility] Comment on above: Result Comment: For patients on eltrombopag therapy, use of Dimension Roxana TBIL is not recommended. Performed By: #### L 501.9520, L500.2500 #### [facility] [address] [place], [address] BUN/CRE 21.6 RATIO High 10-20 [facility] Comment on above: Performed By: #### L 501.9520, L500.2500 #### [facility] [address] [place], [address] CA,Total 9.2 mg/dL Normal 8.5-10.1 [facility] Comment on above: Performed By: #### L 501.9520, L500.2500 #### [facility] [address] [place], [address] Chloride [Moles/Vol] 108 mmol/L High 98-107 [facility] Comment on above: Performed By: #### L 501.9520, L500.2500 #### [facility] [address] [place], [address] CO2 [Moles/Vol] 27.0 mmol/L Normal 21.0-32.0 [facility] Comment on above: Performed By: #### L 501.9520, L500.2500 #### [facility] [address] [place], [address] Creatinine [Mass/Vol] 1.25 mg/dL Normal 0.70-1.[address] [facility] Comment on above: Result Comment: The validity of the calculated GFR GFRAA in patients over 70 years has not been determined. Clinical correlation is essential. Performed By: #### L 501.9520, L500.2500 #### [facility] [address] [place], [address] ECRCL 95.22 ml/min Normal [facility] Comment on above: Performed By: #### L 501.9520, L500.2500 #### [facility] [address] [place], [address] EST GFR - AA 79 mL/min Normal >60 [facility] Comment on above: Result Comment: Afri can English GFR Calc Performed By: #### L 501.9520, L500.2500 #### [facility] [address] [place], [address] GAP 4 Low 5-15 [facility] Comment on above: Performed By: #### L 501.9520, L500.2500 #### [facility] [address] [place], [address] GFR/1.73 sq M.predicted among non-blacks MDRD (S/P/Bld) [Vol rate/Area] 66 mL/min/{1.73_m2} Normal >60 [facility] Comment on above: Result Comment: Non- GFR Calc Performed By: #### L 501.9520, L500.2500 #### [facility] [address] [place], [address] Globulin (S) [Mass/Vol] 3.1 g/dL Normal 2.2-4.2 [facility] Comment on above: Performed By: #### L 501.9520, L500.2500 #### [facility] [address] [place], [address] Glucose [Mass/Vol] 103 mg/dL Normal 74-106 [facility] Comment on above: Result Comment: Fast ing Glucose result from 100 to 125 mg/dL suggests IMPAIRED HOMEOSTASIS per A.D.A. criteria. Performed By: #### L 501.9520, L500.2500 #### [facility] [address] [place], [address] Potassium [Moles/Vol] 4.0 mmol/L Normal 3.5-5.[address] [facility] Comment on above: Performed By: #### L 501.9520, L500.2500 #### [facility] [address] [place], [address] Sodium [Moles/Vol] 139 mmol/L Normal 136-145 [facility] Comment on above: Performed By: #### L 501.9520, L500.2500 #### [facility] [address] [place], [address] T PROT 7.1 g/dL Normal 6.4-8.2 [facility] Comment on above: Performed By: #### L 501.9520, L500.2500 #### [facility] [address] [place], [address] Urea nitrogen [Mass/Vol] 27 mg/dL High 7-18 [facility] Comment on above: Performed By: #### L [id number], L500.2500 #### [facility] [address] [place], [address] Emergency Department Summary on 09-07-2024 Emergency Department Summary [facility] Medical Records Department [address] [place] [address] Emergency Department Summary 09/07/24 MR#: [id number] Acct: [id number] Name: LORA COSTA Rep #: [id number] : 1975 49 From: Joy Marie DO PCP: Dr. Jaydon Peterson MD Status:ADM IN Location: [facility] [id number] HPI HPI - GI History of Present [...] other complaints or concerns at this time [facility] Medical History Cancer of abdomen [...] at t (more content not included)... Normal [facility] Lactic Acidon 09-07-2024 Lactate [Moles/Vol] 0.6 mmol/L Normal 0.4-1.9 [facility] Comment on above: Order Comment: Y Performed By: #### L 503.6005 #### [facility] [address] [facility] [place], [place], [address] Lipaseon 09-07-2024 Lipase [Catalytic activity/Vol] 41 U/L Normal 13-75 [facility] Comment on above: Result Comment: Say rose note: LIPASE revised reference range effective 23. New Lipase methodology. Expected to produce lower values than the previous assay method. NEW Reference Range: 13 - 75 U/L Performed By: #### L 501.9520, L500.2500 #### [facility] [address] [facility] [place], [place], [address] Destr of lesionon 08-14-2024 Complexity: simple Destruction method: cryotherapy Informed consent: discussed and consent obtained Lesion destroyed using liquid nitrogen: Yes Outcome: patient tolerated procedure well with no complications Post-procedure details: wound care instructions given [facility] Work Phone: [facility] Work Phone: Absolute lymphocyte countOrd ered By: Jaydon Peterson on 09-24-2023 Lymphocytes Auto (Unsp spec) [#/Vol] 1.96 10*3/uL 0.83-4.51 [facility] Basophil percentageOrdered B y: Jaydon Peterson on 09-24-2023 Basophils/100 WBC (Bld) 0.5 % 0-1 [facility] Bilirubin [Mass/Vol] 0.70 mg/dL 0.20-1.00 [facility] Comment on above: For patients on eltr ombopag therapy, use of Dimension Roxana TBIL is not recommended. Chloride [Moles/Vol] 107 mmol/L 98-107 [facility] Cholesterol [Mass/Vol] 224 mg/dL <200 [facility] Comment on above: <200 mg/dL Desirable 200-240 mg/dL Borderline >240 mg/dL High Risk Eosinophils/100 WBC (Bld) 1.5 % 0-5 [facility] Glucose [Mass/Vol] 100 mg/dL 74-106 [facility] Comment on above: Fasting Glucose resu lt from 100 to 125 mg/dL suggests IMPAIRED HOMEOSTASIS per A.D.A. criteria. Neutrophils (Bld) [#/Vol] 3.9 10*3/uL 2.0-7.7 [facility] Neutrophils/100 WBC (Bld) 59.7 % 47-70 [facility] Potassium [Moles/Vol] 4.1 mmol/L 3.5-5.[address] [facility] Protein [Mass/Vol] 7.1 g/dL 6.4-8.2 [facility] Sodium [Moles/Vol] 139 mmol/L 136-145 [facility] Triglyceride [Mass/Vol] 125 mg/dL <199 [facility] Comment on above: The drugs N-Acetylcy steine and Metamizole may falsely depress this assay.Serum Triglycerides Reference Interval Normal <150 mg/dL Borderline high 150 - 199 mg/dL High 200 - 499 mg/dL Very High > or = 500 mg/dL WBC (Bld) [#/Vol] 6.5 10*3/uL 4.4-11.0 [facility] Blood erythrocytes count (nu mber/volume)Ordered By: Jaydon Peterson on 09-24-2023 RBC (Bld) [#/Vol] 5.37 10*6/uL 4.6-6.2 [facility] Blood hemoglobin measurement (mass/volume)Ordered By: Jaydon Peterson on 09-24-2023 Hemoglobin (Bld) [Mass/Vol] 15.2 g/dL 13.0-16.5 [facility] Blood lymphocytes/100 leukoc ytesOrdered By: Jaydon Peterson on 09-24-2023 Lymphocytes/100 WBC (Bld) 30.3 % 19-41 [facility] Blood monocytes/100 leukocyt esOrdered By: Jaydon Peterson on 09-24-2023 Monocytes/100 WBC (Bld) 7.7 % 0-10 [facility] Blood platelet mean volumeOr dered By: Jaydon Peterson on 09-24-2023 Platelet mean volume (Bld) [Entitic vol] 10.0 fL 6.2-12.0 [facility] Cerebrospinal fluid Borrelia burgdorferi 18kd IgG antibody detection by immunoblotOrdered By: Jaydon Peterson on 09-24-2023 B. burgdorferi 18kD IgG IB Ql (CSF) Absent . [facility] Cerebrospinal fluid Borrelia burgdorferi 23kD IgG antibody detection by immunoblotOrdered By: Jaydon Peterson on 09-24-2023 B. burgdorferi 23kD IgG IB Ql (CSF) Absent . [facility] Cerebrospinal fluid Borrelia burgdorferi 23kD IgM antibody detection by immunoblotOrdered By: Jaydon Peterson on 09-24-2023 B. burgdorferi 23kD IgM IB Ql (CSF) Absent . [facility] Cerebrospinal fluid Borrelia burgdorferi 28kD IgG antibody detection by immunoblotOrdered By: Jaydon Peterson on 09-24-2023 B. burgdorferi 28kD IgG IB Ql (CSF) Absent . [facility] Cerebrospinal fluid Borrelia burgdorferi 39kD IgG antibody detection by immunoblotOrdered By: Jaydon Peterson on 09-24-2023 B. burgdorferi 39kD IgG IB Ql (CSF) Absent . [facility] Cerebrospinal fluid Borrelia burgdorferi 39kD IgM antibody detection by immunoblotOrdered By: Jaydon Peterson on 09-24-2023 B. burgdorferi 39kD IgM IB Ql (CSF) Absent . [facility] Cerebrospinal fluid Borrelia burgdorferi 41kD IgM antibody detection by immunoblotOrdered By: Jaydon Peterson on 09-24-2023 B. burgdorferi 41kD IgM IB Ql (CSF) Absent . [facility] Determination of erythrocyte mean corpuscular volume (MCV)Ordered By: Jaydon Peterson on 09-24-2023 MCV (RBC) [Entitic vol] 85.8 fL 80-94 [facility] Hematocrit Auto (Bld) [Volum e fraction]Ordered By: Jaydon Peterson on 09-24-2023 Hematocrit (Bld) [Volume fraction] 46.1 % 40-54 [facility] - Chemistry and C hemistry - challengeOrdered By: Jaydon Peterson on 09-24-2023 Albumin [Mass/Vol] 3.6 g/dL 2.9-4.4 [facility] ALP [Catalytic activity/Vol] 75 U/L 45-117 [facility] ALT [Catalytic activity/Vol] 30 U/L 16-61 [facility] CO2 [Moles/Vol] 28.0 mmol/L 21.0-32.0 [facility] Globulin (S) [Mass/Vol] 3.4 g/dL 2.2-4.2 [facility] Magnesium [Mass/Vol] 2.4 mg/dL 1.6-2.6 [facility] Urea nitrogen/Creatinine [Mass ratio] 21.0 mg/mg 10-20 [facility] - Hematology and Cell countsOrdered By: Jaydon Peterson on 09-24-2023 Erythrocyte distribution width (RBC) [Entitic vol] 37.0 fL 35.1-43.9 [facility] Erythrocyte distribution width (RBC) [Ratio] 11.9 % 11.6-14.6 [facility] Immature granulocytes/100 WBC (Bld) 0.300 % 0.0-0.9 [facility] Comment on above: IG% - Immature Granu locytes (promyelocytes, myelocytes and metamyelocytes) > 1% indicates that a LEFT SHIFT is Present. MCH (RBC) [Entitic mass] 28.3 pg 27.0-32.0 [facility] Nucleated RBC/100 WBC (Bld) [Ratio] 0 % 0-5 [facility] MCHC Auto (RBC) [Mass/Vol]Or dered By: Jaydon Peterson on 09-24-2023 MCHC (RBC) [Mass/Vol] 33.0 g/dL 32-[address] [facility] No Panel InformationOrdered By: Jaydon Peterson on 09-24-2023 Addendum Document Comment . [facility] Comment on above: The SPE pattern appe ars unremarkable. Evidence ofmonoclonal protein is not apparent. Letxb-0-Dmixvofwo 0.2 g/dL 0.0-0.4 [facility] Srifs-0-Ixhlwxqyf 0.7 g/dL 0.4-1.0 [facility] Anti-Nuclear Antibody Screen Negative Negative [facility] Comment on above: Performed at: [address] [id number] Director: Ethan Hannon PhD, Phone: [phone] C-Reactive Protein High Sensitivity 4.44 mg/L <3.00 [facility] Comment on above: Low Relative Risk of CVD <1.0 mg/L Average Relative Risk of CVD 1.0 - 3.0 mg/L High Relative Risk of CVD >3.0 mg/L Estimated GFR (MDRD) Amer 80 mL/min >60 [facility] Comment on above: GFR Calc Estimated GFR (MDRD) Non-Af Amer 66 mL/min >60 [facility] Comment on above: Non- GFR Calc Gamma Globulins 0.8 g/dL 0.4-1.8 [facility] Lyme Disease IgG Ab 30 kDa Band Absent . [facility] Lyme Disease IgG Ab 93 kDa Band Absent . [facility] Lyme Disease IgG West Blot Interp Negative . [facility] Comment on above: Positive: 5 of the f ollowing Borrelia-specific bands: 18,23,28,30,39,41,45,58, 66, and 93. Negative: No bands or banding patterns which do not meet positive criteria. Lyme Disease IgM Ab (Western Blot) Negative . [facility] Comment on above: Note: An equivocal o r positive EIA result followed by anegative Line Blot result is considered NEGATIVE. Anequivocal or positive EIA result followed by a positiveLine Blot is considered POSITIVE by the CDC.Positive: 2 of the following bands: 23,39 or 41Negative: No bands or banding patterns which do not meetpositive criteria.Criteria for positivity are those recommended byCDC/ASTPHLD. p23=Osp C, d84=cbybamakzMcil:Sera from individuals with the following may cross [...] testingto improve the sensitivity and specificity of testing.[employer] offers test code 837849 Lyme Disease Serology withReflex to aid in the diagnosis of Lyme Disease. Miscellaneous Test See comment [facility] Comment on above: TEST RESULTS LIMITSE BV Ab VCA, IgGEBV Ab VCA, IgG >600.0 High U/mL 0.0-17.9 Negative <18.0 Equivocal 18.0 - 21.9 Positive >21.9EBV Ab VCA, IgMEBV Ab VCA, IgM <36.0 U/mL 0.0-35.9 Negative <36.0 Equivocal 36.0 - 43.9 Positive >43.9 TESTING PERFORMED AT [facility]. ORIGINAL REPORT ON FILE IN LAB CONTAINS ADDITIONAL TEST SITE INFORMATION. Thyroid Stimulating Hormone (TSH) 0.67 uIU/mL 0.358-3.74 [facility] Urine Microalbumin/Creatinine Ratio 6.0 mg/g CRE <30 [facility] Platelets bldOrdered By: Keena Peterson on 09-24-2023 Platelets (Bld) [#/Vol] 268 10*3/uL 150-450 [facility] Protein Fractions Elph [Inte rp]Ordered By: Jaydon Peterson on 09-24-2023 Protein Fractions [Interp] Comment . [facility] Comment on above: Protein electrophore sis scan will follow via computer,mail, or evp strategy delivery. Serum Borrelia burgdorferi 4 1kD IgG antibody detection by immunoblotOrdered By: Jaydon Peterson on 09-24-2023 B. burgdorferi 41kD IgG IB Ql (S) Absent . [facility] Serum Borrelia burgdorferi 6 6kD IgG antibody detection by immunoblotOrdered By: Jaydon Peterson on 09-24-2023 B. burgdorferi 66kD IgG IB Ql (S) Absent . [facility] Serum albumin to globulin ra perla by protein electrophoresisOrdered By: Jaydon Peterson on 09-24-2023 Albumin/Globulin Elph [Mass ratio] 1.2 0.7-1.7 [facility] Serum globulin measurement ( mass/volume)Ordered By: Jaydon Peterson on 09-24-2023 Globulin (S) [Mass/Vol] 2.9 g/dL 2.2-3.9 [facility] Serum or plasma C reactive p rotein measurement (mass/volume)Ordered By: Jaydon Peterson on 09-24-2023 CRP [Mass/Vol] 4.73 mg/L 0.0-3.0 [facility] Comment on above: C-Reactive Protein ( CRP) provides useful information for thediagnosis, therapy and monitoring of inflammatory processesand associated diseases. For the evaluation of Relative Riskfor Cardiovascular Disease, a High Sensitivity CRP (HSCRP)should be ordered. Serum or plasma albumin charan urement (mass/volume)Ordered By: Jaydon Peterson on 09-24-2023 Albumin [Mass/Vol] 3.7 g/dL 3.2-5.0 [facility] Serum or plasma albumin/glob ulin mass ratioOrdered By: Jaydon Peterson on 09-24-2023 Albumin/Globulin [Mass ratio] 1.1 {ratio} 0.9-2.4 [facility] Serum or plasma beta globuli n measurement by electrophoresis (mass/volume)Ordered By: Jaydon Peterson on 09-24-2023 Beta globulin Elph [Mass/Vol] 1.0 g/dL 0.7-1.3 [facility] Serum or plasma calcium charan urement (mass/volume)Ordered By: Jaydon Peterson on 09-24-2023 Calcium [Mass/Vol] 8.9 mg/dL 8.5-10.1 [facility] Serum or plasma cholesterol in HDL measurement (mass/volume)Ordered By: Jaydon Peterson on 09-24-2023 Cholesterol in HDL [Mass/Vol] 33 mg/dL >40 [facility] Comment on above: The drugs N-Acetylcy steine and Metamizole may falsely depress this assay. Reference Range HDL <40 mg/dL Low HDL Cholesterol HDL >or= 60 mg/dL High HDL Cholesterol Serum or plasma cholesterol in VLDL measurement (mass/volume)Ordered By: Jaydon Peterson on 09-24-2023 Cholesterol in VLDL [Mass/Vol] 25 mg/dL 5-40 [facility] Serum or plasma creatinine m easurement (mass/volume)Ordered By: Jaydon Peterson on 09-24-2023 Creatinine [Mass/Vol] 1.24 mg/dL 0.70-1.[address] [facility] Comment on above: The validity of the calculated GFR & GFRAA in patients over 70 years has not been determined. Clinical correlation is essential. Serum or plasma low density lipoprotein (LDL) cholesterol measurement (mass/volume)Ordered By: Jaydon Peterson on 09-24-2023 Cholesterol in LDL [Mass/Vol] 166 mg/dL 0-130 [facility] Serum or plasma protein mono clonal measurement by electrophoresis (mass/volume)Ordered By: Jaydon Peterson on 09-24-2023 Protein.monoclonal Elph [Mass/Vol] Not Observed g/dL Not Observed [facility] Serum or plasma urea nitroge n measurement (mass/volume)Ordered By: Jaydon Peterson on 09-24-2023 Urea nitrogen [Mass/Vol] 26 mg/dL 7-18 [facility] Synovial fluid Borrelia ursula dorferi 45kD IgG antibody detection by immunoblotOrdered By: Jaydon Peterson on 09-24-2023 B. burgdorferi 45kD IgG IB Ql (Syn fld) Absent . [facility] Synovial fluid Borrelia ursula dorferi 58kD IgG antibody detection by immunoblotOrdered By: Jaydon Peterson on 09-24-2023 B. burgdorferi 58kD IgG IB Ql (Syn fld) Absent . [facility] Thin prep Papanicolaou smear with manual screeningOrdered By: Jaydon Peterson on 09-24-2023 Thin prep Papanicolaou smear with manual screening 18 U/L 15-37 [facility] Thin prep Papanicolaou smear with manual screening 4 5-15 [facility] Thin prep Papanicolaou smear with manual screening 16.4 mg/L NO RANGE EST. [facility] Total protein bloodOrdered B y: Jaydon Peterson on 09-24-2023 Protein [Mass/Vol] 6.5 g/dL 6.0-8.5 [facility] Urine creatinine measurement (mass/volume)Ordered By: Jaydon Peterson on 09-24-2023 Creatinine (U) [Mass/Vol] 275.00 mg/dL NO RANGE EST. [facility] Shave removalon 08-15-2023 Lesion diameter (cm): 0.7 [...] instructions given Dressing type: bandage and petrolatum [facility] Work Phone: [facility] Work Phone: STREP A MOLECULAR (POC)on Procedural Control Valid [facility] Strep A (POCT) Negative Negative [facility] XR Foot - left AP and Latera l and obliqueon 01-16-2021 IMPRESSION: Erosions involving the medial first metatarsal head likely related to gout. Manager Reporting: JULIANNA Transcribe Date/Time: Jan 16 2021 4:06P Dictated by : ANDRY MENDEZ MD This examination was interpreted and the report reviewed and electronically signed by: ANDRY MENDEZ MD on Jan 16 2021 4:07PM [facility] DIVISION OF RADIOLOGY * * *Final [...] tissue abnormality identified. DIVISION OF RADIOLOGY Provider, [facility] [place] - 01/16/2021 * * *Final Report* * [...] first metatarsal head likely related to gout. Manager Reporting: JULIANNA Transcribe Date/Time: Jan 16 2021 4:06P Dictated by : ANDRY MENDEZ MD This examination was interpreted and the report reviewed and electronically signed by: ANRDY MENDEZ MD on Jan 16 2021 4:07PM EST [facility] Radiology Study observation (narrative) [facility] XR Foot - left AP and Latera l and obliqueOrdered By: [facility] Provider on 01-16-2021 [facility] XR CHEST 2 VIEWSon 8 XR [...] PM Sign Date: 11/28/2017 4:18:09 PM Normal [facility] ([place]) Vital Signs Date Time Vital Sign Value Performing Clinician Daroni marcial 12-02-2024 10:38-0500 Body temperature 98.29 [degF] Liza Estrada APRN.GLOBAL RISK MANAGEMENT DIRECTOR Work Phone: [facility] 12-02-2024 10:38-0500 Body weight 115 kg Liza Estrada APRN.CNP Work Phone: [facility] 12-02-2024 10:38-0500 Diastolic blood pressure 82 mm[Hg] Liza Estrada APRN.CNP Work Phone: [facility] 12-02-2024 10:38-0500 Heart rate 71 /min Liza Estrada APRN.GLOBAL RISK MANAGEMENT DIRECTOR Work Phone: [facility] 12-02-2024 10:38-0500 Respiratory rate 16 /min Liza Estrada DULITE MACHINE BLUER.GLOBAL RISK MANAGEMENT DIRECTOR Work Phone: [facility] 12-02-2024 10:38-0500 SaO2% (BldA) [Mass fraction] 99 % Liza Estrada DULITE MACHINE BLUER.GLOBAL RISK MANAGEMENT DIRECTOR Work Phone: [facility] 12-02-2024 10:38-0500 Systolic blood pressure 128 mm[Hg] Liza Etsrada DULITE MACHINE BLUER.GLOBAL RISK MANAGEMENT DIRECTOR Work Phone: [facility] 11-28-2024 09:34-0500 Body temperature 97.9 [degF] Krislyn Aberegg PA Work Phone: [facility] 11-28-2024 09:34-0500 Body weight 114.9 kg Krislyn Aberegg PA Work Phone: [facility] 11-28-2024 09:34-0500 Diastolic blood pressure 90 mm[Hg] Krislyn Aberegg PA Work Phone: [facility] 11-28-2024 09:34-0500 Heart rate 75 /min Krislyn Aberegg PA Work Phone: [facility] 11-28-2024 09:34-0500 Respiratory rate 20 /min Krislyn Aberegg PA Work Phone: [facility] 11-28-2024 09:34-0500 SaO2% (BldA) [Mass fraction] 98 % Krislyn Aberegg PA Work Phone: [facility] 11-28-2024 09:34-0500 Systolic blood pressure 110 mm[Hg] Krislyn Aberegg PA Work Phone: [facility] 11-18-2022 10:47-0500 Body temperature 97.5 [degF] Eliud Varela DULITE MACHINE BLUER.GLOBAL RISK MANAGEMENT DIRECTOR Work Phone: [facility] 11-18-2022 10:47-0500 Body weight 115.94 kg Eliud Varela DULITE MACHINE BLUER.GLOBAL RISK MANAGEMENT DIRECTOR Work Phone: [facility] 11-18-2022 10:47-0500 Diastolic blood pressure 102 mm[Hg] Eliud Varela DULITE MACHINE BLUER.GLOBAL RISK MANAGEMENT DIRECTOR Work Phone: [facility] 11-18-2022 10:47-0500 Heart rate 80 /min Eliud Varela DULITE MACHINE BLUER.GLOBAL RISK MANAGEMENT DIRECTOR Work Phone: [facility] 11-18-2022 10:47-0500 Respiratory rate 21 /min Eliud Varela DULITE MACHINE BLUER.GLOBAL RISK MANAGEMENT DIRECTOR Work Phone: [facility] 11-18-2022 10:47-0500 SaO2% (BldA) [Mass fraction] 98 % Eliud Varela DULITE MACHINE BLUER.GLOBAL RISK MANAGEMENT DIRECTOR Work Phone: [facility] 11-18-2022 10:47-0500 Systolic blood pressure 140 mm[Hg] Eliud Varela DULITE MACHINE BLUER.GLOBAL RISK MANAGEMENT DIRECTOR Work Phone: [facility] Encounters Encounter Date Encounter Type Care Provider Facility Start: 08-01-2025 End: 08-01-2025 ambulatory [facility] Facility[facility] Start: 05-22-2025 ambulatory Vitaly Miramontesi ty:[facility] Start: 05-22-2025 Non-patient / Non-visit Dr. Vic Pompa MD -[facility]- Start: 05-22-2025 End: 05-22-[address] Jaydon Peterson MD Work Phone: -Pulmonary Services/Neurology Start: 05-22-2025 End: 05-22-[address] Vitaly Crockett DO -Pulmonary Services/Neurology Work Phone: Start: 05-22-2025 End: 05-22-2025 ambulatory Vitaly Crockett Facility:[facility] Start: 02-22-2025 End: 02-22-[address] [facility] Administration Work Phone: Start: 02-22-2025 End: 02-22-[address] Jaydon Peterson MD -Laboratory Work Phone: Start: 02-22-2025 End: 02-22-2025 ambulatory Jaydon Clubb Facility:[facility] Start: 02-05-2025 End: 02-05-2025 Office outpatient visit 15 minutes Olga Santiago MD Work Phone: [facility] Comment on above: Multiple benign nevi (Primary Dx); Lentigo; Seborrheic keratosis; Hemangioma of skin; Personal history of skin cancer; Screening exam for skin cancer Start: 01-31-2025 End: 01-31-[address] Jaydon Peterson MD Work Phone: [facility] Work Phone: Start: 01-31-2025 End: 01-31-[address] Jaydon Peterson MD -Radiology, [facility] Work Phone: Start: 01-31-2025 End: 01-31-[address] Jaydon Peterson MD Work Phone: [facility] Work Phone: Start: 01-31-2025 End: 01-31-[address] Jaydon Peterson MD -Laboratory, [facility] Start: 01-31-2025 End: 01-31-2025 ambulatory Jaydon Peterson Facility:[facility] Start: 12-02-2024 End: 12-02-2024 ambulatory DENICE RUIZTRAV Facility:[facility] Start: 12-02-2024 End: 12-02-2024 Patient encounter procedure Liza Estrada APRN.GLOBAL RISK MANAGEMENT DIRECTOR Work Phone: [facility] Comment on above: URI, acute (Primary Dx); Acute cough Start: 11-29-2024 End: 01-29-2025 Follow-up encounter Clyde Wray APRN.GLOBAL RISK MANAGEMENT DIRECTOR Work Phone: [facility] Start: 11-28-2024 End: 11-28-2024 Subsequent hospital visit by physician [facility] Work Phone: Radiology Comment on above: Acute cough [R05.1] Start: 11-28-2024 End: 11-28-2024 ambulatory DENICE VALDOVINOS Facility:[facility] Start: 11-28-2024 End: 11-28-2024 Patient encounter procedure Lesly BARTLETT Work Phone: [facility] Comment on above: URI, acute (Primary Dx); Acute cough; Sore throat Start: 10-29-2024 End: 10-29-[address] Jaydon Peterson MD -Radiology, [place] Work Phone: Start: 10-29-2024 End: 10-29-2024 ambulatory Jaydon Peterson Facility:[facility] Start: 09-14-2024 End: 09-14-2024 ambulatory Jaydon Peterson Facility:[facility] Start: 09-07-2024 ambulatory [facility] Facility: [facility] [place] [place] Start: 09-07-2024 End: 09-10-2024 Evaluation and management of inpatient [facility] Facility:[facility] Start: 08-15-2024 End: 08-15-2024 ambulatory Jaydon Peterson Facility:[facility] Start: 08-14-2024 End: 08-14-2024 Office outpatient visit 15 minutes Olga Santiago MD Work Phone: [facility] Comment on above: Actinic keratosis (P rimary Dx); Seborrheic keratosis; Inflamed skin tag; Multiple benign nevi; Lentigo; Hemangioma of skin; Personal history of skin cancer; Screening exam for skin cancer Start: 08-14-2024 End: 08-14-2024 [facility] Ambulatory Start: 02-14-2024 End: 02-14-2024 Office outpatient visit 15 minutes Olga Santiago MD Work Phone: [facility] Comment on above: Multiple benign nevi (Primary Dx); Lentigo; Seborrheic keratosis; Hemangioma of skin; Personal history of skin cancer Start: 02-14-2024 End: 02-14-20[facility] Start: 10-26-2023 Non-patient / Non-visit Dr. Jaydon Peterson Work Phone: [facility] Start: 10-26-2023 End: 10-26-[address] Jaydon Peterson Work Phone: [facility] Work Phone: Start: 10-26-2023 End: 10-26-[address] [facility] Work Phone: Start: 09-24-2023 End: 09-24-2023 ambulatory [facility] Work Phone: Start: 09-24-2023 End: 09-24-2023 Patient encounter procedure [facility]-Laboratory Work Phone: Start: 08-15-2023 End: 08-15-2023 Office outpatient new 30 minutes Olga Santiago MD Work Phone: [facility] Comment on above: Neoplasm of uncertai n behavior of skin (Primary Dx); Multiple benign nevi; Lentigo; Seborrheic keratosis; Hemangioma of skin; Personal history of skin cancer Start: 11-18-2022 End: 11-18-2022 Patient encounter procedure Eliud Varela APRHANS Work Phone: [facility] Comment on above: URI, acute (Primary Dx); Sore throat Start: 01-16-2021 End: 01-16-2021 Subsequent hospital visit by physician Xr [facility] Work Phone: Radiology Comment on above: Foot pain, left [[id number] .[id number]] Start: 03-15-2018 Ambulatory HEIDI GREY Facility: [id number] Start: 11-28-2017 End: 11-29-2017 Ambulatory EYAD ALEMAN Facility:[facility] Start: 08-03-2017 Ambulatory Crispin Vasquez [id number] Procedures Date Procedure Procedure Detail Performing Clinician Start: 05-22-2025 Acetylcholine recept or measurement Dr. Jaydon Peterson MD Work Phone: Comment on above: Negative: 0.00 - 0.2 4 Borderline: 0.25 - 0.40 Positive: >0.40Performed at: [address] [id number] Director: Joana Lin MD, Phone: [phone] Start: 01-31-[address] Jaydon Peterson MD Work Phone: Start: 01-31-2025 X-ray of chest, PA a nd lateral views Dr. Jaydon Peterson MD Work Phone: Start: 01-31-2025 Urnls dip stick/tabl et reagent auto microscopy Dr. Jaydon Peterson MD Work Phone: Start: 11-28-2024 STREP A MOLECULAR (POC) Lesly BARTLETT Work Phone: Start: 11-28-2024 Radiologic exam ches t 2 views Lesly BARTLETT Work Phone: Start: 10-29-2024 End: 10-29-2024 Plain X-ray of shoulder Dr. Jaydon Davis Work Phone: Start: 08-14-2024 DESTRUCTION OF LESION E kandace Santiago MD Work Phone: Start: 09-24-2023 Plain chest X-ray Start: 08-15-2023 EPIDERMAL / DERMAL SHAVING Olag Santiago MD Work Phone: Start: 11-18-2022 STREP A MOLECULAR (POC) Nga Davis PA-C Work Phone: Start: 01-16-2021 Radex foot complete minimum 3 views Jaydon Gabriel APRN.CNP Work Phone: Plan of Treatment Date Care Activity Detail Author Start: 07-19-2034 DTaP/Tdap/Td Vaccine s (3 - Td or Tdap) DTaP/Tdap/Td Vaccines (3 - Td or Tdap) [facility] Start: 07-19-2034 Urine microalbumin profile DTaP,Tdap,Td Vaccine (3 - Td or Tdap) [facility] Start: 08-07-2025 Examination of skin Derm Melan felicia Skin Check [facility] Start: 08-06-2025 End: 08-06-2025 Patient encounter procedure 08/06/2025 8:30 AM EDT Office Visit [address] [phone] Olga León MD [address] [place] [id number] [facility] Start: 02-12-2025 Examination of skin Derm Melan felicia Skin Check [facility] Start: 08-17-2024 COVID-19 Vaccine (3 - Mixed Product risk series) COVID-19 Vaccine (3 - Mixed Product risk series) [facility] Start: 08-14-2024 End: 08-14-2024 Patient encounter procedure 08/14/2024 10:30 AM EDT Office Visit [address] [phone] Olga León MD [address] [place] [address] [id number] [facility] Start: 06-17-2024 Covid-19 Vaccine () Covid-19 Vaccine () [facility] Start: 06-17-2024 Influenza vaccination [facility] Start: 02-14-2024 End: 02-14-2024 Patient encounter procedure 02/14/2024 2:15 PM EDT Office Visit [address] [phone] Olga León MD [address] [place] [id number] [facility] Start: 06-17-2023 COVID-19 Vaccine ( season) COVID-19 Vaccine ( season) [facility] Start: 06-17-2023 Influenza vaccination Influenza Vacc ine (#1) [facility] Start: 10-17-2022 DEPRESSION ASSESSMENT DEPRESSION ASS ESSMENT [facility] Start: 09-16-2022 COVID-19 Vaccine (4 - Pfizer risk series) COVID-19 Vaccine (4 - Pfizer risk series) [facility] Start: 2021 COLOGUARD (FIT-DNA) COLOGUARD (FIT-D NA) [facility] Start: 2021 Colonoscopy COLONOSCOPY [facility] Start: 2021 COLORECTAL CANCER SCREENING COLORECTAL CANCER SCREENING [facility] Start: [address] COLONOGRAPHY [facility] Start: 2021 DIABETES SCREEN DIABETES SCREEN [facility] Start: 2021 Diabetes Screening Diabetes Screenin g [facility] Start: 2021 FECAL OCCULT BLOOD FECAL OCCULT BLOO D [facility] Start: 2021 Screening for malign ant neoplasm of colon [facility] Start: 2021 SIGMOIDOSCOPY SIGMOIDOSCOPY [facility] Start: 02-05-2019 DTaP/Tdap/Td Vaccine s (2 - Td or Tdap) DTaP/Tdap/Td Vaccines (2 - Td or Tdap) [facility] Start: 02-05-2019 Urine microalbumin profile DTaP,Tdap,Td Vaccine (2 - Td or Tdap) [facility] Start: 2011 Lipid panel Lipid Screening [facility] Start: 2011 LIPID SCREEN LIPID SCREEN [facility] Start: 1995 Hepatitis B Vaccine (1 of 3 - 19+ 3-dose series) Hepatitis B Vaccine (1 of 3 - 19+ 3-dose series) [facility] Start: 1995 Hepatitis B Vaccines (1 of 3 - 19+ 3-dose series) Hepatitis B Vaccines (1 of 3 - 19+ 3-dose series) [facility] Start: 1995 Pneumococcal Vaccine : Pediatrics and At-Risk Adult Patients (1 of 2 - PCV) Pneumococcal Vaccine: Pediatrics and At-Risk Adult Patients (1 of 2 - PCV) [facility] Start: 1995 Urine microalbumin profile DTAP,TDAP,TD (1 - Tdap) [facility] Start: 1995 Zoster Vaccines (1 of 2) Zoste r Vaccines (1 of 2) [facility] Start: 1994 Anxiety Screening Anxiety Screening [facility] Start: 1994 Depression Screening Depression Scre ening [facility] Start: 1994 HEPATITIS C SCREENING HEPATITIS C [facility] Start: 1994 Hepatitis C screening Hepatitis C [facility] Start: 1994 HIV SCREENING HIV SCREENING [facility] Start: 1994 HIV screening HIV Screening [facility] Start: 1982 Pneumococcal Vaccine : Pediatrics (0 to 5 Years) and At-Risk Patients (6 to 64 Years) (1 - PCV) Pneumococcal Vaccine: Pediatrics (0 to 5 Years) and At-Risk Patients (6 to 64 Years) (1 - PCV) [facility] Start: 1982 Pneumococcal Vaccine : Pediatrics (0 to 5 Years) and At-Risk Patients (6 to 64 Years) (1 of 2 - PCV) Pneumococcal Vaccine: Pediatrics (0 to 5 Years) and At-Risk Patients (6 to 64 Years) (1 of 2 - PCV) [facility] Start: 1977 MMR Vaccines (1 of 1 - Standard series) MMR Vaccines (1 of 1 - Standard series) [facility] Start: 1976 Examination of skin Derm Melan felicia Skin Check [facility] Start: 1976 HEPATITIS B (1 of 3 - 3-dose series) HEPATITIS B (1 of 3 - 3-dose series) [facility] Start: 1976 Hepatitis B Vaccines (1 of 3 - 3-dose series) Hepatitis B Vaccines (1 of 3 - 3-dose series) [facility] Start: 1976 HIV screening HIV Screening [facility] Start: 1976 Lipid panel Lipid Panel [facility] Start: 1976 Screening for malign ant neoplasm of colon [facility] Start: 1976 Yearly Adult Physical Yearly Adult P hysical [facility] COVID & INFLUENZA A/ B & RSV PCR, ROUTINE COVID & INFLUENZA A/B & RSV PCR, ROUTINE Microbiology Routine URI, acute Acute cough Sore throat Ordered: 11/28/2024 [facility] Work Phone: Comment on above: Ordered: 11/28/2024 Dermatopathology- [facility] Work Phone: Comment on above: Release Upon Orderin g for 1 Occurrences starting 08/15/2023 Influenza virus A an d B RNA and SARS-CoV-2 (COVID-19) N gene panel - Respiratory specimen by KIM with probe detection COVID WITH FLUA+B, ROUTINE Microbiology Routine URI, acute Ordered: 11/18/2022 [facility] Work Phone: Comment on above: Ordered: 11/18/2022 Immunizations Immunization Date Immunization Notes Care Provider Fa [facility] 07-20-2024 Covid (Spikevax) Dr. Jaydon palmer MD Work Phone: [facility] 07-19-2024 influenza, seasonal, injectable, preservative free Dr. Jaydon Peterson MD Work Phone: [facility] 07-19-2024 tetanus toxoid, redu cat diphtheria toxoid, and acellular pertussis vaccine, adsorbed Dr. Jaydon Peterson MD Work Phone: [facility] 07-22-2022 influenza, injectabl e, quadrivalent, preservative free Olga Santiago MD Work Phone: [facility] Work Phone: 07-22-2022 Pfizer COVID-19 vacc ine, bivalent, age 12 years and older (30 mcg/0.3 mL) Olga Santiago MD Work Phone: [facility] Work Phone: 07-22-2022 influenza virus vacc ine, unspecified formulation Olga Santiago MD Work Phone: [facility] Work Phone: 08-12-2021 Covid (Pfizer) Dr. Jaydon levy MD Work Phone: [facility] 08-12-2021 influenza, injectabl e, quadrivalent, preservative free Olga Santiago MD Work Phone: [facility] Work Phone: 01-16-2021 COVID-19 original vaccine, age 12+ yr, monovalent (PFIZER-BIONTECH - PURPLE TOP) Eliud Varela APRN.[facility] Work Phone: [facility] Work Phone: 12-18-2020 COVID-19 original vaccine, age 12+ yr, monovalent (PFIZER-BIONTECH - PURPLE TOP) Eliud Varela APRN.[facility] Work Phone: [facility] Work Phone: 07-31-2018 influenza, injectabl e, quadrivalent, preservative free Olga Santiago MD Work Phone: [facility] Work Phone: 11-09-2017 hepatitis A vaccine, adult dosage Olga Santiago MD Work Phone: [facility] Work Phone: 11-09-2017 typhoid capsular polysaccharide vaccine Olga Santiago MD Work Phone: [facility] Work Phone: 11-09-2017 yellow fever vaccine Allen Santiago MD Work Phone: [facility] Work Phone: 02-05-2009 hepatitis A vaccine, pediatric/adolescent dosage, 2 dose schedule Olga Santiago MD Work Phone: [facility] Work Phone: 02-05-2009 tetanus toxoid, redu cat diphtheria toxoid, and acellular pertussis vaccine, adsorbed Olga Santiago MD Work Phone: [facility] Work Phone: Payers Date Payer Category Payer Self-pay 2021 Managed Care (Private) [id number] 2019 Private Health Insurance MMO SUP [employer] PPO [id number] 2019 Unknown [id number] 2017 Unknown [id number] 1975 Unknown [id number] 1975 Unknown [id number] Unknown [id number] Unknown [id number] 462 Unknown [id number]. 462 Unknown [id number]. 462 Unknown [id number]. 462 Unknown [id number]. 462 Unknown [id number]. 462 Unknown [id number]. 462 Unknown [id number]. 462 Unknown [id number]. 462 Unknown [id number]. 462 Unknown [id number]. 462 Unknown [id number]. 462 Unknown [id number]. 462 Social History Date Type Detail Facility Start: 11-18-2022 End: 09-07-2024 Tobacco smoking status VTIS Never smoked tobacco [facility] Start: 11-11-2019 End: 11-18-2022 Tobacco use and exposure Smokeless tobacco non-user [facility] Start: 11-18-2022 End: 12-02-2024 Alcohol intake Lifetime non-drinker (finding) [facility] Start: 01-23-2021 History SDOH Alcohol Frequency 1 [facility] Start: 1975 Sex Assigned At Male [facility] Start: 09-04-2013 End: 08-11-2023 Tobacco smoking status VTIS Tobacco smoking consumption unknown [facility] Work Phone: Start: 1975 Sex Assigned At Not on file [facility] Work Phone: Start: 09-24-2020 End: 01-16-2021 Gender identity Not on file [facility] Work Phone: Start: 12-17-2020 End: 08-14-2024 Exposure to SARS-CoV-2 (event) Not sure [facility] Start: 01-16-2021 Alcoholic beverage intake Not Asked [facility] Start: 09-24-2020 End: 01-16-2021 History of Social function [facility] National Score (1-10 0), lower number is lower risk Not on file [facility] Start: 01-21-2021 Gender identity Identifies as male gender (finding) [facility] Start: 01-21-2021 Sexual orientation Heterosexual (finding) [facility] Start: 02-05-2025 End: 02-05-2025 Sex Male (finding) [facility] Functional Status Date Assessment Result Facility 08-12-2014 Are you deaf, or do you have serious difficulty hearing No 08/12/2014 8:57 AM Rebecca Friend RN No [facility] 08-12-2014 Are you blind, or do you have serious difficulty seeing, even when wearing glasses No 08/12/2014 8:57 AM Rebecca Friend RN No [facility] 08-12-2014 Do you have serious difficulty walking or climbing stairs No 08/12/2014 8:57 AM Rebecca Friend RN No [facility] 08-12-2014 Do you have difficul ty dressing or bathing No 08/12/2014 8:57 AM Rebecca Friend RN No [facility] 08-12-2014 Because of a physica l, mental, or emotional condition, do you have difficulty doing errands alone such as visiting a physician's office or shopping No 08/12/2014 8:57 AM Rebecca Friend RN No [facility] Mental Status Date Assessment Result Facility 08-12-2014 Because of a physica l, mental, or emotional condition, do you have serious difficulty concentrating, remembering, or making decisions No 08/12/2014 8:57 AM Rebecca Friend RN No [facility] Clinical Notes 01-16-2021 to 08-01-2025 Olga Santiago MD - 02/05/2025 8:30 AM Liza Gottlieb APRN.CNP - 12/02/2024 10:43 AM Linus Suazo, RT(R) - 11/28/2024 10:00 AM ESTPatient Instructions Note Date & Type Note Facility 08-01-2025 Note HNO ID: [id number] Author: CECY YATES APRN.GLOBAL RISK MANAGEMENT DIRECTOR Service: ? Author Type: Nurse Practitioner Type: Progress Notes Filed: 08/01/2025 08:34 Note Text: URGENT CARE MAXX Costa is a 50 year old male. Patient presents with: Head Congestion: Cough, sinus drainage, ST x10 days HPI The patient is a 50-year-old male presenting with sinus congestion, cough, and sore throat. Sinus Congestion, Cough, and Sore Throat: - Symptoms began approximately 10 days ago. - Intermittent improvement followed by worsening of symptoms. - Using DayQuil and Sudafed with minimal relief. - Denies fever or chills. - Productive cough with phlegm; concerns about eventual progression to chest infection and pneumonia. - Nasal discharge varies from clear to dark yellow. - Frequent throat clearing. - Denies chest pain, dyspnea, back pain, or night sweats. - Denies otalgia or dizziness; reports feeling underwater. - No known medication allergies. Review of Systems Constitutional: (-) fever, (-) chills, (-) night sweats Ears/Nose/Mouth/Throat: (+) ear fullness, (+) nasal congestion, (+) nasal discharge, (+) sore throat, (+) frequent throat clearing, (-) ear pain, (-) dizziness Cardiovascular: (-) chest pain Respiratory: (+) cough, (+) productive cough, (-) shortness of breath Musculoskeletal: (-) back pain Psychiatric: (+) sleep disturbance Objective BP 112/78 Pulse 65 Temp 36.1 ?C (97 ?F) Resp 18 Wt 97.2 kg (214 lb 4.6 oz) SpO2 99% No past medical history on file. No past surgical history on file. ALLERGIES Patient has no known allergies. MEDICATIONS - Telmisartan 20 mg tablet Take 20 mg by mouth. - metoprolol succinate ER (TOPROL XL) 25 mg 24 hr tablet TAKE 1 TABLET NIGHTLY - telmisartan (MICARDIS) 40 mg tablet Take 40 mg by mouth daily at bedtime. - amoxicillin-clavulanate potassium (AUGMENTIN) 875-125 mg per tablet Take 1 tablet by mouth two times a day for 7 days. - fluticasone (FLONASE ALLERGY RELIEF) 50 mcg/actuation nasal spray Use 2 sprays in each nostril once daily. - predniSONE (DELTASONE) 10 mg tablet Take 4 tabs daily for 3 days, then 2 tabs daily for 3 days, then 1 tab daily for 3 days with food. (Patient not taking: Reported on 08/01/2025) - albuterol HFA (PROVENTIL HFA, VENTOLIN HFA) 90 mcg/actuation inhaler Inhale 2 Puffs as instructed every 4 hours as needed for wheezing/shortness of breath. (Patient not taking: Reported on 08/01/2025) - benzonatate (TESSALON PERLE) 100 mg capsule Take 1 capsule by mouth three times a day as needed. (Patient not taking: Reported on 08/01/2025) - naproxen (NAPROSYN) 500 mg tablet Take 1 tablet by mouth twice daily as needed (pain/inflammation, take with food.). (Patient not taking: Reported on 11/18/2022) No family history on file. SOCIAL HISTORY[1] Physical Exam Vitals and nursing note reviewed. Constitutional: General: He is not in acute distress. Appearance: Normal appearance. He is not ill-appearing. HENT: Right Ear: Tympanic membrane, ear canal and external ear normal. Left Ear: Tympanic membrane, ear canal and external ear normal. Nose: Mucosal edema and congestion present. Mouth/Throat: Mouth: Mucous membranes are moist. Pharynx: Oropharynx is clear. Uvula midline. Posterior oropharyngeal erythema and postnasal drip present. No pharyngeal swelling, oropharyngeal exudate or uvula swelling. Tonsils: No tonsillar exudate. Cardiovascular: Rate and Rhythm: Normal rate and regular rhythm. Heart sounds: Normal heart sounds. Pulmonary: Effort: Pulmonary effort is normal. No respiratory distress. Breath sounds: Normal breath sounds. No wheezing or rales. Skin: General: Skin is warm and dry. Findings: No erythema or rash. Neurological: Mental Status: He is alert. { 1. Bacterial sinusitis (J32.9) - Persistent symptoms for 10 days with purulent nasal discharge, postnasal drainage, and cough productive of sputum. - Exam notable for erythematous throat with nasal drainage, and nasal inflammation and congestion. - Start Augmentin BID for 7 days. - Start Flonase nasal spray, 2 sprays in each nostril once daily before bed. - Discussed rationale for antibiotics and nasal steroid given duration of symptoms beyond typical viral course. - Follow-up with your PCP in 3-5 days if symptoms have not improved or sooner if symptoms worsen - Discussed red flags and need for immediate medical evaluation if any occur. - Discussed supportive care treatment with fluids, rest and analgesia. - Discussed expected course of illness Cecy Yates APRN.GLOBAL RISK MANAGEMENT DIRECTOR and Recording using [employer] software for draft documentation of the visit was discussed with the patient/authorized parts representative; all questions welcomed and answered. Patient/authorized parts representative agreed to proceed Differential Diagnoses - sinusitis is more likely for the following reason(s): suggested by NICK (more content not included)... [facility] 05-22-2025 Procedure note [facility] 02-05-2025 History of Present illness Narrative Subjective Lora Costa is a 49 y.o. male who presents for the following: Skin Check (Personal history of NMSC- BCC forehead 2010. Patient history of actinic keratosis. History of chemotherapy as a teenager. 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 ). Review of Systems: [...] 1. MULTIPLE BENIGN NEVI Generalized Brown and barrios macules and papules with reassuring findings on dermoscopy -These lesions have benign, reassuring patterns on dermoscopy -Recommend continued self observation, and to contact the office if any changes in nevi are noticed 2. LENTIGO Generalized Barrios macules -Benign appearing on exam -Reassurance, recommend [...] Santiago MD 02/05/2025 documented in this encounter [facility] Work Phone: 01-31-2025 Radiology Diagnostic study note [facility] Services [address] [place] [address] Chest PA and Lateral MR#: [id number] Acct: [id number] Name: LORA COSTA Rep #: [id number] : 1975 M 49 From: Messi Steinberg MD PCP: Dr. Jaydon Peterson MD Status: REG CLI Study:Chest PA and Lateral Date of Exam: 01/31/25 Exam# [id number] Ordering Dr: Kameron Peterson MD PROCEDURE: CHEST [...] No focal abnormality is seen. Reading Location: [place] [address] CC: Dr. Jaydon Peterson MD ~ Manager Reporting: Signed [facility] 12-02-2024 Note HNO ID: [id number] Author: LIZA ESTRADA APRN.GLOBAL RISK MANAGEMENT DIRECTOR Service: ? Author Type: Nurse Practitioner Type: Progress Notes Filed: 12/02/2024 12:31 Note Text: This note was created using StreamBase Systemsriter. Subjective Lora Costa is a 49 year old male. 49 [...] history is provided by the patient. No solutions market consultant was used. Cough This is a new [...] guarding or rebound. (more content not included)... [facility] 12-02-2024 History of Present illness Narrative This note was created using Pulpo Mediater. Subjective Lora Costa is a 49 year old male. 49 [...] history is provided by the patient. No solutions market consultant was used. Cough This is a new [...] with PCP for continued sx Liza Estrada APRN.GLOBAL RISK MANAGEMENT DIRECTOR documented in this encounter [facility] 11-28-2024 Note SARS-COV-2 (AGENT OF COVID-19) RNA: Not detected INFLUENZA A RNA: Not detected INFLUENZA B RNA: Not detected RESPIRATORY SYNCYTIAL VIRUS (RSV) RNA: Not detected [facility] Comment on above: Performed By: #### 9 [id number] #### [facility] CLIA [id number] [address] [place] [address] [place] 11-28-2024 History of Present illness Narrative Radiology Service Progress Note PATIENT NAME: Lora Costa DATE OF SERVICE: November 28, 2024 TIME: [...] PATIENT PRESENTS WITH AN IMPLANTABLE OR ATTACHED PLASTIC DOLLS MOLD FILLER: No RADIOLOGY DEPARTMENT: General X-ray: Exam(s) Completed: Chest X-Ray PERIPHERAL IV DATA: Not applicable SIGNED BY: RT Viki(Donna) November 28, 2024 9:47 AM documented in this encounter [facility] 11-28-2024 Note HNO ID: [id number] Author: LINUS CONTRERAS RT(R) Service: Radiology Author Type: Technologist Type: Progress Notes Filed: 11/28/2024 09:51 Note Text: Radiology Service Progress Note PATIENT NAME: Lora Costa DATE OF SERVICE: November 28, 2024 TIME: [...] PATIENT PRESENTS WITH AN IMPLANTABLE OR ATTACHED PLASTIC DOLLS MOLD FILLER: No RADIOLOGY DEPARTMENT: General X-ray: Exam(s) Completed: Chest X-Ray PERIPHERAL IV DATA: Not applicable SIGNED BY: RT Viki(Donna) November 28, 2024 9:47 AM [facility] 11-28-2024 Instructions Lesly Marcos PA - 11/28/2024 9:57 AM EST Use [...] of this tomorrow. documented in this encounter [facility] 11-28-2024 Note HNO ID: [id number] Author: LESLY MARCOS PA Service: ? Author Type: Physician Client Development Consultant Type: Progress Notes Filed: 11/28/2024 10:01 Note Text: This note was created using StreamBase Systemsriter. Subjective Lora Costa is a 49 year old male. HPI [...] detail warranting prompt ER evaluation. TRI Tao [facility] 11-28-2024 History of Present illness Narrative This note was created using NoteWriter. Subjective Lora Costa is a 49 year old male. HPI [...] evaluation. TRI Tao documented in this encounter [facility] 09-10-2024 Note [facility] Medical Records Department [address] [place] [address] Discharge Summary 09/10/24 09 MR#: [id number] Acct: [id number] Name: LORA COSTA Rep #: [id number] : 1975 49 From: Louie Arroyo MD PCP: Dr. Jaydon Peterson MD Status:DIS IN [facility] [id number] Providers Date of Admission: 09/07/24 Primary Care Physician: Dr. Jaydon Peterson MD Reason For Visit: PARTIAL SMALL [...] Arroyo MD General Surgery Endocrine Surgery Pager: [facility] [address] [place] [address], [facility], [address] [place] [address] Office: [phone] Medications at Discharge Home Medications esomeprazole magnesium [...] This diet was gradually advanced as Mr. Costa showed tolerance of each new level. He [...] persist with conservative measures and after Mr. Costa proved tolerance we discussed discharge to home. This was ultimately (more content not included)... [facility] 09-07-2024 Note [facility] Medical Records Department [address] [place] [address] History Physical Exam 09/07/241942 MR#: [id number] Acct: [id number] Name: LORA COSTA Rep #: [id number] : 1975 49 From: Louie Arroyo MD PCP: Dr. Jaydon Peterson MD Status:ADM IN Location: [facility] [place] [id number] HPI - General General Date of Admission: 09/07/24 Chief Complaint: Acute onset abdominal pain associated with intractable nausea HPI Narrative LORA COSTA, is a 49 M who presents yesterday to [facility] with complaints of acute onset abdominal pain [...] states that his operation was undertaken at [facility]. He states that from - 2012 he really had no significant GI difficulties but then in 2012 developed severe abdominal pain and presented to [facility] where he was managed with conservative bowel rest by Dr. English for a period of a few days. Now for the last 11 years Mr. Costa states he has been overall well but questions whether or not some recent travel may be part of the onset of his presentation today as his episode in 2012 was preceded by some recent travel to [place] at that time. He also notes that he recently completed a colonoscopy with Dr. Mcdowell of gastroenterology on 08/16/2024. His adds that he required a second bowel prep as Sutab's did not have their desired effect and he ultimately required magnesium citrate for the cleanout. He confirms that the findings of this endoscopy were entirely negative. [facility] Medical History Cancer of abdomen Bowel [...] % (Auto) 65.8, Lymph % (Auto) 22.9, [place] % (Auto) 9.8, Eos % (Auto) 0.9, [...] Glucose 103, Calc (more content not included)... [facility] 08-14-2024 History of Present illness Narrative Subjective Lora Costa is a 49 y.o. male who presents [...] tag(s). Procedure Note: Skin Tag Removal, CPT 51812 Anesthesia: The site was then anesthetized with [...] Thigh 4. Multiple benign nevi Brown and barrios macules and papules with reassuring findings on dermoscopy -These lesions have benign, reassuring patterns on dermoscopy -Recommend continued self observation, and to contact the office if any changes in nevi are noticed 5. Lentigo Barrios macules -Benign appearing on exam -Reassurance, recommend [...] Santiago MD 08/14/2024 documented in this encounter [facility] Work Phone: 02-14-2024 History of Present illness Narrative Subjective Lora Costa is a 48 y.o. male who presents for the following: Skin Check (Personal history of basal cell carcinoma. 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 ). Review of Systems: [...] Assessment/Plan 1. Multiple benign nevi Brown and barrios macules and papules with reassuring findings on dermoscopy -These lesions have benign, reassuring patterns on dermoscopy -Recommend continued self observation, and to contact the office if any changes in nevi are noticed 2. Lentigo Barrios macules -Benign appearing on exam -Reassurance, recommend [...] Santiago MD 02/14/2024 documented in this encounter [facility] Work Phone: 08-15-2023 History of Present illness Narrative Images from the original note were not included. Subjective Lora Costa is a 48 y.o. male who presents for the following: Skin Check (Biofuels Production Technician offered and declined. Personal history of basal [...] tissue) 2. Multiple benign nevi Brown and barrios macules and papules with reassuring findings on dermoscopy -These lesions have benign, reassuring patterns on dermoscopy -Recommend continued self observation, and to contact the office if any changes in nevi are noticed 3. Lentigo Barrios macules -Benign appearing on exam -Reassurance, recommend [...] Santiago MD 08/15/2023 documented in this encounter [facility] Work Phone: 11-18-2022 History of Present illness Narrative Subjective HPI HPI Lora Costa is a 47 year old male who [...] HENT: Head: Normocephalic and atraumatic. Mouth/Throat: Lips: [place]. Mouth: Mucous membranes are moist. Pharynx: Uvula [...] Eliud Varela APRN.CARLO documented in this encounter [facility] 01-16-2021 History of Present illness Narrative Radiology Service Progress Note PATIENT NAME: Lora Costa DATE OF SERVICE: January 16, 2021 TIME: [...] 2021 3:45 PM documented in this encounter [facility] Evaluation note Diagnosis URI, acute- Primary Acute upper respiratory infections of unspecified site Sore throat Acute pharyngitis [facility] Diagnosis Neoplasm of uncertain behavior of skin- Primary Multiple benign nevi Lentigo Other dyschromia Seborrheic keratosis Hemangioma of skin Hemangioma of skin and subcutaneous tissue Personal history of skin cancer Personal history of other malignant neoplasm of skin documented in this encounter [facility] Work Phone: Evaluation noteNo assessment information available [facility] Work Phone: Evaluation note* Diagnosis Multiple benign nevi- Primary Lentigo Other dyschromia Seborrheic keratosis Hemangioma of skin Hemangioma of skin and subcutaneous tissue Personal history of skin cancer Personal history of other malignant neoplasm of skin documented in this encounter [facility] Work Phone: Evaluation note* Diagnosis Foot pain, left Pain in limb [facility] Diagnosis Actinic keratosis- Primary Seborrheic keratosis Inflamed skin tag Multiple benign nevi Lentigo Other dyschromia Hemangioma of skin Hemangioma of skin and subcutaneous tissue Personal history of skin cancer Personal history of other malignant neoplasm of skin Screening exam for skin cancer Screening for malignant neoplasm of the skin documented in this encounter [facility] Work Phone: Evaluation note* Diagnosis URI, acute- Primary Acute upper respiratory infections of unspecified site Acute cough Sore throat Acute pharyngitis Acute cough [facility] Acute cough [facility] [place] [facility] Diagnosis URI, acute- Primary Acute upper respiratory infections of unspecified site Acute cough [facility] [place] [facility]* Diagnosis Multiple benign nevi- Primary Lentigo Other dyschromia Seborrheic keratosis Hemangioma of skin Hemangioma of skin and subcutaneous tissue Personal history of skin cancer Personal history of other malignant neoplasm of skin Screening exam for skin cancer Screening for malignant neoplasm of the skin documented in this encounter [facility] Work Phone: Reason for referral (narrative)* Consultation (Routine) - Authorized Specialty Diagnoses / Procedures Referred By Ankit garcia Referred To Contact Dermatology Diagnoses Personal history of skin cancer Procedures Follow Up In Dermatology - Established Patient Olga León MD [address] [address] Referral ID Status Reason Start Date Expiration Date V isits Requested Visits Authorized [id number] Authorized 08/15/2023 08/14/2024 1 1 [facility] Work Phone: Reason for referral (narrative)No reason for referral [facility] Work Phone: Summary Purpose Family History No Family History Records FoundNo Family History Records FoundNo Family History Records FoundNo Family History Records FoundNo Family History Records Found Advance Directives No Advanced Directives Records Found Advance Directive Response Recorded Date/ Time Advance Directives No August 12:44am Living Will No September 04 013 12:44am Power of Haulage Boss No September 04, 2013 12:44am Advance Directive [...] LAB ORDERS February 22, 2025 11:29a m Chief Complaint Admit Date CRP ELEVATED January 31, 2025 1:3 7pm INT LAB ORDERS February 22, 2025 11:29a m BUE; Paresthesia of skin May 22 1:24pm BUE; Paresthesia of skin May 22 2:39pm Additional Source Comments (unrecognized sect ion and content) No Status Records FoundNo Status Records FoundNo Status Records FoundNo Status Records FoundNo Status Records Found INFORMATION SOURCE (unrecogn ized section and content) DATE CREATED AUTHOR 04/05/2018 [facility] DATE CREATED AUTHOR AUTHOR'S ORGANIZ ATION 04/10/2018 [facility] ([place]) DATE CREATED AUTHOR AUTHOR'S ORGANIZ ATION 02/07/2025 [facility] DATE CREATED AUTHOR AUTHOR'S ORGANIZ ATION 07/09/2025 [facility] DATE CREATED AUTHOR AUTHOR'S ORGANIZ ATION 08/03/2025 [facility] Source Comments (unrecognize d section and content) In the event this informatio n is protected by the Federal Confidentiality of Alcohol and Drug Abuse Patient Records regulations: The Federal rules restrict any use of the information to criminally investigate or prosecute any alcohol or drug abuse patient.[facility] the event this information is protected by the Federal Confidentiality of Alcohol and Drug Abuse Patient Records regulations: The Federal rules restrict any use of the information to criminally investigate or prosecute any alcohol or drug abuse patient.[facility] the event this information is protected by the Federal Confidentiality of Alcohol and Drug Abuse Patient Records regulations: The Federal rules restrict any use of the information to criminally investigate or prosecute any alcohol or drug abuse patient.[facility] the event this information is protected by the Federal Confidentiality of Alcohol and Drug Abuse Patient Records regulations: The Federal rules restrict any use of the information to criminally investigate or prosecute any alcohol or drug abuse patient.[facility] Hospital[facility] the event this information is protected by the Federal Confidentiality of Alcohol and Drug Abuse Patient Records regulations: The Federal rules restrict any use of the information to criminally investigate or prosecute any alcohol or drug abuse patient.[facility] Hospital[facility] the event this information is protected by the Federal Confidentiality of Alcohol and Drug Abuse Patient Records regulations: The Federal rules restrict any use of the information to criminally investigate or prosecute any alcohol or drug abuse patient.[facility] Reason for Visit (unrecogniz ed section and content) Reason Comments Sore Throat Congestion, SANCHEZ, sinu s x 1 day Reason Comments Skin Check Biofuels Production Technician offered an d declined. Personal history of basal cell carcinoma. Pt reports family history non melanoma skin cancer. Reason Comments Skin Check Personal history of basal cell carcinoma. 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 Reason Comments Skin Check [facility]. Last full [...] of chemotherapy as a teenager. 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 Care Teams (unrecognized sec tion and content) Cooker Syrup Relationship Specialty Start Date End Date Denice Valdovinos [address] [place] [address] PCP - General 01/13/04 Cooker Syrup Relationship Specialty Start Date End Date Denice Valdovinos MD [address] [place] [address] PCP - General 03/29/11 Team Status: Active Member Role Status Dates Dr. Denice Valdovinos MD Family Provider Active Dr. Jaydon Peterson MD Primary Care Provider Active Team Status: Inactive Member Role Status Dates Dr. Jaydon Peterson MD Primary Care Provide r, Attending Provider, Referring Provider Active Team Status: Active Member Role Status Dates Dr. Jaydon Peterson MD Primary Care Provider Active Dr. Fran Adhikari MD Attending Provider Active Cooker Syrup Relationship Specialty Start Date End Date Denice Valdovinos MD [address] [place] [address] PCP - General Family Medicine 02/14/24 Cooker Syrup Relationship Specialty Start Date End Date Denice Valdovinos [address] [place] [address] PCP - General 01/13/04 Cooker Syrup Relationship Specialty Start Date End Date Denice Valdovinos MD [address] [place] [address] PCP - General Family Medicine 02/14/24 Cooker Syrup Relationship Specialty Start Date End Date Denice Valdovinos [address] [place] [address] PCP - General 01/13/04 Cooker Syrup Relationship Specialty Start Date End Date Denice Valdovinos [address] [place] [address] PCP - General 01/13/04 Cooker Syrup Relationship Specialty Start Date End Date MaiDenice to [address] [place] [id number] PCP - General 01/13/04 Cooker Syrup Relationship Specialty Start Date End Date Denice Valdovinos [address] [place] [address] PCP - General 01/13/04 Cooker Syrup Relationship Specialty Start Date End Date Denice Valdovinos MD [address] [place] [address] PCP - General Family Medicine 02/14/24 Team Status: Active Member Role Status Dates Dr. Jaydon Peterson MD Primary Care Provider Active Team Status: Inactive Member Role Status Dates Dr. Jaydon Peterson MD Primary Care Provider Active Start: October 29, 2024 End: October 29, 2024 Dr. Jaydon Peterson MD Attending Provider Active St art: October 29, 2024 End: October 29, 2024 Dr. Jaydon Peterson MD Referring Provider Active St art: October 29, 2024 End: October 29, 2024 Team Status: Inactive Member Role Status Dates Dr. Jaydon Peterson MD Primary Care Provider Active Start: January 31, 2025 End: January 31, 2025 Dr. Jaydon Peterson MD Attending Provider Active St art: January 31, 2025 End: January 31, 2025 Dr. Jaydon Peterson MD Referring Provider Active St art: January 31, 2025 End: January 31, 2025 Team Status: Active Member Role Status Dates Dr. Jaydon Peterson MD Primary Care Provider Active Start: January 31, 2025 Dr. Jaydon Peterson MD Attending Provider Active St art: January 31, 2025 Dr. Jaydon Peterson MD Referring Provider Active St art: January 31, 2025 Team Status: Inactive Member Role Status Dates Dr. Jaydon Peterson MD Primary Care Provider Active Start: February 22, 2025 End: February 22, 2025 Dr. Jaydon Peterson MD Attending Provider Active St art: February 22, 2025 End: February 22, 2025 Dr. Jaydon Peterson MD Referring Provider Active St art: February 22, 2025 End: February 22, 2025 Team Status: Active Member Role/Relationship Status Dates Dr. Jaydon Peterson MD Primary Care Provider Active Team Status: Inactive Member Role/Relationship Status Dates Dr. Jaydon Peterson MD Primary Care Provider Active Start: January 31, 2025 End: January 31, 2025 Dr. Jaydon Peterson MD Attending Provider Active St art: January 31, 2025 End: January 31, 2025 Dr. Jaydon Peterson MD Referring Provider Active St art: January 31, 2025 End: January 31, 2025 Team Status: Inactive Member Role/Relationship Status Dates Dr. Jaydon Peterson MD Primary Care Provider Active Start: January 31, 2025 End: January 31, 2025 Dr. Jaydon Peterson MD Attending Provider Active St art: January 31, 2025 End: January 31, 2025 Dr. Jaydon Peterson MD Referring Provider Active St art: January 31, 2025 End: January 31, 2025 Team Status: Inactive Member Role/Relationship Status Dates Dr. Jaydon Peterson MD Primary Care Provider Active Start: February 22, 2025 End: February 22, 2025 Dr. Jaydon Peterson MD Attending Provider Active St art: February 22, 2025 End: February 22, 2025 Dr. Jaydon Peterson MD Referring Provider Active St art: February 22, 2025 End: February 22, 2025 Team Status: Inactive Member Role/Relationship Status Dates Dr. Jaydon Peterson MD Primary Care Provider Active Start: May 22, 2025 End: May 22, 2025 Dr. Jaydon Peterson MD Other Provider Active Start: May 22, 2025 End: May 22, 2025 Dr. Vitaly Crockett DO Attending Provider Active Start: May 22, 2025 End: May 22, 2025 Dr. Vitaly Crockett DO Referring Provider Active Start: May 22, 2025 End: May 22, 2025 Dr. Darrion Jewell MD Other Provider Active Sta rt: May 22, 2025 End: May 22, 2025 Team Status: Active Member Role/Relationship Status Dates Dr. Jaydon Peterson MD Primary Care Provider Active Start: May 22, 2025 Dr. Jaydon Peterson MD Other Provider Active Start: May 22, 2025 Dr. Vitaly Crockett , Referring Provider Active Start: May 22, 2025 Dr. Vitaly Crockett , Other Provider Active Start: May 22, 2025 Dr. Darrion Jewell MD Other Provider Active Sta rt: May 22, 2025 Dr. Vic Pompa MD Attending Provider Active S tart: May 22, 2025 Goals (unrecognized section and content) [...] BE BASED ON THE PRIMARY CLINICAL RECORDS. [employer] provides no warranty or guarantee of the accuracy or completeness of information in this document.
[2025-09-24 08:23] LABS: AST(SGOT) 24 U/L (<=37); Alanine Aminotransfer ALT/SGPT 28 U/L (<=46); Albumin, Serum 4.1 g/dL (3.5-5.0); Alkaline Phosphatase 68 U/L (40-129); Anion Gap 7 (5-15); BUN 27 mg/dL (4-19); BUN/Creat Ratio 21.6 RATIO (10-20); Calcium,Total 9.3 mg/dL (7.6-11.0); Carbon Dioxide 26.0 mmol/L (21.0-32.0); Chloride 106 mmol/L (98-108); Globulin 2.1 g/dL (2.2-4.2); Glucose 76 mg/dL (70-99); Potassium 4.7 mmol/L (3.3-5.1); Vitamin B12 434 pg/mL (180-914)
== END | disposition home or self-care (01) ==
LOC: LAB 06:49
PROVIDERS: PCP Family Medicine; Referring Provider Family Medicine; Visit Provider Family Medicine
DX: R20.2 Paresthesia of skin (principal)
CPT/HCPCS: 36415; 80053; 82607